=== PATIENT | male | born 1935 | race Caucasian/White ===

== ENCOUNTER 2021-11-27 16:48 | Emergency (ER) | payer OTHER, SELFPAY ==
--- NOTE | ~2021-11-27 | CT_ITS ---
EXAMINATION: CT ABDOMEN AND PELVIS WITHOUT CONTRAST CLINICAL INFORMATION: Abdominal pain COMPARISON: CT abdomen and pelvis 02/25/2008 TECHNIQUE: Multidetector volumetric imaging was performed from the superior aspect of the liver through the pubic symphysis. Sagittal and coronal reformatted images were obtained on the technologist's workstation. This CT examination was performed using dose optimization techniques as appropriate, variously including the following: *Automated exposure control *Adjustment of mA and/or kV according to patient size (this includes techniques or standardized protocols for targeted exams where dose is matched to indication/reason for exam; i.e. extremities or head) *Use of iterative reconstruction technique DLP: 450 mGy-cm FINDINGS: Exam quality degraded by patient motion artifact. LUNG BASES: Trace left basilar pleural effusion. Lung bases otherwise clear. Small hiatal hernia. LIVER, GALLBLADDER, AND BILIARY TREE: Multiple low-density hepatic lesions compatible with cysts measuring up to 3.4 cm in size in the left liver lobe. No suspicious appearing liver lesions. Normal hepatic attenuation. Gallbladder is not the identified. No biliary ductal dilation. PANCREAS: Unremarkable. SPLEEN: Normal size. No splenic lesion. Small splenule. ADRENAL GLANDS: Unremarkable. KIDNEYS AND URETERS: 1.8 cm low-density exophytic right midpole renal cyst. Small low-density right lower pole renal lesion also likely a small cyst. No other gross renal lesion allowing for motion artifact. No radiodense urinary tract calculi or hydronephrosis. Mild symmetric perirenal fascial stranding bilaterally. BLADDER: Slightly thick-walled appearance favored due to incomplete distention. GASTROINTESTINAL TRACT: Sigmoid diverticulosis. No evidence of acute diverticulitis. No dilated bowel loops or appreciable bowel wall thickening. Appendix is not discretely visualized. No inflammatory change in the right lower quadrant. No ascites or free air. ABDOMINAL WALL: Small fat-containing left inguinal hernia. LYMPH NODES: No lymphadenopathy identified. VASCULAR: Tortuous abdominal aorta with extensive vascular calcifications. No abdominal aortic aneurysm. PELVIC VISCERA: Unremarkable. OSSEOUS STRUCTURES: No acute fracture or suspicious osseous lesion. Multilevel degenerative disc disease most advanced at L5-S1. Lower lumbar facet arthrosis. CT/CT abdomen pelvis wo IV con IMPRESSION: 1. No acute intra-abdominal process identified. 2. Sigmoid diverticulosis. No evidence of acute diverticulitis. 3. Hepatic cysts and small right renal cysts. 4. Additional ancillary findings, as described.
[2021-11-27 17:22] VITALS: BP 148/82; PULSE 66; RESP 18; TEMP 36.8; O2SAT 98; BMI 22.1
[2021-11-27 17:39] LABS: MANUAL DIFF FLAG NO
[2021-11-27 17:42] LABS: Hemoglobin 13.3 g/dl (14.0-18.0); Lymphocytes Percent Auto 24.3 % (20-40); NRBC Pct Auto 0.5 /100WBC (0.0-0.2); PLT CLUMP 1; SCAN SMEAR FLAG 1
[2021-11-27 17:44] LABS: Basophils Absolute Auto 0.1 X10*3/uL (0.0-0.2); Basophils Percent Auto 0.9 % (0-2); Eosinophils Absolute Auto 0.2 X10*3/uL (0.0-0.4); Eosinophils Percent Auto 2.5 % (0-4); Hematocrit 40.3 % (42.0-52.0); Imm Gran Abs Auto 0.02 X10*3/uL (0.00-0.03); Imm Gran Pct Auto 0.3 % (0.0-0.4); Lymphocytes Absolute Auto 1.6 X10*3/uL (1.2-4.9); Mean Corpuscular Volume 93.9 fL (80.0-98.0); Mean Platelet Volume 11.7 fL (9.4-12.4); Monocytes Absolute Auto 0.5 X10*3/uL (0.1-1.2); Neutrophils Absolute Auto 4.1 x10*3/uL (2.0-8.3); Red Blood Count 4.29 X10*6/uL (4.60-5.80); Red Cell Distribution Width 13.6 % (11.0-16.0)
[2021-11-27 18:00] LABS: Alanine Aminotransferase 17 U/L (0-40); Alkaline Phosphatase 59 U/L (39-117); Anion Gap 14 (12-20); Aspartate Amino Transferase 24 U/L (5-37); Bilirubin Total 0.4 mg/dL (0.0-1.0); Blood Urea Nitrogen 19 mg/dL (9-16); Calcium 8.5 mg/dL (8.4-10.2); Carbon Dioxide 20 mmol/L (22-29); Chloride 107 mmol/L (96-108); Creatinine Clr Calc Pharmacy 46.8; Estimated Glomerular Filt Rate > 60; Glucose Random 119 mg/dL (60-115); Lipase 28 U/L (8-78); Potassium 4.6 mmol/L (3.3-5.1); Sodium 136 mmol/L (135-145); Total Protein 6.7 g/dL (6.5-8.0)
[2021-11-27 18:01] LABS: Platelet Count 67 X10*3/uL (160-400); White Blood Count 6.5 X10*3/uL (4.8-10.8)
[2021-11-27 19:46] LABS: Appearance Urine CLEAR; Color Urine YELLOW; Glucose Urine UA NEG (NEG); Leukocyte Esterase Urine NEG (NEG); Nitrite Urine NEG (NEG); Specific Gravity - Urine 1.025 (1.005-1.025); Urine Blood NEG (NEG); Urine Ketones NEG (NEG); Urine Protein NEG (NEG-TRACE)
--- NOTE | 2021-11-27 22:03 | ED_ITS ---
HPI - Abdominal Pain General Chief Complaint: Abdominal Pain Stated Complaint: severe abd pain Time Seen by Provider: 11/27/21 22:03 Source: patient and family Mode of arrival: ambulatory Limitations: no limitations History of Present Illness HPI narrative: Patient with History of bipolar disorder, BPH, CVA, hypertension, hyperlipidemia , arthralgia, anxiety goes to [facility] came from GI office today who ordered CT scan for abnormal CT scan finding for mild thickening of small portion of distal ascending colon on the CT scan done on 11/12. Patient feel very anxious and depressed unable to sleep for last few days feels abdominal bloated and constipated no nausea no vomiting no diarrhea no fever no chills Related Data Home Medications Medication Instructions Recorded Confirmed atorvastatin 80 mg tablet 80 mg PO DAILY 11/27/21 11/27/21 docusate sodium 100 mg capsule 100 mg PO BID 11/27/21 11/27/21 furosemide 20 mg tablet 20 mg PO DAILY 11/27/21 11/27/21 hydrochlorothiazide 12.5 mg capsule 12.5 mg PO DAILY 11/27/21 11/27/21 lamotrigine 200 mg tablet 200 mg PO DAILY 11/27/21 11/27/21 multivitamin 1 tab PO DAILY 11/27/21 11/27/21 olanzapine 5 mg tablet 5 mg PO BEDTIME 11/27/21 11/27/21 omeprazole 20 mg capsule,delayed 20 mg PO DAILY 11/27/21 11/27/21 release ondansetron HCl 4 mg tablet 4 mg PO BID 11/27/21 11/27/21 selegiline 9 mg/24 hr transdermal 9 mg transdermal DAILY 11/27/21 11/27/21 24 hour patch sennosides 8.6 mg tablet 17.2 mg PO BID 11/27/21 11/27/21 terazosin 5 mg capsule 5 mg PO BEDTIME 11/27/21 11/27/21 Previous Rx's Medication Instructions Recorded bisacodyl 5 mg tablet 10 mg PO BEDTIME #180 tabs 11/27/21 dicyclomine 10 mg capsule 10 mg PO TID PRN abdominal 11/27/21 discomfort #30 caps lorazepam 0.5 mg tablet (Ativan) 0.5 mg PO BEDTIME PRN sleep #30 11/27/21 tabs magnesium citrate 150 ml PO DAILY PRN constipation 11/27/21 #296 mL polyethylene glycol 3350 17 17 g PO DAILY #510 grams 11/27/21 gram/dose oral powder (Miralax) Allergies Allergy/AdvReac Type Severity Reaction Status Date / Time pencillin Allergy Severe Unknown Uncoded 11/20/21 16:26 Review of Systems Review of Systems Yes all other systems are reviewed and are negative [facility] Social History Social History Household Members: Family Alcohol intake: never Patient Tobacco Use Status: Never used Tobacco Advance Directives: No Physical Exam ED Vital Signs: Vital Signs - 24 hr 11/27/21 17:22 Temperature 98.2 F Pulse Rate 66 Respiratory Rate 18 Blood Pressure 148/82 H Pulse Oximetry 98 Oxygen Delivery Method Room Air BMI result Body Mass Index 22.1 Appearance: Alert. Oriented X3. No acute distress. Patient feels anxious Eyes: No pallor or icterus ENT: Pharynx normal. Oral Mucosa moist Neck: Normal inspection. Neck supple. CVS: Normal heart rate and rhythm. Pulses normal. Respiratory: No respiratory distress. Equal air entry bilateral, no wheezing/rales/rhonchi Abdomen: Soft and nontender. Bowel sounds are present, no mass palpable, no CVA tenderness Skin: Skin warm and dry. Normal skin color. Normal skin turgor. Extremities: No lower extremity edema. No calf tenderness Neuro: Oriented X 3. No motor deficit. No sensory deficit.No cerebellar signs , cranial nerves II-XII intact MDM - Abdominal Pain MDM Narrative Medical decision making narrative: Patient with anxiety bipolar disorder clinically seems like IBS patient's labs are stable and CT scan negative for any acute findings will discharge patient home Medical Records Attestation: I reviewed the patient's medical records. Lab Data Attestation: I reviewed the patient's lab results. Result diagrams: 11/27/21 17:31 11/27/21 17:31 Labs: Lab Results 11/27/21 11/27/21 11/27/21 Range/Units 17:31 17:31 19:32 WBC 6.5 (4.8-10.8) X10*3/uL RBC 4.29 L (4.60-5.80) X10*6/uL Hgb 13.3 L (14.0-18.0) g/dl Hct 40.3 L (42.0-52.0) % MCV 93.9 (80.0-98.0) fL MCH 31.0 (27.0-33.0) pg MCHC 33.0 (31.0-36.0) g/dl RDW 13.6 (11.0-16.0) % Plt Count 67 L (160-400) X10*3/uL MPV 11.7 (9.4-12.4) fL Immature Gran % (Auto) 0.3 (0.0-0.4) % Neut % (Auto) 64.0 (45-73) % Lymph % (Auto) 24.3 (20-40) % [place] % (Auto) 8.0 (2-11) % Eos % (Auto) 2.5 (0-4) % Baso % (Auto) 0.9 (0-2) % Lymph # (Auto) 1.6 (1.2-4.9) X10*3/uL [place] # (Auto) 0.5 (0.1-1.2) X10*3/uL Eos # (Auto) 0.2 (0.0-0.4) X10*3/uL Baso # (Auto) 0.1 (0.0-0.2) X10*3/uL Abs Immat Gran (auto) 0.02 (0.00-0.03) X10*3/uL Absolute Neuts (auto) 4.1 (2.0-8.3) x10*3/uL Absolute Nucleated RBC 0.030 H (0.0-0.012) X10*3/uL Nucleated RBC % (auto) 0.5 H (0.0-0.2) /100WBC Sodium 136 (135-145) mmol/L Potassium 4.6 (3.3-5.1) mmol/L Chloride 107 (96-108) mmol/L Carbon Dioxide 20 L (22-29) mmol/L Anion Gap 14 (12-20) BUN 19 H (9-16) mg/dL Creatinine 1.09 (0.5-1.4) mg/dL Estim Creat Clear Calc 46.8 Estimated GFR > 60 Random Glucose 119 H (60-115) mg/dL Calcium 8.5 (8.4-10.2) mg/dL Total Bilirubin 0.4 (0.0-1.0) mg/dL AST 24 (5-37) U/L ALT 17 (0-40) U/L Alkaline Phosphatase 59 (39-117) U/L Total Protein 6.7 (6.5-8.0) g/dL Albumin 4.0 (3.5-5.0) g/dL Lipase 28 (8-78) U/L Urine Color YELLOW Urine Appearance CLEAR Urine pH 6.0 (5.0-8.0) Ur Specific [place] 1.025 (1.005-1.025) Urine Protein NEG (NEG-TRACE) MG/DL Urine Glucose (UA) NEG (NEG) MG/DL Urine Ketones NEG (NEG) MG/DL Urine Blood NEG (NEG) Urine Nitrite NEG (NEG) Ur Leukocyte Esterase NEG (NEG) Discharge Plan Discharge Clinical Impression: Irritable bowel syndrome, Anxiety Patient Disposition: Home, Self-Care Instructions: Irritable Bowel Syndrome (ED), Anxiety (ED) Additional Instructions: Rest at home Continue medications as prescribed by your PCP Ativan for anxiety and poor sleep Prescriptions: New lorazepam [Ativan] 0.5 mg tablet 0.5 mg PO BEDTIME PRN (Reason: sleep) Qty: 30 0RF dicyclomine 10 mg capsule 10 mg PO TID PRN (Reason: abdominal discomfort) Qty: 30 0RF No Action atorvastatin 80 mg tablet 80 mg PO DAILY docusate sodium 100 mg capsule 100 mg PO BID furosemide 20 mg tablet 20 mg PO DAILY magnesium citrate Solution 150 ml PO DAILY PRN (Reason: constipation) Qty: 296 2RF hydrochlorothiazide 12.5 mg capsule 12.5 mg PO DAILY lamotrigine 200 mg tablet 200 mg PO DAILY multivitamin Tablet 1 tab PO DAILY olanzapine 5 mg tablet 5 mg PO BEDTIME omeprazole 20 mg capsule,delayed release(DR/EC) 20 mg PO DAILY selegiline 9 mg/24 hr patch 24 hour 9 mg transdermal DAILY polyethylene glycol 3350 [Miralax] 17 gram/dose powder 17 g PO DAILY Qty: 510 2RF sennosides 8.6 mg tablet 17.2 mg PO BID bisacodyl 5 mg tablet 10 mg PO BEDTIME Qty: 180 1RF terazosin 5 mg capsule 5 mg PO BEDTIME ondansetron HCl 4 mg tablet 4 mg PO BID
[2021-11-27] MEDS: LORazepam 0.5 MG TABLET PO (22:27)
== END 2021-11-27 22:31 | disposition home or self-care (01) ==
LOC: HO.ED 22:25
PROVIDERS: Emergency Provider Internal Medicine
DX: K58.9 Irritable bowel syndrome, unspecified (principal); F41.9 Anxiety disorder, unspecified; F32.A Depression, unspecified; I10 Essential (primary) hypertension; E78.5 Hyperlipidemia, unspecified; Z86.73 Personal history of transient ischemic attack (TIA), and cerebral infarction without residual deficits; Z79.02 Long term (current) use of antithrombotics/antiplatelets; Z79.899 Other long term (current) drug therapy
CPT/HCPCS: 36415; 74176; 80053; 81003; 83690; 85025; 99202; 99282; 99284

== ENCOUNTER 2022-03-16 15:35 | Emergency (ER) | payer OTHER, SELFPAY ==
--- NOTE | ~2022-03-16 | CT_ITS ---
EXAMINATION: CT HEAD WITHOUT CONTRAST CLINICAL INFORMATION: Weakness. Emergency evaluation. COMPARISON: None TECHNIQUE: Contiguous axial imaging was performed from the skull base to vertex without intravenous administration of contrast. This CT examination was performed using dose optimization techniques as appropriate, variously including the following: *Automated exposure control *Adjustment of mA and/or kV according to patient size (this includes techniques or standardized protocols for targeted exams where dose is matched to indication/reason for exam; i.e. extremities or head) *Use of iterative reconstruction technique DLP: 769 mGy-cm FINDINGS: There is prominence to the sulci and ventricles with moderate deep white matter gliosis but no hemorrhage, mass, mass effect or intracranial extra-axial fluid collection or hemorrhage. Calvarium intact. CT/CT head/brain wo IV con IMPRESSION: No acute intracranial pathology.
--- NOTE | ~2022-03-16 | XR_ITS ---
EXAMINATION: XR CHEST CLINICAL INFORMATION: Shortness of breath COMPARISON: Chest x-ray 09/04/2019 TECHNIQUE: 2 views of the chest were obtained. FINDINGS: Lung volume is low. Lungs are clear. No pulmonary vascular congestion. There is no pleural effusion. The heart size is normal. The cardiac and mediastinal contours are normal. There are multilevel degenerative changes of dorsal spine. XR/XR chest 2V IMPRESSION: Unremarkable examination.
[2022-03-16 15:47] VITALS: BP 134/88; BP 174/89; PULSE 67; PULSE 87; RESP 14; TEMP 36.9; O2SAT 97; O2SAT 98; BMI 22.1
--- NOTE | 2022-03-16 15:58 | ECG_ITS ---
Test Reason : DIZZINESS Blood Pressure : / mmHG Vent. Rate : 074 BPM Atrial Rate : 074 BPM P-R Int : 142 ms QRS Dur : 088 ms QT Int : 396 ms P-R-T Axes : 073 -36 027 degrees QTc Int : 439 ms Poor data quality Sinus rhythm with occasional Premature ventricular complexes Sinus Arrhythmia Left anterior fascicular block Abnormal ECG When compared with ECG of 17-AUG-2019 11:25, Premature ventricular complexes are now Present QRS axis Shifted left Referred By: Teodora David Electronically Signed By:PARAM BROWNING MD
--- NOTE | 2022-03-16 15:59 | ED_ITS ---
HPI - Psych General Chief Complaint: Psychiatric Symptoms Stated Complaint: SI Time Seen by Provider: 03/16/22 15:53 Source: patient Mode of arrival: EMS Limitations: no limitations History of Present Illness HPI Narrative: Patient is an 86-year-old male who presents to the emergency department with suicidal ideations. He states he always feels this way, when asked he states he has been taking his medications recently. Denies any precipitating event that may have increased his suicidal ideations. He reports that today he was searching around in his bed/room for cords that he could hang himself by the feet with, but was unable to find anything Does not provide any history of suicide attempts. Upon questioning he does endorse shortness of breath, which he states is typical for him, it is difficult to discern whether this is worse than normal. He also reports feeling generally weak. Denies any recent falls. Denies fevers, chills, chest pain, cough, nausea, vomiting, abdominal pain, numbness or tingling of the extremities. Related Data Home Medications Medication Instructions Recorded Confirmed atorvastatin 80 mg tablet 80 mg PO DAILY 11/27/21 11/27/21 docusate sodium 100 mg capsule 100 mg PO BID 11/27/21 11/27/21 furosemide 20 mg tablet 20 mg PO DAILY 11/27/21 11/27/21 hydrochlorothiazide 12.5 mg capsule 12.5 mg PO DAILY 11/27/21 11/27/21 lamotrigine 200 mg tablet 200 mg PO DAILY 11/27/21 11/27/21 multivitamin 1 tab PO DAILY 11/27/21 11/27/21 olanzapine 5 mg tablet 5 mg PO BEDTIME 11/27/21 11/27/21 omeprazole 20 mg capsule,delayed 20 mg PO DAILY 11/27/21 11/27/21 release ondansetron HCl 4 mg tablet 4 mg PO BID 11/27/21 11/27/21 selegiline 9 mg/24 hr transdermal 9 mg transdermal DAILY 11/27/21 11/27/21 24 hour patch sennosides 8.6 mg tablet 17.2 mg PO BID 11/27/21 11/27/21 terazosin 5 mg capsule 5 mg PO BEDTIME 11/27/21 11/27/21 Previous Rx's Medication Instructions Recorded bisacodyl 5 mg tablet 10 mg PO BEDTIME #180 tabs 11/27/21 dicyclomine 10 mg capsule 10 mg PO TID PRN abdominal 11/27/21 discomfort #30 caps lorazepam 0.5 mg tablet (Ativan) 0.5 mg PO BEDTIME PRN sleep #30 11/27/21 tabs magnesium citrate 150 ml PO DAILY PRN constipation 11/27/21 #296 mL polyethylene glycol 3350 17 17 g PO DAILY #510 grams 11/27/21 gram/dose oral powder (Miralax) Allergies Allergy/AdvReac Type Severity Reaction Status Date / Time pencillin Allergy Severe Unknown Uncoded 11/20/21 16:26 Review of Systems Review of Systems: Constitutional : No Fever, No Chills, positive weakness ENT/Mouth : No Ear Pain, No Nasal Congestion, No sore throat Eyes: No Eye Pain, No Swelling, No Redness Cardiovascular : No Chest Pain, positive SOB Respiratory : No Cough, No Sputum, Gastrointestinal : No Nausea, No Vomiting, No Diarrhea, No Hematochezia, No Melena Genitourinary : No Dysuria, No Urinary Frequency, No Hematuria Musculoskeletal : No Myalgias Skin : No Skin Lesions, No rash Neuro : No Weakness, No Numbness, No Paresthesias, No Dizziness, No Headache Psych : positive Anxiety, positive Depression, positive SI/HI Heme/Lymph: No Lymphadenopathy Endocrine : No Polyuria, No Polydipsia Yes all other systems are reviewed and are negative [facility] Past Medical History Attestation statement: The following information was validated with the patient. Source: old records reviewed Social History Social History Household Members: Family Alcohol intake: never Patient Tobacco Use Status: Never used Tobacco Advance Directives: Yes Advance Directives Information Provided: No Advance Directives on File: No Physical Exam Vital Signs: Vital Signs: Last Vital Signs Temp 98.5 F 03/16/22 15:47 Pulse 67 03/16/22 15:47 Resp 14 03/16/22 15:47 BP 174/89 H 03/16/22 15:47 Pulse Ox 97 03/16/22 15:47 O2 Del Method 03/16/22 15:47 BMI result Body Mass Index 22.1 Appearance: Alert.?Oriented to person, place and time. No acute distress.?Normal affect. Eyes: Pupils equal, round and reactive to light.? ENT: Pharynx normal.?? Neck: Normal inspection.? Neck supple.?? CVS: Heart sounds normal. Normal heart rate and rhythm.? Pulses normal.?? Respiratory: Tachypnea? Lung sounds clear to auscultation bilaterally?? Abdomen: Soft and non-tender. Normoactive bowel sounds. ? Skin: Skin warm and dry.? Normal skin color.? Extremities: No lower extremity edema.? Neuro: Moves all extremities spontaneously. Sensation intact bilaterally. CT II- X!! intact. No focal neuro deficits. Course Course Course Narrative: Patient is an 86-year-old male with past medical history of anxiety, depression, bipolar disorder, BPH, CVA, hypertension, hyperlipidemia presenting to emergency department reports of suicidal ideations and shortness of breath. He reports that he always feels short of breath, unable to provide much more significant history. Physical exam is overall unremarkable, notably tachypneic but he is also very anxious, he is afebrile, no tachycardia, or hypoxia. Will obtain CBC to evaluate for leukocytosis/ anemia, CMP to evaluate for abnormal electrolytes /abnormal renal function/ abnormal hepatic function, EKG and troponin to evaluate for ischemia/ACS. Chest x-ray to evaluate for consolidation/ infiltrate/ mass/ pulmonary congestion and Urinalysis. I spoke with patient's son Ellis with patient's permission, he can be reached at [phone]. Ellis reports that patient has a history of anxiety, depression, bipolar disorder for which he is supposed to be taking medications for. He is not certain whether his father is actually taking his medications. Patient lives alone, his son lives downstairs in an in-law apartment. Reports that patient has had longstanding history with suicidal ideations, denies his father ever endorsing any specific plan, no denies any known history of suicide attempts in the past. Reevaluation(s) Reevaluation #1: Chest x-ray is unremarkable for any acute cardiopulmonary process. CBC reveals a normocytic anemia and mild thrombocytopenia which appears consistent with baseline otherwise unremarkable. CMP is overall unremarkable. Troponin detectable at 18.9, EKG Reveals sinus rhythm with PVCs, no acute ischemic findings, no active chest pain. D-dimer 273, age adjusted is normal, low likelihood for pulmonary embolism. COVID-19 and influenza testing are negative. Patient continues to report feeling generally weak, discussed this case with ED attending, will obtain CT of the head to exclude intracranial pathology. Given acute anziety, inability to sit still, patient to receive Zyprexa IM. If normal, he will require physician observation as he will require additional time to be evaluated by N to determine whether inpatient psychiatric services are required given suicidal ideations thoughts of wanting to hang himself. Patient signed out to Mckayla Calderon NP pending CT head and BHN evaluation Time: 18:01 [facility] - Psych Medical Records Attestation: I reviewed the patient's medical records. Lab Data Attestation: I reviewed the patient's lab results. Result diagrams: 03/16/22 16:50 03/16/22 16:50 Labs: Lab Results 03/16/22 03/16/22 03/16/22 Range/Units 16:50 16:50 16:50 WBC 7.4 (4.8-10.8) X10*3/uL RBC 4.23 L (4.60-5.80) X10*6/uL Hgb 13.2 L (14.0-18.0) g/dl Hct 37.9 L (42.0-52.0) % MCV 89.6 (80.0-98.0) fL MCH 31.2 (27.0-33.0) pg MCHC 34.8 (31.0-36.0) g/dl RDW 12.8 (11.0-16.0) % Plt Count 154 L D (160-400) X10*3/uL MPV 11.2 (9.4-12.4) fL Immature Gran % (Auto) 0.3 (0.0-0.4) % Neut % (Auto) 69.6 (45-73) % Lymph % (Auto) 22.0 (20-40) % [place] % (Auto) 5.9 (2-11) % Eos % (Auto) 1.8 (0-4) % Baso % (Auto) 0.4 (0-2) % Lymph # (Auto) 1.6 (1.2-4.9) X10*3/uL [place] # (Auto) 0.4 (0.1-1.2) X10*3/uL Eos # (Auto) 0.1 (0.0-0.4) X10*3/uL Baso # (Auto) 0.0 (0.0-0.2) X10*3/uL Abs Immat Gran (auto) 0.02 (0.00-0.03) X10*3/uL Absolute Neuts (auto) 5.2 (2.0-8.3) x10*3/uL Absolute Nucleated RBC 0.000 (0.0-0.012) X10*3/uL Nucleated RBC % (auto) 0.0 (0.0-0.2) /100WBC D-Dimer High Sensitivty NG/ML Sodium 135 (135-145) mmol/L Potassium 3.7 (3.3-5.1) mmol/L Chloride 99 (96-108) mmol/L Carbon Dioxide 22 (22-29) mmol/L Anion Gap 18 (12-20) BUN 17 H (9-16) mg/dL Creatinine 0.92 (0.5-1.4) mg/dL Estim Creat Clear Calc 54.4 Estimated GFR > 60 Random Glucose 103 (60-115) mg/dL Calcium 9.2 D (8.4-10.2) mg/dL Magnesium 1.8 (1.6-2.6) mg/dL Total Bilirubin 0.6 (0.0-1.0) mg/dL AST 28 (5-37) U/L ALT 18 (0-40) U/L Alkaline Phosphatase 57 (39-117) U/L Troponin I High Sens 18.9 (<3.5-35.0) ng/L Total Protein 6.7 (6.5-8.0) g/dL Albumin 4.0 (3.5-5.0) g/dL Urine Color Urine Appearance Urine pH (5.0-9.0) Ur Specific Ke[place] (1.005-1.025) Urine Protein (Neg-Trace) mg/dL Urine Glucose (UA) (Negative) mg/dL Urine Ketones (Negative) mg/dL Urine Blood (Negative) Urine Nitrite (Negative) Ur Leukocyte Esterase (Negative) Salicylates < 5.0 L (15-30) mg/dL Urine Opiates Screen (Not Detect) Urine Fentanyl Screen (Not Detect) Acetaminophen < 1 (<30) mcg/mL Ur Barbiturates Screen (Not Detect) Ur Phencyclidine Scrn (Not Detect) Ur Amphetamines Screen (Not Detect) U Benzodiazepines Scrn (Not Detect) Urine Cocaine Screen (Not Detect) U Marijuana (THC) Screen (Not Detect) Ethyl Alcohol mg/dL COVID-19 (ROSLYN) (Negative) COVID-19 Clin Com Influenza Type A (JACQUE) (Negative) Influenza Type B (JACQUE) (Negative) Influenza A & B Note 03/16/22 03/16/22 03/16/22 Range/Units 16:50 16:50 16:50 WBC (4.8-10.8) X10*3/uL RBC (4.60-5.80) X10*6/uL Hgb (14.0-18.0) g/dl Hct (42.0-52.0) % MCV (80.0-98.0) fL MCH (27.0-33.0) pg MCHC (31.0-36.0) g/dl RDW (11.0-16.0) % Plt Count (160-400) X10*3/uL MPV (9.4-12.4) fL Immature Gran % (Auto) (0.0-0.4) % Neut % (Auto) (45-73) % Lymph % (Auto) (20-40) % [place] % (Auto) (2-11) % Eos % (Auto) (0-4) % Baso % (Auto) (0-2) % Lymph # (Auto) (1.2-4.9) X10*3/uL [place] # (Auto) (0.1-1.2) X10*3/uL Eos # (Auto) (0.0-0.4) X10*3/uL Baso # (Auto) (0.0-0.2) X10*3/uL Abs Immat Gran (auto) (0.00-0.03) X10*3/uL Absolute Neuts (auto) (2.0-8.3) x10*3/uL Absolute Nucleated RBC (0.0-0.012) X10*3/uL Nucleated RBC % (auto) (0.0-0.2) /100WBC D-Dimer High Sensitivty NG/ML Sodium (135-145) mmol/L Potassium (3.3-5.1) mmol/L Chloride (96-108) mmol/L Carbon Dioxide (22-29) mmol/L Anion Gap (12-20) BUN (9-16) mg/dL Creatinine (0.5-1.4) mg/dL Estim Creat Clear Calc Estimated GFR Random Glucose (60-115) mg/dL Calcium (8.4-10.2) mg/dL Magnesium (1.6-2.6) mg/dL Total Bilirubin (0.0-1.0) mg/dL AST (5-37) U/L ALT (0-40) U/L Alkaline Phosphatase (39-117) U/L Troponin I High Sens (<3.5-35.0) ng/L Total Protein (6.5-8.0) g/dL Albumin (3.5-5.0) g/dL Urine Color Urine Appearance Urine pH (5.0-9.0) Ur Specific Ke[place] (1.005-1.025) Urine Protein (Neg-Trace) mg/dL Urine Glucose (UA) (Negative) mg/dL Urine Ketones (Negative) mg/dL Urine Blood (Negative) Urine Nitrite (Negative) Ur Leukocyte Esterase (Negative) Salicylates (15-30) mg/dL Urine Opiates Screen (Not Detect) Urine Fentanyl Screen (Not Detect) Acetaminophen (<30) mcg/mL Ur Barbiturates Screen (Not Detect) Ur Phencyclidine Scrn (Not Detect) Ur Amphetamines Screen (Not Detect) U Benzodiazepines Scrn (Not Detect) Urine Cocaine Screen (Not Detect) U Marijuana (THC) Screen (Not Detect) Ethyl Alcohol < 10 mg/dL COVID-19 (ROSLYN) Negative (Negative) COVID-19 Clin Com See Note Influenza Type A (JACQUE) Negative (Negative) Influenza Type B (JACQUE) Negative (Negative) Influenza A & B Note See Note 03/16/22 03/16/22 03/16/22 Range/Units 16:50 16:52 16:52 WBC (4.8-10.8) X10*3/uL RBC (4.60-5.80) X10*6/uL Hgb (14.0-18.0) g/dl Hct (42.0-52.0) % MCV (80.0-98.0) fL MCH (27.0-33.0) pg MCHC (31.0-36.0) g/dl RDW (11.0-16.0) % Plt Count (160-400) X10*3/uL MPV (9.4-12.4) fL Immature Gran % (Auto) (0.0-0.4) % Neut % (Auto) (45-73) % Lymph % (Auto) (20-40) % [place] % (Auto) (2-11) % Eos % (Auto) (0-4) % Baso % (Auto) (0-2) % Lymph # (Auto) (1.2-4.9) X10*3/uL [place] # (Auto) (0.1-1.2) X10*3/uL Eos # (Auto) (0.0-0.4) X10*3/uL Baso # (Auto) (0.0-0.2) X10*3/uL Abs Immat Gran (auto) (0.00-0.03) X10*3/uL Absolute Neuts (auto) (2.0-8.3) x10*3/uL Absolute Nucleated RBC (0.0-0.012) X10*3/uL Nucleated RBC % (auto) (0.0-0.2) /100WBC D-Dimer High Sensitivty 273 NG/ML Sodium (135-145) mmol/L Potassium (3.3-5.1) mmol/L Chloride (96-108) mmol/L Carbon Dioxide (22-29) mmol/L Anion Gap (12-20) BUN (9-16) mg/dL Creatinine (0.5-1.4) mg/dL Estim Creat Clear Calc Estimated GFR Random Glucose (60-115) mg/dL Calcium (8.4-10.2) mg/dL Magnesium (1.6-2.6) mg/dL Total Bilirubin (0.0-1.0) mg/dL AST (5-37) U/L ALT (0-40) U/L Alkaline Phosphatase (39-117) U/L Troponin I High Sens (<3.5-35.0) ng/L Total Protein (6.5-8.0) g/dL Albumin (3.5-5.0) g/dL Urine Color Yellow Urine Appearance Clear Urine pH 6.5 (5.0-9.0) Ur Specific [place] 1.010 (1.005-1.025) Urine Protein Negative (Neg-Trace) mg/dL Urine Glucose (UA) Negative (Negative) mg/dL Urine Ketones Trace (Negative) mg/dL Urine Blood Negative (Negative) Urine Nitrite Negative (Negative) Ur Leukocyte Esterase Negative (Negative) Salicylates (15-30) mg/dL Urine Opiates Screen Not Detected (Not Detect) Urine Fentanyl Screen Not Detected (Not Detect) Acetaminophen (<30) mcg/mL Ur Barbiturates Screen Not Detected (Not Detect) Ur Phencyclidine Scrn Not Detected (Not Detect) Ur Amphetamines Screen Not Detected (Not Detect) U Benzodiazepines Scrn Not Detected (Not Detect) Urine Cocaine Screen Not Detected (Not Detect) U Marijuana (THC) Screen POSITIVE H (Not Detect) Ethyl Alcohol mg/dL COVID-19 (ROSLYN) (Negative) COVID-19 Clin Com Influenza Type A (JACQUE) (Negative) Influenza Type B (JACQUE) (Negative) Influenza A & B Note Imaging Data Chest x-ray: Radiologist's impression: XR/XR chest 2V IMPRESSION: Unremarkable examination. ECG Data Attestation: I personally reviewed and interpreted this ECG as follows: ECG interpretation date: 03/16/22 Prior ECG tracings: not available for review Interpretation: Rate:73 Rhythm:? Sinus rhythm with PVCs Normal P waves.? Normal KATHE.?? Normal QRS complex.?? ST T wave :??No ST elevation, no ST depression qTC: 439 prior studies: None available for review? The study has been interpreted contemporaneously by me. Discharge Plan Discharge Clinical Impression: Suicidal ideation, Acute anxiety Patient Disposition: Still a Patient Prescriptions: No Action lorazepam [Ativan] 0.5 mg tablet 0.5 mg PO BEDTIME PRN (Reason: sleep) Qty: 30 0RF dicyclomine 10 mg capsule 10 mg PO TID PRN (Reason: abdominal discomfort) Qty: 30 0RF atorvastatin 80 mg tablet 80 mg PO DAILY docusate sodium 100 mg capsule 100 mg PO BID furosemide 20 mg tablet 20 mg PO DAILY magnesium citrate Solution 150 ml PO DAILY PRN (Reason: constipation) Qty: 296 2RF hydrochlorothiazide 12.5 mg capsule 12.5 mg PO DAILY lamotrigine 200 mg tablet 200 mg PO DAILY multivitamin Tablet 1 tab PO DAILY olanzapine 5 mg tablet 5 mg PO BEDTIME omeprazole 20 mg capsule,delayed release(DR/EC) 20 mg PO DAILY selegiline 9 mg/24 hr patch 24 hour 9 mg transdermal DAILY polyethylene glycol 3350 [Miralax] 17 gram/dose powder 17 g PO DAILY Qty: 510 2RF sennosides 8.6 mg tablet 17.2 mg PO BID bisacodyl 5 mg tablet 10 mg PO BEDTIME Qty: 180 1RF terazosin 5 mg capsule 5 mg PO BEDTIME ondansetron HCl 4 mg tablet 4 mg PO BID
--- NOTE | 2022-03-16 16:32 | PC.NURSE ---
Pt aox2. No apparent distress noted. HR and respirations within normal limits. Pt continues to repeat I am sick and I want to put an end to this. I want to . Smart sheet completed. Provider aware.
[2022-03-16 16:58] LABS: MANUAL DIFF FLAG NO
[2022-03-16 17:01] LABS: Basophils Percent Auto 0.4 % (0-2); Eosinophils Absolute Auto 0.1 X10*3/uL (0.0-0.4); Eosinophils Percent Auto 1.8 % (0-4); Hematocrit 37.9 % (42.0-52.0); Hemoglobin 13.2 g/dl (14.0-18.0); Imm Gran Abs Auto 0.02 X10*3/uL (0.00-0.03); Imm Gran Pct Auto 0.3 % (0.0-0.4); Lymphocytes Absolute Auto 1.6 X10*3/uL (1.2-4.9); Mean Corpuscular HGB Conc 34.8 g/dl (31.0-36.0); Mean Corpuscular Hemoglobin 31.2 pg (27.0-33.0); Mean Corpuscular Volume 89.6 fL (80.0-98.0); Mean Platelet Volume 11.2 fL (9.4-12.4); Monocytes Absolute Auto 0.4 X10*3/uL (0.1-1.2); Monocytes Percent Auto 5.9 % (2-11); Neutrophils Absolute Auto 5.2 x10*3/uL (2.0-8.3); Neutrophils Percent Auto 69.6 % (45-73); Platelet Count 154 X10*3/uL (160-400); Red Blood Count 4.23 X10*6/uL (4.60-5.80); Red Cell Distribution Width 12.8 % (11.0-16.0); White Blood Count 7.4 X10*3/uL (4.8-10.8)
[2022-03-16 17:02] LABS: Appearance Urine Clear; Color Urine Yellow; Glucose Urine UA Negative (Negative); Leukocyte Esterase Urine Negative (Negative); Nitrite Urine Negative (Negative); PH 6.5 (5.0-9.0); Urine Blood Negative (Negative); Urine Ketones Trace mg/dL (Negative); Urine Protein Negative (Neg-Trace)
[2022-03-16 17:10] LABS: D Dimer High Sensitivity 273 NG/ML
[2022-03-16 17:11] LABS: Ethanol < 10 mg/dL
[2022-03-16 17:15] LABS: Acetaminophen LAB < 1 mcg/mL (<30); Alanine Aminotransferase 18 U/L (0-40); Alkaline Phosphatase 57 U/L (39-117); Anion Gap 18 (12-20); Aspartate Amino Transferase 28 U/L (5-37); Bilirubin Total 0.6 mg/dL (0.0-1.0); Blood Urea Nitrogen 17 mg/dL (9-16); Calcium 9.2 mg/dL (8.4-10.2); Carbon Dioxide 22 mmol/L (22-29); Chloride 99 mmol/L (96-108); Creatinine Clr Calc Pharmacy 54.4; Estimated Glomerular Filt Rate > 60; Glucose Random 103 mg/dL (60-115); Magnesium 1.8 mg/dL (1.6-2.6); Potassium 3.7 mmol/L (3.3-5.1); Salicylate < 5.0 mg/dL (15-30); Sodium 135 mmol/L (135-145); Total Protein 6.7 g/dL (6.5-8.0)
[2022-03-16 17:16] LABS: Amphetamine Screen Urine Not Detected (Not Detect); Barbiturates, Urine Not Detected (Not Detect); Benzodiazepines Screen Urine Not Detected (Not Detect); Cannabinoid Screen Urine POSITIVE (Not Detect); Cocaine Screen Urine Not Detected (Not Detect); Fentanyl, urine Not Detected (Not Detect); Opiate Screen Urine Not Detected (Not Detect); Phencyclidine Screen Urine Not Detected (Not Detect)
[2022-03-16 17:16] LABS: COVID-19 Test Negative (Negative); IDNOW Serial# 16C4AD1C; Influenza A Negative (Negative); Influenza B2 Negative (Negative)
[2022-03-16 17:22] LABS: Troponin-I High Sensitivity 18.9 ng/L (<3.5-35.0)
--- NOTE | 2022-03-16 17:30 | PC.NURSE ---
Pt agitated, unable to obtain EKG, will try again.
[2022-03-16] MEDS: OLANZapine 10 MG VIAL 5 MG IM (18:25)
[2022-03-16 18:34] VITALS: BP 182/75; PULSE 71; RESP 14; TEMP 37.2; O2SAT 97
[2022-03-16 18:38] VITALS: BP 160/86
[2022-03-16 20:09] VITALS: BP 175/102; PULSE 59; RESP 18; TEMP 36.8; O2SAT 97
--- NOTE | 2022-03-16 22:25 | PC.NURSE ---
Pt eating at the bedside. Declines vital signs. Reports pain all over 01/25. Provider aware.
[2022-03-16 23:31] VITALS: BP 138/63; PULSE 69; RESP 18; TEMP 36.4; O2SAT 96
[2022-03-17] MEDS: diphenhydrAMINE HCL 25 MG CAPSULE 50 MG PO (02:21)
[2022-03-17 02:36] VITALS: BP 101/68; PULSE 59; RESP 16; TEMP 36.1; O2SAT 96
[2022-03-17 04:30] VITALS: BP 100/68; PULSE 63; RESP 17; TEMP 36.4; O2SAT 96
[2022-03-17 07:19] VITALS: BP 132/67; PULSE 66; RESP 18; TEMP 36.6; O2SAT 99
[2022-03-17 08:00] VITALS: O2SAT 96
--- NOTE | 2022-03-17 09:04 | PHA.MEDREC ---
Pharmacy Consult ? Medication Reconciliation Pharmacy has completed the medication reconciliation. Received list from [place]. Attempted to confirm with patient. Patient stated he gets med from [place] and he can take of him. Utilized list sent from [place]. Some medication are outdate and have not been filled since july for 90 day supplies. Kimberly Em, PharmD
[2022-03-17 12:57] VITALS: BP 108/61; PULSE 62; RESP 18; TEMP 37.2; O2SAT 94
[2022-03-17] MEDS: Sennosides 8.6 MG TABLET 17.2 MG PO (21:05)
[2022-03-17] MEDS: Docusate Sodium 100 MG CAPSULE PO (21:05)
[2022-03-17] MEDS: OLANZapine 5 MG TABLET PO (21:05)
[2022-03-17] MEDS: Doxazosin Mesylate 2 MG TABLET 4 MG PO (21:05)
[2022-03-17] MEDS: lamoTRIgine 100 MG TABLET 200 MG PO (21:05)
[2022-03-18 05:41] VITALS: BP 94/70; PULSE 70; RESP 16; TEMP 36.4; O2SAT 96
[2022-03-18] MEDS: Omeprazole 20 MG CAPSULE.DR PO (06:46)
[2022-03-18 08:15] VITALS: BP 128/67; PULSE 66; RESP 18; O2SAT 97
[2022-03-18] MEDS: Docusate Sodium 100 MG CAPSULE PO ×2 (08:17→20:50)
[2022-03-18] MEDS: Multivitamin TABLET 1 TAB PO (08:17)
[2022-03-18] MEDS: Furosemide 20 MG TABLET PO (08:17)
[2022-03-18] MEDS: Sennosides 8.6 MG TABLET 17.2 MG PO ×2 (08:18→20:49)
[2022-03-18] MEDS: hydroCHLOROthiazide 12.5 MG TABLET PO (08:18)
[2022-03-18] MEDS: Atorvastatin Calcium 80 MG TABLET PO (08:18)
--- NOTE | 2022-03-18 08:35 | PC.NURSE ---
pt resting. a&o x4. VS wnl. denies pain. gave him morning meds, fixed up his bed and gave him warm blankets.
--- NOTE | 2022-03-18 13:26 | PC.NURSE ---
pt's son at the bedside. He brought a patch the pt uses at home. contacted and brought to pharmacy to verify. pt a&o however very depressed, says nothing matters. He wants to go home. walked him on the hallway and put recliner in his room to make him more comfortable. still waiting on inpatient placement
--- NOTE | 2022-03-18 13:29 | PC.NURSE ---
son's contact number [phone]
[2022-03-18 15:11] VITALS: BP 103/52; PULSE 70; RESP 18; TEMP 36.6; O2SAT 95
--- NOTE | 2022-03-18 15:18 | PC.NURSE ---
Upon approach pt presents with slight agitation (gruff/surly), however is agreeable to brief conversation with this BEVERLY/L. Pt is highly perseverative with regard to [facility] home . Notable apparent agitated confused state. Pt is receptive to a drink of water as noted by notable dry lips/mouth. Consult with nursing staff prior to request to clarify if pt is NPO or has a modified diet restriction. Per nursing pt is on a regular diet with this liquids.
--- NOTE | 2022-03-18 15:37 | PC.NURSE ---
Selegiline Patch 9mg transdermal patches received from son, verified by pharmacy and placed in pt specific bin in [employer]. (4 patches). Pharmacy to adjust MAR
--- NOTE | 2022-03-18 16:44 | PC.NURSE ---
pt resting comfortably. patch applied on his back. he is asking to call his son so he can come get him out of here. non combative,
[2022-03-18] MEDS: OLANZapine 5 MG TABLET PO (20:49)
[2022-03-18] MEDS: Doxazosin Mesylate 2 MG TABLET 4 MG PO (20:49)
[2022-03-18] MEDS: lamoTRIgine 100 MG TABLET 200 MG PO (20:49)
--- NOTE | 2022-03-18 20:54 | PC.NURSE ---
Assumed care of pt. at 1900. Pt. resting quietly in bed at this time. Pt. breathing even and unlabored. No SOB noted. Pt. took his night time medications without issues. Pt. just states he is sick . Pt. was able to get up and ambulate to commode. Repositioned pt. in bed and gave call spangler for any needs.
[2022-03-18 23:32] VITALS: BP 123/62; PULSE 64; RESP 17; TEMP 36.7; O2SAT 94
[2022-03-19] MEDS: LORazepam 0.5 MG TABLET PO (00:25)
--- NOTE | 2022-03-19 02:11 | PC.NURSE ---
pt refuse to have care done to him
[2022-03-19 05:19] VITALS: BP 133/74; PULSE 77; RESP 16; TEMP 36.4; O2SAT 94
[2022-03-19] MEDS: Furosemide 20 MG TABLET PO (10:36)
[2022-03-19] MEDS: Docusate Sodium 100 MG CAPSULE PO ×2 (10:36→21:20)
[2022-03-19] MEDS: Sennosides 8.6 MG TABLET 17.2 MG PO ×2 (10:36→21:20)
[2022-03-19] MEDS: hydroCHLOROthiazide 12.5 MG TABLET PO (10:36)
[2022-03-19] MEDS: Atorvastatin Calcium 80 MG TABLET PO (10:36)
[2022-03-19] MEDS: Multivitamin TABLET 1 TAB PO (10:36)
--- NOTE | 2022-03-19 10:52 | PC.NURSE ---
Pt alert and oriented, respirations even and unlabored. Pt changed and repositioned, pt stated I'm suicidal while changing pt. Sitter at bedside.
[2022-03-19 10:53] VITALS: BP 119/100; PULSE 77; O2SAT 95
--- NOTE | 2022-03-19 15:16 | PC.NURSE ---
Labs ordered for pt for placement. Pt declining labs at this time. Provider aware
[2022-03-19 15:34] VITALS: PULSE 65; RESP 19; TEMP 36.9; O2SAT 96
--- NOTE | 2022-03-19 20:05 | PC.NURSE ---
this RN spoke with [facility] who states that the pt needs labs and an EKG done in order to be placed. This RN let [facility] know that the pt was declining labs but we will attempt again.
--- NOTE | 2022-03-19 21:04 | PC.NURSE ---
Sandeep PCT successfully ginette pts blood and obtained and EKG. Provider aware
[2022-03-19 21:05] LABS: Hematocrit 41.3 % (42.0-52.0); Hemoglobin 13.9 g/dl (14.0-18.0); Mean Corpuscular HGB Conc 33.7 g/dl (31.0-36.0); Mean Corpuscular Hemoglobin 30.7 pg (27.0-33.0); Mean Corpuscular Volume 91.2 fL (80.0-98.0); Mean Platelet Volume 11.1 fL (9.4-12.4); Platelet Count 165 X10*3/uL (160-400); Red Blood Count 4.53 X10*6/uL (4.60-5.80); Red Cell Distribution Width 13.1 % (11.0-16.0); White Blood Count 7.8 X10*3/uL (4.8-10.8)
[2022-03-19 21:11] LABS: Prothrombin Time 11.7 SEC (10.0-13.1)
[2022-03-19 21:13] LABS: Partial Thromboplastin Time 29.8 SEC (26.0-36.4)
[2022-03-19] MEDS: OLANZapine 5 MG TABLET PO (21:20)
[2022-03-19] MEDS: Doxazosin Mesylate 2 MG TABLET 4 MG PO (21:20)
[2022-03-19] MEDS: lamoTRIgine 100 MG TABLET 200 MG PO (21:20)
[2022-03-19 21:23] LABS: Alanine Aminotransferase 15 U/L (0-40); Albumin Level 3.8 g/dL (3.5-5.0); Alkaline Phosphatase 61 U/L (39-117); Anion Gap 12 (12-20); Aspartate Amino Transferase 18 U/L (5-37); Bilirubin Total 0.3 mg/dL (0.0-1.0); Blood Urea Nitrogen 23 mg/dL (9-16); Calcium 9.3 mg/dL (8.4-10.2); Carbon Dioxide 31 mmol/L (22-29); Chloride 101 mmol/L (96-108); Creatinine Clr Calc Pharmacy 40.3; Estimated Glomerular Filt Rate 55; Glucose Random 101 mg/dL (60-115); Potassium 4.3 mmol/L (3.3-5.1); Sodium 140 mmol/L (135-145); Total Protein 6.5 g/dL (6.5-8.0)
[2022-03-19 21:46] LABS: Influenza A PCR NEGATIVE (Negative); Influenza B PCR NEGATIVE (Negative); Resp Syncy Virus RNA Qual PCR NEGATIVE (Negative); SARS COV2 PCR INHOUSE NEGATIVE (Negative)
[2022-03-19 22:07] VITALS: BP 129/68; PULSE 59; RESP 18; TEMP 36.2; O2SAT 96
--- NOTE | 2022-03-20 02:35 | PC.NURSE ---
Pt sleeping on bed. Respirations are even and unlabored
--- NOTE | 2022-03-20 03:50 | PC.NURSE ---
pt sleeping. chest rise and fall equal and unlabored. call spangler within reach.
[2022-03-20 05:11] VITALS: BP 103/63; PULSE 59; RESP 16; TEMP 36.4; O2SAT 100
[2022-03-20 06:33] VITALS: BP 111/71; PULSE 73; RESP 17; O2SAT 95
--- NOTE | 2022-03-20 07:27 | PC.NURSE ---
pt asleep at this time, resp even and unlabored. no distress noted.
[2022-03-20 08:29] VITALS: BP 107/62; PULSE 62; RESP 20; O2SAT 94
[2022-03-20] MEDS: Docusate Sodium 100 MG CAPSULE PO (08:33)
[2022-03-20] MEDS: Sennosides 8.6 MG TABLET 17.2 MG PO (08:33)
[2022-03-20] MEDS: hydroCHLOROthiazide 12.5 MG TABLET PO (08:33)
[2022-03-20] MEDS: Multivitamin TABLET 1 TAB PO (08:33)
[2022-03-20] MEDS: Atorvastatin Calcium 80 MG TABLET PO (08:33)
[2022-03-20] MEDS: Furosemide 20 MG TABLET PO (08:34)
[2022-03-20 12:36] VITALS: BP 132/82; PULSE 79; RESP 16; O2SAT 97
--- NOTE | 2022-03-20 13:26 | PC.NURSE ---
plan for s1 today
[2022-03-20 14:47] LABS: Alanine Aminotransferase 14 U/L (0-40); Alkaline Phosphatase 64 U/L (39-117); Anion Gap 17 (12-20); Aspartate Amino Transferase 17 U/L (5-37); Bilirubin Total 0.7 mg/dL (0.0-1.0); Blood Urea Nitrogen 23 mg/dL (9-16); Calcium 9.1 mg/dL (8.4-10.2); Carbon Dioxide 29 mmol/L (22-29); Chloride 99 mmol/L (96-108); Creatinine Clr Calc Pharmacy 40.3; Estimated Glomerular Filt Rate 55; Glucose Random 138 mg/dL (60-115); Potassium 3.5 mmol/L (3.3-5.1); Sodium 141 mmol/L (135-145); Total Protein 6.7 g/dL (6.5-8.0)
--- NOTE | 2022-03-20 15:49 | PC.NURSE ---
Pt going home with family.
--- NOTE | 2022-03-20 16:04 | MHC.CARE ---
Pt family is requesting Pt to be discharge. Pt was initially assessed by Denis Stuart on 03/16 and was not subsequently no re-assessed. Pt was seen by Bailey Knight NP stating Pt may benefit from a admission though does not require and involuntary IPLOC admission at this time. CARE Team spoke with Pts son who is his HCP, who stated he has no acute safety concerns regarding discharge and would like him to return home. [facility] CARE Team reviewed case with NADIA Coker and ENMA Casillas
--- NOTE | 2022-03-20 17:08 | PC.NURSE ---
Pt discharged to go home with son, Marcelo. Discharge instructions reviewed with pt and pts son. Pt and Marcelo verbalize understanding.
== END 2022-03-20 17:10 | disposition home or self-care (01) ==
PROVIDERS: Emergency Medicine; Nurse Practitioner Family; Social Worker; Emergency Provider Emergency Medicine; PCP Obstetrics & Gynecology
DX: R45.851 Suicidal ideations (principal); F41.9 Anxiety disorder, unspecified; R53.1 Weakness; R06.02 Shortness of breath; Z20.822 Contact with and (suspected) exposure to COVID-19; Z79.02 Long term (current) use of antithrombotics/antiplatelets; Z79.899 Other long term (current) drug therapy
CPT/HCPCS: 0241U; 36415; 70450; 71046; 80053; 80143; 80179; 80307; 81003; 82077; 83735; 84484; 85025; 85027; 85379; 85610; 85730; 87502; 87635; 93005; 96372; 99285

== ENCOUNTER 2022-06-25 09:07 | Inpatient (IN) | payer MEDICARE, OTHER, SELFPAY ==
[2022-06-25] VITALS (8 sets, daily range): BP systolic 146–158; BP diastolic 76–92; PULSE 68–86; RESP 16–22; TEMP 36.3–36.7; O2SAT 95–98; BMI 24.3
--- NOTE | ~2022-06-25 | XR_ITS ---
EXAMINATION: XR CHEST CLINICAL INFORMATION: Shortness of breath. COMPARISON: 03/16/2022 chest radiographs. TECHNIQUE: Frontal view of the chest was obtained. FINDINGS: No significant abnormality is noted involving the heart, lungs, mediastinum, bony thorax or soft tissues. XR/XR chest 1V IMPRESSION: No acute cardiopulmonary process.
--- NOTE | 2022-06-25 09:23 | ECG_ITS ---
Test Reason : Abd Pain Blood Pressure : / mmHG Vent. Rate : 069 BPM Atrial Rate : 069 BPM P-R Int : 158 ms QRS Dur : 074 ms QT Int : 410 ms P-R-T Axes : 033 -33 044 degrees QTc Int : 439 ms Poor data quality, interpretation may be adversely affected Sinus rhythm with Premature ventricular complexes Left axis deviation Low voltage QRS Inferior infarct (cited on or before 25-JUN-2022) Abnormal ECG When compared with ECG of 16-MAR-2022 17:52, Poor data quality in current ECG precludes serial comparison Referred By: Karina Campos Electronically Signed By:STEPHANIE LAUREN MD
--- NOTE | 2022-06-25 09:36 | ED.GENADULT ---
HPI - General Adult General Chief complaint: General Medical Stated complaint: abd pain, diff urinating, crisis Time Seen by Provider: 06/25/22 09:11 Source: patient Mode of arrival: ambulatory History of Present Illness HPI narrative: 86-year-old male with a past medical history of BPH, bipolar, CVA, chronic rhinitis, constipation, HTN, anxiety, HLD, presenting to the ED via EMS complaining of generalized fatigue/weakness x1 week with associated lower abdominal discomfort, SOB, and suicidal ideations. Last urinated 1 hour [employer]. Denies fever, chills, cough, chest pain, nausea, vomiting, diarrhea, dysuria. Reports SI without plan, denies HI Onset (ago): week(s) Related Data Home Medications Medication Instructions Recorded Confirmed atorvastatin 80 mg tablet 80 mg PO DAILY 11/27/21 03/17/22 docusate sodium 100 mg capsule 100 mg PO BID 11/27/21 03/17/22 furosemide 20 mg tablet 20 mg PO DAILY 11/27/21 03/17/22 hydrochlorothiazide 12.5 mg capsule 12.5 mg PO DAILY 11/27/21 03/17/22 lamotrigine 200 mg tablet 200 mg PO BEDTIME 11/27/21 03/17/22 multivitamin 1 tab PO DAILY 11/27/21 03/17/22 olanzapine 5 mg tablet 5 mg PO BEDTIME 11/27/21 03/17/22 omeprazole 20 mg capsule,delayed 20 mg PO DAILY 11/27/21 03/17/22 release selegiline 9 mg/24 hr transdermal 9 mg transdermal DAILY 11/27/21 03/17/22 24 hour patch sennosides 8.6 mg tablet 17.2 mg PO BID 11/27/21 03/17/22 terazosin 5 mg capsule 5 mg PO BEDTIME 11/27/21 03/17/22 Previous Rx's Medication Instructions Recorded lorazepam 0.5 mg tablet (Ativan) 0.5 mg PO BEDTIME PRN sleep #30 11/27/21 tabs Allergies Allergy/AdvReac Type Severity Reaction Status Date / Time pencillin Allergy Severe Unknown Uncoded 11/20/21 16:26 Review of Systems Review of Systems: Constitutional: No Fever, No Chills, +Fatigue, No Malaise ENT/Mouth: No Ear Pain, No Nasal Congestion, No sore throat, No Rhinorrhea, No Swallowing Difficulty Eyes: No Eye Pain, No Swelling, No Redness, No Foreign Body, No Discharge, No Vision Changes Cardiovascular: No Chest Pain, + SOB, No Orthopnea, No Edema, No Palpitations Respiratory: No Cough, No Sputum, No Dyspnea Gastrointestinal: No Nausea, No Vomiting, No Diarrhea, No Constipation, + Abdominal pain Genitourinary: No Dysuria, No Urinary Frequency, No Hematuria, No Flank Pain, No Urinary Flow Changes Musculoskeletal: No joint pain, No Myalgias, No Joint Swelling Skin: No Skin Lesions, No rash Neuro: + Weakness, No Numbness, No Paresthesias, No Loss of Consciousness, No Dizziness, No Headache Yes all other systems are reviewed and are negative Constitutional: Constitutional: Reports as per HPI Neurologic: Denies Abnormal speech present [facility] Past Medical History Attestation statement: The following information was validated with the patient. Social History Social History Household Members: Family Alcohol intake: unknown Patient Tobacco Use Status: Never used Tobacco Smoked in Last 30 Days: No Use of substances other than those prescribed or required for medical reasons: Unknown Advance Directives: No Healthcare Proxy: Yes Guardian: No Physical Exam ED Vital Signs: Vital Signs - 24 hr 06/25/22 09:18 06/25/22 09:26 06/25/22 10:01 Temperature 97.8 F 97.8 F Pulse Rate 75 75 68 Respiratory Rate 18 18 22 H Blood Pressure 155/76 H 155/76 H Pulse Oximetry 97 97 Oxygen Delivery Method Room Air Room Air 06/25/22 10:00 06/25/22 11:56 06/25/22 12:00 Temperature 97.4 F Pulse Rate 86 Respiratory Rate 18 20 18 Blood Pressure 146/80 H Pulse Oximetry 97 Oxygen Delivery Method Room Air 06/25/22 14:31 Temperature 97.9 F Pulse Rate 81 Respiratory Rate 18 Blood Pressure 158/92 H Pulse Oximetry 97 Oxygen Delivery Method Room Air BMI result Body Mass Index 24.3 Const General: cooperative, healthy appearing and no acute distress Orientation/consciousness: patient oriented x3 Limitations: no limitations HENMT Head: Yes normal to inspection and Yes atraumatic Ears: hearing grossly normal bilaterally General nose exam: Normal external nose present Face and sinus: Yes normal facial exam Eyes General: appearance normal, both eyes and all related structures EOM: EOMs intact bilaterally Neck Neck: Yes normal visual inspection and Yes no meningeal signs Resp Effort & Inspection: normal respiratory effort and no respiratory distress Auscultation: clear to auscultation bilaterally, no rales, no rhonchi, wheezes expiratory wheezes and right lower and diminished lung sounds diffuse Cardio Rate: regular rate Heart sounds: S1 normal heart sound present and S2 normal heart sound present GI Inspection: Yes normal to inspection Palpation (GI): Soft to palpation, nontender, no guarding and not rigid General: Yes no CVA tenderness Back/Spine/Pelvis Back: no CVA tenderness Skin Rashes: no rashes Wounds: no wounds Neuro General: patient oriented x3, gait normal, tone normal, moves all extremities, no meningeal signs, no focal motor deficits and CN's II-XI intact bilaterally Cranial nerves: Yes CN's II-XII intact bilaterally Cognition (Neuro): normal cognition Speech: No Abnormal speech present Motor exam (neuro): 5/5 motor strength present throughout and Pronator motor function not present Extrem General: Yes normal to inspection and Yes no pedal edema Course Course Course Narrative: -1128--labs reassuring. Initial troponin 8.8 will obtain 3 hour repeat -CXR unremarkable -1349--repeat troponin equivocal, DC unlikely. Patient is medically cleared for CARE team evaluation -patient was evaluated by CARE team and disposition for inpatient psych hospitalization, will re-evaluate in the morning -1800--ED care transferred to [facility] pending CARE team disposition. Physician observation initiated Medications Administered Discontinued Medications Generic Name Dose Route Start Last Admin Trade Name Freq PRN Reason Stop Dose Admin Albuterol/Ipratropium 3 ml 06/25/22 09:47 06/25/22 10:00 Albuterol/Iprat 2.5/0.5mg 3 Ml Ampul.Neb INHALE 06/25/22 09:48 3 ml ONCE ONE Administration Medical Decision Making Medical Decision Making [facility] Narrative: 86-year-old male with a past medical history of BPH, bipolar, CVA, chronic rhinitis, constipation, HTN, anxiety, HLD, presenting to the ED via EMS complaining of generalized fatigue/weakness x1 week with associated lower abdominal discomfort, SOB, and suicidal ideations. On exam vital signs stable, NAD, nontoxic appearing, depressed/suicidal, lungs with diminished lung sounds throughout and right basilar exp wheeze, no pedal edema. Abdomen soft and nontender. Concern for CHF vs pneumonia vs viral syndrome vs ? UTI. R/o ACS. Lower suspicion for urinary retention at this time. Low concern for appendicitis/diverticulitis/pancreatitis or cholecystitis lithiasis without tenderness on exam. Plan: EKG, labs, UA, CXR, DuoNeb, care team consult Please refer to course for remaining clinical decision making, interpretation of labs/imaging results, and discussions with consultants and/or family members. Differential Diagnosis Differential Diagnoses: The differential diagnosis associated with the presentation includes as above Admission/Observation Consideration of admission/observation: Escalation of care including admission/observation considered Consult Healthcare Provider Management of the patient was discussed with: [facility] Provider Lab Data MDM Lab Attestation statement: I reviewed the patient's lab results. 06/25/22 10:07 06/25/22 10:07 Labs: Lab Results 06/25/22 06/25/22 06/25/22 Range/Units 09:57 10:07 10:07 WBC 6.7 (4.8-10.8) X10*3/uL RBC 3.94 L (4.60-5.80) X10*6/uL Hgb 12.2 L (14.0-18.0) g/dl Hct 36.5 L (42.0-52.0) % MCV 92.6 (80.0-98.0) fL MCH 31.0 (27.0-33.0) pg MCHC 33.4 (31.0-36.0) g/dl RDW 13.7 (11.0-16.0) % Plt Count 177 (160-400) X10*3/uL MPV 10.9 (9.4-12.4) fL Immature Gran % (Auto) 0.3 (0.0-0.4) % Neut % (Auto) 59.0 (45-73) % Lymph % (Auto) 29.4 (20-40) % Mason % (Auto) 6.1 (2-11) % Eos % (Auto) 4.6 H (0-4) % Baso % (Auto) 0.6 (0-2) % Lymph # (Auto) 2.0 (1.2-4.9) X10*3/uL Mason # (Auto) 0.4 (0.1-1.2) X10*3/uL Eos # (Auto) 0.3 (0.0-0.4) X10*3/uL Baso # (Auto) 0.0 (0.0-0.2) X10*3/uL Abs Immat Gran (auto) 0.02 (0.00-0.03) X10*3/uL Absolute Neuts (auto) 4.0 (2.0-8.3) x10*3/uL Absolute Nucleated RBC 0.000 (0.0-0.012) X10*3/uL Nucleated RBC % (auto) 0.0 (0.0-0.2) /100WBC PT (10.0-13.1) SEC INR (0.9-1.1) Sodium 139 (135-145) mmol/L Potassium 4.3 D (3.3-5.1) mmol/L Chloride 109 H (96-108) mmol/L Carbon Dioxide 17 L (22-29) mmol/L Anion Gap 17 (12-20) BUN 19 H (9-16) mg/dL Creatinine 0.86 (0.5-1.4) mg/dL Estim Creat Clear Calc 60.5 Estimated GFR > 60 Random Glucose 107 (60-115) mg/dL Calcium 9.0 (8.4-10.2) mg/dL Magnesium 1.9 (1.6-2.6) mg/dL Total Bilirubin 0.4 (0.0-1.0) mg/dL Direct Bilirubin < 0.2 (0.0-0.5) mg/dL AST 22 (5-37) U/L ALT 16 (0-40) U/L Alkaline Phosphatase 58 (39-117) U/L Troponin I High Sens (<3.5-35.0) ng/L B-Natriuretic Peptide (<100) pg/mL Total Protein 6.3 L (6.5-8.0) g/dL Albumin 3.7 (3.5-5.0) g/dL Lipase 31 (8-78) U/L Urine Color Urine Appearance Urine pH (5.0-9.0) Ur Specific [place] (1.005-1.025) Urine Protein (Neg-Trace) mg/dL Urine Glucose (UA) (Negative) mg/dL Urine Ketones (Negative) mg/dL Urine Blood (Negative) Urine Nitrite (Negative) Ur Leukocyte Esterase (Negative) Urine Opiates Screen (Not Detect) Urine Fentanyl Screen (Not Detect) Ur Barbiturates Screen (Not Detect) Ur Phencyclidine Scrn (Not Detect) Ur Amphetamines Screen (Not Detect) U Benzodiazepines Scrn (Not Detect) Urine Cocaine Screen (Not Detect) U Marijuana (THC) Screen (Not Detect) Ethyl Alcohol < 10 mg/dL Influenza Type A (PCR) NEGATIVE (Negative) Influenza Type B (PCR) NEGATIVE (Negative) RSV RNA Qual (PCR) NEGATIVE (Negative) SARS-CoV-2 RNA (RT-PCR) NEGATIVE (Negative) 06/25/22 06/25/22 06/25/22 Range/Units 10:07 10:07 10:07 WBC (4.8-10.8) X10*3/uL RBC (4.60-5.80) X10*6/uL Hgb (14.0-18.0) g/dl Hct (42.0-52.0) % MCV (80.0-98.0) fL MCH (27.0-33.0) pg MCHC (31.0-36.0) g/dl RDW (11.0-16.0) % Plt Count (160-400) X10*3/uL MPV (9.4-12.4) fL Immature Gran % (Auto) (0.0-0.4) % Neut % (Auto) (45-73) % Lymph % (Auto) (20-40) % Mason % (Auto) (2-11) % Eos % (Auto) (0-4) % Baso % (Auto) (0-2) % Lymph # (Auto) (1.2-4.9) X10*3/uL Mason # (Auto) (0.1-1.2) X10*3/uL Eos # (Auto) (0.0-0.4) X10*3/uL Baso # (Auto) (0.0-0.2) X10*3/uL Abs Immat Gran (auto) (0.00-0.03) X10*3/uL Absolute Neuts (auto) (2.0-8.3) x10*3/uL Absolute Nucleated RBC (0.0-0.012) X10*3/uL Nucleated RBC % (auto) (0.0-0.2) /100WBC PT 10.9 (10.0-13.1) SEC INR 1.0 (0.9-1.1) Sodium (135-145) mmol/L Potassium (3.3-5.1) mmol/L Chloride (96-108) mmol/L Carbon Dioxide (22-29) mmol/L Anion Gap (12-20) BUN (9-16) mg/dL Creatinine (0.5-1.4) mg/dL Estim Creat Clear Calc Estimated GFR Random Glucose (60-115) mg/dL Calcium (8.4-10.2) mg/dL Magnesium (1.6-2.6) mg/dL Total Bilirubin (0.0-1.0) mg/dL Direct Bilirubin (0.0-0.5) mg/dL AST (5-37) U/L ALT (0-40) U/L Alkaline Phosphatase (39-117) U/L Troponin I High Sens 8.8 (<3.5-35.0) ng/L B-Natriuretic Peptide 64 (<100) pg/mL Total Protein (6.5-8.0) g/dL Albumin (3.5-5.0) g/dL Lipase (8-78) U/L Urine Color Urine Appearance Urine pH (5.0-9.0) Ur Specific [place] (1.005-1.025) Urine Protein (Neg-Trace) mg/dL Urine Glucose (UA) (Negative) mg/dL Urine Ketones (Negative) mg/dL Urine Blood (Negative) Urine Nitrite (Negative) Ur Leukocyte Esterase (Negative) Urine Opiates Screen (Not Detect) Urine Fentanyl Screen (Not Detect) Ur Barbiturates Screen (Not Detect) Ur Phencyclidine Scrn (Not Detect) Ur Amphetamines Screen (Not Detect) U Benzodiazepines Scrn (Not Detect) Urine Cocaine Screen (Not Detect) U Marijuana (THC) Screen (Not Detect) Ethyl Alcohol mg/dL Influenza Type A (PCR) (Negative) Influenza Type B (PCR) (Negative) RSV RNA Qual (PCR) (Negative) SARS-CoV-2 RNA (RT-PCR) (Negative) 06/25/22 06/25/2206/25/23 Range/Units 10:56 10:56 13:00 WBC (4.8-10.8) X10*3/uL RBC (4.60-5.80) X10*6/uL Hgb (14.0-18.0) g/dl Hct (42.0-52.0) % MCV (80.0-98.0) fL MCH (27.0-33.0) pg MCHC (31.0-36.0) g/dl RDW (11.0-16.0) % Plt Count (160-400) X10*3/uL MPV (9.4-12.4) fL Immature Gran % (Auto) (0.0-0.4) % Neut % (Auto) (45-73) % Lymph % (Auto) (20-40) % Mason % (Auto) (2-11) % Eos % (Auto) (0-4) % Baso % (Auto) (0-2) % Lymph # (Auto) (1.2-4.9) X10*3/uL Mason # (Auto) (0.1-1.2) X10*3/uL Eos # (Auto) (0.0-0.4) X10*3/uL Baso # (Auto) (0.0-0.2) X10*3/uL Abs Immat Gran (auto) (0.00-0.03) X10*3/uL Absolute Neuts (auto) (2.0-8.3) x10*3/uL Absolute Nucleated RBC (0.0-0.012) X10*3/uL Nucleated RBC % (auto) (0.0-0.2) /100WBC PT (10.0-13.1) SEC INR (0.9-1.1) Sodium (135-145) mmol/L Potassium (3.3-5.1) mmol/L Chloride (96-108) mmol/L Carbon Dioxide (22-29) mmol/L Anion Gap (12-20) BUN (9-16) mg/dL Creatinine (0.5-1.4) mg/dL Estim Creat Clear Calc Estimated GFR Random Glucose (60-115) mg/dL Calcium (8.4-10.2) mg/dL Magnesium (1.6-2.6) mg/dL Total Bilirubin (0.0-1.0) mg/dL Direct Bilirubin (0.0-0.5) mg/dL AST (5-37) U/L ALT (0-40) U/L Alkaline Phosphatase (39-117) U/L Troponin I High Sens 9.0 (<3.5-35.0) ng/L B-Natriuretic Peptide (<100) pg/mL Total Protein (6.5-8.0) g/dL Albumin (3.5-5.0) g/dL Lipase (8-78) U/L Urine Color Yellow Urine Appearance Clear Urine pH 6.5 (5.0-9.0) Ur Specific [place] <= 1.005 (1.005-1.025) Urine Protein Negative (Neg-Trace) mg/dL Urine Glucose (UA) Negative (Negative) mg/dL Urine Ketones Negative (Negative) mg/dL Urine Blood Negative (Negative) Urine Nitrite Negative (Negative) Ur Leukocyte Esterase Negative (Negative) Urine Opiates Screen Not Detected (Not Detect) Urine Fentanyl Screen Not Detected (Not Detect) Ur Barbiturates Screen Not Detected (Not Detect) Ur Phencyclidine Scrn Not Detected (Not Detect) Ur Amphetamines Screen Not Detected (Not Detect) U Benzodiazepines Scrn Not Detected (Not Detect) Urine Cocaine Screen Not Detected (Not Detect) U Marijuana (THC) Screen Not Detected (Not Detect) Ethyl Alcohol mg/dL Influenza Type A (PCR) (Negative) Influenza Type B (PCR) (Negative) RSV RNA Qual (PCR) (Negative) SARS-CoV-2 RNA (RT-PCR) (Negative) Independent Interpretation I performed an independent interpretation of an: EKG Interpretation: My interpretation EKG is normal sinus rhythm with PVC's. Low-voltage QRS. Rate is 76. QTC 445. Artifact present, no STEMI Radiology Impression Discussion of test interpretation with radiology: I have reviewed the radiologist's reading. External Record Review External record reviewed: Outpatient record and Prior outpatient labs Prior ED record Chronic Conditions Patient?s care impacted by: Hypertension Discharge Plan Discharge Clinical Impression: Suicidal ideations, Generalized weakness Patient Disposition: Still a Patient Prescriptions: No Action lorazepam [Ativan] 0.5 mg tablet 0.5 mg PO BEDTIME PRN (Reason: sleep) Qty: 30 0RF atorvastatin 80 mg tablet 80 mg PO DAILY docusate sodium 100 mg capsule 100 mg PO BID furosemide 20 mg tablet 20 mg PO DAILY hydrochlorothiazide 12.5 mg capsule 12.5 mg PO DAILY lamotrigine 200 mg tablet 200 mg PO BEDTIME multivitamin Tablet 1 tab PO DAILY olanzapine 5 mg tablet 5 mg PO BEDTIME omeprazole 20 mg capsule,delayed release(DR/EC) 20 mg PO DAILY selegiline 9 mg/24 hr patch 24 hour 9 mg transdermal DAILY sennosides 8.6 mg tablet 17.2 mg PO BID terazosin 5 mg capsule 5 mg PO BEDTIME
--- NOTE | 2022-06-25 09:47 | ECG_ITS ---
Test Reason : Abd Pain Blood Pressure : / mmHG Vent. Rate : 076 BPM Atrial Rate : 076 BPM P-R Int : 144 ms QRS Dur : 070 ms QT Int : 396 ms P-R-T Axes : 005 -33 033 degrees QTc Int : 445 ms Poor data quality Sinus rhythm with Premature ventricular complexes or Fusion complexes Left axis deviation Low voltage QRS Inferior infarct (cited on or before 25-JUN-2022) Abnormal ECG When compared with ECG of 25-JUN-2022 09:29, Poor data quality in current ECG precludes serial comparison Referred By: Karina Campos Electronically Signed By:STEPHANIE LAUREN MD
[2022-06-25] MEDS: Albuterol/Iprat 2.5/0.5MG 3 ML AMPUL.NEB INHALE (10:00)
[2022-06-25 10:11] LABS: MANUAL DIFF FLAG NO
[2022-06-25 10:15] LABS: Basophils Percent Auto 0.6 % (0-2); Eosinophils Absolute Auto 0.3 X10*3/uL (0.0-0.4); Eosinophils Percent Auto 4.6 % (0-4); Hematocrit 36.5 % (42.0-52.0); Hemoglobin 12.2 g/dl (14.0-18.0); Imm Gran Abs Auto 0.02 X10*3/uL (0.00-0.03); Imm Gran Pct Auto 0.3 % (0.0-0.4); Lymphocytes Percent Auto 29.4 % (20-40); Mean Corpuscular HGB Conc 33.4 g/dl (31.0-36.0); Mean Corpuscular Volume 92.6 fL (80.0-98.0); Mean Platelet Volume 10.9 fL (9.4-12.4); Monocytes Absolute Auto 0.4 X10*3/uL (0.1-1.2); Monocytes Percent Auto 6.1 % (2-11); Platelet Count 177 X10*3/uL (160-400); Red Blood Count 3.94 X10*6/uL (4.60-5.80); Red Cell Distribution Width 13.7 % (11.0-16.0); White Blood Count 6.7 X10*3/uL (4.8-10.8)
[2022-06-25 10:19] LABS: Prothrombin Time 10.9 SEC (10.0-13.1)
[2022-06-25 10:43] LABS: B Type Natriuretic Peptide 64 pg/mL (<100)
[2022-06-25 10:45] LABS: Troponin-I High Sensitivity 8.8 ng/L (<3.5-35.0)
[2022-06-25 10:47] LABS: Alanine Aminotransferase 16 U/L (0-40); Albumin Level 3.7 g/dL (3.5-5.0); Alkaline Phosphatase 58 U/L (39-117); Anion Gap 17 (12-20); Aspartate Amino Transferase 22 U/L (5-37); Bilirubin Direct < 0.2 mg/dL (0.0-0.5); Bilirubin Total 0.4 mg/dL (0.0-1.0); Blood Urea Nitrogen 19 mg/dL (9-16); Carbon Dioxide 17 mmol/L (22-29); Chloride 109 mmol/L (96-108); Creatinine Clr Calc Pharmacy 60.5; Estimated Glomerular Filt Rate > 60; Glucose Random 107 mg/dL (60-115); Lipase 31 U/L (8-78); Magnesium 1.9 mg/dL (1.6-2.6); Potassium 4.3 mmol/L (3.3-5.1); Sodium 139 mmol/L (135-145); Total Protein 6.3 g/dL (6.5-8.0)
[2022-06-25 11:00] LABS: Influenza A PCR NEGATIVE (Negative); Influenza B PCR NEGATIVE (Negative); Resp Syncy Virus RNA Qual PCR NEGATIVE (Negative); SARS COV2 PCR INHOUSE NEGATIVE (Negative)
[2022-06-25 11:08] LABS: Appearance Urine Clear; Color Urine Yellow; Glucose Urine UA Negative (Negative); Leukocyte Esterase Urine Negative (Negative); Nitrite Urine Negative (Negative); PH 6.5 (5.0-9.0); Specific Gravity - Urine <= 1.005 (1.005-1.025); Urine Blood Negative (Negative); Urine Ketones Negative (Negative); Urine Protein Negative (Neg-Trace)
[2022-06-25 11:17] LABS: Amphetamine Screen Urine Not Detected (Not Detect); Barbiturates, Urine Not Detected (Not Detect); Benzodiazepines Screen Urine Not Detected (Not Detect); Cannabinoid Screen Urine Not Detected (Not Detect); Cocaine Screen Urine Not Detected (Not Detect); Fentanyl, urine Not Detected (Not Detect); Opiate Screen Urine Not Detected (Not Detect); Phencyclidine Screen Urine Not Detected (Not Detect)
[2022-06-25 12:20] LABS: Ethanol < 10 mg/dL
--- NOTE | 2022-06-25 16:11 | MHC.CARE ---
Patient evaluated by the CARE Team, disposition for inpatient psychiatric hospitalization. [facility] unable to accommodate him today but possibly tomorrow.
--- NOTE | 2022-06-25 16:35 | PC.NURSE ---
Report given to VENKAT in pod.
--- NOTE | 2022-06-25 17:39 | MHC.CARE ---
Patient preaccepted for admission to for 06/26/22
--- NOTE | 2022-06-25 18:15 | PHA.MEDREC ---
Pharmacy Consult ? Medication Reconciliation Pharmacy has completed the medication reconciliation. [facility]
--- NOTE | 2022-06-25 23:21 | MHC.EDTECH ---
pt said he didnt feel good vitals were taken
--- NOTE | 2022-06-25 23:22 | MHC.EDTECH ---
pt is resting quietly vitals were taken
[2022-06-26] MEDS: OLANZapine 5 MG TABLET PO ×3 (00:12→20:17)
[2022-06-26 01:56] VITALS: BP 133/79; PULSE 76; RESP 17; TEMP 36.4; O2SAT 95
--- NOTE | 2022-06-26 05:56 | PC.NURSE ---
Patient slept tough the night, no distress observed/reported, medication compliant, behavior non concerning, gait steady with walker, disposition is section 12 inpatient bed search, pre-accepted to [facility], [facility], will continue to monitor.
[2022-06-26] MEDS: Omeprazole 20 MG CAPSULE.DR PO (06:19)
[2022-06-26] MEDS: Aspirin Enteric Coated 81 MG TABLET.DR PO (08:19)
[2022-06-26] MEDS: Furosemide 20 MG TABLET PO (08:19)
[2022-06-26] MEDS: Atorvastatin Calcium 80 MG TABLET PO (08:19)
[2022-06-26 08:30] VITALS: BP 126/54; PULSE 66; RESP 16; TEMP 36.9; O2SAT 96
--- NOTE | 2022-06-26 11:28 | MHC.CARE ---
Patient's son's girlfriend offered her number if unable to reach son Marcelo who has issues getting messages on his phone. Nithya: [phone]
--- NOTE | 2022-06-26 11:56 | PC.NURSE ---
c/o burning acid reflux type pain. Bailey LUJAN aware. Verbal order for pepcid obtained.
[2022-06-26] MEDS: Famotidine 20 MG TABLET PO (12:03)
[2022-06-26 12:19] VITALS: PULSE 75; RESP 20; O2SAT 95
[2022-06-26 13:00] VITALS: RESP 18
--- NOTE | 2022-06-26 13:31 | PC.NURSE ---
Reporting increasing anxiety. ED attending notified. VS obtained.
[2022-06-26 13:32] VITALS: BP 148/92; PULSE 78; RESP 18; TEMP 36.4; O2SAT 96
--- NOTE | 2022-06-26 17:26 | PC.NURSE ---
Report given to the floor.
[2022-06-26 19:30] VITALS: BP 131/74; PULSE 73; RESP 16; TEMP 36.6; O2SAT 97
[2022-06-26] MEDS: Doxazosin Mesylate 2 MG TABLET 4 MG PO (20:17)
[2022-06-26] MEDS: lamoTRIgine 100 MG TABLET 200 MG PO (20:17)
[2022-06-27] MEDS: Omeprazole 20 MG CAPSULE.DR PO (06:02)
[2022-06-27 07:55] VITALS: BP 112/66; PULSE 67; RESP 16; TEMP 36.3; O2SAT 95
[2022-06-27 08:01] LABS: Estimated Average Glucose 103 mg/dL; Hemoglobin A1c % 5.2 %
[2022-06-27 08:14] LABS: Cholesterol 163 mg/dL; HDL Cholesterol 51 mg/dL; LDL Cholesterol Calculated 89 mg/dl; Magnesium 1.9 mg/dL (1.6-2.6); Triglycerides 118 mg/dL
[2022-06-27] MEDS: hydroCHLOROthiazide 12.5 MG TABLET PO (08:28)
[2022-06-27] MEDS: Furosemide 20 MG TABLET PO (08:28)
[2022-06-27] MEDS: Atorvastatin Calcium 80 MG TABLET PO (08:28)
[2022-06-27] MEDS: Aspirin Enteric Coated 81 MG TABLET.DR PO (08:28)
[2022-06-27] MEDS: Multivitamin TABLET 1 TAB PO (08:28)
[2022-06-27 08:42] LABS: Free T4 (Free Thyroxine) 0.93 ng/dL (0.71-1.85); Thyroid Stimulating Hormone 2.28 uIU/mL (0.32-4.0); Vitamin B12 373 pg/mL (200-900)
--- NOTE | 2022-06-27 12:32 | HO.PSYADMNOT ---
HPI Date of Service: 06/27/22 Chief Complaint: Depression, Suicidal ideation Sources of Information: patient interviewed, chart reviewed and crisis/core team assessment reviewed HPI Subjective Notes: [place] Warning and Conditional Voluntary Healthcare Proxy: Yes Narrative: The patient is an 86-year-old male, for the last 6 year, father of adult children, retired worker of [employer], of the [employer] who receives all his services at the [facility], referred from crisis for exacerbation of depression. The patient lives by himself at his home and of 1 of his sons lives in apartment next to him, he has good social support provided by his family. According to the crisis assessment, the patient carries a diagnosis of bipolar disorder and he was seen February last year for similar presentation but discharged to his home. On admission, the patient complained of exacerbation of depression with depressed mood, anhedonia, lack of energy, feelings of hopelessness and passive suicidal thoughts, he wants to the eye but he does not have a plan or intent. On the intake interview, the patient reported that he has been depressed for several months, his psychiatrist at the [facility] have increased his Prozac up to 40 mg but he denies improvement of his mood. He is able to contract for safety in the facility. He denies psychotic symptoms or current little. Past Psychiatric History: No prior psychiatric admissions as per crisis report, he follows treatment at the [facility]. He carries diagnosis of bipolar disorder Medical Evaluation Reviewed: Yes PMFSH Family History: According to the crisis assessment the patient has 2 children with schizophrenia Social History: The patient was born and raised as a child in [place], he and his family immigrated to the [place] since his father was an officer in the [employer] and the Nazis since wanted to kill him. As a child, he witnesses executions in WWII. He attended regular school, he was raised by his parents and he had a good childhood here in the [place]. He attended regular school, graduated and, he enlisted in the [employer] and served in 1954 for several years. He was in [place] and later on, he got and worked on [employer] for several years. He has good social support, his 6 years ago of cancer Substance History: Denies Trauma History: Witnessed violence in [place] in [place] Diagnostics Vital Signs (24Hr): Vital Signs - 24 hr 06/26/22 13:00 06/26/22 13:32 06/26/22 19:30 Temperature 97.6 F 97.9 F Pulse Rate 78 73 Respiratory Rate 18 18 16 Blood Pressure 148/92 H 131/74 Pulse Oximetry 96 97 Oxygen Delivery Method Room Air Room Air 06/27/22 07:55 Temperature 97.4 F Pulse Rate 67 Respiratory Rate 16 Blood Pressure 112/66 Pulse Oximetry 95 Oxygen Delivery Method Room Air BMI result Body Mass Index 24.3 Labs 06/25/22 10:07 06/25/22 10:07 Labs: Laboratory Results - last 48 hr 06/25/22 06/27/22 06/27/22 13:00 07:33 07:33 Estimat Average Glucose 103 Hemoglobin A1c % 5.2 Magnesium 1.9 Troponin I High Sens 9.0 Triglycerides 118 Cholesterol 163 LDL Cholesterol, Calc 89 HDL Cholesterol 51 Vitamin B12 373 Folate 13.0 TSH 2.28 Free T4 0.93 Imaging Radiology Impressions: ITS Impressions Chest X-Ray 06/25/22 09:58 IMPRESSION: No acute cardiopulmonary process. Meds/Allergies Meds Home Medications Medication Instructions Recorded Confirmed Type atorvastatin 80 mg tablet 80 mg PO DAILY 11/27/21 06/25/22 History furosemide 20 mg tablet 20 mg PO DAILY 11/27/21 06/25/22 History olanzapine 5 mg tablet 5 mg PO BEDTIME 11/27/21 06/25/22 History omeprazole 20 mg capsule,delayed 20 mg PO DAILY@0630 11/27/21 06/25/22 History release selegiline 9 mg/24 hr transdermal 9 mg transdermal DAILY 11/27/21 06/25/22 History 24 hour patch terazosin 5 mg capsule 5 mg PO BEDTIME 11/27/21 03/17/22 History acetaminophen 325 mg tablet 650 mg PO TID PRN Pain 06/25/22 06/25/22 History aspirin 81 mg tablet,delayed 81 mg PO DAILY 06/25/22 06/25/22 History release bisacodyl 10 mg rectal suppository 10 mg KS BEDTIME PRN Constipation 06/25/22 06/25/22 History melatonin 3 mg tablet 3 mg PO BEDTIME PRN Sleep 06/25/22 06/25/22 History polyethylene glycol 3350 17 gram 17 g PO DAILY PRN Constipation 06/25/22 06/25/22 History oral powder packet Allergies Allergies Allergy/AdvReac Type Severity Reaction Status Date / Time pencillin Allergy Severe Unknown Uncoded 11/20/21 16:26 Mental Status Exam Mental Status Exam Patient Appearance: Well Grooomed and Appropriate Patient Orientation: Person and Situation Level of Consciousness: Awake and Appropriate Patient Behavior: Cooperative Mood Description: Withdrawn Affect Description: Constricted Patient Cognition Impaired: Yes Ability to Follow Directions: Good Speech Pattern: Clear Hallucinations: None Delusions: Not Present Thought Process: Distracted and Slowed Thinking Thought Content: positive for Weed and positive for Circumstantial Judgement: Fair Assessment & Plan Assessment & Plan (1) Bipolar disorder with severe depression: Status: Acute Code(s): F31.4 - Bipolar disorder, current episode depressed, severe, without psychotic features Plan The patient is an elderly male, with a were with a long history of bipolar disorder who was admitted into the facility for exacerbation of depressive symptoms that has not responded with a recent change of medications. Plan 1. Gather collateral information. 2. Continue Prozac 40 mg p.o. daily. 3. Reassess the use of mood stabilizers to improve antidepressants. 4. Continue medical workout. Patient educated on: diagnosis, medication risk/benefits, therapeutic strategies and medical condition Reason for continued inpatient stay Substantial Risk for: inability to function, rapid decompensation and med/psych decompensation Statement Statement: I have reviewed the history and physical and performed a pertinent examination on my patient. No changes have occurred unless specified. If the History and Physical was not performed prior to admission, the Hospitalist's service will be consulted for completing the admission physical. Time Spent With Patient Time: Total time managing care of this patient today __45__ minutes.
[2022-06-27 18:00] VITALS: BP 118/72; PULSE 72; RESP 18; TEMP 36.1; O2SAT 98
[2022-06-27] MEDS: lamoTRIgine 100 MG TABLET 200 MG PO (20:24)
[2022-06-27] MEDS: OLANZapine 5 MG TABLET PO (20:24)
[2022-06-27] MEDS: Doxazosin Mesylate 2 MG TABLET 4 MG PO (20:24)
[2022-06-28 06:00] VITALS: BP 104/71; PULSE 88; RESP 22; TEMP 36.6; O2SAT 99
[2022-06-28] MEDS: Omeprazole 20 MG CAPSULE.DR PO (06:10)
[2022-06-28] MEDS: Atorvastatin Calcium 80 MG TABLET PO (09:27)
[2022-06-28] MEDS: hydroCHLOROthiazide 12.5 MG TABLET PO (09:27)
[2022-06-28] MEDS: Aspirin Enteric Coated 81 MG TABLET.DR PO (09:27)
[2022-06-28] MEDS: Furosemide 20 MG TABLET PO (09:28)
[2022-06-28] MEDS: Multivitamin TABLET 1 TAB PO (09:28)
--- NOTE | 2022-06-28 12:47 | P.PNPSI_ITS ---
Subjective Subjective Date of Service: 06/28/22 Reason For Visit: Depression, Suicidal ideation Subjective Notes: [place] Warning and Conditional Voluntary Healthcare Proxy: Yes Interim History: 86-year-old male, for the last 6 year, father of adult children, retired worker of [employer]. He is a of the [employer] who receives all his services at the [place], referred from crisis for exacerbation of depression.? The patient lives by himself at his home and of 1 of his sons lives in apartment next to him, he has good social support provided by his family.? According to the crisis assessment, the patient carries a diagnosis of bipolar disorder and he was seen February last year for similar presentation but discharged to his home.?the patient reports worsening depression with depressed mood, anhedonia, lack of energy, feelings of hopelessness and passive suicidal thoughts, he reports he wants to but he does not have a plan or intent.?He feels safe on unit. Staff report patient fell on floor while in bathroom last night so placed on bed alarm. He denies psychotic symptoms or current little. Review of Systems Review of Systems: reports dizziness weakness. fell in bathroom overnight 06/27. placed on bed alarm at night; depressed; continues to have SI but no plan and no intent; feels safe on unit. Review of Systems Review of Systems Constitutional: No Fever, No Chills, +Fatigue, No Malaise ENT/Mouth: No Ear Pain, No Nasal Congestion, No sore throat, No Rhinorrhea, No Swallowing Difficulty Eyes: No Eye Pain, No Swelling, No Redness, No Foreign Body, No Discharge, No Vision Changes Cardiovascular: No Chest Pain, + SOB, No Orthopnea, No Edema, No Palpitations Respiratory: No Cough, No Sputum, No Dyspnea Gastrointestinal: No Nausea, No Vomiting, No Diarrhea, No Constipation, + Abdominal pain Genitourinary: No Dysuria, No Urinary Frequency, No Hematuria, No Flank Pain, No Urinary Flow Changes Musculoskeletal: No joint pain, No Myalgias, No Joint Swelling Skin: No Skin Lesions, No rash Neuro: + Weakness, No Numbness, No Paresthesias, No Loss of Consciousness, No Dizziness, No Headache Yes all other systems are reviewed and are negative Constitutional: Reports as per HPI Denies Abnormal speech present Mental Status Exam Mental Status Exam Patient Appearance: Well Grooomed and Appropriate Patient Orientation: Person and Situation Level of Consciousness: Awake and Appropriate Patient Behavior: Cooperative Mood Description: Withdrawn and Sad Affect Description: Constricted Patient Cognition Impaired: Yes Ability to Follow Directions: Good Speech Pattern: Clear Thought Process: Intact Thought Content: positive for Slowed Thinking and positive for Suicidal Ideation Judgement: Fair Diagnostics Vital Signs (24Hr): Vital Signs - 24 hr 06/27/22 18:00 06/28/22 06:00 Temperature 97 F 97.8 F Pulse Rate 72 88 Respiratory Rate 18 22 H Blood Pressure 118/72 104/71 Pulse Oximetry 98 99 Oxygen Delivery Method Room Air Room Air BMI result Body Mass Index 24.3 Labs 06/25/22 10:07 06/25/22 10:07 Labs: Laboratory Results - last 48 hr 06/27/22 06/27/22 07:33 07:33 Estimat Average Glucose 103 Hemoglobin A1c % 5.2 Magnesium 1.9 Triglycerides 118 Cholesterol 163 LDL Cholesterol, Calc 89 HDL Cholesterol 51 Vitamin B12 373 Folate 13.0 TSH 2.28 Free T4 0.93 Imaging Radiology Impressions: ITS Impressions Chest X-Ray 06/25/22 09:58 IMPRESSION: No acute cardiopulmonary process. Medications Medications Current Medications Acetaminophen (Acetaminophen 325 Mg Tablet) 650 mg PO Q6H PRN PRN Reason: Headache/Pain Mild Scale (1-3) Al Hydroxide/Mg Hydroxide (Magnesium Hydrox/Alum Hydrox 30 Ml Oral.Susp) 30 ml PO Q6H PRN PRN Reason: Heartburn/Nausea Aspirin (Aspirin Enteric Coated 81 Mg Tablet.Dr) 81 mg PO DAILY [facility] Last Admin: 06/28/22 09:27 Dose: 81 mg Atorvastatin Calcium (Atorvastatin Calcium 80 Mg Tablet) 80 mg PO DAILY [facility] Last Admin: 06/28/22 09:27 Dose: 80 mg Bisacodyl (Bisacodyl 10 Mg Supp.Rect) 10 mg [place] BEDTIME PRN PRN Reason: Constipation Docusate Sodium (Docusate Sodium 100 Mg Capsule) 100 mg PO BID PRN PRN Reason: Constipation Doxazosin Mesylate (Doxazosin Mesylate 2 Mg Tablet) 4 mg PO BEDTIME [facility] Last Admin: 06/27/22 20:24 Dose: 4 mg Furosemide (Furosemide 20 Mg Tablet) 20 mg PO DAILY [facility]; Protocol Last Admin: 06/28/22 09:28 Dose: 20 mg Hydrochlorothiazide (Hydrochlorothiazide 12.5 Mg Tablet) 12.5 mg PO DAILY [facility]; Protocol Last Admin: 06/28/22 09:27 Dose: 12.5 mg Hydroxyzine HCl (Hydroxyzine Hcl 25 Mg Tablet) 25 mg PO Q6H PRN PRN Reason: Anxiety Lamotrigine (Lamotrigine 100 Mg Tablet) 200 mg PO BEDTIME [facility] Last Admin: 06/27/22 20:24 Dose: 200 mg Lorazepam (Lorazepam 0.5 Mg Tablet) 0.5 mg PO BEDTIME PRN PRN Reason: sleep, anxiety Magnesium Hydroxide (Milk Of Magnesia 30 Ml Oral.Susp) 30 ml PO DAILY PRN PRN Reason: Constipation Melatonin (Melatonin 3 Mg Tablet) 3 mg PO BEDTIME PRN PRN Reason: Sleep Multivitamins/Vitamin C (Multivitamin Tablet) 1 tab PO DAILY [facility] Last Admin: 06/28/22 09:28 Dose: 1 tab Non-Formulary Medication (Selegiline) 9 mg TRANSDERMA DAILY [facility] Olanzapine (Olanzapine 5 Mg Tablet) 5 mg PO BEDTIME [facility] Last Admin: 06/27/22 20:24 Dose: 5 mg Omeprazole (Omeprazole 20 Mg Capsule.Dr) 20 mg PO DAILY@0630 [facility] Last Admin: 06/28/22 06:10 Dose: 20 mg Pharmacy Consult (Consult Rx Perform Med Rec) 1 each MISCELLANE ONCE PRN PRN Reason: Consult order Polyethylene Glycol (Polyethylene Glycol 3350 17 Gm Powd.Pack) 17 gm PO DAILY PRN PRN Reason: Constipation Trazodone HCl (Trazodone Hcl 50 Mg Tablet) 50 mg PO BEDTIME MRX1 PRN PRN Reason: Insomnia Allergies Allergies Allergy/AdvReac Type Severity Reaction Status Date / Time pencillin Allergy Severe Unknown Uncoded 11/20/21 16:26 Assessment & Plan Assessment & Plan (1) Bipolar disorder with severe depression: Status: Acute Code(s): F31.4 - Bipolar disorder, current episode depressed, severe, without psychotic features Plan The patient is an elderly male, with a were with a long history of bipolar disorder who was admitted into the facility for exacerbation of depressive symptoms that has not responded with a recent change of medications. Plan 1. Gather collateral information. 2. Continue Prozac 40 mg p.o. daily. 3. Reassess the use of mood stabilizers to improve antidepressants. 4. comprehensive metabolic panel due to dizziness and weakness - check electrolyte- on lasix and hydrochlorothiazide Patient educated on: diagnosis, medication risk/benefits and therapeutic strategies Informed Consent: further education needed Reason for contiued inpatient stay Substantial Risk for: harm to self, inability to function and rapid decompensation Time Spent With Patient Time: Total time managing care of this patient today ____ minutes.
[2022-06-28 18:00] VITALS: BP 125/82; PULSE 79; RESP 18; TEMP 35.9; O2SAT 98
[2022-06-28] MEDS: lamoTRIgine 100 MG TABLET 200 MG PO (19:41)
[2022-06-28] MEDS: Doxazosin Mesylate 2 MG TABLET 4 MG PO (19:42)
[2022-06-28] MEDS: OLANZapine 5 MG TABLET PO (19:43)
[2022-06-28 19:59] LABS: Alanine Aminotransferase 17 U/L (0-40); Albumin Level 4.3 g/dL (3.5-5.0); Alkaline Phosphatase 70 U/L (39-117); Anion Gap 14 (12-20); Aspartate Amino Transferase 22 U/L (5-37); Bilirubin Total 0.3 mg/dL (0.0-1.0); Blood Urea Nitrogen 33 mg/dL (9-16); Calcium 9.6 mg/dL (8.4-10.2); Carbon Dioxide 28 mmol/L (22-29); Chloride 103 mmol/L (96-108); Creatinine Clr Calc Pharmacy 31.7; Estimated Glomerular Filt Rate 40; Glucose Random 114 mg/dL (60-115); Potassium 4.1 mmol/L (3.3-5.1); Sodium 141 mmol/L (135-145); Total Protein 7.2 g/dL (6.5-8.0)
[2022-06-29] MEDS: Omeprazole 20 MG CAPSULE.DR PO (06:44)
[2022-06-29 07:30] VITALS: BP 109/75; PULSE 75; RESP 16; TEMP 36.2; O2SAT 94
[2022-06-29] MEDS: Multivitamin TABLET 1 TAB PO (08:09)
[2022-06-29] MEDS: Furosemide 20 MG TABLET PO (08:09)
[2022-06-29] MEDS: hydroCHLOROthiazide 12.5 MG TABLET PO (08:09)
[2022-06-29] MEDS: Atorvastatin Calcium 80 MG TABLET PO (08:09)
[2022-06-29] MEDS: Aspirin Enteric Coated 81 MG TABLET.DR PO (08:09)
--- NOTE | 2022-06-29 12:26 | HO.PSYCHPN ---
Subjective Subjective Date of Service: 06/29/22 Reason For Visit: Depression, Suicidal ideation Interim History: Pt pleasantly confused today. ?He feels safe on unit. Staff report no falls; walking in hallway with better balance; He denies psychotic symptoms or current little. Medication Compliance: Yes Side effects from medications: No Review of Systems Acute medical concerns: No Medical Review of Systems: unchanged Review of Systems Review of Systems Constitutional: No Fever, No Chills, +Fatigue, No Malaise ENT/Mouth: No Ear Pain, No Nasal Congestion, No sore throat, No Rhinorrhea, No Swallowing Difficulty Eyes: No Eye Pain, No Swelling, No Redness, No Foreign Body, No Discharge, No Vision Changes Cardiovascular: No Chest Pain, + SOB, No Orthopnea, No Edema, No Palpitations Respiratory: No Cough, No Sputum, No Dyspnea Gastrointestinal: No Nausea, No Vomiting, No Diarrhea, No Constipation, + Abdominal pain Genitourinary: No Dysuria, No Urinary Frequency, No Hematuria, No Flank Pain, No Urinary Flow Changes Musculoskeletal: No joint pain, No Myalgias, No Joint Swelling Skin: No Skin Lesions, No rash Neuro: + Weakness, No Numbness, No Paresthesias, No Loss of Consciousness, No Dizziness, No Headache Yes all other systems are reviewed and are negative Constitutional: Reports as per HPI Denies Abnormal speech present Mental Status Exam Mental Status Exam Patient Appearance: Well Grooomed and Appropriate Patient Orientation: Person and Situation Level of Consciousness: Awake and Appropriate Patient Behavior: Cooperative Mood Description: Withdrawn and Sad Affect Description: Constricted Patient Cognition Impaired: Yes Ability to Follow Directions: Good Speech Pattern: Clear Judgement: Fair Diagnostics Vital Signs (24Hr): Vital Signs - 24 hr 06/28/22 18:00 06/29/22 07:30 Temperature 96.6 F L 97.1 F Pulse Rate 79 75 Respiratory Rate 18 16 Blood Pressure 125/82 109/75 Pulse Oximetry 98 94 Oxygen Delivery Method Room Air Room Air BMI result Body Mass Index 24.3 Labs 06/25/22 10:07 06/28/22 19:27 Labs: Laboratory Results - last 48 hr 06/28/22 19:27 Sodium 141 Potassium 4.1 Chloride 103 Carbon Dioxide 28 Anion Gap 14 BUN 33 H Creatinine 1.64 H Estim Creat Clear Calc 31.7 Estimated GFR 40 Random Glucose 114 Calcium 9.6 D Total Bilirubin 0.3 AST 22 ALT 17 Alkaline Phosphatase 70 Total Protein 7.2 Albumin 4.3 Imaging Radiology Impressions: ITS Impressions Chest X-Ray 06/25/22 09:58 IMPRESSION: No acute cardiopulmonary process. Medications Medications Current Medications Acetaminophen (Acetaminophen 325 Mg Tablet) 650 mg PO Q6H PRN PRN Reason: Headache/Pain Mild Scale (1-3) Al Hydroxide/Mg Hydroxide (Magnesium Hydrox/Alum Hydrox 30 Ml Oral.Susp) 30 ml PO Q6H PRN PRN Reason: Heartburn/Nausea Aspirin (Aspirin Enteric Coated 81 Mg Tablet.Dr) 81 mg PO DAILY [facility] Last Admin: 06/29/22 08:09 Dose: 81 mg Atorvastatin Calcium (Atorvastatin Calcium 80 Mg Tablet) 80 mg PO DAILY [facility] Last Admin: 06/29/22 08:09 Dose: 80 mg Bisacodyl (Bisacodyl 10 Mg Supp.Rect) 10 mg [place] BEDTIME PRN PRN Reason: Constipation Docusate Sodium (Docusate Sodium 100 Mg Capsule) 100 mg PO BID PRN PRN Reason: Constipation Doxazosin Mesylate (Doxazosin Mesylate 2 Mg Tablet) 4 mg PO BEDTIME [facility] Last Admin: 06/28/22 19:42 Dose: 4 mg Furosemide (Furosemide 20 Mg Tablet) 20 mg PO DAILY [facility]; Protocol Last Admin: 06/29/22 08:09 Dose: 20 mg Hydrochlorothiazide (Hydrochlorothiazide 12.5 Mg Tablet) 12.5 mg PO DAILY [facility]; Protocol Last Admin: 06/29/22 08:09 Dose: 12.5 mg Hydroxyzine HCl (Hydroxyzine Hcl 25 Mg Tablet) 25 mg PO Q6H PRN PRN Reason: Anxiety Lamotrigine (Lamotrigine 100 Mg Tablet) 200 mg PO BEDTIME [facility] Last Admin: 06/28/22 19:41 Dose: 200 mg Lorazepam (Lorazepam 0.5 Mg Tablet) 0.5 mg PO BEDTIME PRN PRN Reason: sleep, anxiety Magnesium Hydroxide (Milk Of Magnesia 30 Ml Oral.Susp) 30 ml PO DAILY PRN PRN Reason: Constipation Melatonin (Melatonin 3 Mg Tablet) 3 mg PO BEDTIME PRN PRN Reason: Sleep Multivitamins/Vitamin C (Multivitamin Tablet) 1 tab PO DAILY [facility] Last Admin: 06/29/22 08:09 Dose: 1 tab Non-Formulary Medication (Selegiline) 9 mg TRANSDERMA DAILY [facility] Olanzapine (Olanzapine 5 Mg Tablet) 5 mg PO BEDTIME [facility] Last Admin: 06/28/22 19:43 Dose: 5 mg Omeprazole (Omeprazole 20 Mg Capsule.Dr) 20 mg PO DAILY@0630 [facility] Last Admin: 06/29/22 06:44 Dose: 20 mg Pharmacy Consult (Consult Rx Perform Med Rec) 1 each MISCELLANE ONCE PRN PRN Reason: Consult order Polyethylene Glycol (Polyethylene Glycol 3350 17 Gm Powd.Pack) 17 gm PO DAILY PRN PRN Reason: Constipation Trazodone HCl (Trazodone Hcl 50 Mg Tablet) 50 mg PO BEDTIME MRX1 PRN PRN Reason: Insomnia Allergies Allergies Allergy/AdvReac Type Severity Reaction Status Date / Time pencillin Allergy Severe Unknown Uncoded 11/20/21 16:26 Assessment & Plan Assessment & Plan (1) Bipolar disorder with severe depression: Status: Acute Code(s): F31.4 - Bipolar disorder, current episode depressed, severe, without psychotic features Plan The patient is an elderly male, with a were with a long history of bipolar disorder who was admitted into the facility for exacerbation of depressive symptoms that has not responded with a recent change of medications. Plan Continue treatment plan Reason for contiued inpatient stay Substantial Risk for: harm to self, inability to function and rapid decompensation Time Spent With Patient Time: Total time managing care of this patient today ____ minutes.
[2022-06-29 18:00] VITALS: BP 145/77; PULSE 75; RESP 17; TEMP 36.1; O2SAT 98
[2022-06-29] MEDS: lamoTRIgine 100 MG TABLET 200 MG PO (20:32)
[2022-06-29] MEDS: Doxazosin Mesylate 2 MG TABLET 4 MG PO (20:32)
[2022-06-29] MEDS: hydrOXYzine HCL 25 MG TABLET PO (20:33)
[2022-06-29] MEDS: Melatonin 3 MG TABLET PO (20:33)
[2022-06-29] MEDS: OLANZapine 5 MG TABLET PO (20:33)
[2022-06-29] MEDS: Docusate Sodium 100 MG CAPSULE PO (20:33)
[2022-06-30 06:00] VITALS: BP 122/61; PULSE 60; RESP 18; TEMP 36.1; O2SAT 97
[2022-06-30] MEDS: Omeprazole 20 MG CAPSULE.DR PO (06:17)
[2022-06-30] MEDS: Multivitamin TABLET 1 TAB PO (08:56)
[2022-06-30] MEDS: Aspirin Enteric Coated 81 MG TABLET.DR PO (08:56)
[2022-06-30] MEDS: hydroCHLOROthiazide 12.5 MG TABLET PO (08:56)
[2022-06-30] MEDS: Furosemide 20 MG TABLET PO (08:56)
[2022-06-30] MEDS: Atorvastatin Calcium 80 MG TABLET PO (08:56)
--- NOTE | 2022-06-30 14:00 | P.PNPSI_ITS ---
Subjective Subjective Date of Service: 06/30/22 Reason For Visit: Depression, Suicidal ideation Subjective Notes: Conditional Voluntary and 3 Day Interim History: The nursing staff reported the patient had been more dysphoric than usual. Today in the morning, he was uncooperative with the occupational therapy staff is stating that it was not their business to know how he was feeling. On interview, the patient reported that he was feeling fine, I discussed jesse atment options and he agreed to increase Lamictal up to 50 mg p.o. q.a.m.. He signed 3 day notice Mental Status Exam Mental Status Exam Patient Appearance: Appropriate Patient Orientation: Person and Situation Level of Consciousness: Awake and Appropriate Patient Behavior: Guarded and Passive Mood Description: Withdrawn Affect Description: Constricted Patient Cognition Impaired: Yes Ability to Follow Directions: Good Speech Pattern: Clear Hallucinations: None Delusions: Not Present Thought Process: Distracted and Slowed Thinking Thought Content: positive for [place] Judgement: Fair Diagnostics Vital Signs (24Hr): Vital Signs - 24 hr 06/29/22 18:00 06/30/22 06:00 Temperature 96.9 F 97.0 F Pulse Rate 75 60 Respiratory Rate 17 18 Blood Pressure 145/77 H 122/61 Pulse Oximetry 98 97 Oxygen Delivery Method Room Air Room Air BMI result Body Mass Index 24.3 Labs 06/25/22 10:07 06/28/22 19:27 Labs: Laboratory Results - last 48 hr 06/28/22 19:27 Sodium 141 Potassium 4.1 Chloride 103 Carbon Dioxide 28 Anion Gap 14 BUN 33 H Creatinine 1.64 H Estim Creat Clear Calc 31.7 Estimated GFR 40 Random Glucose 114 Calcium 9.6 D Total Bilirubin 0.3 AST 22 ALT 17 Alkaline Phosphatase 70 Total Protein 7.2 Albumin 4.3 Imaging Radiology Impressions: ITS Impressions Chest X-Ray 06/25/22 09:58 IMPRESSION: No acute cardiopulmonary process. Medications Medications Current Medications Acetaminophen (Acetaminophen 325 Mg Tablet) 650 mg PO Q6H PRN PRN Reason: Headache/Pain Mild Scale (1-3) Al Hydroxide/Mg Hydroxide (Magnesium Hydrox/Alum Hydrox 30 Ml Oral.Susp) 30 ml PO Q6H PRN PRN Reason: Heartburn/Nausea Aspirin (Aspirin Enteric Coated 81 Mg Tablet.) 81 mg PO DAILY [facility] Last Admin: 06/30/22 08:56 Dose: 81 mg Atorvastatin Calcium (Atorvastatin Calcium 80 Mg Tablet) 80 mg PO DAILY [facility] Last Admin: 06/30/22 08:56 Dose: 80 mg Bisacodyl (Bisacodyl 10 Mg Supp.Rect) 10 mg [place] BEDTIME PRN PRN Reason: Constipation Docusate Sodium (Docusate Sodium 100 Mg Capsule) 100 mg PO BID PRN PRN Reason: Constipation Last Admin: 06/29/22 20:33 Dose: 100 mg Doxazosin Mesylate (Doxazosin Mesylate 2 Mg Tablet) 4 mg PO BEDTIME [facility] Last Admin: 06/29/22 20:32 Dose: 4 mg Furosemide (Furosemide 20 Mg Tablet) 20 mg PO DAILY [facility]; Protocol Last Admin: 06/30/22 08:56 Dose: 20 mg Hydrochlorothiazide (Hydrochlorothiazide 12.5 Mg Tablet) 12.5 mg PO DAILY [facility]; Protocol Last Admin: 06/30/22 08:56 Dose: 12.5 mg Hydroxyzine HCl (Hydroxyzine Hcl 25 Mg Tablet) 25 mg PO Q6H PRN PRN Reason: Anxiety Last Admin: 06/29/22 20:33 Dose: 25 mg Lamotrigine (Lamotrigine 100 Mg Tablet) 200 mg PO BEDTIME [facility] Last Admin: 06/29/22 20:32 Dose: 200 mg Lamotrigine (Lamotrigine 25 Mg Tablet) 50 mg PO DAILY [facility] Lorazepam (Lorazepam 0.5 Mg Tablet) 0.5 mg PO BEDTIME PRN PRN Reason: sleep, anxiety Magnesium Hydroxide (Milk Of Magnesia 30 Ml Oral.Susp) 30 ml PO DAILY PRN PRN Reason: Constipation Melatonin (Melatonin 3 Mg Tablet) 3 mg PO BEDTIME PRN PRN Reason: Sleep Last Admin: 06/29/22 20:33 Dose: 3 mg Multivitamins/Vitamin C (Multivitamin Tablet) 1 tab PO DAILY [facility] Last Admin: 06/30/22 08:56 Dose: 1 tab Non-Formulary Medication (Selegiline) 9 mg TRANSDERMA DAILY [facility] Olanzapine (Olanzapine 5 Mg Tablet) 5 mg PO BEDTIME [facility] Last Admin: 06/29/22 20:33 Dose: 5 mg Omeprazole (Omeprazole 20 Mg Capsule.Dr) 20 mg PO DAILY@0630 [facility] Last Admin: 06/30/22 06:17 Dose: 20 mg Pharmacy Consult (Consult Rx Perform Med Rec) 1 each MISCELLANE ONCE PRN PRN Reason: Consult order Polyethylene Glycol (Polyethylene Glycol 3350 17 Gm Powd.Pack) 17 gm PO DAILY PRN PRN Reason: Constipation Trazodone HCl (Trazodone Hcl 50 Mg Tablet) 50 mg PO BEDTIME MRX1 PRN PRN Reason: Insomnia Allergies Allergies Allergy/AdvReac Type Severity Reaction Status Date / Time pencillin Allergy Severe Unknown Uncoded 11/20/21 16:26 Assessment & Plan Assessment & Plan (1) Bipolar disorder with severe depression: Status: Acute Code(s): F31.4 - Bipolar disorder, current episode depressed, severe, without psychotic features Plan The patient is an elderly male, with a were with a long history of bipolar disorder who was admitted into the facility for exacerbation of depressive symptoms that has not responded with a recent change of medications. Plan Continue treatment plan Increase Lamictal up to 50 mg p.o. q.a.m. Reason for contiued inpatient stay Substantial Risk for: inability to function, rapid decompensation and med/psych decompensation Time Spent With Patient Time: Total time managing care of this patient today __20__ minutes.
[2022-06-30 18:00] VITALS: BP 134/70; PULSE 69; RESP 18; TEMP 36.4; O2SAT 97
[2022-06-30] MEDS: Doxazosin Mesylate 2 MG TABLET 4 MG PO (20:40)
[2022-06-30] MEDS: lamoTRIgine 100 MG TABLET 200 MG PO (20:40)
[2022-06-30] MEDS: OLANZapine 5 MG TABLET PO (20:40)
[2022-07-01 06:00] VITALS: BP 138/74; PULSE 71; RESP 18; TEMP 36.1; O2SAT 96
[2022-07-01] MEDS: Omeprazole 20 MG CAPSULE.DR PO (06:08)
[2022-07-01] MEDS: Multivitamin TABLET 1 TAB PO (08:30)
[2022-07-01] MEDS: hydroCHLOROthiazide 12.5 MG TABLET PO (08:30)
[2022-07-01] MEDS: lamoTRIgine 25 MG TABLET 50 MG PO (08:30)
[2022-07-01] MEDS: Aspirin Enteric Coated 81 MG TABLET.DR PO (08:30)
[2022-07-01] MEDS: Atorvastatin Calcium 80 MG TABLET PO (08:30)
[2022-07-01] MEDS: Furosemide 20 MG TABLET PO (08:30)
--- NOTE | 2022-07-01 12:08 | HO.PSYCHPN ---
Subjective Subjective Date of Service: 07/01/22 Reason For Visit: Depression, Suicidal ideation Subjective Notes: Conditional Voluntary and 3 Day Interim History: The nursing staff reported that yesterday his and a 3 day notice, he reported that his mood has improved he feels much better. The patient therapist reported that he scored 8/30 on the [place] test and 4.2 at the [place] test. Also we noticed that he had been driving and it seems that it could be an safe for him to drive. On interview the patient denies new symptoms he is aware that we are working on discharge planning right now. Today we had a family meeting with her son and relative to work out proper discharge. Mental Status Exam Mental Status Exam Patient Appearance: Appropriate Patient Orientation: Person and Situation Level of Consciousness: Awake and Appropriate Patient Behavior: Guarded and Passive Mood Description: Withdrawn Affect Description: Constricted Patient Cognition Impaired: Yes Ability to Follow Directions: Good Speech Pattern: Clear Hallucinations: None Delusions: Not Present Thought Process: Distracted Thought Content: positive for [place] and positive for Circumstantial Judgement: Fair Diagnostics Vital Signs (24Hr): Vital Signs - 24 hr 06/30/22 18:00 07/01/22 06:00 Temperature 97.5 F 96.9 F Pulse Rate 69 71 Respiratory Rate 18 18 Blood Pressure 134/70 138/74 Pulse Oximetry 97 96 Oxygen Delivery Method Room Air Room Air BMI result Body Mass Index 24.3 Labs 06/25/22 10:07 06/28/22 19:27 Imaging Radiology Impressions: ITS Impressions Chest X-Ray 06/25/22 09:58 IMPRESSION: No acute cardiopulmonary process. Medications Medications Current Medications Acetaminophen (Acetaminophen 325 Mg Tablet) 650 mg PO Q6H PRN PRN Reason: Headache/Pain Mild Scale (1-3) Al Hydroxide/Mg Hydroxide (Magnesium Hydrox/Alum Hydrox 30 Ml Oral.Susp) 30 ml PO Q6H PRN PRN Reason: Heartburn/Nausea Aspirin (Aspirin Enteric Coated 81 Mg Tablet.) 81 mg PO DAILY [facility] Last Admin: 07/01/22 08:30 Dose: 81 mg Atorvastatin Calcium (Atorvastatin Calcium 80 Mg Tablet) 80 mg PO DAILY [facility] Last Admin: 07/01/22 08:30 Dose: 80 mg Bisacodyl (Bisacodyl 10 Mg Supp.Rect) 10 mg [place] BEDTIME PRN PRN Reason: Constipation Docusate Sodium (Docusate Sodium 100 Mg Capsule) 100 mg PO BID PRN PRN Reason: Constipation Last Admin: 06/29/22 20:33 Dose: 100 mg Doxazosin Mesylate (Doxazosin Mesylate 2 Mg Tablet) 4 mg PO BEDTIME [facility] Last Admin: 06/30/22 20:40 Dose: 4 mg Furosemide (Furosemide 20 Mg Tablet) 20 mg PO DAILY [facility]; Protocol Last Admin: 07/01/22 08:30 Dose: 20 mg Hydrochlorothiazide (Hydrochlorothiazide 12.5 Mg Tablet) 12.5 mg PO DAILY [facility]; Protocol Last Admin: 07/01/22 08:30 Dose: 12.5 mg Hydroxyzine HCl (Hydroxyzine Hcl 25 Mg Tablet) 25 mg PO Q6H PRN PRN Reason: Anxiety Last Admin: 06/29/22 20:33 Dose: 25 mg Lamotrigine (Lamotrigine 100 Mg Tablet) 200 mg PO BEDTIME [facility] Last Admin: 06/30/22 20:40 Dose: 200 mg Lamotrigine (Lamotrigine 25 Mg Tablet) 50 mg PO DAILY [facility] Last Admin: 07/01/22 08:30 Dose: 50 mg Lorazepam (Lorazepam 0.5 Mg Tablet) 0.5 mg PO BEDTIME PRN PRN Reason: sleep, anxiety Magnesium Hydroxide (Milk Of Magnesia 30 Ml Oral.Susp) 30 ml PO DAILY PRN PRN Reason: Constipation Melatonin (Melatonin 3 Mg Tablet) 3 mg PO BEDTIME PRN PRN Reason: Sleep Last Admin: 06/29/22 20:33 Dose: 3 mg Multivitamins/Vitamin C (Multivitamin Tablet) 1 tab PO DAILY [facility] Last Admin: 07/01/22 08:30 Dose: 1 tab Non-Formulary Medication (Selegiline) 9 mg TRANSDERMA DAILY [facility] Olanzapine (Olanzapine 5 Mg Tablet) 5 mg PO BEDTIME [facility] Last Admin: 06/30/22 20:40 Dose: 5 mg Omeprazole (Omeprazole 20 Mg Capsule.Dr) 20 mg PO DAILY@0630 [facility] Last Admin: 07/01/22 06:08 Dose: 20 mg Pharmacy Consult (Consult Rx Perform Med Rec) 1 each MISCELLANE ONCE PRN PRN Reason: Consult order Polyethylene Glycol (Polyethylene Glycol 3350 17 Gm Powd.Pack) 17 gm PO DAILY PRN PRN Reason: Constipation Trazodone HCl (Trazodone Hcl 50 Mg Tablet) 50 mg PO BEDTIME MRX1 PRN PRN Reason: Insomnia Allergies Allergies Allergy/AdvReac Type Severity Reaction Status Date / Time pencillin Allergy Severe Unknown Uncoded 11/20/21 16:26 Assessment & Plan Assessment & Plan (1) Bipolar disorder with severe depression: Status: Acute Code(s): F31.4 - Bipolar disorder, current episode depressed, severe, without psychotic features Plan The patient is an elderly male, with a were with a long history of bipolar disorder who was admitted into the facility for exacerbation of depressive symptoms that has not responded with a recent change of medications. Plan Continue treatment plan Start working on discharge planning Increase Lamictal up to 50 mg p.o. q.a.m. Reason for contiued inpatient stay Substantial Risk for: inability to function, rapid decompensation and med/psych decompensation Time Spent With Patient Time: Total time managing care of this patient today __20__ minutes.
[2022-07-01 21:10] VITALS: BP 146/76; PULSE 66; RESP 16; TEMP 36.6; O2SAT 96
[2022-07-01] MEDS: Doxazosin Mesylate 2 MG TABLET 4 MG PO (21:11)
[2022-07-01] MEDS: lamoTRIgine 100 MG TABLET 200 MG PO (21:11)
[2022-07-01] MEDS: OLANZapine 5 MG TABLET PO (21:11)
[2022-07-02 07:30] VITALS: BP 129/83; PULSE 70; RESP 18; TEMP 36.2; O2SAT 92
[2022-07-02] MEDS: Multivitamin TABLET 1 TAB PO (08:09)
[2022-07-02] MEDS: Aspirin Enteric Coated 81 MG TABLET.DR PO (08:09)
[2022-07-02] MEDS: hydroCHLOROthiazide 12.5 MG TABLET PO (08:09)
[2022-07-02] MEDS: Omeprazole 20 MG CAPSULE.DR PO (08:09)
[2022-07-02] MEDS: Furosemide 20 MG TABLET PO (08:10)
[2022-07-02] MEDS: lamoTRIgine 25 MG TABLET 50 MG PO (08:10)
[2022-07-02] MEDS: Atorvastatin Calcium 80 MG TABLET PO (11:54)
--- NOTE | 2022-07-02 14:01 | P.PNPSI_ITS ---
Subjective Subjective Date of Service: 07/02/22 Reason For Visit: Depression, Suicidal ideation Subjective Notes: Conditional Voluntary Interim History: The nursing staff reported the patient slept all night last night, he has pleasant and cooperative fully compliant with treatment. Yesterday we had a family meeting with the social group worker apparently we will need [facility], we will try to advocate for more hours and probably VNA. He retracted his 3 day notice letter. On interview the patient denies new symptoms he is pleasant but confused. Mental Status Exam Mental Status Exam Patient Appearance: Well Grooomed and Appropriate Patient Orientation: Person and Situation Level of Consciousness: Awake and Appropriate Patient Behavior: Appropriate Mood Description: Withdrawn Affect Description: Constricted Patient Cognition Impaired: Yes Ability to Follow Directions: Good Speech Pattern: Clear Hallucinations: None Delusions: Not Present Thought Process: Distracted and Slowed Thinking Thought Content: positive for [place] and positive for Poverty of Content Judgement: Poor Diagnostics Vital Signs (24Hr): Vital Signs - 24 hr 07/01/22 21:10 07/02/22 07:30 Temperature 97.8 F 97.2 F Pulse Rate 66 70 Respiratory Rate 16 18 Blood Pressure 146/76 H 129/83 Pulse Oximetry 96 92 Oxygen Delivery Method Room Air Room Air BMI result Body Mass Index 24.3 Labs 06/25/22 10:07 06/28/22 19:27 Imaging Radiology Impressions: ITS Impressions Chest X-Ray 06/25/22 09:58 IMPRESSION: No acute cardiopulmonary process. Medications Medications Current Medications Acetaminophen (Acetaminophen 325 Mg Tablet) 650 mg PO Q6H PRN PRN Reason: Headache/Pain Mild Scale (1-3) Al Hydroxide/Mg Hydroxide (Magnesium Hydrox/Alum Hydrox 30 Ml Oral.Susp) 30 ml PO Q6H PRN PRN Reason: Heartburn/Nausea Aspirin (Aspirin Enteric Coated 81 Mg Tablet.Dr) 81 mg PO DAILY [facility] Last Admin: 07/02/22 08:09 Dose: 81 mg Atorvastatin Calcium (Atorvastatin Calcium 80 Mg Tablet) 80 mg PO DAILY [facility] Last Admin: 07/02/22 11:54 Dose: 80 mg Bisacodyl (Bisacodyl 10 Mg Supp.Rect) 10 mg [place] BEDTIME PRN PRN Reason: Constipation Docusate Sodium (Docusate Sodium 100 Mg Capsule) 100 mg PO BID PRN PRN Reason: Constipation Last Admin: 06/29/22 20:33 Dose: 100 mg Doxazosin Mesylate (Doxazosin Mesylate 2 Mg Tablet) 4 mg PO BEDTIME [facility] Last Admin: 07/01/22 21:11 Dose: 4 mg Furosemide (Furosemide 20 Mg Tablet) 20 mg PO DAILY [facility]; Protocol Last Admin: 07/02/22 08:10 Dose: 20 mg Hydrochlorothiazide (Hydrochlorothiazide 12.5 Mg Tablet) 12.5 mg PO DAILY [facility]; Protocol Last Admin: 07/02/22 08:09 Dose: 12.5 mg Hydroxyzine HCl (Hydroxyzine Hcl 25 Mg Tablet) 25 mg PO Q6H PRN PRN Reason: Anxiety Last Admin: 06/29/22 20:33 Dose: 25 mg Lamotrigine (Lamotrigine 100 Mg Tablet) 200 mg PO BEDTIME [facility] Last Admin: 07/01/22 21:11 Dose: 200 mg Lamotrigine (Lamotrigine 25 Mg Tablet) 50 mg PO DAILY [facility] Last Admin: 07/02/22 08:10 Dose: 50 mg Magnesium Hydroxide (Milk Of Magnesia 30 Ml Oral.Susp) 30 ml PO DAILY PRN PRN Reason: Constipation Melatonin (Melatonin 3 Mg Tablet) 3 mg PO BEDTIME PRN PRN Reason: Sleep Last Admin: 06/29/22 20:33 Dose: 3 mg Memantine (Memantine Hcl 5 Mg Tablet) 5 mg PO BID [facility] Multivitamins/Vitamin C (Multivitamin Tablet) 1 tab PO DAILY [facility] Last Admin: 07/02/22 08:09 Dose: 1 tab Non-Formulary Medication (Selegiline) 9 mg TRANSDERMA DAILY [facility] Olanzapine (Olanzapine 5 Mg Tablet) 5 mg PO BEDTIME [facility] Last Admin: 07/01/22 21:11 Dose: 5 mg Omeprazole (Omeprazole 20 Mg Capsule.Dr) 20 mg PO DAILY@0630 [facility] Last Admin: 07/02/22 08:09 Dose: 20 mg Pharmacy Consult (Consult Rx Perform Med Rec) 1 each MISCELLANE ONCE PRN PRN Reason: Consult order Polyethylene Glycol (Polyethylene Glycol 3350 17 Gm Powd.Pack) 17 gm PO DAILY PRN PRN Reason: Constipation Trazodone HCl (Trazodone Hcl 50 Mg Tablet) 50 mg PO BEDTIME MRX1 PRN PRN Reason: Insomnia Allergies Allergies Allergy/AdvReac Type Severity Reaction Status Date / Time pencillin Allergy Severe Unknown Uncoded 11/20/21 16:26 Assessment & Plan Assessment & Plan (1) Bipolar disorder with severe depression: Status: Acute Code(s): F31.4 - Bipolar disorder, current episode depressed, severe, without psychotic features Plan The patient is an elderly male, with a were with a long history of bipolar disorder who was admitted into the facility for exacerbation of depressive symptoms that has not responded with a recent change of medications. Plan Continue treatment plan Start working on discharge planning Increase Lamictal up to 50 mg p.o. q.a.m. Reason for contiued inpatient stay Substantial Risk for: inability to function, rapid decompensation and med/psych decompensation Time Spent With Patient Time: Total time managing care of this patient today __20__ minutes.
[2022-07-02 18:00] VITALS: BP 137/76; PULSE 71; RESP 18; TEMP 36.3; O2SAT 97
[2022-07-02] MEDS: Memantine HCl 5 MG TABLET PO (20:35)
[2022-07-02] MEDS: OLANZapine 5 MG TABLET PO (20:35)
[2022-07-02] MEDS: lamoTRIgine 100 MG TABLET 200 MG PO (20:35)
[2022-07-02] MEDS: Doxazosin Mesylate 2 MG TABLET 4 MG PO (20:35)
[2022-07-03] MEDS: hydrOXYzine HCL 25 MG TABLET PO (03:32)
[2022-07-03 06:00] VITALS: BP 114/59; PULSE 57; RESP 17; TEMP 36.7; O2SAT 95
[2022-07-03] MEDS: Omeprazole 20 MG CAPSULE.DR PO (06:26)
[2022-07-03 08:39] LABS: COVID-19 Test Negative (Negative); IDNOW Serial# 9DB6401D
[2022-07-03] MEDS: Aspirin Enteric Coated 81 MG TABLET.DR PO (10:15)
[2022-07-03] MEDS: lamoTRIgine 25 MG TABLET 50 MG PO (10:16)
[2022-07-03] MEDS: Atorvastatin Calcium 80 MG TABLET PO (10:16)
[2022-07-03] MEDS: hydroCHLOROthiazide 12.5 MG TABLET PO (10:16)
[2022-07-03] MEDS: Multivitamin TABLET 1 TAB PO (10:16)
[2022-07-03] MEDS: Furosemide 20 MG TABLET PO (10:17)
[2022-07-03] MEDS: Memantine HCl 5 MG TABLET PO ×2 (10:17→20:35)
--- NOTE | 2022-07-03 13:16 | P.PNPSI_ITS ---
Subjective Subjective Date of Service: 07/03/22 Reason For Visit: Depression, Suicidal ideation Subjective Notes: Conditional Voluntary Interim History: The nursing staff reported the patient woke up at 03:30 in the morning and he went back to bed. COVID testing today came back negative, he complained of feeling anxious. We will monitor ordered for further symptoms. On interview the patient remains confused but able to be redirectable. Mental Status Exam Mental Status Exam Patient Appearance: Well Grooomed and Appropriate Patient Orientation: Person and Situation Level of Consciousness: Awake Patient Behavior: Guarded and Passive Mood Description: Withdrawn Affect Description: Constricted Patient Cognition Impaired: Yes Ability to Follow Directions: Good Speech Pattern: Clear Hallucinations: None Delusions: Not Present Thought Process: Distracted and Slowed Thinking Thought Content: positive for [place] and positive for Circumstantial Judgement: Fair Diagnostics Vital Signs (24Hr): Vital Signs - 24 hr 07/02/22 18:00 07/03/22 06:00 Temperature 97.4 F 98.1 F Pulse Rate 71 57 Respiratory Rate 18 17 Blood Pressure 137/76 114/59 L Pulse Oximetry 97 95 Oxygen Delivery Method Room Air Room Air BMI result Body Mass Index 24.3 Labs 06/25/22 10:07 06/28/22 19:27 Labs: Laboratory Results - last 48 hr 07/03/22 08:00 COVID-19 ([facility]) Negative COVID-19 Clin Com See Note Imaging Radiology Impressions: ITS Impressions Chest X-Ray 06/25/22 09:58 IMPRESSION: No acute cardiopulmonary process. Medications Medications Current Medications Acetaminophen (Acetaminophen 325 Mg Tablet) 650 mg PO Q6H PRN PRN Reason: Headache/Pain Mild Scale (1-3) Al Hydroxide/Mg Hydroxide (Magnesium Hydrox/Alum Hydrox 30 Ml Oral.Susp) 30 ml PO Q6H PRN PRN Reason: Heartburn/Nausea Aspirin (Aspirin Enteric Coated 81 Mg Tablet.) 81 mg PO DAILY [facility] Last Admin: 07/03/22 10:15 Dose: 81 mg Atorvastatin Calcium (Atorvastatin Calcium 80 Mg Tablet) 80 mg PO DAILY [facility] Last Admin: 07/03/22 10:16 Dose: 80 mg Bisacodyl (Bisacodyl 10 Mg Supp.Rect) 10 mg [place] BEDTIME PRN PRN Reason: Constipation Docusate Sodium (Docusate Sodium 100 Mg Capsule) 100 mg PO BID PRN PRN Reason: Constipation Last Admin: 06/29/22 20:33 Dose: 100 mg Doxazosin Mesylate (Doxazosin Mesylate 2 Mg Tablet) 4 mg PO BEDTIME [facility] Last Admin: 07/02/22 20:35 Dose: 4 mg Furosemide (Furosemide 20 Mg Tablet) 20 mg PO DAILY [facility]; Protocol Last Admin: 07/03/22 10:17 Dose: 20 mg Hydrochlorothiazide (Hydrochlorothiazide 12.5 Mg Tablet) 12.5 mg PO DAILY [facility]; Protocol Last Admin: 07/03/22 10:16 Dose: 12.5 mg Hydroxyzine HCl (Hydroxyzine Hcl 25 Mg Tablet) 25 mg PO Q6H PRN PRN Reason: Anxiety Last Admin: 07/03/22 03:32 Dose: 25 mg Lamotrigine (Lamotrigine 100 Mg Tablet) 200 mg PO BEDTIME [facility] Last Admin: 07/02/22 20:35 Dose: 200 mg Lamotrigine (Lamotrigine 25 Mg Tablet) 50 mg PO DAILY [facility] Last Admin: 07/03/22 10:16 Dose: 50 mg Magnesium Hydroxide (Milk Of Magnesia 30 Ml Oral.Susp) 30 ml PO DAILY PRN PRN Reason: Constipation Melatonin (Melatonin 3 Mg Tablet) 3 mg PO BEDTIME PRN PRN Reason: Sleep Last Admin: 06/29/22 20:33 Dose: 3 mg Memantine (Memantine Hcl 5 Mg Tablet) 5 mg PO BID [facility] Last Admin: 07/03/22 10:17 Dose: 5 mg Multivitamins/Vitamin C (Multivitamin Tablet) 1 tab PO DAILY [facility] Last Admin: 07/03/22 10:16 Dose: 1 tab Non-Formulary Medication (Selegiline) 9 mg TRANSDERMA DAILY [facility] Olanzapine (Olanzapine 5 Mg Tablet) 5 mg PO BEDTIME [facility] Last Admin: 07/02/22 20:35 Dose: 5 mg Omeprazole (Omeprazole 20 Mg Capsule.Dr) 20 mg PO DAILY@0630 [facility] Last Admin: 07/03/22 06:26 Dose: 20 mg Pharmacy Consult (Consult Rx Perform Med Rec) 1 each MISCELLANE ONCE PRN PRN Reason: Consult order Polyethylene Glycol (Polyethylene Glycol 3350 17 Gm Powd.Pack) 17 gm PO DAILY PRN PRN Reason: Constipation Trazodone HCl (Trazodone Hcl 50 Mg Tablet) 50 mg PO BEDTIME MRX1 PRN PRN Reason: Insomnia Allergies Allergies Allergy/AdvReac Type Severity Reaction Status Date / Time pencillin Allergy Severe Unknown Uncoded 11/20/21 16:26 Assessment & Plan Assessment & Plan (1) Bipolar disorder with severe depression: Status: Acute Code(s): F31.4 - Bipolar disorder, current episode depressed, severe, without psychotic features Plan The patient is an elderly male, with a were with a long history of bipolar disorder who was admitted into the facility for exacerbation of depressive symptoms that has not responded with a recent change of medications. Plan Continue treatment plan Start working on discharge planning Increase Lamictal up to 50 mg p.o. q.a.m. Reason for contiued inpatient stay Substantial Risk for: inability to function, rapid decompensation and med/psych decompensation Time Spent With Patient Time: Total time managing care of this patient today __20__ minutes.
[2022-07-03 18:00] VITALS: BP 134/69; TEMP 36.3; O2SAT 96
[2022-07-03] MEDS: lamoTRIgine 100 MG TABLET 200 MG PO (20:35)
[2022-07-03] MEDS: Doxazosin Mesylate 2 MG TABLET 4 MG PO (20:35)
[2022-07-03] MEDS: OLANZapine 5 MG TABLET PO (20:35)
[2022-07-04] MEDS: hydrOXYzine HCL 25 MG TABLET PO (03:21)
[2022-07-04 06:00] VITALS: BP 118/62; PULSE 74; RESP 18; TEMP 36.7; O2SAT 94
[2022-07-04] MEDS: Omeprazole 20 MG CAPSULE.DR PO (06:24)
[2022-07-04] MEDS: Furosemide 20 MG TABLET PO (08:33)
[2022-07-04] MEDS: Atorvastatin Calcium 80 MG TABLET PO (08:33)
[2022-07-04] MEDS: Aspirin Enteric Coated 81 MG TABLET.DR PO (08:33)
[2022-07-04] MEDS: Memantine HCl 5 MG TABLET PO ×2 (08:33→19:48)
[2022-07-04] MEDS: Multivitamin TABLET 1 TAB PO (08:34)
[2022-07-04] MEDS: hydroCHLOROthiazide 12.5 MG TABLET PO (08:34)
[2022-07-04] MEDS: lamoTRIgine 25 MG TABLET 50 MG PO (08:34)
--- NOTE | 2022-07-04 09:25 | HO.PSYCHPN ---
Subjective Subjective Date of Service: 07/04/22 Reason For Visit: Depression, Suicidal ideation Subjective Notes: Conditional Voluntary Interim History: The nursing staff reported the patient has been on a steady and we did a COVID test yesterday due to that any came back negative. He had been fully med compliant On interview the patient denies new symptoms, we will discharge him early next Thursday. Paper scripts given. Mental Status Exam Mental Status Exam Patient Appearance: Well Grooomed and Appropriate Patient Orientation: Person and Situation Level of Consciousness: Awake and Appropriate Patient Behavior: Appropriate Mood Description: Calm Affect Description: Constricted Patient Cognition Impaired: Yes Ability to Follow Directions: Good Speech Pattern: Clear Hallucinations: None Delusions: Not Present Thought Process: Distracted Thought Content: positive for [place] Judgement: Fair Diagnostics Vital Signs (24Hr): Vital Signs - 24 hr 07/03/22 18:00 Temperature 97.3 F Blood Pressure 134/69 Pulse Oximetry 96 Oxygen Delivery Method Room Air BMI result Body Mass Index 24.3 Labs 06/25/22 10:07 06/28/22 19:27 Labs: Laboratory Results - last 48 hr 07/03/22 08:00 COVID-19 ([facility]) Negative COVID-19 Clin Com See Note Imaging Radiology Impressions: ITS Impressions Chest X-Ray 06/25/22 09:58 IMPRESSION: No acute cardiopulmonary process. Medications Medications Current Medications Acetaminophen (Acetaminophen 325 Mg Tablet) 650 mg PO Q6H PRN PRN Reason: Headache/Pain Mild Scale (1-3) Al Hydroxide/Mg Hydroxide (Magnesium Hydrox/Alum Hydrox 30 Ml Oral.Susp) 30 ml PO Q6H PRN PRN Reason: Heartburn/Nausea Aspirin (Aspirin Enteric Coated 81 Mg Tablet.) 81 mg PO [facility]ILY [facility] Last Admin: 07/04/22 08:33 Dose: 81 mg Atorvastatin Calcium (Atorvastatin Calcium 80 Mg Tablet) 80 mg PO DAILY [facility] Last Admin: 07/04/22 08:33 Dose: 80 mg Bisacodyl (Bisacodyl 10 Mg Supp.Rect) 10 mg [place] BEDTIME PRN PRN Reason: Constipation Docusate Sodium (Docusate Sodium 100 Mg Capsule) 100 mg PO BID PRN PRN Reason: Constipation Last Admin: 06/29/22 20:33 Dose: 100 mg Doxazosin Mesylate (Doxazosin Mesylate 2 Mg Tablet) 4 mg PO BEDTIME [facility] Last Admin: 07/03/22 20:35 Dose: 4 mg Furosemide (Furosemide 20 Mg Tablet) 20 mg PO DAILY [facility]; Protocol Last Admin: 07/04/22 08:33 Dose: 20 mg Hydrochlorothiazide (Hydrochlorothiazide 12.5 Mg Tablet) 12.5 mg PO DAILY [facility]; Protocol Last Admin: 07/04/22 08:34 Dose: 12.5 mg Hydroxyzine HCl (Hydroxyzine Hcl 25 Mg Tablet) 25 mg PO Q6H PRN PRN Reason: Anxiety Last Admin: 07/04/22 03:21 Dose: 25 mg Lamotrigine (Lamotrigine 100 Mg Tablet) 200 mg PO BEDTIME [facility] Last Admin: 07/03/22 20:35 Dose: 200 mg Lamotrigine (Lamotrigine 25 Mg Tablet) 50 mg PO DAILY [facility] Last Admin: 07/04/22 08:34 Dose: 50 mg Magnesium Hydroxide (Milk Of Magnesia 30 Ml Oral.Susp) 30 ml PO DAILY PRN PRN Reason: Constipation Melatonin (Melatonin 3 Mg Tablet) 3 mg PO BEDTIME PRN PRN Reason: Sleep Last Admin: 06/29/22 20:33 Dose: 3 mg Memantine (Memantine Hcl 5 Mg Tablet) 5 mg PO BID [facility] Last Admin: 07/04/22 08:33 Dose: 5 mg Multivitamins/Vitamin C (Multivitamin Tablet) 1 tab PO DAILY [facility] Last Admin: 07/04/22 08:34 Dose: 1 tab Non-Formulary Medication (Selegiline) 9 mg TRANSDERMA DAILY [facility] Olanzapine (Olanzapine 5 Mg Tablet) 5 mg PO BEDTIME [facility] Last Admin: 07/03/22 20:35 Dose: 5 mg Omeprazole (Omeprazole 20 Mg Capsule.Dr) 20 mg PO DAILY@0630 [facility] Last Admin: 07/04/22 06:24 Dose: 20 mg Pharmacy Consult (Consult Rx Perform Med Rec) 1 each MISCELLANE ONCE PRN PRN Reason: Consult order Polyethylene Glycol (Polyethylene Glycol 3350 17 Gm Powd.Pack) 17 gm PO DAILY PRN PRN Reason: Constipation Trazodone HCl (Trazodone Hcl 50 Mg Tablet) 50 mg PO BEDTIME MRX1 PRN PRN Reason: Insomnia Allergies Allergies Allergy/AdvReac Type Severity Reaction Status Date / Time pencillin Allergy Severe Unknown Uncoded 11/20/21 16:26 Assessment & Plan Assessment & Plan (1) Bipolar disorder with severe depression: Status: Acute Code(s): F31.4 - Bipolar disorder, current episode depressed, severe, without psychotic features (2) Dementia: Status: Acute Code(s): F03.90 - Unspecified dementia, unspecified severity, without behavioral disturbance, psychotic disturbance, mood disturbance, and anxiety Plan The patient is an elderly male, with a were with a long history of bipolar disorder who was admitted into the facility for exacerbation of depressive symptoms that has not responded with a recent change of medications. Plan Continue treatment plan Start working on discharge planning Increase Lamictal up to 50 mg p.o. q.a.m. Discharge next Thursday Reason for contiued inpatient stay Substantial Risk for: inability to function, rapid decompensation and med/psych decompensation Time Spent With Patient Time: Total time managing care of this patient today __20__ minutes.
[2022-07-04 18:00] VITALS: BP 135/73; PULSE 70; RESP 18; TEMP 36.6; O2SAT 98
[2022-07-04] MEDS: Melatonin 3 MG TABLET PO (19:48)
[2022-07-04] MEDS: Doxazosin Mesylate 2 MG TABLET 4 MG PO (19:48)
[2022-07-04] MEDS: OLANZapine 5 MG TABLET PO (19:49)
[2022-07-04] MEDS: lamoTRIgine 100 MG TABLET 200 MG PO (19:49)
[2022-07-05 06:00] VITALS: BP 135/65; PULSE 71; RESP 16; TEMP 36.7; O2SAT 94
[2022-07-05] MEDS: Omeprazole 20 MG CAPSULE.DR PO (06:21)
[2022-07-05] MEDS: hydroCHLOROthiazide 12.5 MG TABLET PO (09:05)
[2022-07-05] MEDS: lamoTRIgine 25 MG TABLET 50 MG PO (09:05)
[2022-07-05] MEDS: Aspirin Enteric Coated 81 MG TABLET.DR PO (09:05)
[2022-07-05] MEDS: Furosemide 20 MG TABLET PO (09:05)
[2022-07-05] MEDS: Memantine HCl 5 MG TABLET PO ×2 (09:05→20:19)
[2022-07-05] MEDS: Multivitamin TABLET 1 TAB PO (09:06)
[2022-07-05] MEDS: Atorvastatin Calcium 80 MG TABLET PO (09:06)
--- NOTE | 2022-07-05 15:27 | P.PNPSI_ITS ---
Subjective Subjective Date of Service: 07/06/22 Reason For Visit: Depression, Suicidal ideation Subjective Notes: Conditional Voluntary Interim History: Pt reports he is feeling better than when he first came in. He denies SI/HI. He reports sleeping well. He expresses gratitude for tx here. No SI/HI. No signs of VH/AH. Medication Compliance: Yes Review of Systems Review of Systems Constitutional: No Fever, No Chills, +Fatigue, No Malaise ENT/Mouth: No Ear Pain, No Nasal Congestion, No sore throat, No Rhinorrhea, No Swallowing Difficulty Eyes: No Eye Pain, No Swelling, No Redness, No Foreign Body, No Discharge, No Vision Changes Cardiovascular: No Chest Pain, + SOB, No Orthopnea, No Edema, No Palpitations Respiratory: No Cough, No Sputum, No Dyspnea Gastrointestinal: No Nausea, No Vomiting, No Diarrhea, No Constipation, + Abdominal pain Genitourinary: No Dysuria, No Urinary Frequency, No Hematuria, No Flank Pain, No Urinary Flow Changes Musculoskeletal: No joint pain, No Myalgias, No Joint Swelling Skin: No Skin Lesions, No rash Neuro: + Weakness, No Numbness, No Paresthesias, No Loss of Consciousness, No Dizziness, No Headache Yes all other systems are reviewed and are negative Constitutional: Reports as per HPI Denies Abnormal speech present Mental Status Exam Mental Status Exam Patient Appearance: Well Grooomed and Appropriate Patient Orientation: Person and Situation Level of Consciousness: Awake and Appropriate Patient Behavior: Appropriate Mood Description: Calm Affect Description: Constricted Patient Cognition Impaired: Yes Ability to Follow Directions: Good Speech Pattern: Clear Diagnostics Vital Signs (24Hr): Vital Signs - 24 hr 07/05/22 19:55 07/06/22 07:30 Temperature 97 F 97.2 F Pulse Rate 55 68 Respiratory Rate 18 Blood Pressure 171/87 H 105/57 L Pulse Oximetry 98 94 Oxygen Delivery Method Room Air Room Air BMI result Body Mass Index 24.3 Labs 06/25/22 10:07 06/28/22 19:27 Imaging Radiology Impressions: ITS Impressions Chest X-Ray 06/25/22 09:58 IMPRESSION: No acute cardiopulmonary process. Medications Medications Current Medications Acetaminophen (Acetaminophen 325 Mg Tablet) 650 mg PO Q6H PRN PRN Reason: Headache/Pain Mild Scale (1-3) Last Admin: 07/06/22 05:15 Dose: 650 mg Al Hydroxide/Mg Hydroxide (Magnesium Hydrox/Alum Hydrox 30 Ml Oral.Susp) 30 ml PO Q6H PRN PRN Reason: Heartburn/Nausea Aspirin (Aspirin Enteric Coated 81 Mg Tablet.Dr) 81 mg PO DAILY [facility] Last Admin: 07/06/22 08:18 Dose: 81 mg Atorvastatin Calcium (Atorvastatin Calcium 80 Mg Tablet) 80 mg PO DAILY [facility] Last Admin: 07/06/22 08:18 Dose: 80 mg Bisacodyl (Bisacodyl 10 Mg Supp.Rect) 10 mg [place] BEDTIME PRN PRN Reason: Constipation Docusate Sodium (Docusate Sodium 100 Mg Capsule) 100 mg PO BID PRN PRN Reason: Constipation Last Admin: 06/29/22 20:33 Dose: 100 mg Doxazosin Mesylate (Doxazosin Mesylate 2 Mg Tablet) 4 mg PO BEDTIME [facility] Last Admin: 07/05/22 20:19 Dose: 4 mg Furosemide (Furosemide 20 Mg Tablet) 20 mg PO DAILY [facility]; Protocol Last Admin: 07/06/22 08:18 Dose: 20 mg Hydrochlorothiazide (Hydrochlorothiazide 12.5 Mg Tablet) 12.5 mg PO DAILY [facility]; Protocol Last Admin: 07/06/22 08:18 Dose: 12.5 mg Hydroxyzine HCl (Hydroxyzine Hcl 25 Mg Tablet) 25 mg PO Q6H PRN PRN Reason: Anxiety Last Admin: 07/04/22 03:21 Dose: 25 mg Lamotrigine (Lamotrigine 100 Mg Tablet) 200 mg PO BEDTIME [facility] Last Admin: 07/05/22 20:20 Dose: 200 mg Lamotrigine (Lamotrigine 25 Mg Tablet) 50 mg PO DAILY [facility] Last Admin: 07/06/22 08:18 Dose: 50 mg Magnesium Hydroxide (Milk Of Magnesia 30 Ml Oral.Susp) 30 ml PO DAILY PRN PRN Reason: Constipation Melatonin (Melatonin 3 Mg Tablet) 3 mg PO BEDTIME PRN PRN Reason: Sleep Last Admin: 07/04/22 19:48 Dose: 3 mg Memantine (Memantine Hcl 5 Mg Tablet) 5 mg PO BID [facility] Last Admin: 07/06/22 08:18 Dose: 5 mg Multivitamins/Vitamin C (Multivitamin Tablet) 1 tab PO DAILY [facility] Last Admin: 07/06/22 08:18 Dose: 1 tab Non-Formulary Medication (Selegiline) 9 mg TRANSDERMA DAILY [facility] Olanzapine (Olanzapine 5 Mg Tablet) 5 mg PO BEDTIME [facility] Last Admin: 07/05/22 20:19 Dose: 5 mg Omeprazole (Omeprazole 20 Mg Capsule.Dr) 20 mg PO DAILY@0630 [facility] Last Admin: 07/06/22 05:14 Dose: 20 mg Pharmacy Consult (Consult Rx Perform Med Rec) 1 each MISCELLANE ONCE PRN PRN Reason: Consult order Polyethylene Glycol (Polyethylene Glycol 3350 17 Gm Powd.Pack) 17 gm PO DAILY PRN PRN Reason: Constipation Trazodone HCl (Trazodone Hcl 50 Mg Tablet) 50 mg PO BEDTIME MRX1 PRN PRN Reason: Insomnia Allergies Allergies Allergy/AdvReac Type Severity Reaction Status Date / Time pencillin Allergy Severe Unknown Uncoded 11/20/21 16:26 Assessment & Plan Assessment & Plan (1) Bipolar disorder with severe depression: Status: Acute Code(s): F31.4 - Bipolar disorder, current episode depressed, severe, without psychotic features (2) Dementia: Status: Acute Code(s): F03.90 - Unspecified dementia, unspecified severity, without behavioral disturbance, psychotic disturbance, mood disturbance, and anxiety Plan The patient is an elderly male, with a were with a long history of bipolar disorder who was admitted into the facility for exacerbation of depressive symptoms that has not responded with a recent change of medications. Plan Continue treatment plan Start working on discharge planning Increase Lamictal up to 50 mg p.o. q.a.m. Discharge next Wednesday 07/05 continue tx. Reason for contiued inpatient stay Substantial Risk for: stable for discharge Time Spent With Patient Time: Total time managing care of this patient today ____ minutes.
[2022-07-05 19:55] VITALS: BP 171/87; PULSE 55; TEMP 36.1; O2SAT 98
[2022-07-05] MEDS: Doxazosin Mesylate 2 MG TABLET 4 MG PO (20:19)
[2022-07-05] MEDS: OLANZapine 5 MG TABLET PO (20:19)
[2022-07-05] MEDS: lamoTRIgine 100 MG TABLET 200 MG PO (20:20)
[2022-07-06] MEDS: Omeprazole 20 MG CAPSULE.DR PO (05:14)
[2022-07-06] MEDS: Acetaminophen 325 MG TABLET 650 MG PO (05:15)
[2022-07-06 07:30] VITALS: BP 105/57; PULSE 68; RESP 18; TEMP 36.2; O2SAT 94
[2022-07-06] MEDS: lamoTRIgine 25 MG TABLET 50 MG PO (08:18)
[2022-07-06] MEDS: Atorvastatin Calcium 80 MG TABLET PO (08:18)
[2022-07-06] MEDS: hydroCHLOROthiazide 12.5 MG TABLET PO (08:18)
[2022-07-06] MEDS: Multivitamin TABLET 1 TAB PO (08:18)
[2022-07-06] MEDS: Aspirin Enteric Coated 81 MG TABLET.DR PO (08:18)
[2022-07-06] MEDS: Memantine HCl 5 MG TABLET PO ×2 (08:18→19:52)
[2022-07-06] MEDS: Furosemide 20 MG TABLET PO (08:18)
--- NOTE | 2022-07-06 15:29 | HO.PSYCHPN ---
Subjective Subjective Date of Service: 07/06/22 Reason For Visit: Depression, Suicidal ideation Subjective Notes: Conditional Voluntary Interim History: Pt visible on the unit, social with select peers. No behavioral concerns. He reports feeling less depressed and less anxious. He denies SI/HI. He reports sleeping well. He expresses gratitude for tx here. No SI/HI. No signs of VH/AH. Review of Systems Review of Systems Constitutional: No Fever, No Chills, +Fatigue, No Malaise ENT/Mouth: No Ear Pain, No Nasal Congestion, No sore throat, No Rhinorrhea, No Swallowing Difficulty Eyes: No Eye Pain, No Swelling, No Redness, No Foreign Body, No Discharge, No Vision Changes Cardiovascular: No Chest Pain, + SOB, No Orthopnea, No Edema, No Palpitations Respiratory: No Cough, No Sputum, No Dyspnea Gastrointestinal: No Nausea, No Vomiting, No Diarrhea, No Constipation, + Abdominal pain Genitourinary: No Dysuria, No Urinary Frequency, No Hematuria, No Flank Pain, No Urinary Flow Changes Musculoskeletal: No joint pain, No Myalgias, No Joint Swelling Skin: No Skin Lesions, No rash Neuro: + Weakness, No Numbness, No Paresthesias, No Loss of Consciousness, No Dizziness, No Headache Yes all other systems are reviewed and are negative Constitutional: Reports as per HPI Denies Abnormal speech present Mental Status Exam Mental Status Exam Patient Appearance: Well Grooomed and Appropriate Patient Orientation: Person and Situation Level of Consciousness: Awake and Appropriate Patient Behavior: Appropriate Mood Description: Calm Affect Description: Constricted Patient Cognition Impaired: Yes Ability to Follow Directions: Good Speech Pattern: Clear Diagnostics Vital Signs (24Hr): Vital Signs - 24 hr 07/05/22 19:55 07/06/22 07:30 Temperature 97 F 97.2 F Pulse Rate 55 68 Respiratory Rate 18 Blood Pressure 171/87 H 105/57 L Pulse Oximetry 98 94 Oxygen Delivery Method Room Air Room Air BMI result Body Mass Index 24.3 Labs 06/25/22 10:07 06/28/22 19:27 Imaging Radiology Impressions: ITS Impressions Chest X-Ray 06/25/22 09:58 IMPRESSION: No acute cardiopulmonary process. Medications Medications Current Medications Acetaminophen (Acetaminophen 325 Mg Tablet) 650 mg PO Q6H PRN PRN Reason: Headache/Pain Mild Scale (1-3) Last Admin: 07/06/22 05:15 Dose: 650 mg Al Hydroxide/Mg Hydroxide (Magnesium Hydrox/Alum Hydrox 30 Ml Oral.Susp) 30 ml PO Q6H PRN PRN Reason: Heartburn/Nausea Aspirin (Aspirin Enteric Coated 81 Mg Tablet.Dr) 81 mg PO DAILY [facility] Last Admin: 07/06/22 08:18 Dose: 81 mg Atorvastatin Calcium (Atorvastatin Calcium 80 Mg Tablet) 80 mg PO DAILY [facility] Last Admin: 07/06/22 08:18 Dose: 80 mg Bisacodyl (Bisacodyl 10 Mg Supp.Rect) 10 mg OK BEDTIME PRN PRN Reason: Constipation Docusate Sodium (Docusate Sodium 100 Mg Capsule) 100 mg PO BID PRN PRN Reason: Constipation Last Admin: 06/29/22 20:33 Dose: 100 mg Doxazosin Mesylate (Doxazosin Mesylate 2 Mg Tablet) 4 mg PO BEDTIME [facility] Last Admin: 07/05/22 20:19 Dose: 4 mg Furosemide (Furosemide 20 Mg Tablet) 20 mg PO DAILY [facility]; Protocol Last Admin: 07/06/22 08:18 Dose: 20 mg Hydrochlorothiazide (Hydrochlorothiazide 12.5 Mg Tablet) 12.5 mg PO DAILY [facility]; Protocol Last Admin: 07/06/22 08:18 Dose: 12.5 mg Hydroxyzine HCl (Hydroxyzine Hcl 25 Mg Tablet) 25 mg PO Q6H PRN PRN Reason: Anxiety Last Admin: 07/04/22 03:21 Dose: 25 mg Lamotrigine (Lamotrigine 100 Mg Tablet) 200 mg PO BEDTIME [facility] Last Admin: 07/05/22 20:20 Dose: 200 mg Lamotrigine (Lamotrigine 25 Mg Tablet) 50 mg PO DAILY [facility] Last Admin: 07/06/22 08:18 Dose: 50 mg Magnesium Hydroxide (Milk Of Magnesia 30 Ml Oral.Susp) 30 ml PO DAILY PRN PRN Reason: Constipation Melatonin (Melatonin 3 Mg Tablet) 3 mg PO BEDTIME PRN PRN Reason: Sleep Last Admin: 07/04/22 19:48 Dose: 3 mg Memantine (Memantine Hcl 5 Mg Tablet) 5 mg PO BID [facility] Last Admin: 07/06/22 08:18 Dose: 5 mg Multivitamins/Vitamin C (Multivitamin Tablet) 1 tab PO DAILY [facility] Last Admin: 07/06/22 08:18 Dose: 1 tab Non-Formulary Medication (Selegiline) 9 mg TRANSDERMA DAILY [facility] Olanzapine (Olanzapine 5 Mg Tablet) 5 mg PO BEDTIME [facility] Last Admin: 07/05/22 20:19 Dose: 5 mg Omeprazole (Omeprazole 20 Mg Capsule.Dr) 20 mg PO DAILY@0630 [facility] Last Admin: 07/06/22 05:14 Dose: 20 mg Pharmacy Consult (Consult Rx Perform Med Rec) 1 each MISCELLANE ONCE PRN PRN Reason: Consult order Polyethylene Glycol (Polyethylene Glycol 3350 17 Gm Powd.Pack) 17 gm PO DAILY PRN PRN Reason: Constipation Trazodone HCl (Trazodone Hcl 50 Mg Tablet) 50 mg PO BEDTIME MRX1 PRN PRN Reason: Insomnia Allergies Allergies Allergy/AdvReac Type Severity Reaction Status Date / Time pencillin Allergy Severe Unknown Uncoded 11/20/21 16:26 Assessment & Plan Assessment & Plan (1) Bipolar disorder with severe depression: Status: Acute Code(s): F31.4 - Bipolar disorder, current episode depressed, severe, without psychotic features (2) Dementia: Status: Acute Code(s): F03.90 - Unspecified dementia, unspecified severity, without behavioral disturbance, psychotic disturbance, mood disturbance, and anxiety Plan The patient is an elderly male, with a were with a long history of bipolar disorder who was admitted into the facility for exacerbation of depressive symptoms that has not responded with a recent change of medications. Plan Continue treatment plan Start working on discharge planning Increase Lamictal up to 50 mg p.o. q.a.m. Discharge next Wednesday 07/05 continue tx. 07/06 continue tx. dc tomorrow. Reason for contiued inpatient stay Substantial Risk for: inability to function and stable for discharge Time Spent With Patient Time: Total time managing care of this patient today ____ minutes.
[2022-07-06] MEDS: lamoTRIgine 100 MG TABLET 200 MG PO (19:52)
[2022-07-06] MEDS: OLANZapine 5 MG TABLET PO (19:52)
[2022-07-06] MEDS: Doxazosin Mesylate 2 MG TABLET 4 MG PO (19:52)
[2022-07-06 20:31] VITALS: BP 170/80; PULSE 85
[2022-07-07 06:00] VITALS: BP 139/83; PULSE 74; RESP 18; TEMP 36.1; O2SAT 95
[2022-07-07] MEDS: Omeprazole 20 MG CAPSULE.DR PO (06:19)
[2022-07-07] MEDS: hydroCHLOROthiazide 12.5 MG TABLET PO (08:30)
[2022-07-07] MEDS: lamoTRIgine 25 MG TABLET 50 MG PO (08:30)
[2022-07-07] MEDS: Memantine HCl 5 MG TABLET PO (08:30)
[2022-07-07] MEDS: Aspirin Enteric Coated 81 MG TABLET.DR PO (08:30)
[2022-07-07] MEDS: Multivitamin TABLET 1 TAB PO (08:30)
[2022-07-07] MEDS: Furosemide 20 MG TABLET PO (08:31)
[2022-07-07] MEDS: Atorvastatin Calcium 80 MG TABLET PO (08:31)
--- NOTE | 2022-07-07 09:37 | P.DS_ITS ---
DS: Providers Provider Date of Service: 07/04/22 Date of admission: 06/26/22 17:47 Date of discharge: 07/07/22 Primary care physician: Unknown Physician DS: Diagnosis Discharge Diagnosis (1) Bipolar disorder with severe depression: Status: Acute (2) Dementia: Status: Acute DS: Medications Discharge Medications Home Medications: Home Medications Medication Instructions Recorded Confirmed atorvastatin 80 mg tablet 80 mg PO DAILY 11/27/21 06/25/22 furosemide 20 mg tablet 20 mg PO DAILY 11/27/21 06/25/22 olanzapine 5 mg tablet 5 mg PO BEDTIME 11/27/21 06/25/22 omeprazole 20 mg capsule,delayed 20 mg PO DAILY@0630 11/27/21 06/25/22 release selegiline 9 mg/24 hr transdermal 9 mg transdermal DAILY 11/27/21 06/25/22 24 hour patch terazosin 5 mg capsule 5 mg PO BEDTIME 11/27/21 03/17/22 acetaminophen 325 mg tablet 650 mg PO TID PRN Pain 06/25/22 06/25/22 aspirin 81 mg tablet,delayed 81 mg PO DAILY 06/25/22 06/25/22 release bisacodyl 10 mg rectal suppository 10 mg RI BEDTIME PRN Constipation 06/25/22 06/25/22 melatonin 3 mg tablet 3 mg PO BEDTIME PRN Sleep 06/25/22 06/25/22 polyethylene glycol 3350 17 gram 17 g PO DAILY PRN Constipation 06/25/22 06/25/22 oral powder packet Mental Status Exam Mental Status Exam Patient Appearance: Well Grooomed and Appropriate Patient Orientation: Person, Place and Situation Level of Consciousness: Awake and Appropriate Patient Behavior: Appropriate Mood Description: Calm Affect Description: Constricted Patient Cognition Impaired: Yes Ability to Follow Directions: Good Speech Pattern: Clear Hallucinations: None Delusions: Not Present Thought Process: Distracted and Linear Thought Content: positive for [place] and positive for Circumstantial Judgement: Fair Judgement and Insight: Insight limited Data Data Completed and Pending Completed studies during hospitalization [Text1]: 06/28/22 07/03/22 19:27 08:00 Sodium 141 Potassium 4.1 Chloride 103 Carbon Dioxide 28 Anion Gap 14 BUN 33 H Creatinine 1.64 H Estim Creat Clear Calc 31.7 Estimated GFR 40 Random Glucose 114 Calcium 9.6 D Total Bilirubin 0.3 AST 22 ALT 17 Alkaline Phosphatase 70 Total Protein 7.2 Albumin 4.3 COVID-19 ([facility]) Negative COVID-19 Clin Com See Note Imaging Diagnostic Imaging Impressions Chest X-Ray 06/25/22 09:58 IMPRESSION: No acute cardiopulmonary process. 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 Please see the HPI note for further details. On admission, the patient was cognitively impaired, at baseline he carries a diagnosis of dementia and he was on Selegine patches at the [facility]. on assessment, the patient complained of exacerbation of depression for the last month with neurovegetative symptoms and passive suicidal ideation. He was able to contract for safety in the facility he agreed to medication changes. We review his list of medications and we discussed risks, benefits, side-effects and alternatives and he agreed increase Lamictal up to 50 mg in the morning and keep a higher dose at night. Later on, the patient signed a 3 day notice and later he retracted on a family meeting. We had several family meetings and we discussed his diagnosis and the the family was aware of that prognosis. Apparently selegiline has not working for him, we stopped it here and started on Namenda titrated up to 5 mg p.o. b.i.d.. The patient's mood improved, he was able to participate in groups and other therapeutic activities in the unit. Since there were no safety concerns discharge planning was discussed. The social media community manager arrange all the follow-up appointments at the [facility]. Time spent discussing smoking cessation with patient: 3 to 10 minutes Status at Discharge Cognitive/behavioral status at discharge: Impaired at baseline Functional status at discharge: independent ambulation Overall status at discharge: patient is back to baseline Time Spent with Patient Time attestation: Total time managing care of this patient today __30__ minutes. Time spent: Less than 30 minutes Discharge Plan Discharge Anticipated Discharge Date/Time: 07/07/22 11:00 Patient Disposition: Home Health Service Discharge Diagnosis: Bipolar disorder most recent episode depressed. Dementia Referrals: Dr Guerrero [facility] PCP [Other] - 07/22/22 3:30 pm (Your next appointment with with Dr Guerrero at the [facility] in [place] is for 07/22/22 at 3:30pm. The office will notify you if the appointment can be sooner. ) [facility] [Other] - 1 Week ([facility] services to resume and request has been made by [facility] to increase home care and resume detention visits. ) [facility] [Other] - 07/21/22 9:30 am (Your next appointment with Mary [facility] is scheduled for 07/21/22 at 9:30am ) Sabina Kowalski, PhD [Other] - 07/09/22 10:30 am (You have follow up psychotherapy with Sabina Kowalski, PhD at the [facility] in [place] on 07/09/22 at 10:30 and another appointment on 07/16/22 at 10:30. Please go to [facility] mental health office for both appointments. ) Discharge Medications: New hydroxyzine HCl 25 mg Tablet 25 mg PO Q6H PRN (Reason: Anxiety) 7 Days Qty: 21 0RF trazodone 50 mg Tablet 50 mg PO BEDTIME MRX1 PRN (Reason: Insomnia) 7 Days Qty: 7 0RF lamotrigine 25 mg Tablet 50 mg PO DAILY 7 Days Qty: 14 0RF lamotrigine 100 mg Tablet 200 mg PO BEDTIME 7 Days Qty: 14 0RF memantine 5 mg Tablet 5 mg PO BID 7 Days Qty: 14 0RF hydrochlorothiazide 12.5 mg Tablet 12.5 mg PO DAILY 7 Days Qty: 7 0RF Protocol: Hold for SBP< HOLD for SBP < : 90 multivitamin [Daily-Meron] Tablet 1 tab PO DAILY 7 Days Qty: 7 0RF Continued terazosin 5 mg capsule 5 mg PO BEDTIME 7 Days Qty: 7 0RF atorvastatin 80 mg tablet 80 mg PO DAILY 7 Days Qty: 7 0RF acetaminophen 325 mg Tablet 650 mg PO TID PRN (Reason: Pain) 7 Days Qty: 28 0RF polyethylene glycol 3350 17 gram Powder In Packet 17 g PO DAILY PRN (Reason: Constipation) 7 Days Qty: 7 0RF olanzapine 5 mg tablet 5 mg PO BEDTIME 7 Days Qty: 7 0RF melatonin 3 mg Tablet 3 mg PO BEDTIME PRN (Reason: Sleep) 7 Days Qty: 7 0RF aspirin 81 mg Tablet,Delayed Release (Dr/Ec) 81 mg PO DAILY 7 Days Qty: 7 0RF bisacodyl 10 mg Suppository 10 mg RI BEDTIME PRN (Reason: Constipation) 7 Days Qty: 7 0RF omeprazole 20 mg capsule,delayed release(DR/EC) 20 mg PO DAILY@0630 7 Days Qty: 7 0RF furosemide 20 mg tablet 20 mg PO DAILY 7 Days Qty: 7 0RF Discontinued selegiline 9 mg/24 hr patch 24 hour 9 mg transdermal DAILY Discharge Orders: Discharge Order (Routine); Ordered 07/07/22 Ordered By: Bin Peters Diet: Advance to usual diet Activity on Discharge: As tolerated Stand Alone Forms: Patient Portal Discharge page Care Plan Goals: Care plan goals achieved in this admission Health Concerns: Continue with psychiatric and medical providers at the [facility] Plan of Treatment: Continue treatment as an outpatient with medication management and other ancillary services by the [facility] Assessment: Elderly male with a long history of bipolar disorder who was admitted for exacerbation of depression with suicidal ideation. We change his medications and increase Lamictal slightly, replace LA gene patch to Namenda with for improvement of his symptoms. At this moment safe to be in the community. Discharge Date/Time: 07/07/22 11:27
--- NOTE | 2022-07-07 12:41 | PC.NURSE ---
Addendum entered by Jyoti Groves RN 07/07/22 12:42: pts belingings accounted for and given to pt ambulated with walker to car s diff Original Note: pt awake alert x 3 states ready to go home ambulating steady gait VSS med compliant eating well. dc instructions given to pt, pt's son and daughter in law c verbal understanding
== END 2022-07-07 11:27 | disposition home health service (06) | DRG 885 ==
LOC: HO.ED 06-26 07:31 → HO.PGERI 06-26 17:49
PROVIDERS: Clinical Nurse Specialist Psychiatric/Mental Health; Clinical Nurse Specialist Psychiatric/Mental Health, Adult; Physician Assistant; Admitting Provider Psychiatry & Neurology Psychiatry; Emergency Provider Emergency Medicine; Visit Provider Psychiatry & Neurology Psychiatry
DX: F31.4 Bipolar disorder, current episode depressed, severe, without psychotic features (principal); R45.851 Suicidal ideations; F03.90 Unspecified dementia, unspecified severity, without behavioral disturbance, psychotic disturbance, mood disturbance, and anxiety; N40.0 Benign prostatic hyperplasia without lower urinary tract symptoms; Z20.822 Contact with and (suspected) exposure to COVID-19; Z88.0 Allergy status to penicillin; Z86.73 Personal history of transient ischemic attack (TIA), and cerebral infarction without residual deficits; Z79.82 Long term (current) use of aspirin; Z79.899 Other long term (current) drug therapy
CPT/HCPCS: 0241U; 36415; 51798; 71045; 80048; 80053; 80061; 80076; 80307; 81003; 82077; 82607; 82746; 83036; 83690; 83735; 83880; 84439; 84443; 84484; 85025; 85610; 87635; 93005; 94640; 99285

== ENCOUNTER 2022-07-16 19:46 | Inpatient (IN) | payer OTHER, MEDICARE, SELFPAY ==
--- NOTE | ~2022-07-16 | XR_ITS ---
EXAMINATION: XR CHEST CLINICAL INFORMATION: SOB. COMPARISON: Chest 03/06/2022 TECHNIQUE: Frontal view of the chest was obtained. FINDINGS: The lungs are well-expanded and clear of acute process. The heart size and pulmonary vascularity is normal. No gross bony abnormality seen. XR/XR chest 1V IMPRESSION: Unremarkable chest exam.
[2022-07-16 19:53] VITALS: BP 152/96; BP 174/94; PULSE 70; PULSE 71; RESP 24; TEMP 36.9; O2SAT 96; BMI 54.4
--- NOTE | 2022-07-16 20:07 | ECG_ITS ---
Test Reason : SOB Blood Pressure : / mmHG Vent. 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
[2022-07-16] MEDS: cefTRIAXone sodium 1 GM in 0.9 % Sodium Chloride 50 ML IV (20:25)
[2022-07-16] MEDS: methylPREDNISolone Sod Succ 125 MG/2 ML VIAL IVPUSH (20:28)
[2022-07-16 20:32] VITALS: PULSE 76; RESP 22; O2SAT 97
[2022-07-16] MEDS: Albuterol Sulfate (0.083%) 2.5 MG/3 ML VIAL.NEB 5 MG INHALE (20:32)
--- NOTE | 2022-07-16 20:41 | ED_ITS ---
HPI - SOB/Dyspnea General Chief Complaint: Dyspnea Stated Complaint: sob Time Seen by Provider: 07/16/22 19:54 History of Present Illness HPI Narrative: Patient is an 86-year-old male presented today with having increasing shortness of breath. History of anxiety depression. Was admitted for depression in the past. Denies any history of congestive heart failure. Any history of COPD. Notice increasing shortness of breath over last few days. No new leg swelling. No chest pain. Positive coughing congestion upper respiratory symptoms. Positive generalized malaise. Patient went to Urgent Care was noted to be extremely short of breath was sent to the emergency department for further evaluation. Related Data Previous Rx's Medication Instructions Recorded acetaminophen 325 mg tablet 650 mg PO TID PRN Pain 7 days #28 07/04/22 tabs aspirin 81 mg tablet,delayed 81 mg PO DAILY 7 days #7 tabs 07/04/22 release atorvastatin 80 mg tablet 80 mg PO DAILY 7 days #7 tabs 07/04/22 bisacodyl 10 mg rectal suppository 10 mg OR BEDTIME PRN Constipation 07/04/22 7 days #7 ea furosemide 20 mg tablet 20 mg PO DAILY 7 days #7 tabs 07/04/22 hydrochlorothiazide 12.5 mg tablet 12.5 mg PO DAILY 7 days #7 tabs 07/04/22 hydroxyzine HCl 25 mg tablet 25 mg PO Q6H PRN Anxiety 7 days 07/04/22 #21 tabs lamotrigine 100 mg tablet 200 mg PO BEDTIME 7 days #14 tabs 07/04/22 lamotrigine 25 mg tablet 50 mg PO DAILY 7 days #14 tabs 07/04/22 melatonin 3 mg tablet 3 mg PO BEDTIME PRN Sleep 7 days 07/04/22 #7 tabs memantine 5 mg tablet 5 mg PO BID 7 days #14 tabs 07/04/22 multivitamin (Daily-Meron tablet) 1 tab PO DAILY 7 days #7 tabs 07/04/22 olanzapine 5 mg tablet 5 mg PO BEDTIME 7 days #7 tabs 07/04/22 omeprazole 20 mg capsule,delayed 20 mg PO DAILY@0630 7 days #7 caps 07/04/22 release polyethylene glycol 3350 17 gram 17 g PO DAILY PRN Constipation 7 07/04/22 oral powder packet days #7 ea terazosin 5 mg capsule 5 mg PO BEDTIME 7 days #7 caps 07/04/22 trazodone 50 mg tablet 50 mg PO BEDTIME MRX1 PRN Insomnia 07/04/22 7 days #7 tabs Allergies Allergy/AdvReac Type Severity Reaction Status Date / Time pencillin Allergy Severe Unknown Uncoded 11/20/21 16:26 Review of Systems Review of Systems: Positive shortness of breath Positive coughing congestion upper respiratory symptoms Positive generalized malaise [facility] Past Medical History Attestation statement: The following information was validated with the patient. Social History Social History Household Members: None Housing: House Do you presently have visiting nurse or other home services: No Unable to assess alcohol history related to: Refusing to respond Alcohol intake: unknown Patient Tobacco Use Status: Never used Tobacco Advance Directives: No Advance Directives Information Provided: Yes service: Yes Sexual orientation: Straight/Heterosexual Physical Exam Vital Signs: Vital Signs: Last Vital Signs Temp 97.9 F 07/16/22 21:50 Pulse 82 07/16/22 21:50 Resp 16 07/16/22 21:50 BP 158/70 H 07/16/22 21:50 Pulse Ox 97 07/16/22 21:50 O2 Del Method 07/16/22 21:50 O2 Flow Rate 2 07/16/22 21:50 BMI result Body Mass Index 54.4 Appearance: Alert. Oriented X3. Positive increased work of breathing Eyes: Pupils equal, round and reactive to light. ENT: Pharynx normal. Neck: Normal inspection. Neck supple. No lymph nodes noted. No crepitus CVS: Normal heart rate and rhythm. Pulses normal. Normal S1 and S2 Respiratory: Positive wheezing, positive shortness of breath Abdomen: Soft and nontender. No rigidity. No distention. good BS x4 Skin: Skin warm and dry. Normal skin color. Normal skin turgor. Extremities: No lower extremity edema. Neurovascular intact to all extremities. No Lacerations. No Rash Neuro: Oriented X 3. No motor deficit. No sensory deficit. Moving all extermit ies. No slurred speech Medications Administered Discontinued Medications Generic Name Dose Route Start Last Admin Trade Name Freq PRN Reason Stop Dose Admin Albuterol Sulfate 5 mg 07/16/22 20:08 07/16/22 20:32 Albuterol Sulfate (0.083%) 2.5 Mg/3 Ml Vial.Neb INHALE 07/16/22 20:09 5 mg ONCE ONE Administration Albuterol Sulfate 2.5 mg/ 0 mg 07/16/22 20:08 07/16/22 20:32 Ipratropium [place] 0.5 mg INHALE 07/16/22 20:09 1 each ONCE ONE Administration Ceftriaxone Sodium 1 gm/ 50 mls @ 100 mls/hr 07/16/22 20:11 07/16/22 20:25 Sodium Chloride IV 07/16/22 20:40 100 mls/hr ONCE ONE Administration Azithromycin 500 mg/ Sodium 250 mls @ 125 mls/hr 07/16/22 20:11 07/16/22 21:52 Chloride IV 07/16/22 22:10 125 mls/hr ONCE ONE Administration Methylprednisolone Sodium Succinate 125 mg 07/16/22 20:08 07/16/22 20:28 Methylprednisolone Sod Succ 125 Mg/2 Ml Vial IVPUSH 07/16/22 20:09 125 mg ONCE ONE Administration Medical Decision Making Medical Decision Making [facility] Narrative: Patient had increasing shortness of breath with expiratory wheezes noted. Chest x-ray showed no acute evidence of congestive heart failure. No pneumonia no pneumothorax. My interpretation of Patient's EKG showed a sinus pattern heart rate is 80 there is PVCs noted OR normal QRS is normal QTC is normal. No acute is ST segment. Patient's BMP was normal. There is no evidence for congestive heart failure. Symptoms more consistent with COPD. Patient was wheezing. History and exam not consistent with having pulmonary emboli. Case discussed with hospitalist team. Given a full 3 nebulized treatments. Steroid monitor in the emergency department. Will admit for further evaluation. Consult Healthcare Provider Management of the patient was discussed with: Hospitalist Lab Data [facility] Lab Attestation statement: I reviewed the patient's lab results. 07/16/22 20:46 07/16/22 20:46 Labs: Lab Results 07/16/22 07/16/22 07/16/22 Range/Units 20:46 20:46 20:46 WBC 5.6 (4.8-10.8) X10*3/uL RBC 3.59 L (4.60-5.80) X10*6/uL Hgb 11.1 L (14.0-18.0) g/dl Hct 34.4 L (42.0-52.0) % MCV 95.8 (80.0-98.0) fL MCH 30.9 (27.0-33.0) pg MCHC 32.3 (31.0-36.0) g/dl RDW 13.8 (11.0-16.0) % Plt Count 151 L (160-400) X10*3/uL MPV 11.8 (9.4-12.4) fL Immature Gran % (Auto) 0.4 (0.0-0.4) % Neut % (Auto) 59.6 (45-73) % Lymph % (Auto) 23.8 (20-40) % [place] % (Auto) 8.6 (2-11) % Eos % (Auto) 7.2 H (0-4) % Baso % (Auto) 0.4 (0-2) % Lymph # (Auto) 1.3 (1.2-4.9) X10*3/uL [place] # (Auto) 0.5 (0.1-1.2) X10*3/uL Eos # (Auto) 0.4 (0.0-0.4) X10*3/uL Baso # (Auto) 0.0 (0.0-0.2) X10*3/uL Abs Immat Gran (auto) 0.02 (0.00-0.03) X10*3/uL Absolute Neuts (auto) 3.3 (2.0-8.3) x10*3/uL Absolute Nucleated RBC 0.000 (0.0-0.012) X10*3/uL Nucleated RBC % (auto) 0.0 (0.0-0.2) /100WBC Sodium 143 (135-145) mmol/L Potassium 4.9 (3.3-5.1) mmol/L Chloride 111 H (96-108) mmol/L Carbon Dioxide 24 (22-29) mmol/L Anion Gap 13 (12-20) BUN 19 H (9-16) mg/dL Creatinine 0.97 (0.5-1.4) mg/dL Estim Creat Clear Calc 90.6 Estimated GFR > 60 Random Glucose 88 (60-115) mg/dL Lactic Acid (0.5-2.0) mmol/L Calcium 8.5 D (8.4-10.2) mg/dL Troponin I High Sens 13.4 (<3.5-35.0) ng/L B-Natriuretic Peptide (<100) pg/mL 07/16/22 07/16/22 Range/Units 20:46 20:46 WBC (4.8-10.8) X10*3/uL RBC (4.60-5.80) X10*6/uL Hgb (14.0-18.0) g/dl Hct (42.0-52.0) % MCV (80.0-98.0) fL MCH (27.0-33.0) pg MCHC (31.0-36.0) g/dl RDW (11.0-16.0) % Plt Count (160-400) X10*3/uL MPV (9.4-12.4) fL Immature Gran % (Auto) (0.0-0.4) % Neut % (Auto) (45-73) % Lymph % (Auto) (20-40) % [place] % (Auto) (2-11) % Eos % (Auto) (0-4) % Baso % (Auto) (0-2) % Lymph # (Auto) (1.2-4.9) X10*3/uL [place] # (Auto) (0.1-1.2) X10*3/uL Eos # (Auto) (0.0-0.4) X10*3/uL Baso # (Auto) (0.0-0.2) X10*3/uL Abs Immat Gran (auto) (0.00-0.03) X10*3/uL Absolute Neuts (auto) (2.0-8.3) x10*3/uL Absolute Nucleated RBC (0.0-0.012) X10*3/uL Nucleated RBC % (auto) (0.0-0.2) /100WBC Sodium (135-145) mmol/L Potassium (3.3-5.1) mmol/L Chloride (96-108) mmol/L Carbon Dioxide (22-29) mmol/L Anion Gap (12-20) BUN (9-16) mg/dL Creatinine (0.5-1.4) mg/dL Estim Creat Clear Calc Estimated GFR Random Glucose (60-115) mg/dL Lactic Acid 0.7 (0.5-2.0) mmol/L Calcium (8.4-10.2) mg/dL Troponin I High Sens (<3.5-35.0) ng/L B-Natriuretic Peptide 168 H (<100) pg/mL Independent Interpretation I performed an independent interpretation of an: EKG Interpretation: Sinus heart rate is 80 there is PVCs noted OR QRS QT within normal limits Radiology Impression Discussion of test interpretation with radiology: I have reviewed the radiologist's reading. Independent Historian Clinical information obtained from an independent historian. History obtained from or confirmed by: EMS External Record Review External record reviewed: Outpatient record Chronic Conditions Patient?s care impacted by: Hypertension Critical Care Time Critical Care Time Critical Care Time: Yes Total Critical Care Time: 40 Attestation: I have personally provided 40 minutes of critical care time exclusive of time spent on separately billable procedures. Time includes review of lab data, radiology results, discussion with consultants, and monitoring for potential decompensation. Interventions were performed as documented above Discharge Plan Discharge Clinical Impression: Asthma with exacerbation Patient Disposition: Admitted As Inpatient Prescriptions: No Action hydroxyzine HCl 25 mg Tablet 25 mg PO Q6H PRN (Reason: Anxiety) 7 Days Qty: 21 0RF trazodone 50 mg Tablet 50 mg PO BEDTIME MRX1 PRN (Reason: Insomnia) 7 Days Qty: 7 0RF lamotrigine 25 mg Tablet 50 mg PO DAILY 7 Days Qty: 14 0RF lamotrigine 100 mg Tablet 200 mg PO BEDTIME 7 Days Qty: 14 0RF memantine 5 mg Tablet 5 mg PO BID 7 Days Qty: 14 0RF hydrochlorothiazide 12.5 mg Tablet 12.5 mg PO DAILY 7 Days Qty: 7 0RF Protocol: Hold for SBP< HOLD for SBP < : 90 multivitamin [Daily-Meron] Tablet 1 tab PO DAILY 7 Days Qty: 7 0RF terazosin 5 mg capsule 5 mg PO BEDTIME 7 Days Qty: 7 0RF atorvastatin 80 mg tablet 80 mg PO DAILY 7 Days Qty: 7 0RF acetaminophen 325 mg Tablet 650 mg PO TID PRN (Reason: Pain) 7 Days Qty: 28 0RF polyethylene glycol 3350 17 gram Powder In Packet 17 g PO DAILY PRN (Reason: Constipation) 7 Days Qty: 7 0RF olanzapine 5 mg tablet 5 mg PO BEDTIME 7 Days Qty: 7 0RF melatonin 3 mg Tablet 3 mg PO BEDTIME PRN (Reason: Sleep) 7 Days Qty: 7 0RF aspirin 81 mg Tablet,Delayed Release (Dr/Ec) 81 mg PO DAILY 7 Days Qty: 7 0RF bisacodyl 10 mg Suppository 10 mg OR BEDTIME PRN (Reason: Constipation) 7 Days Qty: 7 0RF omeprazole 20 mg capsule,delayed release(DR/EC) 20 mg PO DAILY@0630 7 Days Qty: 7 0RF furosemide 20 mg tablet 20 mg PO DAILY 7 Days Qty: 7 0RF
[2022-07-16 20:56] LABS: MANUAL DIFF FLAG NO
[2022-07-16 21:04] LABS: Basophils Percent Auto 0.4 % (0-2); Eosinophils Absolute Auto 0.4 X10*3/uL (0.0-0.4); Eosinophils Percent Auto 7.2 % (0-4); Hematocrit 34.4 % (42.0-52.0); Hemoglobin 11.1 g/dl (14.0-18.0); Imm Gran Abs Auto 0.02 X10*3/uL (0.00-0.03); Imm Gran Pct Auto 0.4 % (0.0-0.4); Lymphocytes Absolute Auto 1.3 X10*3/uL (1.2-4.9); Lymphocytes Percent Auto 23.8 % (20-40); Mean Corpuscular HGB Conc 32.3 g/dl (31.0-36.0); Mean Corpuscular Hemoglobin 30.9 pg (27.0-33.0); Mean Corpuscular Volume 95.8 fL (80.0-98.0); Mean Platelet Volume 11.8 fL (9.4-12.4); Monocytes Absolute Auto 0.5 X10*3/uL (0.1-1.2); Monocytes Percent Auto 8.6 % (2-11); Neutrophils Absolute Auto 3.3 x10*3/uL (2.0-8.3); Neutrophils Percent Auto 59.6 % (45-73); Platelet Count 151 X10*3/uL (160-400); Red Blood Count 3.59 X10*6/uL (4.60-5.80); Red Cell Distribution Width 13.8 % (11.0-16.0); White Blood Count 5.6 X10*3/uL (4.8-10.8)
[2022-07-16 21:08] LABS: Lactic Acid 0.7 mmol/L (0.5-2.0)
[2022-07-16 21:11] LABS: Anion Gap 13 (12-20); Blood Urea Nitrogen 19 mg/dL (9-16); Calcium 8.5 mg/dL (8.4-10.2); Carbon Dioxide 24 mmol/L (22-29); Chloride 111 mmol/L (96-108); Creatinine Clr Calc Pharmacy 90.6; Estimated Glomerular Filt Rate > 60; Glucose Random 88 mg/dL (60-115); Potassium 4.9 mmol/L (3.3-5.1); Sodium 143 mmol/L (135-145)
[2022-07-16 21:20] LABS: B Type Natriuretic Peptide 168 pg/mL (<100); Troponin-I High Sensitivity 13.4 ng/L (<3.5-35.0)
[2022-07-16 21:35] LABS: Influenza A PCR NEGATIVE (Negative); Influenza B PCR NEGATIVE (Negative); Resp Syncy Virus RNA Qual PCR NEGATIVE (Negative); SARS COV2 PCR INHOUSE NEGATIVE (Negative)
[2022-07-16 21:50] VITALS: BP 158/70; PULSE 82; RESP 16; TEMP 36.6; O2SAT 97
[2022-07-16] MEDS: Azithromycin 500 MG in 0.9 % Sodium Chloride 250 ML 125 MG IV (21:52)
--- NOTE | 2022-07-16 22:43 | P.HPHOSP_ITS ---
History of Present Illness Date of Service: 07/16/22 Chief Complaint: Dyspnea This is a 86-year-old male with pertinent history of mood disorder, dementia, essential hypertension, COPD not on home oxygen who presents to the emergency department for evaluation of dyspnea. Patient states over the last 4-5 days he has been having dyspnea, worse with exertion. Also has had associated wheezing and nonproductive cough. No history of CHF. No leg swelling, orthopnea or PND. Patient went to urgent care and was referred as he was found to be hypoxemic. He denies fever, chills, chest pain, palpitations, abdominal pain, changes in urinary or bowel habits In the emergency department, patient with wheezing and was requiring 2 L supplemental oxygen. Review of Systems Constitutional: Constitutional: Reports no additional constitutional complaints Cardiovascular: Cardiovascular: Reports dyspnea on exertion Respiratory: Respiratory: Reports cough, Reports dyspnea on exertion and Reports wheezing Gastrointestinal: Gastrointestinal: Reports no additional gastrointestinal complaints Genitourinary: Genitourinary: Reports no additional male genitourinary complaints Allergic/Immunologic: Allergic/Immunologic: Reports wheezing [facility] Medical History Bipolar disorder COPD (chronic obstructive pulmonary disease) Dementia Essential hypertension Pertinent family history: Not significant due to age Social History Household Members: None Housing: House Do you presently have visiting nurse or other home services: No Unable to assess alcohol history related to: Refusing to respond Alcohol intake: unknown Patient Tobacco Use Status: Never used Tobacco Advance Directives: No Advance Directives Information Provided: Yes service: Yes Sexual orientation: Straight/Heterosexual Meds Allergies Allergy/AdvReac Type Severity Reaction Status Date / Time pencillin Allergy Severe Unknown Uncoded 11/20/21 16:26 Active Medications: Current Medications Pharmacy Consult (Consult Rx Perform Med Rec) 1 each MISCELLANE ONCE PRN PRN Reason: Consult order Physical Exam Vital Signs and Narrative: Vital Signs: Last Vital Signs Temp 97.9 F 07/16/22 21:50 Pulse 82 07/16/22 21:50 Resp 16 07/16/22 21:50 BP 158/70 H 07/16/22 21:50 Pulse Ox 97 07/16/22 21:50 O2 Del Method 07/16/22 21:50 O2 Flow Rate 2 07/16/22 21:50 BMI result Body Mass Index 54.4 Elderly male lying in bed in mild distress on supplemental oxygen Neck supple, no JVD Regular rate and rhythm, S1-S2 heard Bilateral expiratory wheezing without crackles Abdomen soft nontender, no guarding, no rigidity Patient is awake, alert and oriented to self, place, time and person ; no focal motor deficit Psych: Normal mood No pedal edema Results Labs 07/16/22 20:46 07/16/22 20:46 Labs: Laboratory Results - last 24 hr 07/16/22 07/16/22 07/16/22 20:46 20:46 20:46 MCV 95.8 MCH 30.9 MCHC 32.3 RDW 13.8 Plt Count 151 L MPV 11.8 Immature Gran % (Auto) 0.4 Neut % (Auto) 59.6 Lymph % (Auto) 23.8 [place] % (Auto) 8.6 Eos % (Auto) 7.2 H Baso % (Auto) 0.4 Lymph # (Auto) 1.3 [place] # (Auto) 0.5 Eos # (Auto) 0.4 Baso # (Auto) 0.0 Abs Immat Gran (auto) 0.02 Absolute Neuts (auto) 3.3 Absolute Nucleated RBC 0.000 Nucleated RBC % (auto) 0.0 Anion Gap 13 Estim Creat Clear Calc 90.6 Estimated GFR > 60 Random Glucose 88 Lactic Acid Calcium 8.5 D Troponin I High Sens 13.4 B-Natriuretic Peptide 07/16/22 07/16/22 20:46 20:46 MCV MCH MCHC RDW Plt Count MPV Immature Gran % (Auto) Neut % (Auto) Lymph % (Auto) [place] % (Auto) Eos % (Auto) Baso % (Auto) Lymph # (Auto) [place] # (Auto) Eos # (Auto) Baso # (Auto) Abs Immat Gran (auto) Absolute Neuts (auto) Absolute Nucleated RBC Nucleated RBC % (auto) Anion Gap Estim Creat Clear Calc Estimated GFR Random Glucose Lactic Acid 0.7 Calcium Troponin I High Sens B-Natriuretic Peptide 168 H Imaging Radiologist's Impressions: Impressions Chest X-Ray 07/16/22 20:22 IMPRESSION: Unremarkable chest exam. Assessment and Plan (1) Hypoxia: Status: Acute (2) COPD (chronic obstructive pulmonary disease): Status: Acute Plan This is a 86-year-old male with pertinent history of mood disorder, dementia, essential hypertension, COPD not on home oxygen who presents to the emergency department for evaluation of dyspnea. #. Acute hypoxemic respiratory failure in the setting of COPD exacerbation: Initiating systemic steroids, scheduled and p.r.n. DuoNebs. Patient not on home inhaler. Initiating azithromycin for pleiotropic effect #. Mood disorder: Continue home mood stabilizers #. Essential hypertension: Continue home antihypertensives #. Mixed hyperlipidemia: On statin #. Dementia: On memantine. Maintain sleep-wake cycle Med rec pending DVT prophylaxis: Lovenox 40 mg daily Full code Cardiac diet Admit as inpatient and will require two night minimum hospital stay for supplemental oxygen Time Spent With Patient Time: Total time managing care of this patient today ____ minutes. Quality Stroke Does the patient have a stroke diagnosis?: No VTE Prior VTE?: No VTE Risk Level:: Medical - moderate - high VTE Device Contraindication: Treatment Not Indicated VTE Drug Contraindication: N/A - Med Ordered
--- NOTE | 2022-07-16 23:47 | PC.NURSE ---
Assumed care of pt. at 2300. Pt. resting in bed at this time. Pt reporting some SOB and audible wheezing can be heard. Respiratory called and will come down to do a PRN breathing treatment per JUL. Pt. has azithromycin running. IV has been positional. Pt. reminded to keep arm straight for fluids to run as they should.
[2022-07-16 23:54] VITALS: PULSE 73; RESP 18; O2SAT 97
[2022-07-17] VITALS (9 sets, daily range): BP systolic 129–143; BP diastolic 57–69; PULSE 40–81; RESP 16–22; TEMP 36.7–37.4; O2SAT 96–98; BMI 25.4
[2022-07-17] MEDS: Enoxaparin Sodium 40 MG/0.4 ML SYRINGE SUBCUT (00:10)
[2022-07-17] MEDS: Acetaminophen 325 MG TABLET 650 MG PO (01:33)
[2022-07-17] MEDS: Melatonin 3 MG TABLET 6 MG PO (01:33)
[2022-07-17] MEDS: traZODone HCL 50 MG TABLET PO ×2 (01:49→21:13)
[2022-07-17] MEDS: OLANZapine 5 MG TABLET PO (01:49)
[2022-07-17] MEDS: Benzonatate 100 MG CAPSULE 200 MG PO ×2 (03:28→19:45)
[2022-07-17 06:59] LABS: Hematocrit 30.3 % (42.0-52.0); Hemoglobin 9.9 g/dl (14.0-18.0); Imm Gran Abs Auto 0.01 X10*3/uL (0.00-0.03); Imm Gran Pct Auto 0.3 % (0.0-0.4); Lymphocytes Absolute Auto 0.2 X10*3/uL (1.2-4.9); Lymphocytes Percent Auto 7.3 % (20-40); MANUAL DIFF FLAG SCAN; Mean Corpuscular HGB Conc 32.7 g/dl (31.0-36.0); Mean Corpuscular Hemoglobin 31.5 pg (27.0-33.0); Mean Corpuscular Volume 96.5 fL (80.0-98.0); Mean Platelet Volume 11.9 fL (9.4-12.4); Monocytes Absolute Auto 0.1 X10*3/uL (0.1-1.2); Monocytes Percent Auto 1.9 % (2-11); Neutrophils Absolute Auto 2.9 x10*3/uL (2.0-8.3); Neutrophils Percent Auto 90.5 % (45-73); Platelet Count 141 X10*3/uL (160-400); Red Blood Count 3.14 X10*6/uL (4.60-5.80); Red Cell Distribution Width 13.9 % (11.0-16.0); SCAN SMEAR FLAG 1; White Blood Count 3.2 X10*3/uL (4.8-10.8)
[2022-07-17 07:11] LABS: Anion Gap 15 (12-20); Blood Urea Nitrogen 21 mg/dL (9-16); Calcium 8.3 mg/dL (8.4-10.2); Carbon Dioxide 20 mmol/L (22-29); Chloride 111 mmol/L (96-108); Creatinine Clr Calc Pharmacy 75.7; Estimated Glomerular Filt Rate 60; Glucose Random 161 mg/dL (60-115); Sodium 142 mmol/L (135-145)
--- NOTE | 2022-07-17 07:30 | PC.NURSE ---
pt alert but slightly confused at times-hx of dementia, pt was eating breakfast and started to cough. respirations increased and audibly wheezing, pt repositioned and breakfast bhavna taken away, sating well at 96%, respiratory called
[2022-07-17 07:36] LABS: SLIDE REVIEW VERIFIED
[2022-07-17] MEDS: methylPREDNISolone Sod Succ 40 MG/ML VIAL IVPUSH ×2 (08:05→19:45)
[2022-07-17] MEDS: 0.9 % Sodium Chloride Flush 3 ML SYRINGE IVFLUSH ×3 (08:05→23:07)
--- NOTE | 2022-07-17 08:46 | MHC.CM.PN ---
Patient has a diagnosis of Dementia; CM spoke with Patient's Son/Ellis at [phone] and addressed IMM with Ellis (original to be mailed certified mail to Ellis and a copy to be placed on the chart). Patient lives in a house with Ellis and he uses a walker to assist with mobility. Home/self care is the goal and CM has initiated and will follow for dc planning. Patient is Анна chaney and his PCP is Dr. Guerrero.
--- NOTE | 2022-07-17 09:57 | PHA.MEDREC ---
Pharmacy Consult ? Medication Reconciliation Pharmacy has completed the medication reconciliation. Pharmacy completed med rec using list provided by patient.
[2022-07-17] MEDS: Omeprazole 20 MG CAPSULE.DR PO (11:16)
[2022-07-17] MEDS: lamoTRIgine 25 MG TABLET 50 MG PO (11:16)
[2022-07-17] MEDS: Furosemide 20 MG TABLET PO (11:16)
--- NOTE | 2022-07-17 12:28 | HO.PM.IMPN ---
Subjective Subjective Date of Service: 07/17/22 Interval History: seen and examined this morning follow up for copd exacerbation awake, alert and able to answer questions but unable to provide any medical history denies active smoking Review of Systems Review of Systems: Yes all other systems are reviewed and are negative Constitutional Constitutional: Denies chills and Denies fever(s) Cardiovascular Cardiovascular: Denies chest pain, Denies palpitations and Reports dyspnea Respiratory Respiratory: Reports cough and Reports dyspnea Gastrointestinal Gastrointestinal: Denies abdominal pain Endocrine Endocrine: Denies palpitations Physical Exam Vital Signs: Vital Signs: Last Vital Signs Temp 97.9 F 07/16/22 21:50 Pulse 69 07/17/22 11:42 Resp 18 07/17/22 11:24 BP 129/57 L 07/17/22 07:18 Pulse Ox 97 07/17/22 07:18 O2 Del Method Nasal Cannula 07/17/22 07:18 O2 Flow Rate 2 07/17/22 07:18 BMI result Body Mass Index 54.4 Const: General: cooperative, comfortable, no acute distress, alert and awake Nutritional Appearance: average body habitus Orientation/consciousness: oriented to person and oriented to place Resp: Other: expiratory wheezing mild tachypnea Effort & Inspection: able to speak in complete sentences Cardio: Rate: regular rate Heart sounds: S1 normal heart sound present and S2 normal heart sound present GI: Inspection: No distended Palpation (GI): Soft to palpation Neuro: General: oriented to person, oriented to place and CN's II-XI intact bilaterally Extrem: General: Yes no pedal edema Objective Data Active Medications Acetaminophen (Acetaminophen 325 Mg Tablet) 650 mg PO Q6H PRN PRN Reason: Pain, Mild (Pain Scale 1-3) Last Admin: 07/17/22 01:33 Dose: 650 mg Documented By: RENO Aspirin (Aspirin Enteric Coated 81 Mg Tablet.) 81 mg PO DAILY [facility] Atorvastatin Calcium (Atorvastatin Calcium 80 Mg Tablet) 80 mg PO DAILY [facility] Benzonatate (Benzonatate 100 Mg Capsule) 200 mg PO TID PRN PRN Reason: Cough Last Admin: 07/17/22 03:28 Dose: 200 mg Documented By: RENO Bisacodyl (Bisacodyl 10 Mg Supp.Rect) 10 mg [place] BEDTIME PRN PRN Reason: Constipation Albuterol Sulfate 2.5 mg/ (Ipratropium [place] 0.5 mg) 0 mg INHALE RQ4H WHILE AWAKE [facility] Last Admin: 07/17/22 11:24 Dose: 2.5 each Documented By: ASHKAN Albuterol Sulfate 2.5 mg/ (Ipratropium [place] 0.5 mg) 0 mg INHALE Q4H PRN PRN Reason: Wheezing Last Admin: 07/16/22 23:53 Dose: 1 each Documented By: BELL Doxazosin Mesylate (Doxazosin Mesylate 2 Mg Tablet) 4 mg PO BEDTIME [facility] Enoxaparin Sodium (Enoxaparin Sodium 40 Mg/0.4 Ml Syringe) 40 mg SUBCUT Q24H [facility] Last Admin: 07/17/22 00:10 Dose: 40 mg Documented By: RENO Furosemide (Furosemide 20 Mg Tablet) 20 mg PO DAILY [facility]; Protocol Last Admin: 07/17/22 11:16 Dose: 20 mg Documented By: EDMUND Hydrochlorothiazide (Hydrochlorothiazide 12.5 Mg Tablet) 12.5 mg PO DAILY [facility]; Protocol Hydroxyzine HCl (Hydroxyzine Hcl 25 Mg Tablet) 25 mg PO Q6H PRN PRN Reason: Anxiety Azithromycin 500 mg/ Sodium (Chloride) 250 mls @ 125 mls/hr IV Q24H [facility] Lamotrigine (Lamotrigine 25 Mg Tablet) 50 mg PO DAILY [facility] [place] Last Admin: 07/17/22 11:16 Dose: 50 mg Documented By: EDMUND Lamotrigine (Lamotrigine 100 Mg Tablet) 200 mg PO BEDTIME [facility] Melatonin (Melatonin 3 Mg Tablet) 6 mg PO BEDTIME PRN PRN Reason: Insomnia Last Admin: 07/17/22 01:33 Dose: 6 mg Documented By: RENO Melatonin (Melatonin 3 Mg Tablet) 3 mg PO BEDTIME PRN PRN Reason: Sleep Memantine (Memantine Hcl 5 Mg Tablet) 5 mg PO BID [facility] [place] Methylprednisolone Sodium Succinate (Methylprednisolone Sod Succ 40 Mg/Ml Vial) 40 mg IVPUSH Q12H [facility] [place] Last Admin: 07/17/22 08:05 Dose: 40 mg Documented By: EDMUND Multivitamins/Vitamin C (Multivitamin Tablet) 1 tab PO DAILY [facility] Olanzapine (Olanzapine 5 Mg Tablet) 5 mg PO BEDTIME [facility] Omeprazole (Omeprazole 20 Mg Capsule.Dr) 20 mg PO DAILY@0630 [facility] [place] Last Admin: 07/17/22 11:16 Dose: 20 mg Documented By: EDMUND Ondansetron HCl (Ondansetron Hcl 4 Mg/2 Ml Vial) 4 mg IVPUSH Q8H PRN PRN Reason: Nausea and Vomiting Pharmacy Consult (Consult Rx Perform Med Rec) 1 each MISCELLANE ONCE PRN PRN Reason: Consult order Sodium Chloride (0.9 % Sodium Chloride Flush 3 Ml Syringe) 3 ml IVFLUSH QSHIFT [facility] [place] Last Admin: 07/17/22 08:05 Dose: 3 ml Documented By: EDMUND Trazodone HCl (Trazodone Hcl 50 Mg Tablet) 50 mg PO BEDTIME MRX1 PRN PRN Reason: Insomnia Labs 07/17/22 06:23 07/17/22 06:23 Labs: Laboratory Results - last 24 hr 07/16/22 07/16/22 07/16/22 20:46 20:46 20:46 MCV 95.8 MCH 30.9 MCHC 32.3 RDW 13.8 Plt Count 151 L MPV 11.8 Immature Gran % (Auto) 0.4 Neut % (Auto) 59.6 Lymph % (Auto) 23.8 [place] % (Auto) 8.6 Eos % (Auto) 7.2 H Baso % (Auto) 0.4 Lymph # (Auto) 1.3 [place] # (Auto) 0.5 Eos # (Auto) 0.4 Baso # (Auto) 0.0 Abs Immat Gran (auto) 0.02 Absolute Neuts (auto) 3.3 Absolute Nucleated RBC 0.000 Nucleated RBC % (auto) 0.0 Smear Tech's Comments Anion Gap 13 Estim Creat Clear Calc 90.6 Estimated GFR > 60 Random Glucose 88 Lactic Acid Calcium 8.5 D Troponin I High Sens 13.4 B-Natriuretic Peptide Influenza Type A (PCR) Influenza Type B (PCR) RSV RNA Qual (PCR) SARS-CoV-2 RNA (RT-PCR) 07/16/22 07/16/22 07/16/22 20:46 20:46 20:46 MCV MCH MCHC RDW Plt Count MPV Immature Gran % (Auto) Neut % (Auto) Lymph % (Auto) [place] % (Auto) Eos % (Auto) Baso % (Auto) Lymph # (Auto) [place] # (Auto) Eos # (Auto) Baso # (Auto) Abs Immat Gran (auto) Absolute Neuts (auto) Absolute Nucleated RBC Nucleated RBC % (auto) Smear Tech's Comments Anion Gap Estim Creat Clear Calc Estimated GFR Random Glucose Lactic Acid 0.7 Calcium Troponin I High Sens B-Natriuretic Peptide 168 H Influenza Type A (PCR) NEGATIVE Influenza Type B (PCR) NEGATIVE RSV RNA Qual (PCR) NEGATIVE SARS-CoV-2 RNA (RT-PCR) NEGATIVE 07/17/22 07/17/22 06:23 06:23 MCV 96.5 MCH 31.5 MCHC 32.7 RDW 13.9 Plt Count 141 L MPV 11.9 Immature Gran % (Auto) 0.3 Neut % (Auto) 90.5 H Lymph % (Auto) 7.3 L [place] % (Auto) 1.9 L Eos % (Auto) 0.0 Baso % (Auto) 0.0 Lymph # (Auto) 0.2 L [place] # (Auto) 0.1 Eos # (Auto) 0.0 Baso # (Auto) 0.0 Abs Immat Gran (auto) 0.01 Absolute Neuts (auto) 2.9 Absolute Nucleated RBC 0.000 Nucleated RBC % (auto) 0.0 Smear Tech's Comments VERIFIED Anion Gap 15 Estim Creat Clear Calc 75.7 Estimated GFR 60 Random Glucose 161 H Lactic Acid Calcium 8.3 L Troponin I High Sens B-Natriuretic Peptide Influenza Type A (PCR) Influenza Type B (PCR) RSV RNA Qual (PCR) SARS-CoV-2 RNA (RT-PCR) Assessment and Plan (1) COPD (chronic obstructive pulmonary disease): Status: Acute Plan This is a 86-year-old male with pertinent history of mood disorder, dementia, essential hypertension, COPD not on home oxygen who presents to the emergency department for evaluation of dyspnea. Acute hypoxemic respiratory failure related to acute COPD exacerbation: Initiating systemic steroids, scheduled and p.r.n. DuoNebs. Patient not on home inhaler. continue azithromycin cxr negative blood cultures pending wean supplemental oxygen as needed Essential hypertension: Continue HCTZ, lasix Mixed hyperlipidemia: continue statin Dementia: continue memantine. Maintain sleep-wake cycle bipolar disorder continue home meds pancytopenia anemia, tcp appear chronic leukopenia may be r/t acute infection follow CBC DVT prophylaxis: Lovenox 40 mg daily Full code attending - dr. stark Ongoing hospital stay for supplemental oxygen/copd exacerbation Time Spent With Patient Time: Total time managing care of this patient today ____ minutes. Quality Stroke Does the patient have a stroke diagnosis?: No VTE Prior VTE?: No VTE Risk Level:: Medical - moderate - high VTE Device Contraindication: Treatment Not Indicated VTE Drug Contraindication: N/A - Med Ordered
--- NOTE | 2022-07-17 14:28 | MHC.SPEECHCO ---
LIQUOR GALLERY OPERATOR screened Pt with water protocol resulting in prolonged coughing and shortness of breath. LIQUOR GALLERY OPERATOR unable to complete full evaluation at this time. Will see today, as schedule allows, or early tomorrow AM. Recommending NPO until evaluation can be complete. MD notified.
--- NOTE | 2022-07-17 15:32 | PC.NURSE ---
report given to medical social worker
--- NOTE | 2022-07-17 17:18 | ECG_ITS ---
Test Reason : chest pain Blood Pressure : / mmHG Vent. 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
[2022-07-17] MEDS: Dextrose 5 % and 0.9 % NaCl 1,000 ML 80 ML IVCONT (17:35)
[2022-07-17] MEDS: hydrOXYzine HCL 25 MG TABLET PO (17:35)
[2022-07-17 19:10] LABS: Troponin-I High Sensitivity 29.5 ng/L (<3.5-35.0)
[2022-07-17] MEDS: Azithromycin 500 MG in 0.9 % Sodium Chloride 250 ML 125 MG IV (23:06)
--- NOTE | 2022-07-17 23:15 | PC.NURSE ---
patient with wet cough and some increased SOB after pills with water. Patient thinks anxiety is contributing.
[2022-07-18] VITALS (8 sets, daily range): BP systolic 126–156; BP diastolic 67–72; PULSE 56–78; RESP 17–22; TEMP 36.1–36.6; O2SAT 95–97; BMI 25.4
[2022-07-18] MEDS: Enoxaparin Sodium 40 MG/0.4 ML SYRINGE SUBCUT ×2 (00:41→21:19)
[2022-07-18] MEDS: OLANZapine 10 MG VIAL IM (00:57)
[2022-07-18 07:10] LABS: Hematocrit 31.6 % (42.0-52.0); Hemoglobin 10.2 g/dl (14.0-18.0); Mean Corpuscular HGB Conc 32.3 g/dl (31.0-36.0); Mean Platelet Volume 12.4 fL (9.4-12.4); Platelet Count 158 X10*3/uL (160-400); Red Blood Count 3.29 X10*6/uL (4.60-5.80); White Blood Count 8.1 X10*3/uL (4.8-10.8)
[2022-07-18 08:05] LABS: Anion Gap 13 (12-20); Blood Urea Nitrogen 28 mg/dL (9-16); Calcium 8.6 mg/dL (8.4-10.2); Carbon Dioxide 22 mmol/L (22-29); Chloride 110 mmol/L (96-108); Creatinine Clr Calc Pharmacy 58.2; Estimated Glomerular Filt Rate > 60; Glucose Random 118 mg/dL (60-115); Potassium 4.3 mmol/L (3.3-5.1); Sodium 141 mmol/L (135-145)
[2022-07-18] MEDS: methylPREDNISolone Sod Succ 40 MG/ML VIAL IVPUSH ×2 (08:58→19:40)
[2022-07-18] MEDS: 0.9 % Sodium Chloride Flush 3 ML SYRINGE IVFLUSH ×3 (08:58→23:31)
--- NOTE | 2022-07-18 09:44 | MHC.CLN ---
Addendum entered by Claudia Rodriguez RD 07/18/22 13:13: DIET ADVANCED TO 2 GRAM SODIUM, PUREE, WITH HONEY THICK LIQUIDS. Original Note: NUTRITION CONSULT DUE TO NPO STATUS. PATIENT SEEN BY EXECUTIVE CHAIRMAN OF THE BO[employer] [facility] RECOMMENDATION FOR NPO. FOLLOW FOR DIET ADVANCEMENT. MAY NEED ALTERNATE NUTRITION IF UNABLE TO ADVANCE DIET.
--- NOTE | 2022-07-18 11:04 | CA_ITS ---
Transthoracic Echocardiogram Patient (Last, First, Middle): Wero Soto, Gender: Male Date of : 1935 Age: 86 Procedure Date: 07/18/2022 Procedure Type: Transthoracic Echocardiogram Location: S3E Height: 177.8 cm Weight: 84.82 kg BSA: 2.03 m2 Heart Rate: bpm BP: 129 / 71 mmHg Ribbon Hand: Referring MD: Yahaira NORWOOD Telegraph Repeater Technician: Sal Cao MD Symptoms: PVCs,SOB?CHF Study Quality: Fair/Contrast ECG Rhythm: Sinus with extra beats Conclusions: - 1. Normal LV systolic function with impaired relaxation filling pattern and elevated filling pressures 2. Mildly dilated left atrium 3. Mild aortic stenosis 4. Normal RV systolic pressure with elevated right atrial pressures 5. No gross pericardial effusion Findings Procedure Information Contrast agent, definity, is being given per protocol without apparent complications. Left Ventricle Normal left ventricular size, thickness, and systolic function. The visually estimated ejection fraction is between 65-70%. Spectral Doppler is indicative of an impaired relaxation filling pattern. Elevated filling pressures. E/E prime ratio is >15, consistent with elevated filling pressures. Right Ventricle Normal right ventricular cavity size and systolic function. Atria The left atrium is mildly dilated. There is lipomatous hypertrophy of the interatrial septum. There is no evidence of interatrial shunt. The right atrium is likely dilated. Aortic Valve There is mild calcification of the aortic valve. There is mild aortic valve stenosis. The mean gradient is 10 mmHg. The aortic valve area is 1.78 cm2. There is no aortic valve regurgitation. Mitral Valve There is mild anterior and posterior mitral leaflet thickening. There is mild mitral annular calcification. There is mild mitral valve regurgitation. There is no mitral valve stenosis. Pulmonic Valve The pulmonic valve was not well visualized. Tricuspid Valve There is mild tricuspid valve regurgitation. Mildly elevated right atrial pressure. There is no evidence of pulmonary hypertension. Great Vessels All visible segments of the aorta are normal in size. The pulmonary artery was not well visualized. Venous The inferior vena cava is moderately dilated and collapses less than 50% with inspiration. Pericardium/Pleural There is no evidence of pericardial effusion. Prior Study Comparison No prior study available for comparison. Measurements 2D Linear Measurements RVIDd: 2.41 RVIDd Index: 1.19 IVSd: 1.03 0.6-0.9/0.6-1.0 cm LVIDd: 4.53 3.9-5.3/4.2-5.9 cm LVIDd Index: 2.23 2.4-3.2/2.2-3.1 cm/m2 LVIDs: 2.70 2.0-3.6 cm LVPWd: 1.12 0.7-1.1 cm Ao Root: 3.40 2.1-3.5 cm LA Diam: 4.20 2.7-3.8/3.0-4.0 cm LAIDs Index: 2.07 1.5-2.3 cm/m2 LV Mass: 289.88 67-162/88-224 g LV Mass Index: 142.80 43-95/49-115 g/m2 LVOT Diam: 2.00 3.0+(-)1.3 cm Mitral Valve MV Pk E: 1.08 MV PK A: 1.43 MV Decel Time: 245.00 E/A: 0.80 E'Lateral: 6.42 E'Medial: 7.62 E/E' Med: 14.20 E/E' Lat: 16.80 PHT: 72.00 MVA PHT: 3.06 Decel [place]: 4.39 Aortic Valve AoV Pk Azam: 2.24 AoV Mn Azam: 1.41 AoV VTI: 0.47 AoV Pk Grad: 20.00 Aov Mn Grad: 10.00 CONI Cont.VTI: 1.78 LVOT LVOT Pk Azam: 1.40 LVOT Mn Azam: 0.92 LVOT VTI: 0.26 LVOT Pk Grad: 8.00 LVOT Mn Grad: 4.00 LVOT Diam: 2.00 LVOT Area: 3.14 Diastolic Function MV Pk E: 1.08 MV Pk A: 1.43 E/A: 0.80 E'Medial: 7.62 E/E' Med: 14.20 E' Laterial: 6.42 E/E' Lat: 16.80 Right Ventricle TAPSE (mm): 23.80 Tricuspid Valve TR Pk Azam: 2.60 TR Pk Grad: 27.00 RA Press: 8.00 RVSP: 35.00 Great Vessels Aorta Ao Root-2D: 3.40 2.0-3.7 cm Ao Asc: 3.60 2.1-3.4 cm Pulmonary Valve PV Pk Azam: 1.34 Peak PV Grad: 7.00 Updated in Other Vendor System with Status of Final Sal Cao MD electronically signed on 07/19/2022 12:55:07 PM with status of Final
--- NOTE | 2022-07-18 11:48 | MHC.SL.SWA ---
Speech Pathologist Impression: Oropharyngeal dysphagia, risk of aspiration Risk of Aspiration Due to: Neurological Condition Reduced Cognition Dysphasia Diet Status: Upgrade Liquid Consistency and Strategies for Safe Swallow: Liquid Intake Recommendation: Honey Thick Liquid Intake Strategies: Small Sips No Straws Liquids by Teaspoon Only Solid Food Consistency: Dietary Recommendations: Pureed (NDD1) Additional Modifications to Solid Foods: Recommend UPGRADE from NPO, start on PUREED (NDD1) diet and HONEY THICK liquids by TEASPOON ONLY, pills CRUSHED in PUREE. Encourage independence feeding, provide 1:1 supervision during meals to assist with tray set up as needed, provide reminders for strict aspiration precautions, and closely monitor pt's tolerance. Hold tray if pt is lethargic, not attending to meal, or shows any s/s of aspiration. Recommendations were discussed with pt and written on whiteboard in pt's room. Notified hospitalist, RN, RD of recommendations. CENTRAL COMMUNICATIONS SPECIALIST will continue to follow. Oral Medication Intake: Crushed with Puree Please contact the pharmacy regarding appropriate crushable or liquid drug formulations that are available whenever modified delivery is recommended. Compensatory Strategies and Precautions to be Taken for Safe Swallow: Sitting Upright (90 deg) No Straw Liquids from Spoon Small Bites and Sips Rate of Ingestion Change Avoid Specific Foods Supervision While Eating and Drinking for Safe Swallow: Total Supervision (1:1) Foods to Avoid: Mixed consistencies Swallowing Recommended Treatments: Compens. Strategy Educat. Recommendation for Speech: Inpatient Speech Therapy Health And Fitness Instructor Clinican/Clinical Fellow: No Supervisory Statement: I have reviewed and agree with the student/clinical fellow's documentation: N/A Speech Language Pathologist: Thea Mast M.A., [facility]-CENTRAL COMMUNICATIONS SPECIALIST
[2022-07-18 11:50] LABS: Magnesium 2.3 mg/dL (1.6-2.6)
--- NOTE | 2022-07-18 12:07 | P.PNIM_ITS ---
Subjective Subjective Date of Service: 07/18/22 Interval History: seen and examined this morning follow up for COPD exacerbation feeling sick which is described as coughing difficult to obtain history denies chest pain or sob at this time Review of Systems Review of Systems: Yes all other systems are reviewed and are negative Constitutional Constitutional: Denies chills and Denies fever(s) Cardiovascular Cardiovascular: Denies chest pain, Denies palpitations and Denies dyspnea Respiratory Respiratory: Reports cough and Denies dyspnea Gastrointestinal Gastrointestinal: Denies abdominal pain Endocrine Endocrine: Denies palpitations Physical Exam Vital Signs: Vital Signs: Last Vital Signs Temp 97.7 F 07/18/22 07:54 Pulse 62 07/18/22 07:59 Resp 18 07/18/22 07:59 BP 129/71 07/18/22 07:54 Pulse Ox 97 07/18/22 07:54 O2 Del Method 07/18/22 07:54 O2 Flow Rate 2 07/18/22 07:54 BMI result Body Mass Index 25.4 Const: General: cooperative, no acute distress, alert and awake Nutritional Appearance: average body habitus Orientation/consciousness: oriented to person and oriented to place Resp: Other: expiratory wheezing Effort & Inspection: able to speak in complete sentences, no respiratory distress and no use of accessory muscles Cardio: Rate: regular rate Heart sounds: S1 normal heart sound present and S2 normal heart sound present GI: Inspection: No distended Palpation (GI): Soft to palpation Neuro: General: oriented to person, oriented to place and CN's II-XI intact bilaterally Extrem: General: Yes no pedal edema Objective Data Active Medications Acetaminophen (Acetaminophen 325 Mg Tablet) 650 mg PO Q6H PRN PRN Reason: Pain, Mild (Pain Scale 1-3) Last Admin: 07/17/22 01:33 Dose: 650 mg Documented By: RENO Aspirin (Aspirin Enteric Coated 81 Mg Tablet.Dr) 81 mg PO DAILY [facility] Atorvastatin Calcium (Atorvastatin Calcium 80 Mg Tablet) 80 mg PO DAILY [facility] Benzonatate (Benzonatate 100 Mg Capsule) 200 mg PO TID PRN PRN Reason: Cough Last Admin: 07/17/22 19:45 Dose: 200 mg Documented By: MJ Bisacodyl (Bisacodyl 10 Mg Supp.Rect) 10 mg [place] BEDTIME PRN PRN Reason: Constipation Albuterol Sulfate 2.5 mg/ (Ipratropium [place] 0.5 mg) 0 mg INHALE RQ4H WHILE AWAKE [facility] Last Admin: 07/18/22 11:03 Dose: Not Given Documented By: ONEYDA Non-Admin Reason: Patient Refused Albuterol Sulfate 2.5 mg/ (Ipratropium [place] 0.5 mg) 0 mg INHALE Q4H PRN PRN Reason: Wheezing Last Admin: 07/18/22 05:27 Dose: 2.5 each Documented By: SERGEY Docusate Sodium (Docusate Sodium 100 Mg Capsule) 100 mg PO BEDTIME ELAINE Last Admin: 07/17/22 23:13 Dose: Not Given Documented By: MJ Non-Admin Reason: held for swallow eval Doxazosin Mesylate (Doxazosin Mesylate 2 Mg Tablet) 4 mg PO BEDTIME ELAINE Last Admin: 07/17/22 23:13 Dose: Not Given Documented By: MJ Non-Admin Reason: held for swallow eval Enoxaparin Sodium (Enoxaparin Sodium 40 Mg/0.4 Ml Syringe) 40 mg SUBCUT Q24H [facility] Last Admin: 07/18/22 00:41 Dose: 40 mg Documented By: LEXY Furosemide (Furosemide 20 Mg Tablet) 20 mg PO DAILY [facility]; Protocol Last Admin: 07/17/22 11:16 Dose: 20 mg Documented By: EDMUND Hydrochlorothiazide (Hydrochlorothiazide 12.5 Mg Tablet) 12.5 mg PO DAILY [facility]; Protocol Hydroxyzine HCl (Hydroxyzine Hcl 25 Mg Tablet) 25 mg PO Q6H PRN PRN Reason: Anxiety Last Admin: 07/17/22 17:35 Dose: 25 mg Documented By: ASMARA Azithromycin 500 mg/ Sodium (Chloride) 250 mls @ 125 mls/hr IV Q24H ELAINE Last Infusion: 07/18/22 01:35 Dose: 0 mls/hr Documented By: LEXY Lamotrigine (Lamotrigine 25 Mg Tablet) 50 mg PO DAILY [facility] Last Admin: 07/17/22 11:16 Dose: 50 mg Documented By: EDMUND Lamotrigine (Lamotrigine 100 Mg Tablet) 200 mg PO BEDTIME ELAINE Last Admin: 07/17/22 23:13 Dose: Not Given Documented By: MJ Non-Admin Reason: held for swallow eval Melatonin (Melatonin 3 Mg Tablet) 6 mg PO BEDTIME PRN PRN Reason: Insomnia Last Admin: 07/17/22 01:33 Dose: 6 mg Documented By: RENO Melatonin (Melatonin 3 Mg Tablet) 3 mg PO BEDTIME PRN PRN Reason: Sleep Memantine (Memantine Hcl 5 Mg Tablet) 5 mg PO BID [facility] Last Admin: 07/17/22 23:14 Dose: Not Given Documented By: MJ Non-Admin Reason: held for swallow eval Methylprednisolone Sodium Succinate (Methylprednisolone Sod Succ 40 Mg/Ml Vial) 40 mg IVPUSH Q12H [facility] Last Admin: 07/18/22 08:58 Dose: 40 mg Documented By: SAMARA Multivitamins/Vitamin C (Multivitamin Tablet) 1 tab PO DAILY [facility] Olanzapine (Olanzapine 5 Mg Tablet) 5 mg PO BEDTIME [facility] Last Admin: 07/17/22 23:14 Dose: Not Given Documented By: MJ Non-Admin Reason: held for swallow eval Omeprazole (Omeprazole 20 Mg Capsule.Dr) 20 mg PO DAILY@0630 [facility] Last Admin: 07/18/22 05:55 Dose: Not Given Documented By: LEXY Non-Admin Reason: NPO Ondansetron HCl (Ondansetron Hcl 4 Mg/2 Ml Vial) 4 mg IVPUSH Q8H PRN PRN Reason: Nausea and Vomiting Pharmacy Consult (Consult Rx Perform Med Rec) 1 each MISCELLANE ONCE PRN PRN Reason: Consult order Polyethylene Glycol (Polyethylene Glycol 3350 17 Gm Powd.Pack) 17 gm PO DAILY PRN PRN Reason: constipation Sodium Chloride (0.9 % Sodium Chloride Flush 3 Ml Syringe) 3 ml IVFLUSH QSHIFT [facility] Last Admin: 07/18/22 08:58 Dose: 3 ml Documented By: SAMARA Trazodone HCl (Trazodone Hcl 50 Mg Tablet) 50 mg PO BEDTIME MRX1 PRN PRN Reason: Insomnia Last Admin: 07/17/22 21:13 Dose: 50 mg Documented By: MJ Labs 07/18/22 05:24 07/18/22 05:24 Labs: Laboratory Results - last 24 hr 07/17/22 07/18/22 07/18/22 18:43 05:24 05:24 MCV 96.0 MCH 31.0 MCHC 32.3 RDW 14.0 Plt Count 158 L MPV 12.4 Absolute Nucleated RBC 0.000 Nucleated RBC % (auto) 0.0 Anion Gap 13 Estim Creat Clear Calc 58.2 Estimated GFR > 60 Random Glucose 118 H Calcium 8.6 Magnesium 2.3 Troponin I High Sens 29.5 D Microbiology Microbiology Results: Microbiology 07/16/22 20:46 Blood Culture - Preliminary Blood - Venous No growth after 24 hours. 07/16/22 20:46 Blood Culture - Preliminary Blood - Venous No growth after 24 hours. Assessment and Plan (1) COPD (chronic obstructive pulmonary disease): Status: Acute (2) Hypoxia: Status: Acute Plan This is a 86-year-old male with pertinent history of mood disorder, dementia, essential hypertension, COPD not on home oxygen who presents to the emergency department for evaluation of dyspnea. Acute hypoxemic respiratory failure related to acute COPD exacerbation: Continue systemic steroids, scheduled and p.r.n. DuoNebs. continue azithromycin cxr negative blood cultures negative x 24 hrs wean supplemental oxygen as needed BNP on lower side, on lasix at home but no echo in system - will obtain ECHO Essential hypertension: Continue HCTZ, lasix Mixed hyperlipidemia: continue statin Dementia: continue memantine. Maintain sleep-wake cycle seen by speech - rec purred diet with honey thick liqs and aspiration precautions bipolar disorder continue home meds pancytopenia anemia, tcp appear chronic leukopenia resolved follow CBC DVT prophylaxis: Lovenox 40 mg daily Full code attending - dr. stark attempted to call son to obtain more info about medical history. left a message Ongoing hospital stay for supplemental oxygen/copd exacerbation Time Spent With Patient Time: Total time managing care of this patient today ____ minutes. Quality Stroke Does the patient have a stroke diagnosis?: No VTE Prior VTE?: No VTE Risk Level:: Medical - moderate - high VTE Device Contraindication: Treatment Not Indicated VTE Drug Contraindication: N/A - Med Ordered
[2022-07-18] MEDS: Atorvastatin Calcium 80 MG TABLET PO (12:17)
[2022-07-18] MEDS: hydroCHLOROthiazide 12.5 MG TABLET PO (12:17)
[2022-07-18] MEDS: Multivitamin TABLET 1 TAB PO (12:18)
[2022-07-18] MEDS: Aspirin Enteric Coated 81 MG TABLET.DR PO (12:18)
[2022-07-18] MEDS: Furosemide 20 MG TABLET PO (12:18)
[2022-07-18] MEDS: Memantine HCl 5 MG TABLET PO ×2 (12:18→19:41)
[2022-07-18] MEDS: lamoTRIgine 25 MG TABLET 50 MG PO (12:18)
--- NOTE | 2022-07-18 12:41 | MHC.SLORD ---
Speech Language Pathology Order Status: Pt observed by another CYLINDER CHECKER to be alone eating from lunch tray. Pt was seen by CYLINDER CHECKER earlier this morning, recommended to start on NDD1/HT by teaspoon only, with strict precautions and close supervision d/t risk of aspiration. CYLINDER CHECKER sent [place] Message to RN and hospitalist to notify pt needing 1:1 supervision during PO intake. CYLINDER CHECKER will continue to follow.
--- NOTE | 2022-07-18 15:43 | MHC.CM.PN ---
CURRENTLY NEEDS 1:1 FEED. NO PLAN FOR DC TODAY
--- NOTE | 2022-07-18 17:00 | PM.EVENT ---
Event Note Date of Service: 07/18/22 Event Note: Patient and son Marcelo (pt HCP) both agree to change code status to DNR/DNI from full code, code status updated in computer Time Spent With Patient Time: Total time managing care of this patient today ____ minutes.
[2022-07-18] MEDS: Acetaminophen 325 MG TABLET 650 MG PO (17:49)
[2022-07-18] MEDS: Docusate Sodium 100 MG CAPSULE PO (19:41)
[2022-07-18] MEDS: lamoTRIgine 100 MG TABLET 200 MG PO (19:41)
[2022-07-18] MEDS: Doxazosin Mesylate 2 MG TABLET 4 MG PO (19:41)
[2022-07-18] MEDS: OLANZapine 5 MG TABLET PO (19:42)
[2022-07-18] MEDS: hydrOXYzine HCL 25 MG TABLET PO (19:42)
[2022-07-18] MEDS: Azithromycin 500 MG in 0.9 % Sodium Chloride 250 ML 125 MG IV (21:18)
[2022-07-19] VITALS (9 sets, daily range): BP systolic 144–166; BP diastolic 66–77; PULSE 60–78; RESP 15–20; TEMP 36.3–36.8; O2SAT 93–99
[2022-07-19] MEDS: Omeprazole 20 MG CAPSULE.DR PO (04:47)
[2022-07-19] MEDS: Memantine HCl 5 MG TABLET PO ×2 (08:38→20:19)
[2022-07-19] MEDS: Benzonatate 100 MG CAPSULE 200 MG PO (08:38)
[2022-07-19] MEDS: Acetaminophen 325 MG TABLET 650 MG PO (08:38)
[2022-07-19] MEDS: hydroCHLOROthiazide 12.5 MG TABLET PO (08:38)
[2022-07-19] MEDS: lamoTRIgine 25 MG TABLET 50 MG PO (08:38)
[2022-07-19] MEDS: 0.9 % Sodium Chloride Flush 3 ML SYRINGE IVFLUSH ×2 (08:39→17:27)
[2022-07-19] MEDS: Multivitamin TABLET 1 TAB PO (08:39)
[2022-07-19] MEDS: Aspirin Enteric Coated 81 MG TABLET.DR PO (08:39)
[2022-07-19] MEDS: Furosemide 20 MG TABLET PO (08:39)
[2022-07-19] MEDS: Atorvastatin Calcium 80 MG TABLET PO (08:39)
[2022-07-19] MEDS: methylPREDNISolone Sod Succ 40 MG/ML VIAL IVPUSH ×2 (08:39→20:15)
--- NOTE | 2022-07-19 10:55 | P.PNIM_ITS ---
Subjective Subjective Date of Service: 07/19/22 Interval History: seen and examined this morning follow up for COPD exacerbation Review of Systems Review of Systems: Yes all other systems are reviewed and are negative Constitutional Constitutional: Denies chills and Denies fever(s) Cardiovascular Cardiovascular: Denies chest pain, Denies palpitations and Denies dyspnea Respiratory Respiratory: Reports cough and Denies dyspnea Gastrointestinal Gastrointestinal: Denies abdominal pain Endocrine Endocrine: Denies palpitations Physical Exam Vital Signs: Vital Signs: Last Vital Signs Temp 97.6 F 07/19/22 08:00 Pulse 64 07/19/22 08:10 Resp 15 07/19/22 08:10 BP 145/77 H 07/19/22 08:00 Pulse Ox 94 07/19/22 08:00 O2 Del Method 07/19/22 08:00 O2 Flow Rate 2.0 07/19/22 08:00 BMI result Body Mass Index 25.4 Appearing in no acute distress lung sounds are clear to auscultation heart regular rate rhythm, clear S1, S2 positive bowel sounds, abdomen is soft, nontender neuro patient is alert x3, no focal deficits Objective Data Active Medications Acetaminophen (Acetaminophen 325 Mg Tablet) 650 mg PO Q6H PRN PRN Reason: Pain, Mild (Pain Scale 1-3) Last Admin: 07/19/22 08:38 Dose: 650 mg Documented By: SAMARA Aspirin (Aspirin Enteric Coated 81 Mg Tablet.Dr) 81 mg PO DAILY [facility] Last Admin: 07/19/22 08:39 Dose: 81 mg Documented By: SAMARA Atorvastatin Calcium (Atorvastatin Calcium 80 Mg Tablet) 80 mg PO DAILY [facility] Last Admin: 07/19/22 08:39 Dose: 80 mg Documented By: SAMARA Benzonatate (Benzonatate 100 Mg Capsule) 200 mg PO TID PRN PRN Reason: Cough Last Admin: 07/19/22 08:38 Dose: 200 mg Documented By: SAMARA Bisacodyl (Bisacodyl 10 Mg Supp.Rect) 10 mg [place] BEDTIME PRN PRN Reason: Constipation Albuterol Sulfate 2.5 mg/ (Ipratropium [place] 0.5 mg) 0 mg INHALE RQ4H WHILE AWAKE [facility] Last Admin: 07/19/22 08:08 Dose: 1 each Documented By: HARSHA Albuterol Sulfate 2.5 mg/ (Ipratropium [place] 0.5 mg) 0 mg INHALE Q4H PRN PRN Reason: Wheezing Last Admin: 07/18/22 05:27 Dose: 2.5 each Documented By: SERGEY Docusate Sodium (Docusate Sodium 100 Mg Capsule) 100 mg PO BEDTIME ELAINE Last Admin: 07/18/22 19:41 Dose: 100 mg Documented By: KALYN Doxazosin Mesylate (Doxazosin Mesylate 2 Mg Tablet) 4 mg PO BEDTIME ELAINE Last Admin: 07/18/22 19:41 Dose: 4 mg Documented By: KALYN Enoxaparin Sodium (Enoxaparin Sodium 40 Mg/0.4 Ml Syringe) 40 mg SUBCUT Q24H ELAINE Last Admin: 07/18/22 21:19 Dose: 40 mg Documented By: KALYN Furosemide (Furosemide 20 Mg Tablet) 20 mg PO DAILY ELAINE; Protocol Last Admin: 07/19/22 08:39 Dose: 20 mg Documented By: SAMARA Hydrochlorothiazide (Hydrochlorothiazide 12.5 Mg Tablet) 12.5 mg PO DAILY ELAINE; Protocol Last Admin: 07/19/22 08:38 Dose: 12.5 mg Documented By: SAMARA Hydroxyzine HCl (Hydroxyzine Hcl 25 Mg Tablet) 25 mg PO Q6H PRN PRN Reason: Anxiety Last Admin: 07/18/22 19:42 Dose: 25 mg Documented By: KALYN Azithromycin 500 mg/ Sodium (Chloride) 250 mls @ 125 mls/hr IV Q24H ELAINE Last Infusion: 07/18/22 23:31 Dose: 0 mls/hr Documented By: DIANA Lamotrigine (Lamotrigine 25 Mg Tablet) 50 mg PO DAILY ELAINE Last Admin: 07/19/22 08:38 Dose: 50 mg Documented By: SAMARA Lamotrigine (Lamotrigine 100 Mg Tablet) 200 mg PO BEDTIME ELAINE Last Admin: 07/18/22 19:41 Dose: 200 mg Documented By: KALYN Melatonin (Melatonin 3 Mg Tablet) 6 mg PO BEDTIME PRN PRN Reason: Insomnia Last Admin: 07/17/22 01:33 Dose: 6 mg Documented By: RENO Melatonin (Melatonin 3 Mg Tablet) 3 mg PO BEDTIME PRN PRN Reason: Sleep Memantine (Memantine Hcl 5 Mg Tablet) 5 mg PO BID [facility] Last Admin: 07/19/22 08:38 Dose: 5 mg Documented By: SAMARA Methylprednisolone Sodium Succinate (Methylprednisolone Sod Succ 40 Mg/Ml Vial) 40 mg IVPUSH Q12H [facility] Last Admin: 07/19/22 08:39 Dose: 40 mg Documented By: SAMARA Multivitamins/Vitamin C (Multivitamin Tablet) 1 tab PO DAILY [facility] Last Admin: 07/19/22 08:39 Dose: 1 tab Documented By: SAMARA Olanzapine (Olanzapine 5 Mg Tablet) 5 mg PO BEDTIME [facility] Last Admin: 07/18/22 19:42 Dose: 5 mg Documented By: KALYN Omeprazole (Omeprazole 20 Mg Capsule.) 20 mg PO DAILY@0630 [facility] Last Admin: 07/19/22 04:47 Dose: 20 mg Documented By: DIANA Ondansetron HCl (Ondansetron Hcl 4 Mg/2 Ml Vial) 4 mg IVPUSH Q8H PRN PRN Reason: Nausea and Vomiting Pharmacy Consult (Consult Rx Perform Med Rec) 1 each MISCELLANE ONCE PRN PRN Reason: Consult order Polyethylene Glycol (Polyethylene Glycol 3350 17 Gm Powd.Pack) 17 gm PO DAILY PRN PRN Reason: constipation Sodium Chloride (0.9 % Sodium Chloride Flush 3 Ml Syringe) 3 ml IVFLUSH QSHIFT [facility] Last Admin: 07/19/22 08:39 Dose: 3 ml Documented By: SAMARA Trazodone HCl (Trazodone Hcl 50 Mg Tablet) 50 mg PO BEDTIME MRX1 PRN PRN Reason: Insomnia Last Admin: 07/17/22 21:13 Dose: 50 mg Documented By: MJ Labs 07/18/22 05:24 07/18/22 05:24 Labs: Laboratory Results - last 24 hr 07/18/22 05:24 Magnesium 2.3 Microbiology Microbiology Results: Microbiology 07/16/22 20:46 Blood Culture - Preliminary Blood - Venous No growth after 48 hours. 07/16/22 20:46 Blood Culture - Preliminary Blood - Venous No growth after 48 hours. Assessment and Plan (1) COPD (chronic obstructive pulmonary disease): Status: Acute (2) Hypoxia: Status: Acute Plan This is a 86-year-old male with pertinent history of mood disorder, dementia, essential hypertension, COPD not on home oxygen who presents to the emergency department for evaluation of dyspnea. Acute hypoxemic respiratory failure related to acute COPD exacerbation: Continue systemic steroids, scheduled and p.r.n. DuoNebs. continue azithromycin cxr negative blood cultures negative wean supplemental oxygen as needed echo pending check ambulating o2 sat goes into 80's with ambulation home o2 evaluation Essential hypertension: Continue HCTZ, lasix Mixed hyperlipidemia: continue statin Dementia: continue memantine. Maintain sleep-wake cycle seen by speech - rec purred diet with honey thick liqs and aspiration precautions bipolar disorder continue home meds pancytopenia anemia, tcp appear chronic leukopenia resolved follow CBC DVT prophylaxis: Lovenox 40 mg daily Full code attending - dr. Monk Ongoing hospital stay for supplemental oxygen/copd exacerbation Time Spent With Patient Time: Total time managing care of this patient today ____ minutes. Quality Stroke Does the patient have a stroke diagnosis?: No VTE Prior VTE?: No VTE Risk Level:: Medical - moderate - high VTE Device Contraindication: Treatment Not Indicated VTE Drug Contraindication: N/A - Med Ordered
--- NOTE | 2022-07-19 12:13 | PC.NURSE ---
pt desat into the high 89 with ambulation but back up to 93 within a few second back up to 95
--- NOTE | 2022-07-19 14:46 | MHC.CM.PN ---
Addendum entered by Corrina Ortiz 07/20/22 12:30: PT WILL DC HOME TODAY WITH NEW HOME OXYGEN PTS SON WAS NOTIFIED OF DC VIA NURSE AND PLANS TO PICK PT UP AROUND DINNER TIME Original Note: CM CALLED PTS SON, CHRIS [phone] AND INFORMED HIM THE PT MAY DC TOMORROW FOLLOWING A HOME O2 EVAL HE REPORTS HE HOPES THE PT COMES HOME SOON HE IS WELL ENOUGH HE ALSO REQUESTED A CALL FROM PTS PROVIDER TO DISCUSS TEST RESULTS PROVIDER INFORMED
[2022-07-19] MEDS: Doxazosin Mesylate 2 MG TABLET 4 MG PO (20:16)
[2022-07-19] MEDS: lamoTRIgine 100 MG TABLET 200 MG PO (20:17)
[2022-07-19] MEDS: guaiFENesin LA 600 MG TAB.ER.12H PO (20:18)
[2022-07-19] MEDS: Docusate Sodium 100 MG CAPSULE PO (20:18)
[2022-07-19] MEDS: OLANZapine 5 MG TABLET PO (20:18)
[2022-07-19] MEDS: Azithromycin 500 MG in 0.9 % Sodium Chloride 250 ML 125 MG IV (20:20)
[2022-07-19] MEDS: Enoxaparin Sodium 40 MG/0.4 ML SYRINGE SUBCUT (23:17)
[2022-07-20] MEDS: 0.9 % Sodium Chloride Flush 3 ML SYRINGE IVFLUSH ×2 (00:18→09:42)
[2022-07-20 03:14] VITALS: BP 139/76; PULSE 82; RESP 17; TEMP 36.4; O2SAT 94
[2022-07-20] MEDS: Omeprazole 20 MG CAPSULE.DR PO (04:18)
[2022-07-20 08:00] VITALS: BP 134/82; PULSE 77; RESP 17; TEMP 36.6; O2SAT 92
[2022-07-20 08:09] VITALS: PULSE 87; RESP 20; O2SAT 92
[2022-07-20] MEDS: Atorvastatin Calcium 80 MG TABLET PO (09:42)
[2022-07-20] MEDS: guaiFENesin LA 600 MG TAB.ER.12H PO (09:42)
[2022-07-20] MEDS: Aspirin Enteric Coated 81 MG TABLET.DR PO (09:43)
[2022-07-20] MEDS: hydroCHLOROthiazide 12.5 MG TABLET PO (09:43)
[2022-07-20] MEDS: Furosemide 20 MG TABLET PO (09:43)
[2022-07-20] MEDS: Multivitamin TABLET 1 TAB PO (09:43)
[2022-07-20] MEDS: lamoTRIgine 25 MG TABLET 50 MG PO (09:43)
[2022-07-20] MEDS: Memantine HCl 5 MG TABLET PO (09:43)
--- NOTE | 2022-07-20 10:42 | PM.DS ---
DS: Providers Provider Date of Service: 07/20/22 Date of admission: 07/16/22 22:41 Primary care physician: Chase Guerrero MD Attending physician on discharge: Kristian Monk Discharging clinician: Caryl Marie DS: Diagnosis Discharge Diagnosis (1) COPD (chronic obstructive pulmonary disease): Status: Acute (2) Hypoxia: Status: Acute DS: Summary Hospital Course Hospital Course: HP as per admitting provider This is a 86-year-old male with pertinent history of mood disorder, dementia, essential hypertension, COPD not on home oxygen who presents to the emergency department for evaluation of dyspnea.? Patient states over the last 4-5 days he has been having dyspnea, worse with exertion.? Also has had associated wheezing and nonproductive cough.? No history of CHF.? No leg swelling, orthopnea or PND.? Patient went to urgent care and was referred as he was found to be hypoxemic.? He denies fever, chills, chest pain, palpitations, abdominal pain, changes in urinary or bowel habits. In the emergency department, patient with wheezing and was requiring 2 L supplemental oxygen . Acute hypoxemic respiratory failure related to acute COPD exacerbation Treated with systemic steroids, scheduled and p.r.n. DuoNebs.?Home with as needed albuterol inhalor Treated with azithromycin, home with 2 more days cxr negative blood cultures negative wean supplemental oxygen as needed echo normal EF Essential hypertension Continue HCTZ, lasix Mixed hyperlipidemia? continue statin Dementia continue memantine.? Maintain sleep-wake cycle bipolar disorder continue home meds pancytopenia anemia, tcp appear chronic leukopenia resolved Time Spent with Patient Time attestation: Total time managing care of this patient today ____ minutes. Discharge coordination time: Greater than 30 minutes Quality: Safe Use of Opioids Does Pt have an Active Cancer Diagnosis on the Problem List?: No Quality: Stroke Does the patient have a stroke diagnosis?: No Physical Exam Vital Signs: Vital Signs: Last Vital Signs Temp 97.9 F 07/20/22 08:00 Pulse 87 07/20/22 08:09 Resp 20 07/20/22 08:09 BP 134/82 07/20/22 08:00 Pulse Ox 92 07/20/22 08:00 O2 Del Method 07/20/22 08:00 O2 Flow Rate 2.0 07/19/22 08:00 BMI result Body Mass Index 25.4 Appearing in no acute distress head is normocephalic atraumatic eyes pupils are PERRLA sclera is anicteric mouth throat mucous membranes are intact and moist neck is supple no lymphadenopathy, no JVD noted lung sounds mild rhonchi heart regular rate rhythm, clear S1, S2 positive bowel sounds, abdomen is soft, nontender neuro patient is alert x3, no focal deficits DS: Data Data Completed and Pending Labs on day of discharge: Preliminary micro results at discharge 07/16/22 20:46 Blood Culture - Preliminary Blood - Venous No growth after 48 hours. 07/16/22 20:46 Blood Culture - Preliminary Blood - Venous No growth after 48 hours. Discharge Plan Discharge Anticipated Discharge Date/Time: 07/20/22 10:13 Patient Disposition: Home, Self-Care Discharge Diagnosis: COPD exacerbation Referrals: Chase Guerrero MD [Primary Care Provider] - 1 Week Discharge Medications: New benzonatate 100 mg Capsule 200 mg PO TID PRN (Reason: Cough) Qty: 18 0RF guaifenesin [Mucinex] 600 mg Tablet Extended Release 12hr 600 mg PO BID Qty: 6 0RF azithromycin 500 mg tablet 500 mg PO DAILY 2 Days Qty: 2 0RF prednisone 10 mg tablet 40 mg PO DIRECTED Qty: 16 0RF Rx Instructions: see taper instructions albuterol sulfate 90 mcg/actuation aerosol powdr breath activated 2 inh inhalation Q4-6H PRN (Reason: shortness of breath or wheezing) Qty: 1 0RF Continued hydroxyzine HCl 25 mg Tablet 25 mg PO Q6H PRN (Reason: Anxiety) 7 Days Qty: 21 0RF trazodone 50 mg Tablet 50 mg PO BEDTIME MRX1 PRN (Reason: Insomnia) 7 Days Qty: 7 0RF lamotrigine 25 mg Tablet 50 mg PO DAILY 7 Days Qty: 14 0RF lamotrigine 100 mg Tablet 200 mg PO BEDTIME 7 Days Qty: 14 0RF memantine 5 mg Tablet 5 mg PO BID 7 Days Qty: 14 0RF hydrochlorothiazide 12.5 mg Tablet 12.5 mg PO DAILY 7 Days Qty: 7 0RF Protocol: Hold for SBP< HOLD for SBP < : 90 multivitamin [Daily-Meron] Tablet 1 tab PO DAILY 7 Days Qty: 7 0RF terazosin 5 mg capsule 5 mg PO BEDTIME 7 Days Qty: 7 0RF atorvastatin 80 mg tablet 80 mg PO DAILY 7 Days Qty: 7 0RF acetaminophen 325 mg Tablet 650 mg PO TID PRN (Reason: Pain) 7 Days Qty: 28 0RF polyethylene glycol 3350 17 gram Powder In Packet 17 g PO DAILY PRN (Reason: Constipation) 7 Days Qty: 7 0RF olanzapine 5 mg tablet 5 mg PO BEDTIME 7 Days Qty: 7 0RF melatonin 3 mg Tablet 3 mg PO BEDTIME PRN (Reason: Sleep) 7 Days Qty: 7 0RF aspirin 81 mg Tablet,Delayed Release (Dr/Ec) 81 mg PO DAILY 7 Days Qty: 7 0RF bisacodyl 10 mg Suppository 10 mg IN BEDTIME PRN (Reason: Constipation) 7 Days Qty: 7 0RF omeprazole 20 mg capsule,delayed release(DR/EC) 20 mg PO DAILY@0630 7 Days Qty: 7 0RF furosemide 20 mg tablet 20 mg PO DAILY 7 Days Qty: 7 0RF Discharge Orders: Discharge Order (Routine); Ordered 07/20/22 Ordered By: Caryl Marie Diet: Advance to usual diet Activity on Discharge: As tolerated Stand Alone Forms: Patient Portal Discharge page Care Plan Goals: Complete resolution of symptoms Health Concerns: COPD exacerbation Plan of Treatment: Follow-up with primary care provider as needed for further workup of COPD Take all medications as prescribed Assessment: See discharge summary
[2022-07-20 12:00] VITALS: PULSE 87; PULSE 88; PULSE 92; RESP 18; O2SAT 86; O2SAT 90; O2SAT 92
[2022-07-20 15:38] VITALS: BP 126/71; PULSE 78; RESP 17; TEMP 36.2; O2SAT 95
[2022-07-20 15:42] VITALS: PULSE 78; RESP 20; O2SAT 95
== END 2022-07-20 18:01 | disposition home or self-care (01) | DRG 190 ==
LOC: HO.ED 22:45 → HO.EDOVER 23:00 → HO.S3 07-17 15:25
PROVIDERS: Physician Assistant Medical; Admitting Provider Student in an Organized Health Care Education/Training Program; Emergency Provider Emergency Medicine Emergency Medical Services; PCP Internal Medicine; Visit Provider Nurse Practitioner Acute Care
DX: J44.1 Chronic obstructive pulmonary disease with (acute) exacerbation (principal); J96.01 Acute respiratory failure with hypoxia; D61.818 Other pancytopenia; Z66 Do not resuscitate; E78.2 Mixed hyperlipidemia; I10 Essential (primary) hypertension; F31.9 Bipolar disorder, unspecified; F03.90 Unspecified dementia, unspecified severity, without behavioral disturbance, psychotic disturbance, mood disturbance, and anxiety; Z88.0 Allergy status to penicillin; Z79.82 Long term (current) use of aspirin; Z79.899 Other long term (current) drug therapy
CPT/HCPCS: 0241U; 36415; 71045; 80048; 83605; 83735; 83880; 84484; 85025; 85027; 87040; 92610; 93005; 93306; 96365; 96366; 96375; 99285; J0456; J0696; J1650; J2920; J2930; Q9957

== ENCOUNTER 2023-02-06 13:31 | Emergency (ER) | payer MEDICARE, SELFPAY ==
--- NOTE | ~2023-02-06 | XR_ITS ---
X-RAY CHEST X-RAY ABDOMEN CLINICAL HISTORY: Chest pain, constipation. COMPARISON: Chest radiograph 07/16/2022. CT abdomen/pelvis 11/27/2021. TECHNIQUE: PA view of the chest. AP supine views of the abdomen. FINDINGS: Chest: Normal heart size. Stable mild interstitial prominence in the lower lungs. No focal consolidation, pleural effusion or pneumothorax. No acute osseous findings. Abdomen: Nonobstructive bowel gas pattern. Mild to moderate degree of stool content in the cecum. There is a 0.2 cm calcification projecting adjacent to the right L3 transverse process, unsure if this could represent a renal versus proximal ureteral calculus. Multiple pelvic phleboliths are seen. No acute osseous findings. XR/XR chest 1V IMPRESSION: CHEST: No acute cardiopulmonary findings. ABDOMEN: 1. Nonobstructive bowel gas pattern. Mild to moderate stool content in the cecum. 2. A 0.2 cm calcification projecting adjacent to the right L3 transverse process is nonspecific but could represent a renal/proximal ureteral calculus. Further evaluation with an ultrasound or CT could be obtained if clinically deemed appropriate.
--- NOTE | ~2023-02-06 | XR_ITS ---
X-RAY CHEST X-RAY ABDOMEN CLINICAL HISTORY: Chest pain, constipation. COMPARISON: Chest radiograph 07/16/2022. CT abdomen/pelvis 11/27/2021. TECHNIQUE: PA view of the chest. AP supine views of the abdomen. FINDINGS: Chest: Normal heart size. Stable mild interstitial prominence in the lower lungs. No focal consolidation, pleural effusion or pneumothorax. No acute osseous findings. Abdomen: Nonobstructive bowel gas pattern. Mild to moderate degree of stool content in the cecum. There is a 0.2 cm calcification projecting adjacent to the right L3 transverse process, unsure if this could represent a renal versus proximal ureteral calculus. Multiple pelvic phleboliths are seen. No acute osseous findings. XR/XR KUB IMPRESSION: CHEST: No acute cardiopulmonary findings. ABDOMEN: 1. Nonobstructive bowel gas pattern. Mild to moderate stool content in the cecum. 2. A 0.2 cm calcification projecting adjacent to the right L3 transverse process is nonspecific but could represent a renal/proximal ureteral calculus. Further evaluation with an ultrasound or CT could be obtained if clinically deemed appropriate.
--- NOTE | 2023-02-06 13:34 | ECG_ITS ---
Test Reason : cp Blood Pressure : / mmHG Vent. 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
--- NOTE | 2023-02-06 13:43 | ED_ITS ---
HPI - General Adult General Chief complaint: General Medical Stated complaint: Chest Pain Dizzy Disoriented Related Data Previous Rx's Medication Instructions Recorded acetaminophen 325 mg tablet 650 mg (2 x 325 mg) PO TID PRN 02/25/23 Pain 30 days #60 tabs aluminum-magnesium hydroxide 200 30 ml PO Q6H PRN Heartburn/Nausea 02/25/23 mg-200 mg/5 mL oral suspension 30 days #240 mL (MAG-AL) aspirin 81 mg tablet,delayed 81 mg PO DAILY 30 days #30 tabs 02/25/23 release clonazepam 0.125 mg disintegrating 0.25 mg (2 x 0.125 mg) PO TID PRN 02/25/23 tablet Anxiety 30 days #60 tabs docusate sodium 100 mg capsule 100 mg PO BID PRN Constipation 30 02/25/23 days #60 caps guaifenesin 600 mg tablet, 600 mg PO BID 30 days #60 tabs 02/25/23 extended release 12 hr (Mucinex) hydrochlorothiazide 12.5 mg tablet 12.5 mg PO DAILY 30 days #30 tabs 02/25/23 lamotrigine 100 mg tablet 100 mg PO BID 30 days #60 tabs 02/25/23 mirtazapine 15 mg tablet 15 mg PO BEDTIME 30 days #30 tabs 02/25/23 multivitamin (Daily-Meron tablet) 1 tab PO DAILY 30 days #30 tabs 02/25/23 omeprazole 20 mg capsule,delayed 20 mg PO DAILY@0630 30 days #30 02/25/23 release caps polyethylene glycol 3350 17 gram 17 g PO DAILY PRN Constipation 30 02/25/23 oral powder packet days #30 ea simethicone 80 mg chewable tablet 80 mg PO QIDWMHS PRN Gas 30 days 02/25/23 (Gas Relief (simethicone)) #90 tabs terazosin 5 mg capsule 5 mg PO BEDTIME 30 days #30 caps 02/25/23 trazodone 50 mg tablet 50 mg PO BEDTIME MRX1 PRN Insomnia 02/25/23 30 days #60 tabs Allergies Allergy/AdvReac Type Severity Reaction Status Date / Time pencillin Allergy Severe Unknown Uncoded 02/11/23 16:58 [facility] Past Medical History Medical History (Updated 03/09/23 @ 00:01 by Mahad Jurado) Dementia Essential hypertension Bipolar disorder COPD (chronic obstructive pulmonary disease) Social History Social History (System 02/11/23 @ 16:58 by Mary Goldstein) Household Members: Family Housing: Apartment Do you presently have visiting nurse or other home services: Yes ([facility] services) Unable to assess alcohol history related to: Unable to respond Alcohol intake: former Patient Tobacco Use Status: Never used Tobacco service: Yes Current occupational status: retired Sexual orientation: Straight/Heterosexual Physical Exam ED Vital Signs: BMI result Body Mass Index 22.1 Course Course Course Narrative: This is an RME: Additional HPI, ROS, PE not included below will be deferred to primary provider. 87 yo m hx of dementia, htn, bipolar do presenting w/ l sided cp X 3 days. Reports constipation ( no bm in a week) and a/c nausea. Plan- labs, KUB, urine Medical Decision Making Lab Data 02/06/23 13:45 02/06/23 13:45 Labs: Lab Results 02/06/23 Range/Units 13:45 WBC 8.0 (4.8-10.8) X10*3/uL RBC 4.33 L D (4.60-5.80) X10*6/uL Hgb 13.5 L D (14.0-18.0) g/dl Hct 40.0 L D (42.0-52.0) % MCV 92.4 (80.0-98.0) fL MCH 31.2 (27.0-33.0) pg MCHC 33.8 (31.0-36.0) g/dl RDW 13.8 (11.0-16.0) % Plt Count 147 L (160-400) X10*3/uL MPV 11.1 (9.4-12.4) fL Immature Gran % (Auto) 0.3 (0.0-0.4) % Neut % (Auto) 59.1 (45-73) % Lymph % (Auto) 30.9 (20-40) % Reynolds % (Auto) 7.2 (2-11) % Eos % (Auto) 2.1 (0-4) % Baso % (Auto) 0.4 (0-2) % Lymph # (Auto) 2.5 (1.2-4.9) X10*3/uL Reynolds # (Auto) 0.6 (0.1-1.2) X10*3/uL Eos # (Auto) 0.2 (0.0-0.4) X10*3/uL Baso # (Auto) 0.0 (0.0-0.2) X10*3/uL Abs Immat Gran (auto) 0.02 (0.00-0.03) X10*3/uL Absolute Neuts (auto) 4.7 (2.0-8.3) x10*3/uL Absolute Nucleated RBC 0.000 (0.0-0.012) X10*3/uL Nucleated RBC % (auto) 0.0 (0.0-0.2) /100WBC Sodium 139 (135-145) mmol/L Potassium 4.3 (3.3-5.1) mmol/L Chloride 104 (96-108) mmol/L Carbon Dioxide 24 (22-29) mmol/L Anion Gap 15 (12-20) BUN 19 H (9-16) mg/dL Creatinine 1.06 (0.5-1.4) mg/dL Estim Creat Clear Calc 46.3 Estimated GFR > 60 Random Glucose 105 (60-115) mg/dL Calcium 9.8 D (8.4-10.2) mg/dL Magnesium 2.1 (1.6-2.6) mg/dL Total Bilirubin 0.5 (0.0-1.0) mg/dL AST 29 (5-37) U/L ALT 21 (0-40) U/L Alkaline Phosphatase 69 (39-117) U/L Troponin I High Sens 11.2 D (<3.5-35.0) ng/L B-Natriuretic Peptide 27 (<100) pg/mL Total Protein 7.6 (6.5-8.0) g/dL Albumin 4.5 (3.5-5.0) g/dL Discharge Plan Discharge Clinical Impression: Constipation, Chest pain Patient Disposition: Elopement Prescriptions: No Action trazodone 50 mg Tablet 50 mg PO BEDTIME MRX1 PRN (Reason: Insomnia) 30 Days Qty: 60 0RF docusate sodium 100 mg Capsule 100 mg PO BID PRN (Reason: Constipation) 30 Days Qty: 60 0RF mirtazapine 15 mg Tablet 15 mg PO BEDTIME 30 Days Qty: 30 0RF lamotrigine 100 mg Tablet 100 mg PO BID 30 Days Qty: 60 0RF simethicone [Gas Relief (simethicone)] 80 mg Tablet,Chewable 80 mg PO QIDWMHS PRN (Reason: Gas) 30 Days Qty: 90 0RF clonazepam 0.125 mg Tablet,Disintegrating 0.25 mg PO TID PRN (Reason: Anxiety) 30 Days Qty: 60 0RF MAG-AL 200-200 mg/5 mL Suspension 30 ml PO Q6H PRN (Reason: Heartburn/Nausea) 30 Days Qty: 240 0RF hydrochlorothiazide 12.5 mg Tablet 12.5 mg PO DAILY 30 Days Qty: 30 0RF Protocol: Hold for SBP< HOLD for SBP < : 90 multivitamin [Daily-Meron] Tablet 1 tab PO DAILY 30 Days Qty: 30 0RF terazosin 5 mg capsule 5 mg PO BEDTIME 30 Days Qty: 30 0RF acetaminophen 325 mg Tablet 650 mg PO TID PRN (Reason: Pain) 30 Days Qty: 60 0RF polyethylene glycol 3350 17 gram Powder In Packet 17 g PO DAILY PRN (Reason: Constipation) 30 Days Qty: 30 0RF aspirin 81 mg Tablet,Delayed Release (Dr/Ec) 81 mg PO DAILY 30 Days Qty: 30 0RF omeprazole 20 mg capsule,delayed release(DR/EC) 20 mg PO DAILY@0630 30 Days Qty: 30 0RF guaifenesin [Mucinex] 600 mg Tablet Extended Release 12hr 600 mg PO BID 30 Days Qty: 60 0RF Discharge Date/Time: 02/06/23 15:18
[2023-02-06 13:46] VITALS: BP 138/84; PULSE 66; RESP 18; TEMP 36.8; O2SAT 99; BMI 22.1
[2023-02-06 13:53] LABS: MANUAL DIFF FLAG NO
[2023-02-06 13:55] LABS: Basophils Percent Auto 0.4 % (0-2); Eosinophils Absolute Auto 0.2 X10*3/uL (0.0-0.4); Eosinophils Percent Auto 2.1 % (0-4); Hemoglobin 13.5 g/dl (14.0-18.0); Imm Gran Abs Auto 0.02 X10*3/uL (0.00-0.03); Imm Gran Pct Auto 0.3 % (0.0-0.4); Lymphocytes Absolute Auto 2.5 X10*3/uL (1.2-4.9); Lymphocytes Percent Auto 30.9 % (20-40); Mean Corpuscular HGB Conc 33.8 g/dl (31.0-36.0); Mean Corpuscular Hemoglobin 31.2 pg (27.0-33.0); Mean Corpuscular Volume 92.4 fL (80.0-98.0); Mean Platelet Volume 11.1 fL (9.4-12.4); Monocytes Absolute Auto 0.6 X10*3/uL (0.1-1.2); Monocytes Percent Auto 7.2 % (2-11); Neutrophils Absolute Auto 4.7 x10*3/uL (2.0-8.3); Neutrophils Percent Auto 59.1 % (45-73); Platelet Count 147 X10*3/uL (160-400); Red Blood Count 4.33 X10*6/uL (4.60-5.80); Red Cell Distribution Width 13.8 % (11.0-16.0)
[2023-02-06 14:10] LABS: Alanine Aminotransferase 21 U/L (0-40); Albumin Level 4.5 g/dL (3.5-5.0); Alkaline Phosphatase 69 U/L (39-117); Anion Gap 15 (12-20); Aspartate Amino Transferase 29 U/L (5-37); Bilirubin Total 0.5 mg/dL (0.0-1.0); Blood Urea Nitrogen 19 mg/dL (9-16); Calcium 9.8 mg/dL (8.4-10.2); Carbon Dioxide 24 mmol/L (22-29); Chloride 104 mmol/L (96-108); Creatinine Clr Calc Pharmacy 46.3; Estimated Glomerular Filt Rate > 60; Glucose Random 105 mg/dL (60-115); Magnesium 2.1 mg/dL (1.6-2.6); Potassium 4.3 mmol/L (3.3-5.1); Sodium 139 mmol/L (135-145); Total Protein 7.6 g/dL (6.5-8.0)
[2023-02-06 14:14] LABS: B Type Natriuretic Peptide 27 pg/mL (<100); Troponin-I High Sensitivity 11.2 ng/L (<3.5-35.0)
== END 2023-02-06 15:18 | disposition left against medical advice (07) ==
PROVIDERS: Physician Assistant; Emergency Provider Emergency Medicine
DX: R07.89 Other chest pain (principal); R06.02 Shortness of breath; R42 Dizziness and giddiness; R10.13 Epigastric pain; K59.00 Constipation, unspecified; Z79.899 Other long term (current) drug therapy
CPT/HCPCS: 36415; 71045; 74018; 80053; 83735; 83880; 84484; 85025; 93005; 99283

== ENCOUNTER 2023-02-11 11:32 | Inpatient (IN) | payer OTHER, MEDICARE, SELFPAY ==
[2023-02-11] VITALS (7 sets, daily range): BP systolic 132–148; BP diastolic 75–93; PULSE 55–88; RESP 12–22; TEMP 36.4–36.8; O2SAT 95–99; BMI 23.1
--- NOTE | 2023-02-11 | ECG_ITS ---
Test Reason : chest pain Blood Pressure : / mmHG Vent. 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
--- NOTE | ~2023-02-11 | XR_ITS ---
EXAMINATION: XR CHEST CLINICAL INFORMATION: Shortness of breath. COMPARISON: 02/06/2023 TECHNIQUE: Frontal view of the chest was obtained. FINDINGS: The lungs are moderately expanded. No confluent opacity to suggest developing pneumonia. No pleural effusion. Cardiac silhouette is unchanged. XR/XR chest 1V IMPRESSION: No acute abnormality.
--- NOTE | 2023-02-11 11:59 | PC.NURSE ---
pt brought in by ambulance. pt a&ox3. respirations even but labored between 22-25 breather per minute. pt lung sounds clear bilaterally sating between 97-98 on room air. pt reporting not feeling well for a while reports chest pain, weakness, abdominal pain and difficulty breathing. pt abdomen soft non tender with active bowel sounds in all 4 quadrants. pt reports difficulty urinating, denies blood in urine. pt normal sinus on tele between 78-80. provider at bedside discussing pt care. pt reports SI ideation, denies HI. reports being very depressed and states i am sick of myself pt reports he does not have a plan but reports being el uncomfortable and unable to do anything. pt son and girlfriend live with the pt at his house. pt changed over. belongings secured in POD. 1:[address].
--- NOTE | 2023-02-11 12:07 | ED.CHESTPAIN ---
HPI - Chest Pain General Chief Complaint: Chest Pain Stated Complaint: CP,SOB PER EMS Time Seen by Provider: 02/11/23 12:00 Source: patient and EMS Mode of arrival: EMS Limitations: no limitations History of Present Illness HPI narrative: 87-year-old male brought in by EMS from home with multiple complaints. patient is a limited historian. Patient lives home with his son patient stated that normally he is active and independent until lately when he feels very sick, patient is complaining of chest pain, generalized weakness with difficulty breathing, patient also complained of gas and abdominal pain, no nausea, no vomiting, no diarrhea. Patient is complaining of feeling depressed and feels suicidal patient has no specific plan to hurt himself or others. Related Data Previous Rx's Medication Instructions Recorded acetaminophen 325 mg tablet 650 mg (2 x 325 mg) PO TID PRN 07/04/22 Pain 7 days #28 tabs aspirin 81 mg tablet,delayed 81 mg PO DAILY 7 days #7 tabs 07/04/22 release atorvastatin 80 mg tablet 80 mg PO DAILY 7 days #7 tabs 07/04/22 bisacodyl 10 mg rectal suppository 10 mg MS BEDTIME PRN Constipation 07/04/22 7 days #7 ea furosemide 20 mg tablet 20 mg PO DAILY 7 days #7 tabs 07/04/22 hydrochlorothiazide 12.5 mg tablet 12.5 mg PO DAILY 7 days #7 tabs 07/04/22 hydroxyzine HCl 25 mg tablet 25 mg PO Q6H PRN Anxiety 7 days 07/04/22 #21 tabs lamotrigine 100 mg tablet 200 mg (2 x 100 mg) PO BEDTIME 7 07/04/22 days #14 tabs lamotrigine 25 mg tablet 50 mg (2 x 25 mg) PO DAILY 7 days 07/04/22 #14 tabs melatonin 3 mg tablet 3 mg PO BEDTIME PRN Sleep 7 days 07/04/22 #7 tabs memantine 5 mg tablet 5 mg PO BID 7 days #14 tabs 07/04/22 multivitamin (Daily-Meron tablet) 1 tab PO DAILY 7 days #7 tabs 07/04/22 olanzapine 5 mg tablet 5 mg PO BEDTIME 7 days #7 tabs 07/04/22 omeprazole 20 mg capsule,delayed 20 mg PO DAILY@0630 7 days #7 caps 07/04/22 release polyethylene glycol 3350 17 gram 17 g PO DAILY PRN Constipation 7 07/04/22 oral powder packet days #7 ea terazosin 5 mg capsule 5 mg PO BEDTIME 7 days #7 caps 07/04/22 trazodone 50 mg tablet 50 mg PO BEDTIME MRX1 PRN Insomnia 07/04/22 7 days #7 tabs albuterol sulfate 90 mcg/actuation 2 inh inhalation Q4-6H PRN 07/20/22 breath activated powder inhaler shortness of breath or wheezing #1 ea azithromycin 500 mg tablet 500 mg PO DAILY 2 days #2 tabs 07/20/22 benzonatate 100 mg capsule 200 mg (2 x 100 mg) PO TID PRN 07/20/22 Cough #18 caps guaifenesin 600 mg tablet, 600 mg PO BID #6 tabs 07/20/22 extended release 12 hr (Mucinex) prednisone 10 mg tablet 40 mg (4 x 10 mg) PO DIRECTED 07/20/22 #16 tabs Allergies Allergy/AdvReac Type Severity Reaction Status Date / Time pencillin Allergy Severe Unknown Uncoded 02/11/23 16:58 Review of Systems Review of Systems: All other systems are reviewed and are negative Constitutional: Reports as per HPI and Reports no additional constitutional complaints Eyes: Reports as per HPI and Reports no additional eye complaints Reports system reviewed and no additional complaints, except as documented Cardiovascular: Reports as per HPI and Reports no additional cardiovascular complaints Respiratory: Reports as per HPI and Reports no additional respiratory complaints Gastrointestinal: Reports as per HPI and Reports no additional gastrointestinal complaints Genitourinary: Reports no additional female genitourinary complaints Musculoskeletal: Reports no additional musculoskeletal complaints Skin/Breast: Reports system reviewed and no additional complaints, except as docu Psychiatric: Reports no additional psychiatric complaints Endocrine: Reports no additional endocrine complaints Hematologic/Lymphatic: Reports no additional hematologic/lymphatic complaints Allergic/Immunologic: Reports no additional allergic/immunologic complaints Reports system reviewed and no additional complaints, except as documented and Reports Abnormal speech present [facility] Past Medical History Medical History (Updated 02/11/23 @ 16:58 by Mary Goldstein) Dementia Essential hypertension Bipolar disorder COPD (chronic obstructive pulmonary disease) Social History Social History (System 02/11/23 @ 16:58 by Mary Goldstein) Smoked in Last 30 Days: No Use of substances other than those prescribed or required for medical reasons: No Advance Directives: No Advance Directives Information Provided: Yes Physical Exam Vital Signs: Vital Signs: Last Vital Signs Temp 97.5 F 02/11/23 11:39 Pulse 79 02/11/23 16:16 Resp 18 02/11/23 16:16 BP 144/93 H 02/11/23 16:16 Pulse Ox 99 02/11/23 16:16 O2 Del Method Room Air 02/11/23 16:16 BMI result Body Mass Index 23.1 Vital signs have been reviewed and appear to be correct. Blood pressure elevated. Heart rate normal. Respiratory rate normal. Temperature normal. Oxygen saturation normal. Appearance: Alert. Oriented X3. No acute distress. Head: Normal external exam. Normocephalic. Atraumatic. No Ward signs noted. No raccoon eyes noted Eyes: PERRLA. EOMI. Conjunctiva and sclera normal. Eyelids normal. ENT: TM's Normal. Pharynx normal. Uvula midline. Moist mucous membranes. No trismus noted. No drooling noted. No muffled voice noted. Neck: Normal inspection. Neck supple. FROM. No adenopathy. Thyroid Normal. No meningeal signs. No neck mass noted. CVS: Normal heart rate and rhythm. Heart sound normal. No murmurs noted. Pulses normal throughout. Respiratory: No respiratory distress. Painless inspiration. Breath sounds normal. No wheezes/rales/rhonchi noted. Chest nontender. No accessory muscle usage noted or decreased air movement noted. Abdomen: Soft and nontender. Bowel sounds normal in all 4 quadrants. No distention noted. No organomegaly noted. No visible injury noted. Back: No CVA tenderness. Full range of motion noted. Skin: Skin warm and dry. Normal skin color. Normal skin turgor. No rashes/lesions/lacerations noted. Extremities: No lower extremity edema. Extremities exhibit normal range of motion. Extremities nontender. Neuro: Oriented X 3. Cranial nerve exam: II-XII are grossly intact No motor deficit. No sensory deficit. Reflexes normal. Course Course Course Narrative: 87-year-old male who lives with his son mostly independently until patient started to have generalized weakness with chest pain and shortness of breath, patient also is complaining of feeling depressed with SI with no specific plan. medical clearance and psych evaluation is pending a second troponin to be checked at 14:30 and a UA , case discussed and signed out to Dr. Dixon. Medical Decision Making Medical Decision Making [facility] Narrative: 1800 Patient with depression and SI atypical chest pain without any ischemic changes 2 sets of troponin negative delta change patient medically cleared for care team evaluation Differential Diagnosis Differential Diagnoses: The differential diagnosis associated with the presentation includes ( ACS, CHF, pneumonia, pneumothorax, UTI, electrolyte abnormality, severe anemia, viral infection.) Admission/Observation Consideration of admission/observation: Escalation of care including admission/observation considered Lab Data [facility] Lab Attestation statement: I reviewed the patient's lab results. 02/11/23 13:26 02/11/23 13:29 Labs: Lab Results 02/11/23 02/11/23 02/11/23 Range/Units 12:43 13:26 13:29 WBC 6.7 (4.8-10.8) X10*3/uL RBC 4.28 L (4.60-5.80) X10*6/uL Hgb 13.5 L (14.0-18.0) g/dl Hct 38.9 L (42.0-52.0) % MCV 90.9 (80.0-98.0) fL MCH 31.5 (27.0-33.0) pg MCHC 34.7 (31.0-36.0) g/dl RDW 13.8 (11.0-16.0) % Plt Count 167 (160-400) X10*3/uL MPV 11.5 (9.4-12.4) fL Immature Gran % (Auto) 0.1 (0.0-0.4) % Neut % (Auto) 79.8 H (45-73) % Lymph % (Auto) 12.9 L (20-40) % Ritchie % (Auto) 6.4 (2-11) % Eos % (Auto) 0.4 (0-4) % Baso % (Auto) 0.4 (0-2) % Lymph # (Auto) 0.9 L (1.2-4.9) X10*3/uL Ritchie # (Auto) 0.4 (0.1-1.2) X10*3/uL Eos # (Auto) 0.0 (0.0-0.4) X10*3/uL Baso # (Auto) 0.0 (0.0-0.2) X10*3/uL Abs Immat Gran (auto) 0.01 (0.00-0.03) X10*3/uL Absolute Neuts (auto) 5.3 (2.0-8.3) x10*3/uL Absolute Nucleated RBC 0.000 (0.0-0.012) X10*3/uL Nucleated RBC % (auto) 0.0 (0.0-0.2) /100WBC Sodium 138 (135-145) mmol/L Potassium 3.5 (3.3-5.1) mmol/L Chloride 104 (96-108) mmol/L Carbon Dioxide 23 (22-29) mmol/L Anion Gap 15 (12-20) BUN 16 (9-16) mg/dL Creatinine 1.24 (0.5-1.4) mg/dL Estim Creat Clear Calc 41.1 Estimated GFR 55 Random Glucose 149 H (60-115) mg/dL Lactic Acid 1.9 (0.5-2.0) mmol/L Calcium 9.9 (8.4-10.2) mg/dL Total Bilirubin 0.6 (0.0-1.0) mg/dL Direct Bilirubin 0.2 (0.0-0.5) mg/dL AST 24 (5-37) U/L ALT 18 (0-40) U/L Alkaline Phosphatase 65 (39-117) U/L Troponin I High Sens 15.4 (<3.5-35.0) ng/L B-Natriuretic Peptide 23 (<100) pg/mL Total Protein 7.6 (6.5-8.0) g/dL Albumin 4.4 (3.5-5.0) g/dL Lipase 27 (8-78) U/L Urine Color Urine Appearance Urine pH (5.0-9.0) Ur Specific [place] (1.005-1.025) Urine Protein (Neg-Trace) mg/dL Urine Glucose (UA) (Negative) mg/dL Urine Ketones (Negative) mg/dL Urine Blood (Negative) Urine Nitrite (Negative) Ur Leukocyte Esterase (Negative) Urine Opiates Screen (Not Detect) Urine Fentanyl Screen (Not Detect) Ur Barbiturates Screen (Not Detect) Ur Phencyclidine Scrn (Not Detect) Ur Amphetamines Screen (Not Detect) U Benzodiazepines Scrn (Not Detect) Urine Cocaine Screen (Not Detect) U Marijuana (THC) Screen (Not Detect) Influenza Type A (PCR) NEGATIVE (Negative) Influenza Type B (PCR) NEGATIVE (Negative) RSV RNA Qual (PCR) NEGATIVE (Negative) SARS-CoV-2 RNA (RT-PCR) NEGATIVE (Negative) 02/11/23 Range/Units 16:27 WBC (4.8-10.8) X10*3/uL RBC (4.60-5.80) X10*6/uL Hgb (14.0-18.0) g/dl Hct (42.0-52.0) % MCV (80.0-98.0) fL MCH (27.0-33.0) pg MCHC (31.0-36.0) g/dl RDW (11.0-16.0) % Plt Count (160-400) X10*3/uL MPV (9.4-12.4) fL Immature Gran % (Auto) (0.0-0.4) % Neut % (Auto) (45-73) % Lymph % (Auto) (20-40) % Ritchie % (Auto) (2-11) % Eos % (Auto) (0-4) % Baso % (Auto) (0-2) % Lymph # (Auto) (1.2-4.9) X10*3/uL Ritchie # (Auto) (0.1-1.2) X10*3/uL Eos # (Auto) (0.0-0.4) X10*3/uL Baso # (Auto) (0.0-0.2) X10*3/uL Abs Immat Gran (auto) (0.00-0.03) X10*3/uL Absolute Neuts (auto) (2.0-8.3) x10*3/uL Absolute Nucleated RBC (0.0-0.012) X10*3/uL Nucleated RBC % (auto) (0.0-0.2) /100WBC Sodium (135-145) mmol/L Potassium (3.3-5.1) mmol/L Chloride (96-108) mmol/L Carbon Dioxide (22-29) mmol/L Anion Gap (12-20) BUN (9-16) mg/dL Creatinine (0.5-1.4) mg/dL Estim Creat Clear Calc Estimated GFR Random Glucose (60-115) mg/dL Lactic Acid (0.5-2.0) mmol/L Calcium (8.4-10.2) mg/dL Total Bilirubin (0.0-1.0) mg/dL Direct Bilirubin (0.0-0.5) mg/dL AST (5-37) U/L ALT (0-40) U/L Alkaline Phosphatase (39-117) U/L Troponin I High Sens 13.8 (<3.5-35.0) ng/L B-Natriuretic Peptide (<100) pg/mL Total Protein (6.5-8.0) g/dL Albumin (3.5-5.0) g/dL Lipase (8-78) U/L Urine Color Yellow Urine Appearance Clear Urine pH 5.5 (5.0-9.0) Ur Specific [place] 1.015 (1.005-1.025) Urine Protein Negative (Neg-Trace) mg/dL Urine Glucose (UA) Negative (Negative) mg/dL Urine Ketones Negative (Negative) mg/dL Urine Blood Negative (Negative) Urine Nitrite Negative (Negative) Ur Leukocyte Esterase Negative (Negative) Urine Opiates Screen Not Detected (Not Detect) Urine Fentanyl Screen Not Detected (Not Detect) Ur Barbiturates Screen Not Detected (Not Detect) Ur Phencyclidine Scrn Not Detected (Not Detect) Ur Amphetamines Screen Not Detected (Not Detect) U Benzodiazepines Scrn Not Detected (Not Detect) Urine Cocaine Screen Not Detected (Not Detect) U Marijuana (THC) Screen Not Detected (Not Detect) Influenza Type A (PCR) (Negative) Influenza Type B (PCR) (Negative) RSV RNA Qual (PCR) (Negative) SARS-CoV-2 RNA (RT-PCR) (Negative) Independent Interpretation I performed an independent interpretation of an: Plain X-Ray ( Chest: No acute intrathoracic pathology.) Radiology Impression Discussion of test interpretation with radiology: I have reviewed the radiologist's reading. Discharge Plan Discharge Clinical Impression: Chest pain, Depression with suicidal ideation Patient Disposition: Still a Patient Prescriptions: No Action hydroxyzine HCl 25 mg Tablet 25 mg PO Q6H PRN (Reason: Anxiety) 7 Days Qty: 21 0RF trazodone 50 mg Tablet 50 mg PO BEDTIME MRX1 PRN (Reason: Insomnia) 7 Days Qty: 7 0RF lamotrigine 25 mg Tablet 50 mg PO DAILY 7 Days Qty: 14 0RF lamotrigine 100 mg Tablet 200 mg PO BEDTIME 7 Days Qty: 14 0RF memantine 5 mg Tablet 5 mg PO BID 7 Days Qty: 14 0RF hydrochlorothiazide 12.5 mg Tablet 12.5 mg PO DAILY 7 Days Qty: 7 0RF Protocol: Hold for SBP< HOLD for SBP < : 90 multivitamin [Daily-Meron] Tablet 1 tab PO DAILY 7 Days Qty: 7 0RF terazosin 5 mg capsule 5 mg PO BEDTIME 7 Days Qty: 7 0RF atorvastatin 80 mg tablet 80 mg PO DAILY 7 Days Qty: 7 0RF acetaminophen 325 mg Tablet 650 mg PO TID PRN (Reason: Pain) 7 Days Qty: 28 0RF polyethylene glycol 3350 17 gram Powder In Packet 17 g PO DAILY PRN (Reason: Constipation) 7 Days Qty: 7 0RF olanzapine 5 mg tablet 5 mg PO BEDTIME 7 Days Qty: 7 0RF melatonin 3 mg Tablet 3 mg PO BEDTIME PRN (Reason: Sleep) 7 Days Qty: 7 0RF aspirin 81 mg Tablet,Delayed Release (Dr/Ec) 81 mg PO DAILY 7 Days Qty: 7 0RF bisacodyl 10 mg Suppository 10 mg MS BEDTIME PRN (Reason: Constipation) 7 Days Qty: 7 0RF omeprazole 20 mg capsule,delayed release(DR/EC) 20 mg PO DAILY@0630 7 Days Qty: 7 0RF furosemide 20 mg tablet 20 mg PO DAILY 7 Days Qty: 7 0RF benzonatate 100 mg Capsule 200 mg PO TID PRN (Reason: Cough) Qty: 18 0RF guaifenesin [Mucinex] 600 mg Tablet Extended Release 12hr 600 mg PO BID Qty: 6 0RF azithromycin 500 mg tablet 500 mg PO DAILY 2 Days Qty: 2 0RF prednisone 10 mg tablet 40 mg PO DIRECTED Qty: 16 0RF Rx Instructions: see taper instructions albuterol sulfate 90 mcg/actuation aerosol powdr breath activated 2 inh inhalation Q4-6H PRN (Reason: shortness of breath or wheezing) Qty: 1 0RF
--- NOTE | 2023-02-11 12:29 | PC.NURSE ---
pt refused straight cath to obtain urine sample. Dr. Calixto knox.
--- NOTE | 2023-02-11 12:30 | PC.NURSE ---
pt belongings secured in POD laundry closet.
--- NOTE | 2023-02-11 12:46 | MHC.EDTECH ---
This PCT attempted to draw patient's labs. Unsuccessful x2, patient was difficult draw. PT then refused to continue, and did not want us to draw his labs. RN notified.
[2023-02-11 13:27] LABS: Influenza A PCR NEGATIVE (Negative); Influenza B PCR NEGATIVE (Negative); Resp Syncy Virus RNA Qual PCR NEGATIVE (Negative); SARS COV2 PCR INHOUSE NEGATIVE (Negative)
[2023-02-11 13:33] LABS: MANUAL DIFF FLAG NO
[2023-02-11 13:36] LABS: Basophils Percent Auto 0.4 % (0-2); Eosinophils Percent Auto 0.4 % (0-4); Hematocrit 38.9 % (42.0-52.0); Hemoglobin 13.5 g/dl (14.0-18.0); Imm Gran Abs Auto 0.01 X10*3/uL (0.00-0.03); Imm Gran Pct Auto 0.1 % (0.0-0.4); Lymphocytes Absolute Auto 0.9 X10*3/uL (1.2-4.9); Lymphocytes Percent Auto 12.9 % (20-40); Mean Corpuscular HGB Conc 34.7 g/dl (31.0-36.0); Mean Corpuscular Hemoglobin 31.5 pg (27.0-33.0); Mean Corpuscular Volume 90.9 fL (80.0-98.0); Mean Platelet Volume 11.5 fL (9.4-12.4); Monocytes Absolute Auto 0.4 X10*3/uL (0.1-1.2); Monocytes Percent Auto 6.4 % (2-11); Neutrophils Absolute Auto 5.3 x10*3/uL (2.0-8.3); Neutrophils Percent Auto 79.8 % (45-73); Platelet Count 167 X10*3/uL (160-400); Red Blood Count 4.28 X10*6/uL (4.60-5.80); Red Cell Distribution Width 13.8 % (11.0-16.0); White Blood Count 6.7 X10*3/uL (4.8-10.8)
[2023-02-11 13:56] LABS: Lactic Acid 1.9 mmol/L (0.5-2.0)
[2023-02-11 13:59] LABS: Alanine Aminotransferase 18 U/L (0-40); Albumin Level 4.4 g/dL (3.5-5.0); Alkaline Phosphatase 65 U/L (39-117); Anion Gap 15 (12-20); Aspartate Amino Transferase 24 U/L (5-37); Bilirubin Direct 0.2 mg/dL (0.0-0.5); Bilirubin Total 0.6 mg/dL (0.0-1.0); Blood Urea Nitrogen 16 mg/dL (9-16); Calcium 9.9 mg/dL (8.4-10.2); Carbon Dioxide 23 mmol/L (22-29); Chloride 104 mmol/L (96-108); Creatinine Clr Calc Pharmacy 41.1; Estimated Glomerular Filt Rate 55; Glucose Random 149 mg/dL (60-115); Lipase 27 U/L (8-78); Potassium 3.5 mmol/L (3.3-5.1); Sodium 138 mmol/L (135-145); Total Protein 7.6 g/dL (6.5-8.0)
[2023-02-11 14:08] LABS: Troponin-I High Sensitivity 15.4 ng/L (<3.5-35.0)
[2023-02-11 14:19] LABS: B Type Natriuretic Peptide 23 pg/mL (<100)
[2023-02-11 16:38] LABS: Appearance Urine Clear; Color Urine Yellow; Glucose Urine UA Negative (Negative); Leukocyte Esterase Urine Negative (Negative); Nitrite Urine Negative (Negative); PH 5.5 (5.0-9.0); Specific Gravity - Urine 1.015 (1.005-1.025); Urine Blood Negative (Negative); Urine Ketones Negative (Negative); Urine Protein Negative (Neg-Trace)
[2023-02-11 16:52] LABS: Amphetamine Screen Urine Not Detected (Not Detect); Barbiturates, Urine Not Detected (Not Detect); Benzodiazepines Screen Urine Not Detected (Not Detect); Cannabinoid Screen Urine Not Detected (Not Detect); Cocaine Screen Urine Not Detected (Not Detect); Opiate Screen Urine Not Detected (Not Detect); Phencyclidine Screen Urine Not Detected (Not Detect)
[2023-02-11 16:55] LABS: Troponin-I High Sensitivity 13.8 ng/L (<3.5-35.0)
[2023-02-11 17:12] LABS: Fentanyl, urine Not Detected (Not Detect)
--- NOTE | 2023-02-11 23:45 | PC.NURSE ---
Addendum entered by Komal Weston 02/12/23 00:31: This RN contacting Care Team regarding Ethanol results. Per Saran, going to attempt to evaluate patient tonight if able. Original Note: This RN speaking to Saran from Care Team. Per Saran, unable to complete and assessment on this patient as an ethanol level was not obtained. This RN adding on Ethanol level and awaiting results.
[2023-02-12 00:14] LABS: Ethanol < 10 mg/dL
[2023-02-12 02:12] VITALS: BP 138/70; PULSE 65; RESP 18; TEMP 36.4; O2SAT 96
[2023-02-12] MEDS: Acetaminophen 325 MG TABLET 650 MG PO ×2 (02:18→21:41)
[2023-02-12] MEDS: OLANZapine 5 MG TABLET PO (05:33)
[2023-02-12] MEDS: hydrOXYzine HCL 25 MG TABLET PO ×2 (05:33→21:35)
[2023-02-12 05:34] VITALS: BP 151/87; PULSE 71; RESP 18
--- NOTE | 2023-02-12 05:35 | PC.NURSE ---
pt reports feeling anxious. let provider know and he ordered medication to administer
--- NOTE | 2023-02-12 07:25 | PC.NURSE ---
patient awake/alert, vss, pt has [place] cath in place- pt/draining-dark yellow urine, pt not verbally engaging with this nurse, he was asked about pain which he shook his head yes that he had pain, this nurse asked where his pain was and he wouldnt respond, this nurse asked pt if his pain was in a specific spot he shook his head no, he was asked if it was all over and pt shook his head yes. while speaking with patient he went back to sleep, 1:1 sitter at bedside, call spangler within reach, will continue to monitor.
--- NOTE | 2023-02-12 08:55 | PC.NURSE ---
Assumed care of this patient at 0855. Pt resting in bed quietly at this time. No apparent distress. Sitter at bedside.
--- NOTE | 2023-02-12 11:13 | PC.NURSE ---
Report given to LEAH Thibodeaux on S1
[2023-02-12 13:15] VITALS: BP 127/72; PULSE 74; RESP 16; TEMP 37.5; O2SAT 95
--- NOTE | 2023-02-12 14:57 | P.HPPS_ITS ---
HPI Date of Service: 02/12/23 Chief Complaint: SI Sources of Information: patient interviewed, chart reviewed and crisis/core team assessment reviewed HPI Subjective Notes: [place] Warning and Conditional Voluntary Narrative: The patient is an 87-year-old male, with over, father of 3 adult children, retired machinist general, living with his family with good social support, very well known by this team since he was admitted last June with a prior history of bipolar disorder. The patient was initially admitted to the emergency room for somatic complaints, he was medically clear but later on the patient disclosed exacerbation of depressed mood, anhedonia, lack of energy poor appetite and weight loss with passive suicidal ideation, unable to take care of himself. The crisis team contact his son who reported the patient had been worse and probably he had been on compliant with treatment. After being medically cleared transferring to this facility for psychiatric stabilization. On interview the patient reported that he is feeling very weak that he is worried about his health and currently he fears that his depression has worsen it. He has complain of increased dysphoria in the last weeks with lack of energy and poor appetite he claims that he has lost a lot of weight. He denies suicidal thoughts at this moment but he reported that he has been thinking about that all day long. He was able to contract for safety. He denies psychotic symptoms. The patient was admitted here into this facility before his very well known by this team and will try to gather more collateral information. The patient has agreed to continue treatment. Medical Evaluation Reviewed: Yes [facility] Medical History (Updated 02/11/23 @ 16:58 by Mary Goldstein) Dementia Essential hypertension Bipolar disorder COPD (chronic obstructive pulmonary disease) Family History: The patient has a son with schizophrenia Social History: The patient was born in [place] but his family fluid to the [place] during war. The patient was raised by his family, he served in the [employer] and he had worked in the past as a machine is at [employer]. He has good social support and at this moment [facility] Substance History: Denies Trauma History: Denies Diagnostics Vital Signs (24Hr): Vital Signs - 24 hr 02/11/23 16:16 02/11/23 18:35 02/11/23 20:32 Temperature 98.3 F Pulse Rate 79 78 63 Respiratory Rate 18 18 17 Blood Pressure 144/93 H 137/76 132/78 Pulse Oximetry 99 99 97 Oxygen Delivery Method Room Air Room Air Room Air Oxygen Flow Rate 02/11/23 23:19 02/12/23 02:12 02/12/23 05:34 Temperature 97.9 F 97.6 F Pulse Rate 55 65 71 Respiratory Rate 17 18 18 Blood Pressure 135/80 138/70 151/87 H Pulse Oximetry 96 96 Oxygen Delivery Method Room Air Room Air Room Air Oxygen Flow Rate 97 BMI result Body Mass Index 23.1 Labs 02/11/23 13:26 02/11/23 13:29 Labs: Laboratory Results - last 48 hr 02/11/23 02/11/23 02/11/23 12:43 13:26 13:29 WBC 6.7 RBC 4.28 L Hgb 13.5 L Hct 38.9 L MCV 90.9 MCH 31.5 MCHC 34.7 RDW 13.8 Plt Count 167 MPV 11.5 Immature Gran % (Auto) 0.1 Neut % (Auto) 79.8 H Lymph % (Auto) 12.9 L [place] % (Auto) 6.4 Eos % (Auto) 0.4 Baso % (Auto) 0.4 Lymph # (Auto) 0.9 L [place] # (Auto) 0.4 Eos # (Auto) 0.0 Baso # (Auto) 0.0 Abs Immat Gran (auto) 0.01 Absolute Neuts (auto) 5.3 Absolute Nucleated RBC 0.000 Nucleated RBC % (auto) 0.0 Sodium 138 Potassium 3.5 Chloride 104 Carbon Dioxide 23 Anion Gap 15 BUN 16 Creatinine 1.24 Estim Creat Clear Calc 41.1 Estimated GFR 55 Random Glucose 149 H Lactic Acid 1.9 Calcium 9.9 Total Bilirubin 0.6 Direct Bilirubin 0.2 AST 24 ALT 18 Alkaline Phosphatase 65 Troponin I High Sens 15.4 B-Natriuretic Peptide 23 Total Protein 7.6 Albumin 4.4 Lipase 27 Urine Color Urine Appearance Urine pH Ur Specific [place] Urine Protein Urine Glucose (UA) Urine Ketones Urine Blood Urine Nitrite Ur Leukocyte Esterase Urine Opiates Screen Urine Fentanyl Screen Ur Barbiturates Screen Ur Phencyclidine Scrn Ur Amphetamines Screen U Benzodiazepines Scrn Urine Cocaine Screen U Marijuana (THC) Screen Ethyl Alcohol < 10 Influenza Type A (PCR) NEGATIVE Influenza Type B (PCR) NEGATIVE RSV RNA Qual (PCR) NEGATIVE SARS-CoV-2 RNA (RT-PCR) NEGATIVE 02/11/23 16:27 WBC RBC Hgb Hct MCV MCH MCHC RDW Plt Count MPV Immature Gran % (Auto) Neut % (Auto) Lymph % (Auto) [place] % (Auto) Eos % (Auto) Baso % (Auto) Lymph # (Auto) [place] # (Auto) Eos # (Auto) Baso # (Auto) Abs Immat Gran (auto) Absolute Neuts (auto) Absolute Nucleated RBC Nucleated RBC % (auto) Sodium Potassium Chloride Carbon Dioxide Anion Gap BUN Creatinine Estim Creat Clear Calc Estimated GFR Random Glucose Lactic Acid Calcium Total Bilirubin Direct Bilirubin AST ALT Alkaline Phosphatase Troponin I High Sens 13.8 B-Natriuretic Peptide Total Protein Albumin Lipase Urine Color Yellow Urine Appearance Clear Urine pH 5.5 Ur Specific [place] 1.015 Urine Protein Negative Urine Glucose (UA) Negative Urine Ketones Negative Urine Blood Negative Urine Nitrite Negative Ur Leukocyte Esterase Negative Urine Opiates Screen Not Detected Urine Fentanyl Screen Not Detected Ur Barbiturates Screen Not Detected Ur Phencyclidine Scrn Not Detected Ur Amphetamines Screen Not Detected U Benzodiazepines Scrn Not Detected Urine Cocaine Screen Not Detected U Marijuana (THC) Screen Not Detected Ethyl Alcohol Influenza Type A (PCR) Influenza Type B (PCR) RSV RNA Qual (PCR) SARS-CoV-2 RNA (RT-PCR) Imaging Radiology Impressions: ITS Impressions Chest X-Ray 02/11/23 12:57 IMPRESSION: No acute abnormality. Meds/Allergies Allergies Allergies Allergy/AdvReac Type Severity Reaction Status Date / Time pencillin Allergy Severe Unknown Uncoded 02/11/23 16:58 Mental Status Exam Mental Status Exam Patient Appearance: Appropriate Patient Orientation: Person and Situation Level of Consciousness: Awake and Appropriate Patient Behavior: Guarded and Passive Mood Description: Withdrawn Affect Description: Constricted Patient Cognition Impaired: Yes Ability to Follow Directions: Good Speech Pattern: Clear Hallucinations: None Delusions: Not Present Thought Process: Distracted and Evasive Thought Content: positive for [place] and positive for Poverty of Content Judgement: Poor Assessment & Plan Assessment & Plan (1) Bipolar disorder: Status: Acute Code(s): F31.9 - Bipolar disorder, unspecified (2) Dementia: Status: Acute Code(s): F03.90 - Unspecified dementia, unspecified severity, without behavioral disturbance, psychotic disturbance, mood disturbance, and anxiety (3) Essential hypertension: Status: Acute Code(s): I10 - Essential (primary) hypertension Plan The patient is an elderly male with a past history of bipolar disorder who was admitted to this facility on June this year for a similar presentation with exacerbation of depression and neurovegetative symptoms. Apparently the patient had been on compliant with treatment and he has relapsed on his depressive symptoms with suicidality but he is able to contract for safety. Plan 1. Gather collateral information, we are going to contact he his son who is the healthcare proxy. 2. Continue with regular antidepressants the patient agreed to titrate antidepressants but since there is the suspicion that the patient had been on compliant we will restart and start the titration slowly. 3. Continue with medical workout. 4. Reassessment with results Patient educated on: diagnosis Informed Consent: understands Reason for continued inpatient stay Substantial Risk for: inability to function, rapid decompensation and med/psych decompensation Statement Statement: I have reviewed the history and physical and performed a pertinent examination on my patient. No changes have occurred unless specified. If the History and Physical was not performed prior to admission, the Hospitalist's service will be consulted for completing the admission physical. Time Spent With Patient Time: Total time managing care of this patient today __45__ minutes.
[2023-02-12 18:00] VITALS: BP 143/78; PULSE 65; RESP 18; TEMP 36.8; O2SAT 95
[2023-02-12 18:42] VITALS: BMI 22.6
--- NOTE | 2023-02-12 19:20 | PC.NURSE ---
Patient transferred to the unit from [facility] ED at 1315 via wheelchair. A&O only to self, keeps stating Im sick and states I don't know when asked any other questions. Patient soaked in urine when picked him up from the ED, given a full wash up once he arrived to our unit. Able to ambulate/transfer with two person assist, vitals stable, but temperature was 99.5. Order requested for a respiratory panel, while waiting for results patient has been moved to a private room. Patient has been sleeping since arriving on the unit, admission assessment has not yet been completed.
[2023-02-12] MEDS: lamoTRIgine 25 MG TABLET PO (21:35)
[2023-02-12] MEDS: Mirtazapine 7.5 MG TABLET PO (21:35)
[2023-02-12] MEDS: traZODone HCL 50 MG TABLET PO (23:47)
[2023-02-12 23:49] VITALS: BP 146/94; PULSE 80; RESP 18; TEMP 36.2; O2SAT 97
[2023-02-13 08:00] VITALS: BP 145/67; PULSE 65; RESP 20; TEMP 34.1; O2SAT 95
[2023-02-13 08:22] LABS: Alanine Aminotransferase 13 U/L (0-40); Alkaline Phosphatase 66 U/L (39-117); Anion Gap 16 (12-20); Aspartate Amino Transferase 21 U/L (5-37); Bilirubin Total 0.4 mg/dL (0.0-1.0); Blood Urea Nitrogen 21 mg/dL (9-16); Calcium 9.4 mg/dL (8.4-10.2); Carbon Dioxide 24 mmol/L (22-29); Chloride 104 mmol/L (96-108); Cholesterol 156 mg/dL (<200); Creatinine Clr Calc Pharmacy 47.3; Estimated Glomerular Filt Rate > 60; Glucose Fasting 101 mg/dL (60-99); HDL Cholesterol 61 mg/dL (>40); LDL Cholesterol Calculated 78 mg/dL (<100); Potassium 3.7 mmol/L (3.3-5.1); Sodium 140 mmol/L (135-145); Total Protein 6.9 g/dL (6.5-8.0); Triglycerides 87 mg/dL (<150)
[2023-02-13] MEDS: lamoTRIgine 25 MG TABLET PO ×2 (08:24→21:16)
--- NOTE | 2023-02-13 11:28 | MHC.CLN ---
NUTRITION STAFF REPORTS THAT PATIENT ATE WELL AT BREAKFAST WITH NO NOTED CONCERNS. NO TEETH, NO DENTURES AT TIME OF VISIT. REVIEW OF WEIGHT HX SHOWS SIGNIFICANT WEIGHT LOSS X 6 MONTHS -18.2% AND NON SIGNIFICANT WEIGHT LOSS X 7 MONTHS -7.2%. WEIGHT ONE YEAR AGO APPROX EQUAL TO CURRENT WEIGHT. FOLLOW WEEKLY FOR WEIGHTS, INTAKE, DIET TOLERANCE.
--- NOTE | 2023-02-13 11:43 | HO.PSYCHPN ---
Subjective Subjective Date of Service: 02/13/23 Reason For Visit: SI Subjective Notes: Conditional Voluntary Review of Systems The staff reported the patient has verbalized suicidal ideation. He denies hallucinations and apparently he had a very bad night last night he had been on his bed hypoactive. On interview the patient reports depressed mood, lack of energy and poor sleep. He stated that he is suicidal. He was started yesterday with a low dose of Remeron with no affect. I have increased it and he admitted anxiety, so I am adding a low dose of Klonopin to target anxiety. Mental Status Exam Mental Status Exam Patient Appearance: Appropriate Patient Orientation: Person and Situation Level of Consciousness: Awake and Appropriate Patient Behavior: Guarded and Passive Mood Description: Withdrawn Affect Description: Constricted Patient Cognition Impaired: Yes Ability to Follow Directions: Good Speech Pattern: Clear Hallucinations: None Delusions: Not Present Thought Process: Distracted, Evasive and Slowed Thinking Thought Content: positive for [place] and positive for Poverty of Content Judgement: Fair Diagnostics Vital Signs (24Hr): Vital Signs - 24 hr 02/12/23 13:15 02/12/23 18:00 02/12/23 23:49 Temperature 99.5 F 98.2 F 97.2 F Pulse Rate 74 65 80 Respiratory Rate 16 18 18 Blood Pressure 127/72 143/78 H 146/94 H Pulse Oximetry 95 95 97 Oxygen Delivery Method Room Air Room Air Room Air 02/13/23 08:00 Temperature 93.4 F L Pulse Rate 65 Respiratory Rate 20 Blood Pressure 145/67 H Pulse Oximetry 95 Oxygen Delivery Method Room Air BMI result Body Mass Index 22.6 Labs 02/11/23 13:26 02/13/23 07:55 Labs: Laboratory Results - last 48 hr 02/11/23 02/11/23 02/11/23 12:43 13:26 13:29 WBC 6.7 RBC 4.28 L Hgb 13.5 L Hct 38.9 L MCV 90.9 MCH 31.5 MCHC 34.7 RDW 13.8 Plt Count 167 MPV 11.5 Immature Gran % (Auto) 0.1 Neut % (Auto) 79.8 H Lymph % (Auto) 12.9 L [place] % (Auto) 6.4 Eos % (Auto) 0.4 Baso % (Auto) 0.4 Lymph # (Auto) 0.9 L [place] # (Auto) 0.4 Eos # (Auto) 0.0 Baso # (Auto) 0.0 Abs Immat Gran (auto) 0.01 Absolute Neuts (auto) 5.3 Absolute Nucleated RBC 0.000 Nucleated RBC % (auto) 0.0 Hold Purple Top Sodium 138 Potassium 3.5 Chloride 104 Carbon Dioxide 23 Anion Gap 15 BUN 16 Creatinine 1.24 Estim Creat Clear Calc 41.1 Estimated GFR 55 Random Glucose 149 H Fasting Glucose Lactic Acid 1.9 Calcium 9.9 Total Bilirubin 0.6 Direct Bilirubin 0.2 AST 24 ALT 18 Alkaline Phosphatase 65 Troponin I High Sens 15.4 B-Natriuretic Peptide 23 Total Protein 7.6 Albumin 4.4 Triglycerides Cholesterol LDL Cholesterol, Calc HDL Cholesterol Lipase 27 Urine Color Urine Appearance Urine pH Ur Specific [place] Urine Protein Urine Glucose (UA) Urine Ketones Urine Blood Urine Nitrite Ur Leukocyte Esterase Urine Opiates Screen Urine Fentanyl Screen Ur Barbiturates Screen Ur Phencyclidine Scrn Ur Amphetamines Screen U Benzodiazepines Scrn Urine Cocaine Screen U Marijuana (THC) Screen Ethyl Alcohol < 10 Respiratory Panel [place] Adenovirus (Rapid PCR) B.pert (TEM-PCR) B.parapertussis DNA PCR C. pneumoniae DNA (PCR) Coronavirus OC43 (PCR) Coronavirus HKU1 (PCR) Coronavirus 229E (PCR) Coronavirus NL63 (PCR) Human Metapneumovir PCR Influenza A (RT-PCR) Influenza Type A (PCR) NEGATIVE Influenza B (RT-PCR) Influenza Type B (PCR) NEGATIVE M. pneumoniae (PCR) Parainfluenza 1 (PCR) Parainfluenza 2 (PCR) Parainfluenza 3 (PCR) Parainfluenza 4 (PCR) RSV (PCR) RSV RNA Qual (PCR) NEGATIVE Entero/Rhino (PCR) SARS-CoV-2 RNA (RT-PCR) NEGATIVE 02/11/23 02/12/23 02/13/23 16:27 14:25 07:55 WBC RBC Hgb Hct MCV MCH MCHC RDW Plt Count MPV Immature Gran % (Auto) Neut % (Auto) Lymph % (Auto) [place] % (Auto) Eos % (Auto) Baso % (Auto) Lymph # (Auto) [place] # (Auto) Eos # (Auto) Baso # (Auto) Abs Immat Gran (auto) Absolute Neuts (auto) Absolute Nucleated RBC Nucleated RBC % (auto) Hold Purple Top SEE NOTE Sodium 140 Potassium 3.7 Chloride 104 Carbon Dioxide 24 Anion Gap 16 BUN 21 H Creatinine 1.06 Estim Creat Clear Calc 47.3 Estimated GFR > 60 Random Glucose Fasting Glucose 101 H Lactic Acid Calcium 9.4 Total Bilirubin 0.4 Direct Bilirubin AST 21 ALT 13 Alkaline Phosphatase 66 Troponin I High Sens 13.8 B-Natriuretic Peptide Total Protein 6.9 Albumin 4.0 Triglycerides 87 Cholesterol 156 LDL Cholesterol, Calc 78 HDL Cholesterol 61 Lipase Urine Color Yellow Urine Appearance Clear Urine pH 5.5 Ur Specific [place] 1.015 Urine Protein Negative Urine Glucose (UA) Negative Urine Ketones Negative Urine Blood Negative Urine Nitrite Negative Ur Leukocyte Esterase Negative Urine Opiates Screen Not Detected Urine Fentanyl Screen Not Detected Ur Barbiturates Screen Not Detected Ur Phencyclidine Scrn Not Detected Ur Amphetamines Screen Not Detected U Benzodiazepines Scrn Not Detected Urine Cocaine Screen Not Detected U Marijuana (THC) Screen Not Detected Ethyl Alcohol Respiratory Panel [place] Cancelled Adenovirus (Rapid PCR) Cancelled B.pert (TEM-PCR) Cancelled B.parapertussis DNA PCR Cancelled C. pneumoniae DNA (PCR) Cancelled Coronavirus OC43 (PCR) Cancelled Coronavirus HKU1 (PCR) Cancelled Coronavirus 229E (PCR) Cancelled Coronavirus NL63 (PCR) Cancelled Human Metapneumovir PCR Cancelled Influenza A (RT-PCR) Cancelled Influenza Type A (PCR) Influenza B (RT-PCR) Cancelled Influenza Type B (PCR) M. pneumoniae (PCR) Cancelled Parainfluenza 1 (PCR) Cancelled Parainfluenza 2 (PCR) Cancelled Parainfluenza 3 (PCR) Cancelled Parainfluenza 4 (PCR) Cancelled RSV (PCR) Cancelled RSV RNA Qual (PCR) Entero/Rhino (PCR) Cancelled SARS-CoV-2 RNA (RT-PCR) Cancelled Imaging Radiology Impressions: ITS Impressions Chest X-Ray 02/11/23 12:57 IMPRESSION: No acute abnormality. Medications Medications Current Medications Acetaminophen (Acetaminophen 325 Mg Tablet) 650 mg PO Q6H PRN PRN Reason: Headache/Pain Mild Scale (1-3) Last Admin: 02/12/23 21:41 Dose: 650 mg Al Hydroxide/Mg Hydroxide (Magnesium Hydrox/Alum Hydrox 30 Ml Oral.Susp) 30 ml PO Q6H PRN PRN Reason: Heartburn/Nausea Hydroxyzine HCl (Hydroxyzine Hcl 25 Mg Tablet) 25 mg PO Q6H PRN PRN Reason: Anxiety Last Admin: 02/12/23 21:35 Dose: 25 mg Lamotrigine (Lamotrigine 25 Mg Tablet) 25 mg PO BID ELAINE Last Admin: 02/13/23 08:24 Dose: 25 mg Magnesium Hydroxide (Milk Of Magnesia 30 Ml Oral.Susp) 30 ml PO DAILY PRN PRN Reason: Constipation Mirtazapine (Mirtazapine 7.5 Mg Tablet) 7.5 mg PO BEDTIME ELAINE Last Admin: 02/12/23 21:35 Dose: 7.5 mg Trazodone HCl (Trazodone Hcl 50 Mg Tablet) 50 mg PO BEDTIME MRX1 PRN PRN Reason: Insomnia Last Admin: 02/12/23 23:47 Dose: 50 mg Allergies Allergies Allergy/AdvReac Type Severity Reaction Status Date / Time pencillin Allergy Severe Unknown Uncoded 02/11/23 16:58 Assessment & Plan Assessment & Plan (1) Bipolar disorder: Status: Acute Code(s): F31.9 - Bipolar disorder, unspecified (2) Dementia: Status: Acute Code(s): F03.90 - Unspecified dementia, unspecified severity, without behavioral disturbance, psychotic disturbance, mood disturbance, and anxiety (3) Essential hypertension: Status: Acute Code(s): I10 - Essential (primary) hypertension Plan The patient is an elderly male with a past history of bipolar disorder who was admitted to this facility on June this year for a similar presentation with exacerbation of depression and neurovegetative symptoms. Apparently the patient had been on compliant with treatment and he has relapsed on his depressive symptoms with suicidality but he is able to contract for safety. Plan 1. Gather collateral information, we are going to contact he his son who is the healthcare proxy. 2. Continue with regular antidepressants the patient agreed to titrate antidepressants but since there is the suspicion that the patient had been on compliant we will restart and start the titration slowly. 3. Continue with medical workout. 4. Reassessment with results 5. Increase Remeron up to 15 mg p.o. q.h.s. and increase Lamictal up to 25 p.o. b.i.d. on Feb 13. 6. Adding Klonopin 0.25 mg po tid for anxiety. Reason for continued inpatient stay Substantial Risk for: inability to function, rapid decompensation and med/psych decompensation Time Spent With Patient Time: Total time managing care of this patient today __20__ minutes.
[2023-02-13 12:14] LABS: Adenovirus PCR Not Detected (Not Detect.); Bordetella parapertussis PCR Not Detected (Not Detect.); Bordetella pertussis PCR Not Detected (Not Detect.); Chlamydia pneumoniae PCR Not Detected (Not Detect.); Coronavirus 229E PCR Not Detected (Not Detect.); Coronavirus HKU1 PCR Not Detected (Not Detect.); Coronavirus NL63 PCR Not Detected (Not Detect.); Coronavirus OC43 PCR Not Detected (Not Detect.); Human metapneumovirus PCR Not Detected (Not Detect.); Influenza A PCR Not Detected (Not Detect.); Influenza B PCR Not Detected (Not Detect.); Mycoplasma pneumoniae PCR Not Detected (Not Detect.); Parainfluenza 1 PCR Not Detected (Not Detect.); Parainfluenza 2 PCR Not Detected (Not Detect.); Parainfluenza 3 PCR Not Detected (Not Detect.); Parainfluenza 4 PCR Not Detected (Not Detect.); RSV PCR Not Detected (Not Detect.); Rhino/Enterovirus PCR Not Detected (Not Detect.)
[2023-02-13 12:40] LABS: SARS-CoV-2 PCR Not Detected (Not Detect.)
[2023-02-13] MEDS: Milk of Magnesia 30 ML ORAL.SUSP PO (15:28)
[2023-02-13] MEDS: hydrOXYzine HCL 25 MG TABLET PO (17:44)
[2023-02-13 19:55] VITALS: BP 162/73; PULSE 56; RESP 16; TEMP 36.7; O2SAT 96
[2023-02-13] MEDS: traZODone HCL 50 MG TABLET PO (21:16)
[2023-02-13] MEDS: Acetaminophen 325 MG TABLET 650 MG PO (21:16)
[2023-02-13] MEDS: Mirtazapine 15 MG TABLET PO (21:16)
[2023-02-14 08:10] VITALS: BP 141/67; PULSE 60; RESP 18; TEMP 36.4; O2SAT 95
[2023-02-14] MEDS: lamoTRIgine 25 MG TABLET PO ×2 (09:23→19:54)
--- NOTE | 2023-02-14 11:27 | HO.PSYCHPN ---
Subjective Subjective Date of Service: 02/14/23 Reason For Visit: SI Interim History: in bed, appears tired, able to produce some affect with effort. irritable, depressed. c/o feeling weak and unable to walk adequately. per staff, fall risk. slept well. no behavioral concerns. Mental Status Exam Mental Status Exam Patient Appearance: Appropriate Patient Orientation: Person and Situation Level of Consciousness: Awake and Appropriate Patient Behavior: Guarded and Passive Mood Description: Withdrawn Affect Description: Constricted Patient Cognition Impaired: Yes Ability to Follow Directions: Good Speech Pattern: Clear Hallucinations: None Delusions: Not Present Thought Process: Distracted, Evasive and Slowed Thinking Thought Content: positive for [place] and positive for Poverty of Content Judgement: Fair Diagnostics Vital Signs (24Hr): Vital Signs - 24 hr 02/13/23 19:55 02/14/23 08:10 Temperature 98.1 F 97.5 F Pulse Rate 56 60 Respiratory Rate 16 18 Blood Pressure 162/73 H 141/67 H Pulse Oximetry 96 95 Oxygen Delivery Method Room Air Room Air BMI result Body Mass Index 22.6 Labs 02/11/23 13:26 02/13/23 07:55 Labs: Laboratory Results - last 48 hr 02/12/23 02/13/23 02/13/23 14:25 07:55 Unknown Hold Purple Top SEE NOTE Sodium 140 Potassium 3.7 Chloride 104 Carbon Dioxide 24 Anion Gap 16 BUN 21 H Creatinine 1.06 Estim Creat Clear Calc 47.3 Estimated GFR > 60 Fasting Glucose 101 H Calcium 9.4 Total Bilirubin 0.4 AST 21 ALT 13 Alkaline Phosphatase 66 Total Protein 6.9 Albumin 4.0 Triglycerides 87 Cholesterol 156 LDL Cholesterol, Calc 78 HDL Cholesterol 61 Respiratory Panel [place] Cancelled See Note Adenovirus (Rapid PCR) Cancelled Not Detected B.pert (TEM-PCR) Cancelled Not Detected B.parapertussis DNA PCR Cancelled Not Detected C. pneumoniae DNA (PCR) Cancelled Not Detected Coronavirus OC43 (PCR) Cancelled Not Detected Coronavirus HKU1 (PCR) Cancelled Not Detected Coronavirus 229E (PCR) Cancelled Not Detected Coronavirus NL63 (PCR) Cancelled Not Detected Human Metapneumovir PCR Cancelled Not Detected Influenza A (RT-PCR) Cancelled Not Detected Influenza B (RT-PCR) Cancelled Not Detected M. pneumoniae (PCR) Cancelled Not Detected Parainfluenza 1 (PCR) Cancelled Not Detected Parainfluenza 2 (PCR) Cancelled Not Detected Parainfluenza 3 (PCR) Cancelled Not Detected Parainfluenza 4 (PCR) Cancelled Not Detected RSV (PCR) Cancelled Not Detected Entero/Rhino (PCR) Cancelled Not Detected SARS-CoV-2 RNA (RT-PCR) Cancelled Not Detected Imaging Radiology Impressions: ITS Impressions Chest X-Ray 02/11/23 12:57 IMPRESSION: No acute abnormality. Medications Medications Current Medications Acetaminophen (Acetaminophen 325 Mg Tablet) 650 mg PO Q6H PRN PRN Reason: Headache/Pain Mild Scale (1-3) Last Admin: 02/13/23 21:16 Dose: 650 mg Al Hydroxide/Mg Hydroxide (Magnesium Hydrox/Alum Hydrox 30 Ml Oral.Susp) 30 ml PO Q6H PRN PRN Reason: Heartburn/Nausea Clonazepam (Clonazepam 0.125 Mg Tab.Rapdis) 0.25 mg PO TID ELAINE Last Admin: 02/14/23 09:23 Dose: 0.25 mg Hydroxyzine HCl (Hydroxyzine Hcl 25 Mg Tablet) 25 mg PO Q6H PRN PRN Reason: Anxiety Last Admin: 02/13/23 17:44 Dose: 25 mg Lamotrigine (Lamotrigine 25 Mg Tablet) 25 mg PO BID [facility] Last Admin: 02/14/23 09:23 Dose: 25 mg Magnesium Hydroxide (Milk Of Magnesia 30 Ml Oral.Susp) 30 ml PO DAILY PRN PRN Reason: Constipation Last Admin: 02/13/23 15:28 Dose: 30 ml Mirtazapine (Mirtazapine 15 Mg Tablet) 15 mg PO BEDTIME [facility] Last Admin: 02/13/23 21:16 Dose: 15 mg Trazodone HCl (Trazodone Hcl 50 Mg Tablet) 50 mg PO BEDTIME MRX1 PRN PRN Reason: Insomnia Last Admin: 02/13/23 21:16 Dose: 50 mg Allergies Allergies Allergy/AdvReac Type Severity Reaction Status Date / Time pencillin Allergy Severe Unknown Uncoded 02/11/23 16:58 Assessment & Plan Assessment & Plan (1) Bipolar disorder: Status: Acute Code(s): F31.9 - Bipolar disorder, unspecified (2) Dementia: Status: Acute Code(s): F03.90 - Unspecified dementia, unspecified severity, without behavioral disturbance, psychotic disturbance, mood disturbance, and anxiety (3) Essential hypertension: Status: Acute Code(s): I10 - Essential (primary) hypertension Plan The patient is an elderly male with a past history of bipolar disorder who was admitted to this facility on June this year for a similar presentation with exacerbation of depression and neurovegetative symptoms. Apparently the patient had been on compliant with treatment and he has relapsed on his depressive symptoms with suicidality but he is able to contract for safety. Plan 1. Gather collateral information, we are going to contact he his son who is the healthcare proxy. 2. Continue with regular antidepressants the patient agreed to titrate antidepressants but since there is the suspicion that the patient had been on compliant we will restart and start the titration slowly. 3. Continue with medical workout. 4. Reassessment with results 5. Increase Remeron up to 15 mg p.o. q.h.s. and increase Lamictal up to 25 p.o. b.i.d. on Feb 13. 6. Adding Klonopin 0.25 mg po tid for anxiety. 02/14: depressed, in bed. continue current mgmt. Reason for continued inpatient stay Substantial Risk for: harm to self and inability to function Time Spent With Patient Time: Total time managing care of this patient today ____ minutes.
[2023-02-14 18:00] VITALS: BP 132/69; PULSE 57; RESP 17; TEMP 36.2; O2SAT 96
[2023-02-14] MEDS: Mirtazapine 15 MG TABLET PO (19:54)
[2023-02-15 06:40] VITALS: BP 142/81; PULSE 62; RESP 16; TEMP 36.3; O2SAT 97
[2023-02-15 08:25] LABS: Troponin-I High Sensitivity 6.5 ng/L (<3.5-35.0)
[2023-02-15] MEDS: lamoTRIgine 25 MG TABLET PO ×2 (08:54→20:13)
--- NOTE | 2023-02-15 11:02 | P.PNPSI_ITS ---
Subjective Subjective Date of Service: 02/15/23 Reason For Visit: SI Interim History: in bed, morose. depressed. no requests. per staff, no change in presentation. passive SI. in bed, didn't have breakfast. Mental Status Exam Mental Status Exam Patient Appearance: Appropriate Patient Orientation: Person and Situation Level of Consciousness: Awake and Appropriate Patient Behavior: Guarded and Passive Mood Description: Withdrawn Affect Description: Constricted Patient Cognition Impaired: Yes Ability to Follow Directions: Good Speech Pattern: Clear Hallucinations: None Delusions: Not Present Thought Process: Distracted, Evasive and Slowed Thinking Thought Content: positive for [place] and positive for Poverty of Content Judgement: Fair Diagnostics Vital Signs (24Hr): Vital Signs - 24 hr 02/14/23 18:00 02/15/23 06:40 Temperature 97.1 F 97.4 F Pulse Rate 57 62 Respiratory Rate 17 16 Blood Pressure 132/69 142/81 H Pulse Oximetry 96 97 Oxygen Delivery Method Room Air Room Air BMI result Body Mass Index 22.6 Labs 02/11/23 13:26 02/13/23 07:55 Labs: Laboratory Results - last 48 hr 02/13/23 02/15/23 Unknown 07:58 Troponin I High Sens 6.5 D Respiratory Panel [place] See Note Adenovirus (Rapid PCR) Not Detected B.pert (TEM-PCR) Not Detected B.parapertussis DNA PCR Not Detected C. pneumoniae DNA (PCR) Not Detected Coronavirus OC43 (PCR) Not Detected Coronavirus HKU1 (PCR) Not Detected Coronavirus 229E (PCR) Not Detected Coronavirus NL63 (PCR) Not Detected Human Metapneumovir PCR Not Detected Influenza A (RT-PCR) Not Detected Influenza B (RT-PCR) Not Detected M. pneumoniae (PCR) Not Detected Parainfluenza 1 (PCR) Not Detected Parainfluenza 2 (PCR) Not Detected Parainfluenza 3 (PCR) Not Detected Parainfluenza 4 (PCR) Not Detected RSV (PCR) Not Detected Entero/Rhino (PCR) Not Detected SARS-CoV-2 RNA (RT-PCR) Not Detected Imaging Radiology Impressions: ITS Impressions Chest X-Ray 02/11/23 12:57 IMPRESSION: No acute abnormality. Medications Medications Current Medications Acetaminophen (Acetaminophen 325 Mg Tablet) 650 mg PO Q6H PRN PRN Reason: Headache/Pain Mild Scale (1-3) Last Admin: 02/13/23 21:16 Dose: 650 mg Al Hydroxide/Mg Hydroxide (Magnesium Hydrox/Alum Hydrox 30 Ml Oral.Susp) 30 ml PO Q6H PRN PRN Reason: Heartburn/Nausea Clonazepam (Clonazepam 0.125 Mg Tab.Rapdis) 0.25 mg PO TID REPLACED BY [facility] Last Admin: 02/15/23 08:54 Dose: 0.25 mg Hydroxyzine HCl (Hydroxyzine Hcl 25 Mg Tablet) 25 mg PO Q6H PRN PRN Reason: Anxiety Last Admin: 02/13/23 17:44 Dose: 25 mg Lamotrigine (Lamotrigine 25 Mg Tablet) 25 mg PO BID REPLACED BY [facility] Last Admin: 02/15/23 08:54 Dose: 25 mg Magnesium Hydroxide (Milk Of Magnesia 30 Ml Oral.Susp) 30 ml PO DAILY PRN PRN Reason: Constipation Last Admin: 02/13/23 15:28 Dose: 30 ml Mirtazapine (Mirtazapine 15 Mg Tablet) 15 mg PO BEDTIME REPLACED BY [facility] Last Admin: 02/14/23 19:54 Dose: 15 mg Trazodone HCl (Trazodone Hcl 50 Mg Tablet) 50 mg PO BEDTIME MRX1 PRN PRN Reason: Insomnia Last Admin: 02/13/23 21:16 Dose: 50 mg Allergies Allergies Allergy/AdvReac Type Severity Reaction Status Date / Time pencillin Allergy Severe Unknown Uncoded 02/11/23 16:58 Assessment & Plan Assessment & Plan (1) Bipolar disorder: Status: Acute Code(s): F31.9 - Bipolar disorder, unspecified (2) Dementia: Status: Acute Code(s): F03.90 - Unspecified dementia, unspecified severity, without behavioral disturbance, psychotic disturbance, mood disturbance, and anxiety (3) Essential hypertension: Status: Acute Code(s): I10 - Essential (primary) hypertension Plan The patient is an elderly male with a past history of bipolar disorder who was admitted to this facility on June this year for a similar presentation with exacerbation of depression and neurovegetative symptoms. Apparently the patient had been on compliant with treatment and he has relapsed on his depressive symptoms with suicidality but he is able to contract for safety. Plan 1. Gather collateral information, we are going to contact he his son who is the healthcare proxy. 2. Continue with regular antidepressants the patient agreed to titrate antidepressants but since there is the suspicion that the patient had been on compliant we will restart and start the titration slowly. 3. Continue with medical workout. 4. Reassessment with results 5. Increase Remeron up to 15 mg p.o. q.h.s. and increase Lamictal up to 25 p.o. b.i.d. on Feb 13. 6. Adding Klonopin 0.25 mg po tid for anxiety. 02/14: depressed, in bed. continue current mgmt. 02/15: depressed, in bed. continue current mgmt. Reason for continued inpatient stay Substantial Risk for: harm to self and inability to function Time Spent With Patient Time: Total time managing care of this patient today ____ minutes.
[2023-02-15 19:35] VITALS: BP 168/73; PULSE 66; RESP 18; TEMP 36.9; O2SAT 98
[2023-02-15] MEDS: Mirtazapine 15 MG TABLET PO (20:13)
[2023-02-15] MEDS: Magnesium Hydrox/Alum Hydrox 30 ML ORAL.SUSP PO (21:47)
[2023-02-15] MEDS: traZODone HCL 50 MG TABLET PO (23:40)
[2023-02-15] MEDS: hydrOXYzine HCL 25 MG TABLET PO (23:41)
[2023-02-16 08:00] VITALS: BP 145/79; PULSE 70; RESP 18; TEMP 36.3; O2SAT 95
[2023-02-16] MEDS: lamoTRIgine 25 MG TABLET PO (08:14)
--- NOTE | 2023-02-16 10:50 | HO.PSYCHPN ---
Subjective Subjective Date of Service: 02/16/23 Reason For Visit: SI Subjective Notes: Conditional Voluntary Interim History: Nursing staff reported the patient was in bed all day long and he had his breakfast on his bed. He needed p.r.n. last night and he reported that he just wanted to . The occupational therapist reported that comparing with the last admission he looks more frail. On interview the patient reported that he had been very depressed and he still does not feel any improvement with the change of medications. Lamictal is going to be increased up to 50 mg p.o. b.i.d.. I offered him ECT but he was not interested at this moment. Mental Status Exam Mental Status Exam Patient Appearance: Appropriate Patient Orientation: Person and Situation Level of Consciousness: Awake and Appropriate Patient Behavior: Guarded and Passive Mood Description: Withdrawn Affect Description: Depressed and Blunted Patient Cognition Impaired: Yes Ability to Follow Directions: Good Speech Pattern: Clear Hallucinations: None Delusions: Not Present Thought Process: Distracted and Slowed Thinking Thought Content: positive for [place] and positive for Poverty of Content Judgement: Poor Diagnostics Vital Signs (24Hr): Vital Signs - 24 hr 02/15/23 19:35 02/16/23 08:00 Temperature 98.5 F 97.3 F Pulse Rate 66 70 Respiratory Rate 18 18 Blood Pressure 168/73 H 145/79 H Pulse Oximetry 98 95 Oxygen Delivery Method Room Air Room Air BMI result Body Mass Index 22.6 Labs 02/11/23 13:26 02/13/23 07:55 Labs: Laboratory Results - last 48 hr 02/15/23 07:58 Troponin I High Sens 6.5 D Imaging Radiology Impressions: ITS Impressions Chest X-Ray 02/11/23 12:57 IMPRESSION: No acute abnormality. Medications Medications Current Medications Acetaminophen (Acetaminophen 325 Mg Tablet) 650 mg PO Q6H PRN PRN Reason: Headache/Pain Mild Scale (1-3) Last Admin: 02/13/23 21:16 Dose: 650 mg Al Hydroxide/Mg Hydroxide (Magnesium Hydrox/Alum Hydrox 30 Ml Oral.Susp) 30 ml PO Q6H PRN PRN Reason: Heartburn/Nausea Last Admin: 02/15/23 21:47 Dose: 30 ml Clonazepam (Clonazepam 0.125 Mg Tab.Rapdis) 0.25 mg PO TID [facility] Last Admin: 02/16/23 08:14 Dose: 0.25 mg Hydroxyzine HCl (Hydroxyzine Hcl 25 Mg Tablet) 25 mg PO Q6H PRN PRN Reason: Anxiety Last Admin: 02/15/23 23:41 Dose: 25 mg Lamotrigine (Lamotrigine 25 Mg Tablet) 50 mg PO BID [facility] Magnesium Hydroxide (Milk Of Magnesia 30 Ml Oral.Susp) 30 ml PO DAILY PRN PRN Reason: Constipation Last Admin: 02/13/23 15:28 Dose: 30 ml Mirtazapine (Mirtazapine 15 Mg Tablet) 15 mg PO BEDTIME [facility] Last Admin: 02/15/23 20:13 Dose: 15 mg Trazodone HCl (Trazodone Hcl 50 Mg Tablet) 50 mg PO BEDTIME MRX1 PRN PRN Reason: Insomnia Last Admin: 02/15/23 23:40 Dose: 50 mg Allergies Allergies Allergy/AdvReac Type Severity Reaction Status Date / Time pencillin Allergy Severe Unknown Uncoded 02/11/23 16:58 Assessment & Plan Assessment & Plan (1) Bipolar disorder: Status: Acute Code(s): F31.9 - Bipolar disorder, unspecified (2) Dementia: Status: Acute Code(s): F03.90 - Unspecified dementia, unspecified severity, without behavioral disturbance, psychotic disturbance, mood disturbance, and anxiety (3) Essential hypertension: Status: Acute Code(s): I10 - Essential (primary) hypertension Plan The patient is an elderly male with a past history of bipolar disorder who was admitted to this facility on June this year for a similar presentation with exacerbation of depression and neurovegetative symptoms. Apparently the patient had been on compliant with treatment and he has relapsed on his depressive symptoms with suicidality but he is able to contract for safety. Plan 1. Gather collateral information, we are going to contact he his son who is the healthcare proxy. 2. Continue with regular antidepressants the patient agreed to titrate antidepressants but since there is the suspicion that the patient had been on compliant we will restart and start the titration slowly. 3. Continue with medical workout. 4. Reassessment with results 5. Increase Remeron up to 15 mg p.o. q.h.s. and increase Lamictal up to 25 p.o. b.i.d. on Feb 13. 6. Adding Klonopin 0.25 mg po tid for anxiety. b.i.d. February 16 Reason for continued inpatient stay Substantial Risk for: inability to function, rapid decompensation and med/psych decompensation Time Spent With Patient Time: Total time managing care of this patient today __20__ minutes.
[2023-02-16 18:00] VITALS: BP 143/71; PULSE 76; RESP 16; TEMP 36.6; O2SAT 97
[2023-02-16] MEDS: Mirtazapine 15 MG TABLET PO (20:17)
[2023-02-16] MEDS: lamoTRIgine 25 MG TABLET 50 MG PO (20:17)
[2023-02-16] MEDS: Magnesium Hydrox/Alum Hydrox 30 ML ORAL.SUSP PO (21:56)
[2023-02-16] MEDS: traZODone HCL 50 MG TABLET PO (21:56)
[2023-02-17] MEDS: Acetaminophen 325 MG TABLET 650 MG PO (03:47)
[2023-02-17] MEDS: hydrOXYzine HCL 25 MG TABLET PO (03:48)
[2023-02-17 06:00] VITALS: BP 131/82; PULSE 84; RESP 18; TEMP 36.5; O2SAT 95
[2023-02-17] MEDS: Milk of Magnesia 30 ML ORAL.SUSP PO (08:44)
--- NOTE | 2023-02-17 09:38 | PC.NURSE ---
fLU VACCINE ADMINISTERED.
[2023-02-17] MEDS: lamoTRIgine 25 MG TABLET 50 MG PO ×2 (11:07→20:18)
--- NOTE | 2023-02-17 12:55 | HO.PSYCHPN ---
Subjective Subjective Date of Service: 02/17/23 Reason For Visit: SI Subjective Notes: Conditional Voluntary Interim History: The nursing staff reported the patient had been depressed withdrawn he had been in the common areas but not interacting with anyone. He denies pain but he had admitted that his anxiety is less since Klonopin was started. The psychosocial rehabilitation counselor reported the family will come from for it will take him back over there probably February 25. On interview the patient denies new symptoms he still depressed and reports suicidal thoughts but able to contract for safety here at this moment. Mental Status Exam Mental Status Exam Patient Appearance: Appropriate Patient Orientation: Person and Situation Level of Consciousness: Awake and Appropriate Patient Behavior: Guarded and Passive Mood Description: Withdrawn Affect Description: Constricted Patient Cognition Impaired: Yes Ability to Follow Directions: Good Speech Pattern: Clear Hallucinations: None Delusions: Not Present Thought Process: Distracted and Slowed Thinking Thought Content: positive for [place], positive for [place] and positive for Poverty of Content Judgement: Fair Diagnostics Vital Signs (24Hr): Vital Signs - 24 hr 02/16/23 18:00 02/17/23 06:00 Temperature 97.8 F 97.7 F Pulse Rate 76 84 Respiratory Rate 16 18 Blood Pressure 143/71 H 131/82 Pulse Oximetry 97 95 Oxygen Delivery Method Room Air Room Air BMI result Body Mass Index 22.6 Labs 02/11/23 13:26 02/13/23 07:55 Imaging Radiology Impressions: ITS Impressions Chest X-Ray 02/11/23 12:57 IMPRESSION: No acute abnormality. Medications Medications Current Medications Acetaminophen (Acetaminophen 325 Mg Tablet) 650 mg PO Q6H PRN PRN Reason: Headache/Pain Mild Scale (1-3) Last Admin: 02/17/23 03:47 Dose: 650 mg Al Hydroxide/Mg Hydroxide (Magnesium Hydrox/Alum Hydrox 30 Ml Oral.Susp) 30 ml PO Q6H PRN PRN Reason: Heartburn/Nausea Last Admin: 02/16/23 21:56 Dose: 30 ml Clonazepam (Clonazepam 0.125 Mg Tab.Rapdis) 0.25 mg PO TID [facility] Last Admin: 02/17/23 08:42 Dose: 0.25 mg Hydroxyzine HCl (Hydroxyzine Hcl 25 Mg Tablet) 25 mg PO Q6H PRN PRN Reason: Anxiety Last Admin: 02/17/23 03:48 Dose: 25 mg Lamotrigine (Lamotrigine 25 Mg Tablet) 50 mg PO BID [facility] Last Admin: 02/17/23 11:07 Dose: 50 mg Magnesium Hydroxide (Milk Of Magnesia 30 Ml Oral.Susp) 30 ml PO DAILY PRN PRN Reason: Constipation Last Admin: 02/17/23 08:44 Dose: 30 ml Mirtazapine (Mirtazapine 15 Mg Tablet) 15 mg PO BEDTIME [facility] Last Admin: 02/16/23 20:17 Dose: 15 mg Trazodone HCl (Trazodone Hcl 50 Mg Tablet) 50 mg PO BEDTIME MRX1 PRN PRN Reason: Insomnia Last Admin: 02/16/23 21:56 Dose: 50 mg Allergies Allergies Allergy/AdvReac Type Severity Reaction Status Date / Time pencillin Allergy Severe Unknown Uncoded 02/11/23 16:58 Assessment & Plan Assessment & Plan (1) Bipolar disorder: Status: Acute Code(s): F31.9 - Bipolar disorder, unspecified (2) Dementia: Status: Acute Code(s): F03.90 - Unspecified dementia, unspecified severity, without behavioral disturbance, psychotic disturbance, mood disturbance, and anxiety (3) Essential hypertension: Status: Acute Code(s): I10 - Essential (primary) hypertension Plan The patient is an elderly male with a past history of bipolar disorder who was admitted to this facility on June this year for a similar presentation with exacerbation of depression and neurovegetative symptoms. Apparently the patient had been on compliant with treatment and he has relapsed on his depressive symptoms with suicidality but he is able to contract for safety. Plan 1. Gather collateral information, we are going to contact he his son who is the healthcare proxy. 2. Continue with regular antidepressants the patient agreed to titrate antidepressants but since there is the suspicion that the patient had been on compliant we will restart and start the titration slowly. 3. Continue with medical workout. 4. Reassessment with results 5. Increase Remeron up to 15 mg p.o. q.h.s. and increase Lamictal up to 25 p.o. b.i.d. on Feb 13. 6. Adding Klonopin 0.25 mg po tid for anxiety. b.i.d. February 16 Reason for continued inpatient stay Substantial Risk for: inability to function, rapid decompensation and med/psych decompensation Time Spent With Patient Time: Total time managing care of this patient today __20__ minutes.
[2023-02-17 20:04] VITALS: BP 132/77; PULSE 62; RESP 18; TEMP 36.2; O2SAT 97
[2023-02-17] MEDS: Mirtazapine 15 MG TABLET PO (20:18)
[2023-02-18] MEDS: Acetaminophen 325 MG TABLET 650 MG PO (05:57)
[2023-02-18 07:45] VITALS: BP 146/67; PULSE 63; RESP 18; TEMP 36.5; O2SAT 97
[2023-02-18] MEDS: lamoTRIgine 25 MG TABLET 50 MG PO (08:26)
[2023-02-18] MEDS: Milk of Magnesia 30 ML ORAL.SUSP PO (12:22)
[2023-02-18] MEDS: Magnesium Hydrox/Alum Hydrox 30 ML ORAL.SUSP PO (12:27)
--- NOTE | 2023-02-18 14:40 | MHC.CLN ---
NUTRITION DISCUSSED WITH STAFF THAT PATIENT WITH DECREASED INTAKE AND MAY BENEFIT FROM FORTIFIED ICE CREAM. ADDING FORTIFIED ICE CREAM BID (540 KCALS, 18 G PROTEIN).
--- NOTE | 2023-02-18 14:54 | P.PNPSI_ITS ---
Subjective Subjective Date of Service: 02/18/23 Reason For Visit: SI Subjective Notes: Conditional Voluntary Interim History: The nursing staff reported the patient had been common cooperative, he walks to the common areas but he has isolated. He slept well. Staff reported constipation. The psychosocial rehabilitation counselor reported that his family will come next week since there out for occasion. On interview the patient reports depression, less anxious but still very dysphoric. We will increase Lamictal up to 100 mg p.o. b.i.d. Mental Status Exam Mental Status Exam Patient Appearance: Well Grooomed and Appropriate Patient Orientation: Person and Situation Level of Consciousness: Awake and Appropriate Patient Behavior: Guarded and Passive Mood Description: Withdrawn Affect Description: Constricted Patient Cognition Impaired: Yes Ability to Follow Directions: Good Speech Pattern: Clear Hallucinations: None Delusions: Not Present Thought Process: Illogical, Distracted and Slowed Thinking Thought Content: positive for [place] and positive for Poverty of Content Judgement: Fair Diagnostics Vital Signs (24Hr): Vital Signs - 24 hr 02/17/23 20:04 02/18/23 07:45 Temperature 97.2 F 97.7 F Pulse Rate 62 63 Respiratory Rate 18 18 Blood Pressure 132/77 146/67 H Pulse Oximetry 97 97 Oxygen Delivery Method Room Air Room Air BMI result Body Mass Index 22.6 Labs 02/11/23 13:26 02/13/23 07:55 Imaging Radiology Impressions: ITS Impressions Chest X-Ray 02/11/23 12:57 IMPRESSION: No acute abnormality. Medications Medications Current Medications Acetaminophen (Acetaminophen 325 Mg Tablet) 650 mg PO Q6H PRN PRN Reason: Headache/Pain Mild Scale (1-3) Last Admin: 02/18/23 05:57 Dose: 650 mg Al Hydroxide/Mg Hydroxide (Magnesium Hydrox/Alum Hydrox 30 Ml Oral.Susp) 30 ml PO Q6H PRN PRN Reason: Heartburn/Nausea Last Admin: 02/18/23 12:27 Dose: 30 ml Clonazepam (Clonazepam 0.125 Mg Tab.Rapdis) 0.25 mg PO TID [facility] Last Admin: 02/18/23 08:25 Dose: 0.25 mg Hydroxyzine HCl (Hydroxyzine Hcl 25 Mg Tablet) 25 mg PO Q6H PRN PRN Reason: Anxiety Last Admin: 02/17/23 03:48 Dose: 25 mg Lamotrigine (Lamotrigine 100 Mg Tablet) 100 mg PO BID [facility] Magnesium Hydroxide (Milk Of Magnesia 30 Ml Oral.Susp) 30 ml PO DAILY PRN PRN Reason: Constipation Last Admin: 02/18/23 12:22 Dose: 30 ml Mirtazapine (Mirtazapine 15 Mg Tablet) 15 mg PO BEDTIME [facility] Last Admin: 02/17/23 20:18 Dose: 15 mg Trazodone HCl (Trazodone Hcl 50 Mg Tablet) 50 mg PO BEDTIME MRX1 PRN PRN Reason: Insomnia Last Admin: 02/16/23 21:56 Dose: 50 mg Allergies Allergies Allergy/AdvReac Type Severity Reaction Status Date / Time pencillin Allergy Severe Unknown Uncoded 02/11/23 16:58 Assessment & Plan Assessment & Plan (1) Bipolar disorder: Status: Acute Code(s): F31.9 - Bipolar disorder, unspecified (2) Dementia: Status: Acute Code(s): F03.90 - Unspecified dementia, unspecified severity, without behavioral disturbance, psychotic disturbance, mood disturbance, and anxiety (3) Essential hypertension: Status: Acute Code(s): I10 - Essential (primary) hypertension Plan The patient is an elderly male with a past history of bipolar disorder who was admitted to this facility on June this year for a similar presentation with exacerbation of depression and neurovegetative symptoms. Apparently the patient had been on compliant with treatment and he has relapsed on his depressive symptoms with suicidality but he is able to contract for safety. Plan 1. Gather collateral information, we are going to contact he his son who is the healthcare proxy. 2. Continue with regular antidepressants the patient agreed to titrate antidepressants but since there is the suspicion that the patient had been on compliant we will restart and start the titration slowly. 3. Continue with medical workout. 4. Reassessment with results 5. Increase Remeron up to 15 mg p.o. q.h.s. and increase Lamictal up to 25 p.o. b.i.d. on Feb 13. Lamictal increased up to 50 mg p.o. b.i.d. on February 18 6. Adding Klonopin 0.25 mg po tid for anxiety. b.i.d. February 16 7. Adding Senna and Colace PRN constipation on Feb 18 Reason for continued inpatient stay Substantial Risk for: inability to function, rapid decompensation and med/psych decompensation Time Spent With Patient Time: Total time managing care of this patient today __20__ minutes.
[2023-02-18] MEDS: Docusate Sodium 100 MG CAPSULE PO (17:52)
[2023-02-18 18:00] VITALS: BP 130/68; PULSE 64; RESP 18; TEMP 36.1; O2SAT 98
[2023-02-18] MEDS: lamoTRIgine 100 MG TABLET PO (20:07)
[2023-02-18] MEDS: Sennosides 8.6 MG TABLET 17.2 MG PO (20:07)
[2023-02-18] MEDS: Mirtazapine 15 MG TABLET PO (20:07)
[2023-02-18] MEDS: hydrOXYzine HCL 25 MG TABLET PO (22:35)
[2023-02-18] MEDS: traZODone HCL 50 MG TABLET PO (22:35)
[2023-02-19] MEDS: traZODone HCL 50 MG TABLET PO (01:25)
[2023-02-19] MEDS: Acetaminophen 325 MG TABLET 650 MG PO (01:25)
[2023-02-19] MEDS: hydrOXYzine HCL 25 MG TABLET PO (04:39)
[2023-02-19 07:00] VITALS: BMI 23.2
[2023-02-19] MEDS: Sennosides 8.6 MG TABLET 17.2 MG PO (08:08)
[2023-02-19] MEDS: lamoTRIgine 100 MG TABLET PO (08:08)
[2023-02-19 08:50] VITALS: BP 137/68; PULSE 57; RESP 18; TEMP 36.1; O2SAT 98
--- NOTE | 2023-02-19 14:00 | HO.PSYCHPN ---
Subjective Subjective Date of Service: 02/19/23 Reason For Visit: SI Subjective Notes: Conditional Voluntary Interim History: The nursing staff reported the patient had been most of the time on his room and he walks with assistance to the common areas he can be irritated at times. He has been eating well and he stated that he feels better he wants to go back home. The manager social work contact 1 of his son. [facility] could be arranged. On interview the patient reports that he has gas and he feels uncomfortable so I am ordering submitted continue RN. We decided to increase Lamictal to 100 mg p.o. b.i.d. to target depression and mood lability. Mental Status Exam Mental Status Exam Patient Appearance: Appropriate (On hospital gowns) Patient Orientation: Person and Situation Level of Consciousness: Awake and Appropriate Patient Behavior: Guarded and Passive Mood Description: Withdrawn and Depressed Affect Description: Constricted Patient Cognition Impaired: Yes Ability to Follow Directions: Good Speech Pattern: Clear Hallucinations: None Delusions: Not Present Thought Process: Racing, Distracted and Slowed Thinking Thought Content: positive for [place], positive for [place] and positive for Poverty of Content Judgement: Fair Diagnostics Vital Signs (24Hr): Vital Signs - 24 hr 02/18/23 18:00 02/19/23 08:50 Temperature 96.9 F 97.0 F Pulse Rate 64 57 Respiratory Rate 18 18 Blood Pressure 130/68 137/68 Pulse Oximetry 98 98 Oxygen Delivery Method Room Air Room Air BMI result Body Mass Index 23.2 Labs 02/11/23 13:26 02/13/23 07:55 Imaging Radiology Impressions: ITS Impressions Chest X-Ray 02/11/23 12:57 IMPRESSION: No acute abnormality. Medications Medications Current Medications Acetaminophen (Acetaminophen 325 Mg Tablet) 650 mg PO Q6H PRN PRN Reason: Headache/Pain Mild Scale (1-3) Last Admin: 02/19/23 01:25 Dose: 650 mg Al Hydroxide/Mg Hydroxide (Magnesium Hydrox/Alum Hydrox 30 Ml Oral.Susp) 30 ml PO Q6H PRN PRN Reason: Heartburn/Nausea Last Admin: 02/18/23 12:27 Dose: 30 ml Clonazepam (Clonazepam 0.125 Mg Tab.Rapdis) 0.25 mg PO TID [facility] Last Admin: 02/19/23 08:08 Dose: 0.25 mg Docusate Sodium (Docusate Sodium 100 Mg Capsule) 100 mg PO BID PRN PRN Reason: Constipation Last Admin: 02/18/23 17:52 Dose: 100 mg Hydroxyzine HCl (Hydroxyzine Hcl 25 Mg Tablet) 25 mg PO Q6H PRN PRN Reason: Anxiety Last Admin: 02/19/23 04:39 Dose: 25 mg Lamotrigine (Lamotrigine 100 Mg Tablet) 100 mg PO BID [facility] Last Admin: 02/19/23 08:08 Dose: 100 mg Magnesium Hydroxide (Milk Of Magnesia 30 Ml Oral.Susp) 30 ml PO DAILY PRN PRN Reason: Constipation Last Admin: 02/18/23 12:22 Dose: 30 ml Mirtazapine (Mirtazapine 15 Mg Tablet) 15 mg PO BEDTIME [facility] Last Admin: 02/18/23 20:07 Dose: 15 mg Senna (Sennosides 8.6 Mg Tablet) 17.2 mg PO BID [facility] Last Admin: 02/19/23 08:08 Dose: 17.2 mg Trazodone HCl (Trazodone Hcl 50 Mg Tablet) 50 mg PO BEDTIME MRX1 PRN PRN Reason: Insomnia Last Admin: 02/19/23 01:25 Dose: 50 mg Allergies Allergies Allergy/AdvReac Type Severity Reaction Status Date / Time pencillin Allergy Severe Unknown Uncoded 02/11/23 16:58 Assessment & Plan Assessment & Plan (1) Bipolar disorder: Status: Acute Code(s): F31.9 - Bipolar disorder, unspecified (2) Dementia: Status: Acute Code(s): F03.90 - Unspecified dementia, unspecified severity, without behavioral disturbance, psychotic disturbance, mood disturbance, and anxiety (3) Essential hypertension: Status: Acute Code(s): I10 - Essential (primary) hypertension Plan The patient is an elderly male with a past history of bipolar disorder who was admitted to this facility on June this year for a similar presentation with exacerbation of depression and neurovegetative symptoms. Apparently the patient had been on compliant with treatment and he has relapsed on his depressive symptoms with suicidality but he is able to contract for safety. Plan 1. Gather collateral information, we are going to contact he his son who is the healthcare proxy. 2. Continue with regular antidepressants the patient agreed to titrate antidepressants but since there is the suspicion that the patient had been on compliant we will restart and start the titration slowly. 3. Continue with medical workout. 4. Reassessment with results 5. Increase Remeron up to 15 mg p.o. q.h.s. and increase Lamictal up to 25 p.o. b.i.d. on Feb 13. Lamictal increased up to 50 mg p.o. b.i.d. on February 18 6. Adding Klonopin 0.25 mg po tid for anxiety. b.i.d. February 16 7. Adding Senna and Colace PRN constipation on Feb 18. 8. Adding Gas-X on February 19 Reason for continued inpatient stay Substantial Risk for: inability to function, rapid decompensation and med/psych decompensation Time Spent With Patient Time: Total time managing care of this patient today __20__ minutes.
[2023-02-19 20:15] VITALS: BP 151/70; PULSE 60; RESP 18; TEMP 36.4; O2SAT 97
[2023-02-19] MEDS: Mirtazapine 15 MG TABLET PO (20:57)
[2023-02-19] MEDS: Milk of Magnesia 30 ML ORAL.SUSP PO (20:57)
[2023-02-20 08:16] VITALS: BP 165/74; PULSE 62; RESP 15; TEMP 36.3; O2SAT 96
--- NOTE | 2023-02-20 10:56 | HO.PSYCHPN ---
Subjective Subjective Date of Service: 02/20/23 Reason For Visit: SI Interim History: Team reports pt refused medications this a.m. and has been agitated. He did allow vital signs to be taken. Met with pt who is in his room, in bed, awake, willing to engage. He reports he did refuse medications, as it does not make any difference . States he has pain and cannot stand it . (Tells team this a.m. in pain eval no pain). Affirms SI. Affirms feeling very weak, points to areas 4-5(right lumbar, umbilical,left lumbar). States he does feel constipated, has a decrease in appetite as well. Record reviewed, [employer] with medical complaints of poor appetite, weakness, SI, somatic focus. Mirtzapine, Klonopin added, Lamictal titrated, ECT refused by pt. On 02/18 senna and colace given for constipation, on 02/19 Gas-X added for discomfort. Diagnostics reviewed and appear unremarkable on admit except for 02/06 KUB indicates a 0.2 cm calcification adjacent to RL3 transverse process which is nonspecific but could represent a renal/proximal ureteral calculus (CAT/Ultrasound follow up suggested) Medication Compliance: Intermittent (one refusal this a.m.) Side effects from medications: No (?? constipation) Attending Groups: No Review of Systems ?constipation ?ureteral calculus Medical Review of Systems: unchanged Review of Systems Gastrointestinal: Reports abdominal pain, Reports change in bowel habits, Reports constipation and Reports excessive flatus Mental Status Exam Mental Status Exam Patient Appearance: Appropriate Patient Orientation: Person and Place Level of Consciousness: Alert Patient Behavior: Talkative, Cooperative and Good Eye Contact Mood Description: Depressed Affect Description: Flat Patient Cognition Impaired: Yes Ability to Follow Directions: Fair Speech Pattern: Spontaneous Speech Memory Description: Episodic Impaired Hallucinations: None Delusions: Not Present Thought Process: Distracted and Rumination Thought Content: positive for [place], positive for Circumstantial, positive for Perseveration and positive for Suicidal Ideation Depressive Symptoms: Changes in Appetite, Loss of Int. in Activity, Hopelessness, Unhappiness, Increased Fatigue, Thoughts of /Suicide and Loss of Energy Judgement: Poor Diagnostics Vital Signs (24Hr): Vital Signs - 24 hr 02/19/23 20:15 02/20/23 08:16 Temperature 97.6 F 97.3 F Pulse Rate 60 62 Respiratory Rate 18 15 Blood Pressure 151/70 H 165/74 H Pulse Oximetry 97 96 Oxygen Delivery Method Room Air Room Air BMI result Body Mass Index 23.2 Labs 02/20/23 11:28 02/20/23 11:28 Imaging Radiology Impressions: ITS Impressions Chest X-Ray 02/11/23 12:57 IMPRESSION: No acute abnormality. Medications Medications Current Medications Acetaminophen (Acetaminophen 325 Mg Tablet) 650 mg PO Q6H PRN PRN Reason: Headache/Pain Mild Scale (1-3) Last Admin: 02/19/23 01:25 Dose: 650 mg Al Hydroxide/Mg Hydroxide (Magnesium Hydrox/Alum Hydrox 30 Ml Oral.Susp) 30 ml PO Q6H PRN PRN Reason: Heartburn/Nausea Last Admin: 02/18/23 12:27 Dose: 30 ml Clonazepam (Clonazepam 0.125 Mg Tab.Rapdis) 0.25 mg PO TID [facility] Last Admin: 02/20/23 09:34 Dose: Not Given Docusate Sodium (Docusate Sodium 100 Mg Capsule) 100 mg PO BID PRN PRN Reason: Constipation Last Admin: 02/18/23 17:52 Dose: 100 mg Hydroxyzine HCl (Hydroxyzine Hcl 25 Mg Tablet) 25 mg PO Q6H PRN PRN Reason: Anxiety Last Admin: 02/19/23 04:39 Dose: 25 mg Lamotrigine (Lamotrigine 100 Mg Tablet) 100 mg PO BID [facility] Last Admin: 02/20/23 09:34 Dose: Not Given Magnesium Hydroxide (Milk Of Magnesia 30 Ml Oral.Susp) 30 ml PO DAILY PRN PRN Reason: Constipation Last Admin: 02/19/23 20:57 Dose: 30 ml Mirtazapine (Mirtazapine 15 Mg Tablet) 15 mg PO BEDTIME [facility] Last Admin: 02/19/23 20:57 Dose: 15 mg Senna (Sennosides 8.6 Mg Tablet) 17.2 mg PO BID [facility] Last Admin: 02/20/23 09:34 Dose: Not Given Simethicone (Simethicone 80 Mg Tab.Chew) 80 mg PO QIDWMHS PRN PRN Reason: Gas Last Admin: 02/19/23 20:57 Dose: 80 mg Trazodone HCl (Trazodone Hcl 50 Mg Tablet) 50 mg PO BEDTIME MRX1 PRN PRN Reason: Insomnia Last Admin: 02/19/23 01:25 Dose: 50 mg Allergies Allergies Allergy/AdvReac Type Severity Reaction Status Date / Time pencillin Allergy Severe Unknown Uncoded 02/11/23 16:58 Assessment & Plan Assessment & Plan (1) Bipolar disorder: Status: Acute Code(s): F31.9 - Bipolar disorder, unspecified (2) Dementia: Status: Acute Code(s): F03.90 - Unspecified dementia, unspecified severity, without behavioral disturbance, psychotic disturbance, mood disturbance, and anxiety (3) Essential hypertension: Status: Acute Code(s): I10 - Essential (primary) hypertension Plan The patient is an elderly male with a past history of bipolar disorder who was admitted to this facility on June this year for a similar presentation with exacerbation of depression and neurovegetative symptoms. Apparently the patient had been on compliant with treatment and he has relapsed on his depressive symptoms with suicidality but he is able to contract for safety. Plan 1. Gather collateral information, we are going to contact he his son who is the healthcare proxy. 2. Continue with regular antidepressants the patient agreed to titrate antidepressants but since there is the suspicion that the patient had been on compliant we will restart and start the titration slowly. 3. Continue with medical workout. 4. Reassessment with results 5. Increase Remeron up to 15 mg p.o. q.h.s. and increase Lamictal up to 25 p.o. b.i.d. on Feb 13. Lamictal increased up to 50 mg p.o. b.i.d. on February 18 6. Adding Klonopin 0.25 mg po tid for anxiety. b.i.d. February 16 7. Adding Senna and Colace PRN constipation on Feb 18. 8. Adding Gas-X on February 19 02/20/23 Reporting abdominal pain and SI today. Team reports medicine refusal this a.m. and pt reports poor appetite. 02/06 KUB indicates possible ureteral calculus (0.2 cm calcification) adjacent to RL3 transverse process. Plan: CBCD, CMP, KUB Address medical concerns, if sx are somatic will adjust psychotropic regime. Patient educated on: medication risk/benefits, therapeutic strategies and medical condition Informed Consent: does not understand and further education needed Reason for continued inpatient stay Substantial Risk for: harm to self, rapid decompensation and med/psych decompensation Time Spent With Patient Time: Total time managing care of this patient today ____ minutes.
[2023-02-20 12:23] LABS: Alanine Aminotransferase 11 U/L (0-40); Alkaline Phosphatase 62 U/L (39-117); Anion Gap 13 (12-20); Aspartate Amino Transferase 15 U/L (5-37); Bilirubin Total 0.4 mg/dL (0.0-1.0); Blood Urea Nitrogen 19 mg/dL (9-16); Calcium 9.5 mg/dL (8.4-10.2); Carbon Dioxide 26 mmol/L (22-29); Chloride 108 mmol/L (96-108); Creatinine Clr Calc Pharmacy 57.3; Estimated Glomerular Filt Rate > 60; Glucose Random 99 mg/dL (60-115); Sodium 143 mmol/L (135-145); Total Protein 6.8 g/dL (6.5-8.0)
[2023-02-20] MEDS: Milk of Magnesia 30 ML ORAL.SUSP PO (17:45)
--- NOTE | 2023-02-20 17:51 | PC.NURSE ---
Pt c/o abdominal pain throughout the day and stated he hasn't had a bowel movement in a few days. PRN Milk of Magnesia not scheduled again until 20:57. This nurse tiger texted clinical nurse specialist Abiola Lindo who approved administration of the PRN which was given at 17:45.
[2023-02-20 18:00] VITALS: BP 141/67; PULSE 60; RESP 18; TEMP 36.7; O2SAT 94
[2023-02-20] MEDS: Mirtazapine 15 MG TABLET PO (20:44)
[2023-02-20] MEDS: traZODone HCL 50 MG TABLET PO ×2 (20:44→21:58)
[2023-02-20] MEDS: Magnesium Hydrox/Alum Hydrox 30 ML ORAL.SUSP PO (20:55)
[2023-02-20] MEDS: hydrOXYzine HCL 25 MG TABLET PO (21:58)
[2023-02-21] MEDS: Acetaminophen 325 MG TABLET 650 MG PO (03:37)
[2023-02-21] MEDS: Magnesium Hydrox/Alum Hydrox 30 ML ORAL.SUSP PO (03:37)
[2023-02-21 07:45] VITALS: BP 180/86; PULSE 63; RESP 18; TEMP 36.5; O2SAT 95
[2023-02-21 10:00] VITALS: BP 153/84; PULSE 66
--- NOTE | 2023-02-21 12:33 | HO.PSYCHPN ---
Subjective Subjective Date of Service: 02/21/23 Reason For Visit: SI Interim History: Patient was seen in the milieu and reports he feels decent and that his medications are helping. He was complaining of constipation and recieved laxatives. Blood pressure was elevated and then improved to 154/80. He was alert and oriented and he answered aproprietly. Nursing reports no behaviorial problems or periods of aggitation. He has no Si/Hi/AVH. Review of Systems Review of Systems All other systems are reviewed and are negative Constitutional: Reports as per HPI and Reports no additional constitutional complaints Eyes: Reports as per HPI and Reports no additional eye complaints Reports system reviewed and no additional complaints, except as documented Cardiovascular: Reports as per HPI and Reports no additional cardiovascular complaints Respiratory: Reports as per HPI and Reports no additional respiratory complaints Gastrointestinal: Reports as per HPI and Reports no additional gastrointestinal complaints Genitourinary: Reports no additional female genitourinary complaints Musculoskeletal: Reports no additional musculoskeletal complaints Skin/Breast: Reports system reviewed and no additional complaints, except as docu Psychiatric: Reports no additional psychiatric complaints Endocrine: Reports no additional endocrine complaints Hematologic/Lymphatic: Reports no additional hematologic/lymphatic complaints Allergic/Immunologic: Reports no additional allergic/immunologic complaints Reports system reviewed and no additional complaints, except as documented and Reports Abnormal speech present Gastrointestinal: Reports abdominal pain, Reports change in bowel habits, Reports constipation and Reports excessive flatus Mental Status Exam Mental Status Exam Patient Appearance: Appropriate Patient Orientation: Person and Place Level of Consciousness: Alert Patient Behavior: Talkative, Cooperative and Good Eye Contact Mood Description: Depressed Affect Description: Flat Patient Cognition Impaired: Yes Ability to Follow Directions: Fair Speech Pattern: Spontaneous Speech Memory Description: Episodic Impaired Diagnostics Vital Signs (24Hr): Vital Signs - 24 hr 02/20/23 18:00 02/21/23 07:45 02/21/23 10:00 Temperature 98.0 F 97.7 F Pulse Rate 60 63 66 Respiratory Rate 18 18 Blood Pressure 141/67 H 180/86 H 153/84 H Pulse Oximetry 94 95 Oxygen Delivery Method Room Air Room Air BMI result Body Mass Index 23.2 Labs 02/20/23 11:28 02/20/23 11:28 Labs: Laboratory Results - last 48 hr 02/20/23 11:28 WBC 7.5 RBC 4.20 L Hgb 13.1 L Hct 39.1 L MCV 93.1 MCH 31.2 MCHC 33.5 RDW 13.8 Plt Count 150 L MPV 11.1 Immature Gran % (Auto) 0.3 Neut % (Auto) 61.4 Lymph % (Auto) 29.1 [place] % (Auto) 5.9 Eos % (Auto) 2.8 Baso % (Auto) 0.5 Lymph # (Auto) 2.2 [place] # (Auto) 0.4 Eos # (Auto) 0.2 Baso # (Auto) 0.0 Abs Immat Gran (auto) 0.02 Absolute Neuts (auto) 4.6 Absolute Nucleated RBC 0.000 Nucleated RBC % (auto) 0.0 Sodium 143 Potassium 4.0 Chloride 108 Carbon Dioxide 26 Anion Gap 13 BUN 19 H Creatinine 0.89 Estim Creat Clear Calc 57.3 Estimated GFR > 60 Random Glucose 99 Calcium 9.5 Total Bilirubin 0.4 AST 15 ALT 11 Alkaline Phosphatase 62 Total Protein 6.8 Albumin 4.0 Imaging Radiology Impressions: ITS Impressions Chest X-Ray 02/11/23 12:57 IMPRESSION: No acute abnormality. Medications Medications Current Medications Acetaminophen (Acetaminophen 325 Mg Tablet) 650 mg PO Q6H PRN PRN Reason: Headache/Pain Mild Scale (1-3) Last Admin: 02/21/23 03:37 Dose: 650 mg Al Hydroxide/Mg Hydroxide (Magnesium Hydrox/Alum Hydrox 30 Ml Oral.Susp) 30 ml PO Q6H PRN PRN Reason: Heartburn/Nausea Last Admin: 02/21/23 03:37 Dose: 30 ml Clonazepam (Clonazepam 0.125 Mg Tab.Rapdis) 0.25 mg PO TID [facility] Last Admin: 02/21/23 08:23 Dose: 0.25 mg Docusate Sodium (Docusate Sodium 100 Mg Capsule) 100 mg PO BID PRN PRN Reason: Constipation Last Admin: 02/18/23 17:52 Dose: 100 mg Hydroxyzine HCl (Hydroxyzine Hcl 25 Mg Tablet) 25 mg PO Q6H PRN PRN Reason: Anxiety Last Admin: 02/20/23 21:58 Dose: 25 mg Lamotrigine (Lamotrigine 100 Mg Tablet) 100 mg PO BID [facility] Last Admin: 02/21/23 08:23 Dose: 100 mg Magnesium Hydroxide (Milk Of Magnesia 30 Ml Oral.Susp) 30 ml PO DAILY PRN PRN Reason: Constipation Last Admin: 02/20/23 17:45 Dose: 30 ml Mirtazapine (Mirtazapine 15 Mg Tablet) 15 mg PO BEDTIME [facility] Last Admin: 02/20/23 20:44 Dose: 15 mg Senna (Sennosides 8.6 Mg Tablet) 17.2 mg PO BID [facility] Last Admin: 02/21/23 08:23 Dose: 17.2 mg Simethicone (Simethicone 80 Mg Tab.Chew) 80 mg PO QIDWMHS PRN PRN Reason: Gas Last Admin: 02/20/23 20:55 Dose: 80 mg Trazodone HCl (Trazodone Hcl 50 Mg Tablet) 50 mg PO BEDTIME MRX1 PRN PRN Reason: Insomnia Last Admin: 02/20/23 21:58 Dose: 50 mg Allergies Allergies Allergy/AdvReac Type Severity Reaction Status Date / Time pencillin Allergy Severe Unknown Uncoded 02/11/23 16:58 Assessment & Plan Assessment & Plan (1) Bipolar disorder: Status: Acute Code(s): F31.9 - Bipolar disorder, unspecified (2) Dementia: Status: Acute Code(s): F03.90 - Unspecified dementia, unspecified severity, without behavioral disturbance, psychotic disturbance, mood disturbance, and anxiety (3) Essential hypertension: Status: Acute Code(s): I10 - Essential (primary) hypertension Plan The patient is an elderly male with a past history of bipolar disorder who was admitted to this facility on June this year for a similar presentation with exacerbation of depression and neurovegetative symptoms. Apparently the patient had been on compliant with treatment and he has relapsed on his depressive symptoms with suicidality but he is able to contract for safety. Plan 1. Gather collateral information, we are going to contact he his son who is the healthcare proxy. 2. Continue with regular antidepressants the patient agreed to titrate antidepressants but since there is the suspicion that the patient had been on compliant we will restart and start the titration slowly. 3. Continue with medical workout. 4. Reassessment with results 5. Increase Remeron up to 15 mg p.o. q.h.s. and increase Lamictal up to 25 p.o. b.i.d. on Feb 13. Lamictal increased up to 50 mg p.o. b.i.d. on February 18 6. Adding Klonopin 0.25 mg po tid for anxiety. b.i.d. February 16. Adding Senna and Colace PRN constipation on Feb 18. 8. Adding Gas-X on February 19 02/20/23 Reporting abdominal pain and SI today. Team reports medicine refusal this a.m. and pt reports poor appetite. 02/06 KUB indicates possible ureteral calculus (0.2 cm calcification) adjacent to RL3 transverse process. Plan: CBCD, CMP, KUB Address medical concerns, if sx are somatic will adjust psychotropic regime. 02/21: Continue current treatment plan and medications. Reason for continued inpatient stay Substantial Risk for: inability to function and rapid decompensation Time Spent With Patient Time: Total time managing care of this patient today ____ minutes.
[2023-02-21 18:00] VITALS: BP 176/85; PULSE 70; RESP 18; TEMP 35.9; O2SAT 97
[2023-02-21] MEDS: traZODone HCL 50 MG TABLET PO (20:54)
[2023-02-21] MEDS: Milk of Magnesia 30 ML ORAL.SUSP PO (20:54)
[2023-02-22] MEDS: Acetaminophen 325 MG TABLET 650 MG PO (03:53)
[2023-02-22] MEDS: Magnesium Hydrox/Alum Hydrox 30 ML ORAL.SUSP PO (03:53)
[2023-02-22 08:00] VITALS: BP 136/71; PULSE 63; RESP 18; TEMP 36.6; O2SAT 96
[2023-02-22] MEDS: Milk of Magnesia 30 ML ORAL.SUSP PO (18:18)
--- NOTE | 2023-02-22 19:08 | HO.PSYCHPN ---
Subjective Subjective Date of Service: 02/22/23 Reason For Visit: SI Interim History: Patient was seen in the milieu and reports he feels poorly today but has a difficult time explaining the reason for why. He is alert and pleasant. He is cooperative with care. He continues with constipation in spite of an aggressive bowel regimen. He denies nausea or vomiting. Reports abdominal discomfort. KUB with moderate stool burden. He was alert and oriented x 2. Nursing reports no behavioral problems or periods of agitation. He has no Si/Hi/AVH. Review of Systems Review of Systems All other systems are reviewed and are negative Constitutional: Reports as per HPI and Reports no additional constitutional complaints Eyes: Reports as per HPI and Reports no additional eye complaints Reports system reviewed and no additional complaints, except as documented Cardiovascular: Reports as per HPI and Reports no additional cardiovascular complaints Respiratory: Reports as per HPI and Reports no additional respiratory complaints Gastrointestinal: Reports as per HPI and Reports no additional gastrointestinal complaints Genitourinary: Reports no additional female genitourinary complaints Musculoskeletal: Reports no additional musculoskeletal complaints Skin/Breast: Reports system reviewed and no additional complaints, except as docu Psychiatric: Reports no additional psychiatric complaints Endocrine: Reports no additional endocrine complaints Hematologic/Lymphatic: Reports no additional hematologic/lymphatic complaints Allergic/Immunologic: Reports no additional allergic/immunologic complaints Reports system reviewed and no additional complaints, except as documented and Reports Abnormal speech present Gastrointestinal: Reports abdominal pain, Reports change in bowel habits, Reports constipation and Reports excessive flatus Mental Status Exam Mental Status Exam Patient Appearance: Appropriate Patient Orientation: Person and Place Level of Consciousness: Alert Patient Behavior: Talkative, Cooperative and Good Eye Contact Mood Description: Depressed Affect Description: Flat Patient Cognition Impaired: Yes Ability to Follow Directions: Fair Speech Pattern: Spontaneous Speech Memory Description: Episodic Impaired Diagnostics Vital Signs (24Hr): Vital Signs - 24 hr 02/22/23 08:00 Temperature 97.8 F Pulse Rate 63 Respiratory Rate 18 Blood Pressure 136/71 Pulse Oximetry 96 Oxygen Delivery Method Room Air BMI result Body Mass Index 23.2 Labs 02/20/23 11:28 02/20/23 11:28 Imaging Radiology Impressions: ITS Impressions Chest X-Ray 02/11/23 12:57 IMPRESSION: No acute abnormality. KUB X-Ray 02/20/23 11:21 IMPRESSION: No evidence of bowel obstruction. Moderate stool burden. Previously seen calcification no longer present Medications Medications Current Medications Acetaminophen (Acetaminophen 325 Mg Tablet) 650 mg PO Q6H PRN PRN Reason: Headache/Pain Mild Scale (1-3) Last Admin: 02/22/23 03:53 Dose: 650 mg Al Hydroxide/Mg Hydroxide (Magnesium Hydrox/Alum Hydrox 30 Ml Oral.Susp) 30 ml PO Q6H PRN PRN Reason: Heartburn/Nausea Last Admin: 02/22/23 03:53 Dose: 30 ml Clonazepam (Clonazepam 0.125 Mg Tab.Rapdis) 0.25 mg PO TID [facility] Last Admin: 02/22/23 15:00 Dose: 0.25 mg Docusate Sodium (Docusate Sodium 100 Mg Capsule) 100 mg PO BID PRN PRN Reason: Constipation Last Admin: 02/22/23 15:00 Dose: 100 mg Hydroxyzine HCl (Hydroxyzine Hcl 25 Mg Tablet) 25 mg PO Q6H PRN PRN Reason: Anxiety Last Admin: 02/20/23 21:58 Dose: 25 mg Lamotrigine (Lamotrigine 100 Mg Tablet) 100 mg PO BID [facility] Last Admin: 02/22/23 08:22 Dose: 100 mg Magnesium Hydroxide (Milk Of Magnesia 30 Ml Oral.Susp) 30 ml PO DAILY PRN PRN Reason: Constipation Last Admin: 02/22/23 18:18 Dose: 30 ml Mirtazapine (Mirtazapine 15 Mg Tablet) 15 mg PO BEDTIME [facility] Last Admin: 02/21/23 20:54 Dose: 15 mg Senna (Sennosides 8.6 Mg Tablet) 17.2 mg PO BID [facility] Last Admin: 02/22/23 08:22 Dose: 17.2 mg Simethicone (Simethicone 80 Mg Tab.Chew) 80 mg PO QIDWMHS PRN PRN Reason: Gas Last Admin: 02/20/23 20:55 Dose: 80 mg Trazodone HCl (Trazodone Hcl 50 Mg Tablet) 50 mg PO BEDTIME MRX1 PRN PRN Reason: Insomnia Last Admin: 02/21/23 20:54 Dose: 50 mg Allergies Allergies Allergy/AdvReac Type Severity Reaction Status Date / Time pencillin Allergy Severe Unknown Uncoded 02/11/23 16:58 Assessment & Plan Assessment & Plan (1) Bipolar disorder: Status: Acute Code(s): F31.9 - Bipolar disorder, unspecified (2) Dementia: Status: Acute Code(s): F03.90 - Unspecified dementia, unspecified severity, without behavioral disturbance, psychotic disturbance, mood disturbance, and anxiety (3) Essential hypertension: Status: Acute Code(s): I10 - Essential (primary) hypertension Plan The patient is an elderly male with a past history of bipolar disorder who was admitted to this facility on June this year for a similar presentation with exacerbation of depression and neurovegetative symptoms. Apparently the patient had been on compliant with treatment and he has relapsed on his depressive symptoms with suicidality but he is able to contract for safety. Plan 1. Gather collateral information, we are going to contact he his son who is the healthcare proxy. 2. Continue with regular antidepressants the patient agreed to titrate antidepressants but since there is the suspicion that the patient had been on compliant we will restart and start the titration slowly. 3. Continue with medical workout. 4. Reassessment with results 5. Increase Remeron up to 15 mg p.o. q.h.s. and increase Lamictal up to 25 p.o. b.i.d. on Feb 13. Lamictal increased up to 50 mg p.o. b.i.d. on February 18 6. Adding Klonopin 0.25 mg po tid for anxiety. b.i.d. February 16 7. Adding Senna and Colace PRN constipation on Feb 18. 8. Adding Gas-X on February 19 02/20/23 Reporting abdominal pain and SI today. Team reports medicine refusal this a.m. and pt reports poor appetite. 02/06 KUB indicates possible ureteral calculus (0.2 cm calcification) adjacent to RL3 transverse process. Plan: CBCD, CMP, KUB Address medical concerns, if sx are somatic will adjust psychotropic regime. 02/21: Continue current treatment plan and medications. 02/22: If no resolution of constipation may need hospitalist consult for further recommendations. Consider fleet enema. Reason for continued inpatient stay Substantial Risk for: inability to function and rapid decompensation Time Spent With Patient Time: Total time managing care of this patient today ____ minutes.
[2023-02-22 19:40] VITALS: BP 156/87; PULSE 62; RESP 16; TEMP 36.7; O2SAT 94
[2023-02-23 08:00] VITALS: BP 185/84; PULSE 64; RESP 18; TEMP 36.3; O2SAT 97
[2023-02-23 09:30] VITALS: BP 164/80
--- NOTE | 2023-02-23 15:08 | HO.PSYCHPN ---
Subjective Subjective Date of Service: 02/23/23 Reason For Visit: SI Interim History: Patient was seen and discussed in rounds today. Records and plans were reviewed. He has been constipated in spite a lot of oral measures and today we finally gave him a talked locks suppository which she reluctantly accepted and it was effective. No dangerous behaviors. No changes were made today Review of Systems Review of Systems Yes Unobtainable due to mental status Mental Status Exam Mental Status Exam Patient Appearance: Appropriate Patient Orientation: Person and Place Level of Consciousness: Alert Patient Behavior: Talkative, Cooperative and Good Eye Contact Mood Description: Depressed Affect Description: Flat Patient Cognition Impaired: Yes Ability to Follow Directions: Fair Speech Pattern: Spontaneous Speech Memory Description: Episodic Impaired Diagnostics Vital Signs (24Hr): Vital Signs - 24 hr 02/22/23 19:40 02/23/23 08:00 Temperature 98.0 F 97.4 F Pulse Rate 62 64 Respiratory Rate 16 18 Blood Pressure 156/87 H 185/84 H Pulse Oximetry 94 97 Oxygen Delivery Method Room Air Room Air BMI result Body Mass Index 23.2 Labs 02/20/23 11:28 02/20/23 11:28 Imaging Radiology Impressions: ITS Impressions Chest X-Ray 02/11/23 12:57 IMPRESSION: No acute abnormality. KUB X-Ray 02/20/23 11:21 IMPRESSION: No evidence of bowel obstruction. Moderate stool burden. Previously seen calcification no longer present Medications Medications Current Medications Acetaminophen (Acetaminophen 325 Mg Tablet) 650 mg PO Q6H PRN PRN Reason: Headache/Pain Mild Scale (1-3) Last Admin: 02/22/23 03:53 Dose: 650 mg Al Hydroxide/Mg Hydroxide (Magnesium Hydrox/Alum Hydrox 30 Ml Oral.Susp) 30 ml PO Q6H PRN PRN Reason: Heartburn/Nausea Last Admin: 02/22/23 20:42 Dose: 30 ml Docusate Sodium (Docusate Sodium 100 Mg Capsule) 100 mg PO BID PRN PRN Reason: Constipation Last Admin: 02/23/23 10:59 Dose: 100 mg Hydroxyzine HCl (Hydroxyzine Hcl 25 Mg Tablet) 25 mg PO Q6H PRN PRN Reason: Anxiety Last Admin: 02/20/23 21:58 Dose: 25 mg Lamotrigine (Lamotrigine 100 Mg Tablet) 100 mg PO BID [facility] Last Admin: 02/23/23 08:08 Dose: 100 mg Magnesium Hydroxide (Milk Of Magnesia 30 Ml Oral.Susp) 30 ml PO DAILY PRN PRN Reason: Constipation Last Admin: 02/22/23 18:18 Dose: 30 ml Mirtazapine (Mirtazapine 15 Mg Tablet) 15 mg PO BEDTIME [facility] Last Admin: 02/22/23 20:42 Dose: 15 mg Senna (Sennosides 8.6 Mg Tablet) 17.2 mg PO BID [facility] Last Admin: 02/23/23 08:07 Dose: 17.2 mg Simethicone (Simethicone 80 Mg Tab.Chew) 80 mg PO QIDWMHS PRN PRN Reason: Gas Last Admin: 02/22/23 20:42 Dose: 80 mg Trazodone HCl (Trazodone Hcl 50 Mg Tablet) 50 mg PO BEDTIME MRX1 PRN PRN Reason: Insomnia Last Admin: 02/21/23 20:54 Dose: 50 mg Allergies Allergies Allergy/AdvReac Type Severity Reaction Status Date / Time pencillin Allergy Severe Unknown Uncoded 02/11/23 16:58 Assessment & Plan Assessment & Plan (1) Bipolar disorder: Status: Acute Code(s): F31.9 - Bipolar disorder, unspecified (2) Dementia: Status: Acute Code(s): F03.90 - Unspecified dementia, unspecified severity, without behavioral disturbance, psychotic disturbance, mood disturbance, and anxiety (3) Essential hypertension: Status: Acute Code(s): I10 - Essential (primary) hypertension Plan The patient is an elderly male with a past history of bipolar disorder who was admitted to this facility on June this year for a similar presentation with exacerbation of depression and neurovegetative symptoms. Apparently the patient had been on compliant with treatment and he has relapsed on his depressive symptoms with suicidality but he is able to contract for safety. Plan 1. Gather collateral information, we are going to contact he his son who is the healthcare proxy. 2. Continue with regular antidepressants the patient agreed to titrate antidepressants but since there is the suspicion that the patient had been on compliant we will restart and start the titration slowly. 3. Continue with medical workout. 4. Reassessment with results 5. Increase Remeron up to 15 mg p.o. q.h.s. and increase Lamictal up to 25 p.o. b.i.d. on Feb 13. Lamictal increased up to 50 mg p.o. b.i.d. on February 18. Adding Klonopin 0.25 mg po tid for anxiety. b.i.d. February 16. Adding Senna and Colace PRN constipation on Feb 18. 8. Adding Gas-X on February 19 02/20/23 Reporting abdominal pain and SI today. Team reports medicine refusal this a.m. and pt reports poor appetite. 02/06 KUB indicates possible ureteral calculus (0.2 cm calcification) adjacent to RL3 transverse process. Plan: CBCD, CMP, KUB Address medical concerns, if sx are somatic will adjust psychotropic regime. 02/21: Continue current treatment plan and medications. 02/22: If no resolution of constipation may need hospitalist consult for further recommendations. Consider fleet enema. 02/23: Continue current plans and regimen. Constipation resolved for now Reason for continued inpatient stay Substantial Risk for: inability to function Time Spent With Patient Time: Total time managing care of this patient today ____ minutes.
[2023-02-23 18:00] VITALS: BP 133/60; PULSE 60; RESP 17; TEMP 36.6; O2SAT 94
[2023-02-23] MEDS: traZODone HCL 50 MG TABLET PO (20:30)
[2023-02-23 22:41] VITALS: BP 161/75; PULSE 60; RESP 18; TEMP 36.6
[2023-02-24 09:18] VITALS: BP 149/70; PULSE 63; RESP 16; TEMP 36.3; O2SAT 96
--- NOTE | 2023-02-24 12:05 | HO.PSYCHPN ---
Subjective Subjective Date of Service: 02/24/23 Reason For Visit: SI Subjective Notes: Conditional Voluntary Interim History: The nursing staff reported patient is alert oriented x2, depressed but with good p.o. intake. He was constipated but yesterday he received medications and he had a lap PE bowel movement. On interview the patient denies suicidal ideation at this moment. The director social reported that tomorrow family will come and most likely he could be discharged at the end of the week. Mental Status Exam Mental Status Exam Patient Appearance: Appropriate Patient Orientation: Person and Situation Level of Consciousness: Awake and Appropriate Patient Behavior: Guarded and Passive Mood Description: Withdrawn Affect Description: Constricted Patient Cognition Impaired: Yes Ability to Follow Directions: Good Speech Pattern: Clear Hallucinations: None Delusions: Paranoid Ideation Thought Process: Distracted and Slowed Thinking Thought Content: positive for [place] and positive for Poverty of Content Judgement: Fair Diagnostics Vital Signs (24Hr): Vital Signs - 24 hr 02/23/23 18:00 02/23/23 22:41 02/24/23 09:18 Temperature 97.8 F 97.8 F 97.3 F Pulse Rate 60 60 63 Respiratory Rate 17 18 16 Blood Pressure 133/60 161/75 H 149/70 H Pulse Oximetry 94 96 Oxygen Delivery Method Room Air Room Air BMI result Body Mass Index 23.2 Labs 02/20/23 11:28 02/20/23 11:28 Imaging Radiology Impressions: ITS Impressions Chest X-Ray 02/11/23 12:57 IMPRESSION: No acute abnormality. KUB X-Ray 02/20/23 11:21 IMPRESSION: No evidence of bowel obstruction. Moderate stool burden. Previously seen calcification no longer present Medications Medications Current Medications Acetaminophen (Acetaminophen 325 Mg Tablet) 650 mg PO Q6H PRN PRN Reason: Headache/Pain Mild Scale (1-3) Last Admin: 02/23/23 16:01 Dose: 650 mg Al Hydroxide/Mg Hydroxide (Magnesium Hydrox/Alum Hydrox 30 Ml Oral.Susp) 30 ml PO Q6H PRN PRN Reason: Heartburn/Nausea Last Admin: 02/23/23 16:02 Dose: 30 ml Clonazepam (Clonazepam 0.125 Mg Tab.Rapdis) 0.25 mg PO TID [facility] Last Admin: 02/24/23 09:22 Dose: 0.25 mg Docusate Sodium (Docusate Sodium 100 Mg Capsule) 100 mg PO BID PRN PRN Reason: Constipation Last Admin: 02/23/23 10:59 Dose: 100 mg Hydroxyzine HCl (Hydroxyzine Hcl 25 Mg Tablet) 25 mg PO Q6H PRN PRN Reason: Anxiety Last Admin: 02/20/23 21:58 Dose: 25 mg Lamotrigine (Lamotrigine 100 Mg Tablet) 100 mg PO BID [facility] Last Admin: 02/24/23 09:21 Dose: 100 mg Magnesium Hydroxide (Milk Of Magnesia 30 Ml Oral.Susp) 30 ml PO DAILY PRN PRN Reason: Constipation Last Admin: 02/22/23 18:18 Dose: 30 ml Mirtazapine (Mirtazapine 15 Mg Tablet) 15 mg PO BEDTIME ELAINE Last Admin: 02/23/23 20:32 Dose: 15 mg Senna (Sennosides 8.6 Mg Tablet) 17.2 mg PO BID [facility] Last Admin: 02/24/23 09:22 Dose: 17.2 mg Simethicone (Simethicone 80 Mg Tab.Chew) 80 mg PO QIDWMHS PRN PRN Reason: Gas Last Admin: 02/22/23 20:42 Dose: 80 mg Trazodone HCl (Trazodone Hcl 50 Mg Tablet) 50 mg PO BEDTIME MRX1 PRN PRN Reason: Insomnia Last Admin: 02/23/23 20:30 Dose: 50 mg Allergies Allergies Allergy/AdvReac Type Severity Reaction Status Date / Time pencillin Allergy Severe Unknown Uncoded 02/11/23 16:58 Assessment & Plan Assessment & Plan (1) Bipolar disorder: Status: Acute Code(s): F31.9 - Bipolar disorder, unspecified (2) Dementia: Status: Acute Code(s): F03.90 - Unspecified dementia, unspecified severity, without behavioral disturbance, psychotic disturbance, mood disturbance, and anxiety (3) Essential hypertension: Status: Acute Code(s): I10 - Essential (primary) hypertension Plan The patient is an elderly male with a past history of bipolar disorder who was admitted to this facility on June this year for a similar presentation with exacerbation of depression and neurovegetative symptoms. Apparently the patient had been on compliant with treatment and he has relapsed on his depressive symptoms with suicidality but he is able to contract for safety. Plan 1. Gather collateral information, we are going to contact he his son who is the healthcare proxy. 2. Continue with regular antidepressants the patient agreed to titrate antidepressants but since there is the suspicion that the patient had been on compliant we will restart and start the titration slowly. 3. Continue with medical workout. 4. Reassessment with results 5. Increase Remeron up to 15 mg p.o. q.h.s. and increase Lamictal up to 25 p.o. b.i.d. on Feb 13. Lamictal increased up to 50 mg p.o. b.i.d. on February 18 6. Adding Klonopin 0.25 mg po tid for anxiety. b.i.d. February 16 7. Adding Senna and Colace PRN constipation on Feb 18. 8. Adding Gas-X on February 19 9. Family meeting for February 25 Reason for continued inpatient stay Substantial Risk for: inability to function, rapid decompensation and med/psych decompensation Time Spent With Patient Time: Total time managing care of this patient today __20__ minutes.
[2023-02-24 18:00] VITALS: BP 156/79; PULSE 61; RESP 16; TEMP 37; O2SAT 97
[2023-02-24] MEDS: traZODone HCL 50 MG TABLET PO (20:32)
[2023-02-25 07:54] VITALS: BP 161/77; PULSE 61; RESP 16; TEMP 36.7; O2SAT 95
--- NOTE | 2023-02-25 10:28 | PC.NURSE ---
Addendum entered by Morelia Marie RN 02/25/23 11:22: Patient was asymptomatic Original Note: Patients BP this morning was 161/77, with previous BP readings between 130-[address] Peters notified and new order for hydrochlorothiazide given this morning.
[2023-02-25 12:45] VITALS: BP 144/78
--- NOTE | 2023-02-25 12:46 | PC.NURSE ---
Patient's BP read 144/[address] Peters notified.
--- NOTE | 2023-02-25 14:05 | MHC.CLN ---
F/U INTAKE TODAY 100% AT BREAKFAST AND LUNCH. NO CURRENT CONCERNS WITH INTAKE.
--- NOTE | 2023-02-25 15:35 | P.PNPSI_ITS ---
Subjective Subjective Date of Service: 02/25/23 Reason For Visit: SI Subjective Notes: Conditional Voluntary Interim History: The nursing staff reported the patient had been pleasant, with a brighter affect but still depressed. On interview the patient denies new symptoms. Today we had a family meeting and they agreed and discharging him over the weekend. This moment, in no safety concerns reported mild depression but able to contract for safety. Mental Status Exam Mental Status Exam Patient Appearance: Appropriate Patient Orientation: Person and Situation Level of Consciousness: Awake and Appropriate Patient Behavior: Guarded and Passive Mood Description: Withdrawn Affect Description: Constricted and Depressed Patient Cognition Impaired: Yes Ability to Follow Directions: Good Speech Pattern: Clear Hallucinations: None Delusions: Not Present Thought Process: Distracted Thought Content: positive for [place] and positive for Circumstantial Judgement: Poor Diagnostics Vital Signs (24Hr): Vital Signs - 24 hr 02/24/23 18:00 02/25/23 07:54 02/25/23 12:45 Temperature 98.6 F 98.0 F Pulse Rate 61 61 Respiratory Rate 16 16 Blood Pressure 156/79 H 161/77 H 144/78 H Pulse Oximetry 97 95 Oxygen Delivery Method Room Air Room Air BMI result Body Mass Index 23.2 Labs 02/20/23 11:28 02/20/23 11:28 Imaging Radiology Impressions: ITS Impressions Chest X-Ray 02/11/23 12:57 IMPRESSION: No acute abnormality. KUB X-Ray 02/20/23 11:21 IMPRESSION: No evidence of bowel obstruction. Moderate stool burden. Previously seen calcification no longer present Medications Medications Current Medications Acetaminophen (Acetaminophen 325 Mg Tablet) 650 mg PO Q6H PRN PRN Reason: Headache/Pain Mild Scale (1-3) Last Admin: 02/24/23 20:32 Dose: 650 mg Al Hydroxide/Mg Hydroxide (Magnesium Hydrox/Alum Hydrox 30 Ml Oral.Susp) 30 ml PO Q6H PRN PRN Reason: Heartburn/Nausea Last Admin: 02/23/23 16:02 Dose: 30 ml Clonazepam (Clonazepam 0.125 Mg Tab.Rapdis) 0.25 mg PO TID PRN PRN Reason: Anxiety Docusate Sodium (Docusate Sodium 100 Mg Capsule) 100 mg PO BID PRN PRN Reason: Constipation Last Admin: 02/23/23 10:59 Dose: 100 mg Hydrochlorothiazide (Hydrochlorothiazide 12.5 Mg Tablet) 12.5 mg PO DAILY [facility]; Protocol Last Admin: 02/25/23 09:48 Dose: 12.5 mg Lamotrigine (Lamotrigine 100 Mg Tablet) 100 mg PO BID [facility] Last Admin: 02/25/23 08:08 Dose: 100 mg Magnesium Hydroxide (Milk Of Magnesia 30 Ml Oral.Susp) 30 ml PO DAILY PRN PRN Reason: Constipation Last Admin: 02/22/23 18:18 Dose: 30 ml Mirtazapine (Mirtazapine 15 Mg Tablet) 15 mg PO BEDTIME ELAINE Last Admin: 02/24/23 20:32 Dose: 15 mg Senna (Sennosides 8.6 Mg Tablet) 17.2 mg PO BID [facility] Last Admin: 02/25/23 08:07 Dose: 17.2 mg Simethicone (Simethicone 80 Mg Tab.Chew) 80 mg PO QIDWMHS PRN PRN Reason: Gas Last Admin: 02/22/23 20:42 Dose: 80 mg Trazodone HCl (Trazodone Hcl 50 Mg Tablet) 50 mg PO BEDTIME MRX1 PRN PRN Reason: Insomnia Last Admin: 02/24/23 20:32 Dose: 50 mg Allergies Allergies Allergy/AdvReac Type Severity Reaction Status Date / Time pencillin Allergy Severe Unknown Uncoded 02/11/23 16:58 Assessment & Plan Assessment & Plan (1) Bipolar disorder: Status: Acute Code(s): F31.9 - Bipolar disorder, unspecified (2) Dementia: Status: Acute Code(s): F03.90 - Unspecified dementia, unspecified severity, without behavioral disturbance, psychotic disturbance, mood disturbance, and anxiety (3) Essential hypertension: Status: Acute Code(s): I10 - Essential (primary) hypertension Plan The patient is an elderly male with a past history of bipolar disorder who was admitted to this facility on June this year for a similar presentation with exacerbation of depression and neurovegetative symptoms. Apparently the patient had been on compliant with treatment and he has relapsed on his depressive symptoms with suicidality but he is able to contract for safety. Plan 1. Gather collateral information, we are going to contact he his son who is the healthcare proxy. 2. Continue with regular antidepressants the patient agreed to titrate antidepressants but since there is the suspicion that the patient had been on compliant we will restart and start the titration slowly. 3. Continue with medical workout. 4. Reassessment with results 5. Increase Remeron up to 15 mg p.o. q.h.s. and increase Lamictal up to 25 p.o. b.i.d. on Feb 13. Lamictal increased up to 50 mg p.o. b.i.d. on February 18 6. Adding Klonopin 0.25 mg po tid for anxiety. b.i.d. February 16 7. Adding Senna and Colace PRN constipation on Feb 18. 8. Adding Gas-X on February 19 9. Family meeting for February 25 her disposition plan Reason for continued inpatient stay Substantial Risk for: inability to function, rapid decompensation and med/psych decompensation Time Spent With Patient Time: Total time managing care of this patient today __20__ minutes.
[2023-02-25 19:40] VITALS: BP 158/80; PULSE 65; RESP 18; TEMP 36.7; O2SAT 98
[2023-02-25] MEDS: Acetaminophen 325 MG TABLET 650 MG PO (19:56)
[2023-02-25] MEDS: Sennosides 8.6 MG TABLET 17.2 MG PO (19:56)
[2023-02-25] MEDS: lamoTRIgine 100 MG TABLET PO (19:57)
[2023-02-25] MEDS: Mirtazapine 15 MG TABLET PO (19:57)
[2023-02-25] MEDS: traZODone HCL 50 MG TABLET PO (19:57)
[2023-02-26] VITALS (8 sets, daily range): BP systolic 121–205; BP diastolic 59–106; PULSE 65–80; RESP 18–36; TEMP 36.4–37.1; O2SAT 96–98; BMI 22.6
--- NOTE | 2023-02-26 | ECG_ITS ---
Test Reason : r/o mi Blood Pressure : / mmHG Vent. Rate : 073 BPM Atrial Rate : 073 BPM P-R Int : 150 ms QRS Dur : 074 ms QT Int : 378 ms P-R-T Axes : 010 -40 033 degrees QTc Int : 416 ms Sinus rhythm with Premature atrial complexes RSR' or QR pattern in V1 suggests right ventricular conduction delay Left anterior fascicular block Abnormal ECG No previous ECGs available Referred By: Bin Peters Electronically Signed By:PARAM BROWNING MD
[2023-02-26] MEDS: hydroCHLOROthiazide 12.5 MG TABLET PO (08:52)
[2023-02-26] MEDS: Sennosides 8.6 MG TABLET 17.2 MG PO ×2 (08:52→21:23)
[2023-02-26] MEDS: lamoTRIgine 100 MG TABLET PO ×2 (08:53→21:22)
--- NOTE | 2023-02-26 09:03 | HO.PSYCHPN ---
Subjective Subjective Date of Service: 02/26/23 Reason For Visit: SI Subjective Notes: Conditional Voluntary Interim History: The nursing staff reported the patient had been pleasant, cooperative, he slept 7 hours. Today in the morning he vomited his breakfast and decided to rest. We provide him with p.r.n. medications. On interview the patient reports that he probably over-ate in the breakfast and he wants to rest. No suicidal thoughts at this moment. Mental Status Exam Mental Status Exam Patient Appearance: Well Grooomed and Appropriate Patient Orientation: Person and Situation Level of Consciousness: Awake and Appropriate Patient Behavior: Guarded and Passive Mood Description: Withdrawn Affect Description: Constricted Patient Cognition Impaired: Yes Ability to Follow Directions: Good Speech Pattern: Clear Hallucinations: None Delusions: Not Present Thought Process: Distracted and Slowed Thinking Thought Content: positive for [place] and positive for Poverty of Content Judgement: Fair Diagnostics Vital Signs (24Hr): Vital Signs - 24 hr 02/25/23 12:45 02/25/23 19:40 02/26/23 08:20 Temperature 98.1 F 98 F Pulse Rate 65 66 Respiratory Rate 18 18 Blood Pressure 144/78 H 158/80 H 121/59 L Pulse Oximetry 98 97 Oxygen Delivery Method Room Air Room Air BMI result Body Mass Index 23.2 Labs 02/20/23 11:28 02/20/23 11:28 Imaging Radiology Impressions: ITS Impressions Chest X-Ray 02/11/23 12:57 IMPRESSION: No acute abnormality. KUB X-Ray 02/20/23 11:21 IMPRESSION: No evidence of bowel obstruction. Moderate stool burden. Previously seen calcification no longer present Medications Medications Current Medications Acetaminophen (Acetaminophen 325 Mg Tablet) 650 mg PO Q6H PRN PRN Reason: Headache/Pain Mild Scale (1-3) Last Admin: 02/25/23 19:56 Dose: 650 mg Al Hydroxide/Mg Hydroxide (Magnesium Hydrox/Alum Hydrox 30 Ml Oral.Susp) 30 ml PO Q6H PRN PRN Reason: Heartburn/Nausea Last Admin: 02/23/23 16:02 Dose: 30 ml Clonazepam (Clonazepam 0.125 Mg Tab.Rapdis) 0.25 mg PO TID PRN PRN Reason: Anxiety Docusate Sodium (Docusate Sodium 100 Mg Capsule) 100 mg PO BID PRN PRN Reason: Constipation Last Admin: 02/23/23 10:59 Dose: 100 mg Hydrochlorothiazide (Hydrochlorothiazide 12.5 Mg Tablet) 12.5 mg PO DAILY [facility]; Protocol Last Admin: 02/26/23 08:52 Dose: 12.5 mg Lamotrigine (Lamotrigine 100 Mg Tablet) 100 mg PO BID [facility] Last Admin: 02/26/23 08:53 Dose: 100 mg Magnesium Hydroxide (Milk Of Magnesia 30 Ml Oral.Susp) 30 ml PO DAILY PRN PRN Reason: Constipation Last Admin: 02/22/23 18:18 Dose: 30 ml Mirtazapine (Mirtazapine 15 Mg Tablet) 15 mg PO BEDTIME ELAINE Last Admin: 02/25/23 19:57 Dose: 15 mg Senna (Sennosides 8.6 Mg Tablet) 17.2 mg PO BID [facility] Last Admin: 02/26/23 08:52 Dose: 17.2 mg Simethicone (Simethicone 80 Mg Tab.Chew) 80 mg PO QIDWMHS PRN PRN Reason: Gas Last Admin: 02/22/23 20:42 Dose: 80 mg Trazodone HCl (Trazodone Hcl 50 Mg Tablet) 50 mg PO BEDTIME MRX1 PRN PRN Reason: Insomnia Last Admin: 02/25/23 19:57 Dose: 50 mg Allergies Allergies Allergy/AdvReac Type Severity Reaction Status Date / Time pencillin Allergy Severe Unknown Uncoded 02/11/23 16:58 Assessment & Plan Assessment & Plan (1) Bipolar disorder: Status: Acute Code(s): F31.9 - Bipolar disorder, unspecified (2) Dementia: Status: Acute Code(s): F03.90 - Unspecified dementia, unspecified severity, without behavioral disturbance, psychotic disturbance, mood disturbance, and anxiety (3) Essential hypertension: Status: Acute Code(s): I10 - Essential (primary) hypertension Plan The patient is an elderly male with a past history of bipolar disorder who was admitted to this facility on June this year for a similar presentation with exacerbation of depression and neurovegetative symptoms. Apparently the patient had been on compliant with treatment and he has relapsed on his depressive symptoms with suicidality but he is able to contract for safety. Plan 1. Gather collateral information, we are going to contact he his son who is the healthcare proxy. 2. Continue with regular antidepressants the patient agreed to titrate antidepressants but since there is the suspicion that the patient had been on compliant we will restart and start the titration slowly. 3. Continue with medical workout. 4. Reassessment with results 5. Increase Remeron up to 15 mg p.o. q.h.s. and increase Lamictal up to 25 p.o. b.i.d. on Feb 13. Lamictal increased up to 50 mg p.o. b.i.d. on February 18 6. Adding Klonopin 0.25 mg po tid for anxiety. b.i.d. February 16 7. Adding Senna and Colace PRN constipation on Feb 18. 8. Adding Gas-X on February 19 9. Family meeting for February 25 and we discussed discharge planning. He will be discharged next Thursday. 10. On February 26, vomiting and I called the hospitalist. EKG ordered. Reason for continued inpatient stay Substantial Risk for: inability to function, rapid decompensation and med/psych decompensation Time Spent With Patient Time: Total time managing care of this patient today __20__ minutes.
[2023-02-26] MEDS: Simethicone 80 MG TAB.CHEW PO (11:32)
--- NOTE | 2023-02-26 15:52 | PC.NURSE ---
Patient with vomiting this morning , brown liquid after breakfast. Vital signs 98.6-36-80-186/86, O2 Sat 97% on room air. Patient complaining of severe pain right upper quadrant, has increased anxiety. Bowel sounds hyperactive, lung sounds clear all quadrants and belly breathing. Dr. Lopez updated. Patient refused Maalox but took Simethicone at 1132. Klonopin 0.25mg given at 1322 with some effect. Patient continues to complain of abdominal pain. EKG and hospitalist consult ordered. Vital signs after EKG, BP 205/106, P 66, R36 and O2 Sat 97% on room air. .Dr. Peters here and updated. Patient belly breathing and now complaining of severe sub-sternal chest pain and his extremities are tremulous. Resting in bed. Waiting for hospitalist to see patient.
[2023-02-26] MEDS: amLODIPine Besylate 5 MG TABLET PO (17:45)
--- NOTE | 2023-02-26 17:49 | PC.NURSE ---
Norvasc 5mg PO x1 ordered by Philip NORWOOD and given PO at 1745. Patient reports that he feels a little better and his pain has moved to his upper right quadrant. Last B/P 188 manually upper left arm at 1726.
--- NOTE | 2023-02-26 18:51 | PC.NURSE ---
Addendum entered by Matilda Coto RN 02/26/23 19:02: Patient continues to belly breathe and has some scattered petechiae on his abdomen and chest. Philip NORWOOD updated. Original Note: B/p checked one hour after Norvasc, B/P is 176/96 manual left upper arm, patient is supine. Patient says substernal pain is less but still there.
--- NOTE | 2023-02-26 19:49 | P.EN_ITS ---
Event Note Date of Service: 02/26/23 Event Note: Medical consult for patient with persistent hypertension and epig astric/substernal pain. Patient apparently vomited earlier today and has since been complaining of substernal/epigastric abdominal pain. Describes pain as ?burning and gnawing , occasionally radiates to right side. Nursing staff described vomitus as liquidy and brown . Patient apparently has had decreased p.o. intake. Patient's BP also been noted to be as high as 205/106 with most recent reading 165/86. Patient currently only on hydrochlorothiazide 12.5 mg for hypertension. Abdominal exam relatively benign. Patient endorses some epigastric and right-sided discomfort but denies describing it as pain. Will get basic labs: CBC, CMP. For hypertension, will increase hydrochlorothiazide to 25 mg daily. For epigastric pain will start on famotidine 20 mg at bedtime. Thank you for allowing us to participate in the care of this patient. Will continue to follow for now. Please let us know if there are any acute complaints or questions. Time Spent With Patient Time: Total time managing care of this patient today ____ minutes.
[2023-02-26 20:30] LABS: Hematocrit 42.1 % (42.0-52.0); Hemoglobin 14.2 g/dl (14.0-18.0); Mean Corpuscular HGB Conc 33.7 g/dl (31.0-36.0); Mean Corpuscular Hemoglobin 30.9 pg (27.0-33.0); Mean Corpuscular Volume 91.7 fL (80.0-98.0); Mean Platelet Volume 10.9 fL (9.4-12.4); Platelet Count 183 X10*3/uL (160-400); Red Blood Count 4.59 X10*6/uL (4.60-5.80); Red Cell Distribution Width 13.5 % (11.0-16.0); White Blood Count 9.2 X10*3/uL (4.8-10.8)
[2023-02-26 20:45] LABS: Alanine Aminotransferase 10 U/L (0-40); Albumin Level 4.1 g/dL (3.5-5.0); Alkaline Phosphatase 70 U/L (39-117); Anion Gap 15 (12-20); Aspartate Amino Transferase 15 U/L (5-37); Bilirubin Total 0.4 mg/dL (0.0-1.0); Blood Urea Nitrogen 15 mg/dL (9-16); Calcium 9.6 mg/dL (8.4-10.2); Carbon Dioxide 24 mmol/L (22-29); Chloride 105 mmol/L (96-108); Creatinine Clr Calc Pharmacy 54.4; Estimated Glomerular Filt Rate > 60; Glucose Random 101 mg/dL (60-115); Potassium 3.7 mmol/L (3.3-5.1); Sodium 140 mmol/L (135-145); Total Protein 7.3 g/dL (6.5-8.0)
[2023-02-26] MEDS: Mirtazapine 15 MG TABLET PO (21:22)
[2023-02-26] MEDS: Acetaminophen 325 MG TABLET 650 MG PO (21:22)
[2023-02-26] MEDS: traZODone HCL 50 MG TABLET PO (21:23)
[2023-02-26] MEDS: Famotidine 20 MG TABLET PO (22:15)
[2023-02-27] MEDS: Sennosides 8.6 MG TABLET 17.2 MG PO ×2 (08:10→20:01)
[2023-02-27] MEDS: lamoTRIgine 100 MG TABLET PO ×2 (08:11→20:01)
[2023-02-27] MEDS: hydroCHLOROthiazide 25 MG TABLET PO (08:11)
[2023-02-27 08:17] VITALS: BP 137/81; PULSE 79; RESP 16; TEMP 36.8; O2SAT 96
--- NOTE | 2023-02-27 09:07 | HO.PSYCHPN ---
Subjective Subjective Date of Service: 02/27/23 Reason For Visit: SI Subjective Notes: Conditional Voluntary Interim History: The nursing staff reported the patient has been pleasant and cooperative. Last night, after the patient was complaining of somatic complaints they found out several pills that he spit out on his pillow. On interview we discussed with the patient the need of compliance with medications. He was medically cleared by the medical team after he complained of abdominal pain, chest pain and other medical complaints. The patient reports that he is feeling fine and he is ready for discharge for the Thursday. Mental Status Exam Mental Status Exam Patient Appearance: Well Grooomed and Appropriate Patient Orientation: Person and Situation Level of Consciousness: Awake and Appropriate Patient Behavior: Guarded and Passive Mood Description: Withdrawn Affect Description: Constricted Patient Cognition Impaired: Yes Ability to Follow Directions: Good Speech Pattern: Clear Hallucinations: None Delusions: Not Present Thought Process: Distracted and Slowed Thinking Thought Content: positive for [place] and positive for Poverty of Content Judgement: Fair Diagnostics Vital Signs (24Hr): Vital Signs - 24 hr 02/26/23 11:00 02/26/23 12:50 02/26/23 15:50 Temperature 98.6 F 98.6 F Pulse Rate 80 66 66 Respiratory Rate 36 H 36 H 36 H Blood Pressure 186/86 H 188/87 H 205/106 H Pulse Oximetry 97 97 97 Oxygen Delivery Method Room Air Room Air Room Air 02/26/23 16:24 02/26/23 17:31 02/26/23 18:50 Temperature 98.8 F Pulse Rate 80 Respiratory Rate 24 H Blood Pressure 170/100 H 188/84 H 176/96 H Pulse Oximetry 96 Oxygen Delivery Method Room Air 02/26/23 19:30 02/27/23 08:17 Temperature 97.6 F 98.2 F Pulse Rate 65 79 Respiratory Rate 18 16 Blood Pressure 165/86 H 137/81 Pulse Oximetry 98 96 Oxygen Delivery Method Room Air Room Air BMI result Body Mass Index 22.6 Labs 02/26/23 20:22 02/26/23 20:22 Labs: Laboratory Results - last 48 hr 02/26/23 20:22 WBC 9.2 RBC 4.59 L Hgb 14.2 Hct 42.1 MCV 91.7 MCH 30.9 MCHC 33.7 RDW 13.5 Plt Count 183 MPV 10.9 Absolute Nucleated RBC 0.000 Nucleated RBC % (auto) 0.0 Sodium 140 Potassium 3.7 Chloride 105 Carbon Dioxide 24 Anion Gap 15 BUN 15 Creatinine 0.92 Estim Creat Clear Calc 54.4 Estimated GFR > 60 Random Glucose 101 Calcium 9.6 Total Bilirubin 0.4 AST 15 ALT 10 Alkaline Phosphatase 70 Total Protein 7.3 Albumin 4.1 Imaging Radiology Impressions: ITS Impressions Chest X-Ray 02/11/23 12:57 IMPRESSION: No acute abnormality. KUB X-Ray 02/20/23 11:21 IMPRESSION: No evidence of bowel obstruction. Moderate stool burden. Previously seen calcification no longer present Medications Medications Current Medications Acetaminophen (Acetaminophen 325 Mg Tablet) 650 mg PO Q6H PRN PRN Reason: Headache/Pain Mild Scale (1-3) Last Admin: 02/26/23 21:22 Dose: 650 mg Al Hydroxide/Mg Hydroxide (Magnesium Hydrox/Alum Hydrox 30 Ml Oral.Susp) 30 ml PO Q6H PRN PRN Reason: Heartburn/Nausea Last Admin: 02/23/23 16:02 Dose: 30 ml Clonazepam (Clonazepam 0.125 Mg Tab.Rapdis) 0.25 mg PO TID PRN PRN Reason: Anxiety Last Admin: 02/26/23 21:21 Dose: 0.25 mg Docusate Sodium (Docusate Sodium 100 Mg Capsule) 100 mg PO BID PRN PRN Reason: Constipation Last Admin: 02/23/23 10:59 Dose: 100 mg Famotidine (Famotidine 20 Mg Tablet) 20 mg PO BEDTIME [facility] Last Admin: 02/26/23 22:15 Dose: 20 mg Hydrochlorothiazide (Hydrochlorothiazide 25 Mg Tablet) 25 mg PO DAILY [facility]; Protocol Last Admin: 02/27/23 08:11 Dose: 25 mg Lamotrigine (Lamotrigine 100 Mg Tablet) 100 mg PO BID [facility] Last Admin: 02/27/23 08:11 Dose: 100 mg Magnesium Hydroxide (Milk Of Magnesia 30 Ml Oral.Susp) 30 ml PO DAILY PRN PRN Reason: Constipation Last Admin: 02/22/23 18:18 Dose: 30 ml Mirtazapine (Mirtazapine 15 Mg Tablet) 15 mg PO BEDTIME [facility] Last Admin: 02/26/23 21:22 Dose: 15 mg Senna (Sennosides 8.6 Mg Tablet) 17.2 mg PO BID [facility] Last Admin: 02/27/23 08:10 Dose: 17.2 mg Simethicone (Simethicone 80 Mg Tab.Chew) 80 mg PO QIDWMHS PRN PRN Reason: Gas Last Admin: 02/26/23 11:32 Dose: 80 mg Trazodone HCl (Trazodone Hcl 50 Mg Tablet) 50 mg PO BEDTIME MRX1 PRN PRN Reason: Insomnia Last Admin: 02/26/23 21:23 Dose: 50 mg Allergies Allergies Allergy/AdvReac Type Severity Reaction Status Date / Time pencillin Allergy Severe Unknown Uncoded 02/11/23 16:58 Assessment & Plan Assessment & Plan (1) Bipolar disorder: Status: Acute Code(s): F31.9 - Bipolar disorder, unspecified (2) Dementia: Status: Acute Code(s): F03.90 - Unspecified dementia, unspecified severity, without behavioral disturbance, psychotic disturbance, mood disturbance, and anxiety (3) Essential hypertension: Status: Acute Code(s): I10 - Essential (primary) hypertension Plan The patient is an elderly male with a past history of bipolar disorder who was admitted to this facility on June this year for a similar presentation with exacerbation of depression and neurovegetative symptoms. Apparently the patient had been on compliant with treatment and he has relapsed on his depressive symptoms with suicidality but he is able to contract for safety. Plan 1. Gather collateral information, we are going to contact he his son who is the healthcare proxy. 2. Continue with regular antidepressants the patient agreed to titrate antidepressants but since there is the suspicion that the patient had been on compliant we will restart and start the titration slowly. 3. Continue with medical workout. 4. Reassessment with results 5. Increase Remeron up to 15 mg p.o. q.h.s. and increase Lamictal up to 25 p.o. b.i.d. on Feb 13. Lamictal increased up to 50 mg p.o. b.i.d. on February 18 6. Adding Klonopin 0.25 mg po tid for anxiety. b.i.d. February 16 7. Adding Senna and Colace PRN constipation on Feb 18. 8. Adding Gas-X on February 19 9. Family meeting for February 25 and we discussed discharge planning. He will be discharged next Thursday. 10. On February 26, vomiting and I called the hospitalist. EKG ordered. Currently he is now medically clear. 11. Discharged on Thursday Reason for continued inpatient stay Substantial Risk for: inability to function, rapid decompensation and med/psych decompensation Time Spent With Patient Time: Total time managing care of this patient today ___20_ minutes.
--- NOTE | 2023-02-27 14:31 | P.DS_ITS ---
DS: Providers Provider Date of Service: 02/27/23 Date of admission: 02/12/23 10:57 Date of discharge: 03/01/23 Primary care physician: Chase Guerrero MD Attending physician on discharge: Bin Peters DS: Diagnosis Discharge Diagnosis (1) Bipolar disorder: Status: Acute (2) Dementia: Status: Acute (3) Essential hypertension: Status: Acute DS: Medications Discharge Medications Home Medications: Previous Rx's Medication Instructions Recorded hydrochlorothiazide 12.5 mg tablet 12.5 mg PO DAILY 7 days #7 tabs 07/04/22 hydroxyzine HCl 25 mg tablet 25 mg PO Q6H PRN Anxiety 7 days 07/04/22 #21 tabs lamotrigine 100 mg tablet 200 mg (2 x 100 mg) PO BEDTIME 7 07/04/22 days #14 tabs lamotrigine 25 mg tablet 50 mg (2 x 25 mg) PO DAILY 7 days 07/04/22 #14 tabs melatonin 3 mg tablet 3 mg PO BEDTIME PRN Sleep 7 days 07/04/22 #7 tabs memantine 5 mg tablet 5 mg PO BID 7 days #14 tabs 07/04/22 olanzapine 5 mg tablet 5 mg PO BEDTIME 7 days #7 tabs 07/04/22 trazodone 50 mg tablet 50 mg PO BEDTIME MRX1 PRN Insomnia 07/04/22 7 days #7 tabs prednisone 10 mg tablet 40 mg (4 x 10 mg) PO DIRECTED 07/20/22 #16 tabs acetaminophen 325 mg tablet 650 mg (2 x 325 mg) PO TID PRN 02/25/23 Pain 30 days #60 tabs aluminum-magnesium hydroxide 200 30 ml PO Q6H PRN Heartburn/Nausea 02/25/23 mg-200 mg/5 mL oral suspension 30 days #240 mL (MAG-AL) aspirin 81 mg tablet,delayed 81 mg PO DAILY 30 days #30 tabs 02/25/23 release clonazepam 0.125 mg disintegrating 0.25 mg (2 x 0.125 mg) PO TID PRN 02/25/23 tablet Anxiety 30 days #60 tabs docusate sodium 100 mg capsule 100 mg PO BID PRN Constipation 30 02/25/23 days #60 caps guaifenesin 600 mg tablet, 600 mg PO BID 30 days #60 tabs 02/25/23 extended release 12 hr (Mucinex) hydrochlorothiazide 12.5 mg tablet 12.5 mg PO DAILY 30 days #30 tabs 02/25/23 lamotrigine 100 mg tablet 100 mg PO BID 30 days #60 tabs 02/25/23 mirtazapine 15 mg tablet 15 mg PO BEDTIME 30 days #30 tabs 02/25/23 multivitamin (Daily-Meron tablet) 1 tab PO DAILY 30 days #30 tabs 02/25/23 omeprazole 20 mg capsule,delayed 20 mg PO DAILY@0630 30 days #30 02/25/23 release caps polyethylene glycol 3350 17 gram 17 g PO DAILY PRN Constipation 30 02/25/23 oral powder packet days #30 ea simethicone 80 mg chewable tablet 80 mg PO QIDWMHS PRN Gas 30 days 02/25/23 (Gas Relief (simethicone)) #90 tabs terazosin 5 mg capsule 5 mg PO BEDTIME 30 days #30 caps 02/25/23 trazodone 50 mg tablet 50 mg PO BEDTIME MRX1 PRN Insomnia 02/25/23 30 days #60 tabs Mental Status Exam Mental Status Exam Patient Appearance: Appropriate Patient Orientation: Person and Situation Level of Consciousness: Awake and Appropriate Patient Behavior: Appropriate and Passive Mood Description: Depressed Affect Description: Constricted Patient Cognition Impaired: Yes Ability to Follow Directions: Good Speech Pattern: Clear Hallucinations: None Delusions: Not Present Thought Process: Linear Thought Content: positive for Circumstantial Judgement: Fair Data Data Completed and Pending Completed studies during hospitalization [Text1]: 02/26/23 20:22 WBC 9.2 RBC 4.59 L Hgb 14.2 Hct 42.1 MCV 91.7 MCH 30.9 MCHC 33.7 RDW 13.5 Plt Count 183 MPV 10.9 Absolute Nucleated RBC 0.000 Nucleated RBC % (auto) 0.0 Sodium 140 Potassium 3.7 Chloride 105 Carbon Dioxide 24 Anion Gap 15 BUN 15 Creatinine 0.92 Estim Creat Clear Calc 54.4 Estimated GFR > 60 Random Glucose 101 Calcium 9.6 Total Bilirubin 0.4 AST 15 ALT 10 Alkaline Phosphatase 70 Total Protein 7.3 Albumin 4.1 02/11/23 13:29 Blood - Venous Blood Culture - Final No growth after 5 days. 02/11/23 13:26 Blood - Venous Blood Culture - Final No growth after 5 days. Imaging Diagnostic Imaging Impressions Chest X-Ray 02/11/23 12:57 IMPRESSION: No acute abnormality. KUB X-Ray 02/20/23 11:21 IMPRESSION: No evidence of bowel obstruction. Moderate stool burden. Previously seen calcification no longer present DS: Summary Hospital Course Hospital Course: The patient is an 87 year old male, very well known by this team with a past history of bipolar disorder, initially transferred from another hospital since the patient complained of exacerbation of depression with suicidal ideation. Apparently the patient had been poorly compliant with treatment and he relapse on depressive symptoms. Please see the HPI of the admission note for further details. On admission, we decided to restart Lamictal and titrated up to 100 mg p.o. b.i.d. to target his depressive symptoms. Also we added Remeron titrated up to 15 mg p.o. q.h.s. the patient is medications were titrated without any side effects. The patient initially was depressed, with suicidal ideation but later on he reported that his mood improved and suicidality was resolved. The patient usually is very anxious and we needed to add a low dose of lorazepam to target his anxiety with for improvement. We had several family meetings and disposition and discharge planning was discussed. The [facility]. Since there were no safety concerns discharge planning was discussed. Time spent discussing smoking cessation with patient: 3 to 10 minutes Status at Discharge Cognitive/behavioral status at discharge: Impaired at baseline Functional status at discharge: uses cane/walker Overall status at discharge: patient is back to baseline Time Spent with Patient Time attestation: Total time managing care of this patient today __30__ minutes. Time spent: Less than 30 minutes Discharge Plan Discharge Anticipated Discharge Date/Time: 03/01/23 11:30 Patient Disposition: Home, Self-Care Discharge Diagnosis: Bipolar disorder most recent episode depressed. Referrals: [facility] [Other] - 03/05/23 10:30 am (Your next appointment with your psychiatry provider is scheduled for 03/02/23 at 11:30am. You also have appointment for 04/16/23 at 10:30am. ) Dr Katherine [facility] [Other] - 03/11/23 10:00 am (You have a mental health follow up appointment scheduled for 03/11/[address] Katherine [facility] at the [facility] [Other] - 03/02/23 (Your once a week RN visits to resume upon discharge and PT referral placed for follow up. [facility] is in contact with [facility] for authorization for additional service. Per Rhiannon at [facility] the RN to complete home visit on 03/02/23 and PT evaluation in home with start of PT on 03/03/23. ) Chase Guerrero MD [Primary Care Provider] - 03/02/23 3:00 pm (Fax #: [phone]) Discharge Medications: New trazodone 50 mg Tablet 50 mg PO BEDTIME MRX1 PRN (Reason: Insomnia) 30 Days Qty: 60 0RF docusate sodium 100 mg Capsule 100 mg PO BID PRN (Reason: Constipation) 30 Days Qty: 60 0RF mirtazapine 15 mg Tablet 15 mg PO BEDTIME 30 Days Qty: 30 0RF lamotrigine 100 mg Tablet 100 mg PO BID 30 Days Qty: 60 0RF simethicone [Gas Relief (simethicone)] 80 mg Tablet,Chewable 80 mg PO QIDWMHS PRN (Reason: Gas) 30 Days Qty: 90 0RF clonazepam 0.125 mg Tablet,Disintegrating 0.25 mg PO TID PRN (Reason: Anxiety) 30 Days Qty: 60 0RF MAG-AL 200-200 mg/5 mL Suspension 30 ml PO Q6H PRN (Reason: Heartburn/Nausea) 30 Days Qty: 240 0RF hydrochlorothiazide 12.5 mg Tablet 12.5 mg PO DAILY 30 Days Qty: 30 0RF Protocol: Hold for SBP< HOLD for SBP < : 90 Continued multivitamin [Daily-Meron] Tablet 1 tab PO DAILY 30 Days Qty: 30 0RF terazosin 5 mg capsule 5 mg PO BEDTIME 30 Days Qty: 30 0RF acetaminophen 325 mg Tablet 650 mg PO TID PRN (Reason: Pain) 30 Days Qty: 60 0RF polyethylene glycol 3350 17 gram Powder In Packet 17 g PO DAILY PRN (Reason: Constipation) 30 Days Qty: 30 0RF aspirin 81 mg Tablet,Delayed Release (Dr/Ec) 81 mg PO DAILY 30 Days Qty: 30 0RF omeprazole 20 mg capsule,delayed release(DR/EC) 20 mg PO DAILY@0630 30 Days Qty: 30 0RF guaifenesin [Mucinex] 600 mg Tablet Extended Release 12hr 600 mg PO BID 30 Days Qty: 60 0RF Discontinued hydroxyzine HCl 25 mg Tablet 25 mg PO Q6H PRN (Reason: Anxiety) 7 Days Qty: 21 0RF trazodone 50 mg Tablet 50 mg PO BEDTIME MRX1 PRN (Reason: Insomnia) 7 Days Qty: 7 0RF lamotrigine 25 mg Tablet 50 mg PO DAILY 7 Days Qty: 14 0RF lamotrigine 100 mg Tablet 200 mg PO BEDTIME 7 Days Qty: 14 0RF memantine 5 mg Tablet 5 mg PO BID 7 Days Qty: 14 0RF hydrochlorothiazide 12.5 mg Tablet 12.5 mg PO DAILY 7 Days Qty: 7 0RF Protocol: Hold for SBP< HOLD for SBP < : 90 olanzapine 5 mg tablet 5 mg PO BEDTIME 7 Days Qty: 7 0RF melatonin 3 mg Tablet 3 mg PO BEDTIME PRN (Reason: Sleep) 7 Days Qty: 7 0RF prednisone 10 mg tablet 40 mg PO DIRECTED Qty: 16 0RF Rx Instructions: see taper instructions Discharge Orders: Discharge Order (Routine); Ordered 03/01/23 Ordered By: Bin Peters Diet: Advance to usual diet Activity on Discharge: As tolerated Stand Alone Forms: Patient Portal Discharge page Care Plan Goals: Care plan goals achieved in this admission Health Concerns: Continue treatment with primary care physicians as an outpatient Plan of Treatment: Continue medication management as an outpatient Assessment: Elderly male with a past history of bipolar disorder depression admitted for exacerbation of depression since he was noncompliant with treatment and he had suicidal ideation. He was admitted and restarted on his medications with resolution of his suicidality at this moment safe to be discharged to the community.
[2023-02-27 20:00] VITALS: BP 211/110
[2023-02-27] MEDS: Famotidine 20 MG TABLET PO (20:00)
[2023-02-27] MEDS: traZODone HCL 50 MG TABLET PO (20:01)
[2023-02-27] MEDS: Mirtazapine 15 MG TABLET PO (20:01)
[2023-02-27 20:05] VITALS: BP 183/107; BP 188/80
[2023-02-27] MEDS: amLODIPine Besylate 5 MG TABLET PO (20:46)
[2023-02-27 21:00] VITALS: BP 168/80
[2023-02-27 21:36] VITALS: BP 218/114; PULSE 93; RESP 18; TEMP 36.9; O2SAT 97
--- NOTE | 2023-02-27 21:57 | PM.EVENT ---
Event Note Date of Service: 02/27/23 Event Note: received call BP 188/84. Hydrochlorothiazide increased to 25mg po daily 2 days ago. Today, given amlodipine 5mg po once had one episode of vomiting, which he had 2 nights ago.He was started on famotidine 20mg po qhs 2 days ago as well. Previous cardiac work up unremarkable. Pt denies chest pain. Time Spent With Patient Time: Total time managing care of this patient today ____ minutes.
[2023-02-27] MEDS: clonazePAM 0.5 MG TABLET PO (22:15)
[2023-02-27] MEDS: Ondansetron ODT 4 MG TAB.RAPDIS TRANSLINGU (22:17)
[2023-02-27] MEDS: Simethicone 80 MG TAB.CHEW PO (22:28)
[2023-02-27 22:55] VITALS: BP 136/80; PULSE 74; RESP 18; O2SAT 96
--- NOTE | 2023-02-28 01:06 | PC.NURSE ---
(199902-27-23) pt has been extremely anxious. states i just can not do this anymore i can not relax pt. has been given scheduled klonopin .25 mg odt with little effect on anxiety. pt has htn sbp 180-200 mmhg. pt experienced an episode of vomiting. he has c/o of nausea. his abdomen is soft and nontender. provider pranav pham contacted and the previous documentation reviewed. plan 1. norvasc 5 mg po now 2. zofran 4 mg odt now 3. klonopin 0.5 mg po now 3. simethicone 1 tab now- (2099) resting quietly with eyes closed. b/p 168/82 vomiting has abated. pranav pham contacted and b/p as well as current status report reviewed.
[2023-02-28 08:00] VITALS: BP 138/70; PULSE 76; RESP 18; TEMP 36.8; O2SAT 95
[2023-02-28] MEDS: hydroCHLOROthiazide 25 MG TABLET PO (09:21)
[2023-02-28] MEDS: lamoTRIgine 100 MG TABLET PO ×2 (09:22→20:21)
[2023-02-28] MEDS: Sennosides 8.6 MG TABLET 17.2 MG PO ×2 (09:22→20:22)
[2023-02-28] MEDS: Magnesium Hydrox/Alum Hydrox 30 ML ORAL.SUSP PO (14:53)
--- NOTE | 2023-02-28 16:10 | HO.PSYCHPN ---
Subjective Subjective Date of Service: 02/28/23 Reason For Visit: SI Subjective Notes: Conditional Voluntary Interim History: met with patient. Discussed with Nursing. Overall is anxious around discharge tomorrow, but also acknowledges that home is better than being in the hospital as the hospital is much busier. No evidence of agitation or psychosis. Baseline anxiety. No med concerns. Medication Compliance: Yes Side effects from medications: No Attending Groups: Yes Review of Systems Acute medical concerns: No Review of Systems Review of Systems Unremarkable Mental Status Exam Mental Status Exam Patient Appearance: Appropriate Patient Orientation: Person and Situation Level of Consciousness: Awake and Appropriate Patient Behavior: Appropriate and Passive Mood Description: Depressed Affect Description: Constricted Patient Cognition Impaired: Yes Ability to Follow Directions: Good Speech Pattern: Clear Hallucinations: None Delusions: Not Present Thought Process: Linear Thought Content: positive for Circumstantial Judgement: Fair Diagnostics Vital Signs (24Hr): Vital Signs - 24 hr 02/27/23 20:00 02/27/23 20:05 02/27/23 20:05 Temperature Pulse Rate Respiratory Rate Blood Pressure 211/110 H 183/107 H 188/80 H Pulse Oximetry Oxygen Delivery Method 02/27/23 21:00 02/27/23 21:36 02/27/23 22:55 Temperature 98.4 F Pulse Rate 93 74 Respiratory Rate 18 18 Blood Pressure 168/80 H 218/114 H 136/80 Pulse Oximetry 97 96 Oxygen Delivery Method Room Air Room Air 02/28/23 08:00 Temperature 98.2 F Pulse Rate 76 Respiratory Rate 18 Blood Pressure 138/70 Pulse Oximetry 95 Oxygen Delivery Method Room Air BMI result Body Mass Index 22.6 Labs 02/26/23 20:22 02/26/23 20:22 Labs: Laboratory Results - last 48 hr 02/26/23 20:22 WBC 9.2 RBC 4.59 L Hgb 14.2 Hct 42.1 MCV 91.7 MCH 30.9 MCHC 33.7 RDW 13.5 Plt Count 183 MPV 10.9 Absolute Nucleated RBC 0.000 Nucleated RBC % (auto) 0.0 Sodium 140 Potassium 3.7 Chloride 105 Carbon Dioxide 24 Anion Gap 15 BUN 15 Creatinine 0.92 Estim Creat Clear Calc 54.4 Estimated GFR > 60 Random Glucose 101 Calcium 9.6 Total Bilirubin 0.4 AST 15 ALT 10 Alkaline Phosphatase 70 Total Protein 7.3 Albumin 4.1 Imaging Radiology Impressions: ITS Impressions Chest X-Ray 02/11/23 12:57 IMPRESSION: No acute abnormality. KUB X-Ray 02/20/23 11:21 IMPRESSION: No evidence of bowel obstruction. Moderate stool burden. Previously seen calcification no longer present Medications Medications Current Medications Acetaminophen (Acetaminophen 325 Mg Tablet) 650 mg PO Q6H PRN PRN Reason: Headache/Pain Mild Scale (1-3) Last Admin: 02/26/23 21:22 Dose: 650 mg Al Hydroxide/Mg Hydroxide (Magnesium Hydrox/Alum Hydrox 30 Ml Oral.Susp) 30 ml PO Q6H PRN PRN Reason: Heartburn/Nausea Last Admin: 02/28/23 14:53 Dose: 30 ml Clonazepam (Clonazepam 0.125 Mg Tab.Rapdis) 0.25 mg PO TID PRN PRN Reason: Anxiety Last Admin: 02/28/23 14:27 Dose: 0.25 mg Docusate Sodium (Docusate Sodium 100 Mg Capsule) 100 mg PO BID PRN PRN Reason: Constipation Last Admin: 02/23/23 10:59 Dose: 100 mg Famotidine (Famotidine 20 Mg Tablet) 20 mg PO BEDTIME [facility] Last Admin: 02/27/23 20:00 Dose: 20 mg Hydrochlorothiazide (Hydrochlorothiazide 25 Mg Tablet) 25 mg PO DAILY [facility]; Protocol Last Admin: 02/28/23 09:21 Dose: 25 mg Lamotrigine (Lamotrigine 100 Mg Tablet) 100 mg PO BID [facility] Last Admin: 02/28/23 09:22 Dose: 100 mg Magnesium Hydroxide (Milk Of Magnesia 30 Ml Oral.Susp) 30 ml PO DAILY PRN PRN Reason: Constipation Last Admin: 02/22/23 18:18 Dose: 30 ml Mirtazapine (Mirtazapine 15 Mg Tablet) 15 mg PO BEDTIME [facility] Last Admin: 02/27/23 20:01 Dose: 15 mg Ondansetron HCl (Ondansetron Odt 4 Mg Tab.Rapdis) 4 mg TRANSLINGU Q6H PRN PRN Reason: Nausea and Vomiting Last Admin: 02/27/23 22:17 Dose: 4 mg Senna (Sennosides 8.6 Mg Tablet) 17.2 mg PO BID [facility] Last Admin: 02/28/23 09:22 Dose: 17.2 mg Simethicone (Simethicone 80 Mg Tab.Chew) 80 mg PO QIDWMHS PRN PRN Reason: Gas Last Admin: 02/27/23 22:28 Dose: 80 mg Trazodone HCl (Trazodone Hcl 50 Mg Tablet) 50 mg PO BEDTIME MRX1 PRN PRN Reason: Insomnia Last Admin: 02/27/23 20:01 Dose: 50 mg Allergies Allergies Allergy/AdvReac Type Severity Reaction Status Date / Time pencillin Allergy Severe Unknown Uncoded 02/11/23 16:58 Assessment & Plan Assessment & Plan (1) Bipolar disorder: Status: Acute Code(s): F31.9 - Bipolar disorder, unspecified (2) Dementia: Status: Acute Code(s): F03.90 - Unspecified dementia, unspecified severity, without behavioral disturbance, psychotic disturbance, mood disturbance, and anxiety (3) Essential hypertension: Status: Acute Code(s): I10 - Essential (primary) hypertension Plan The patient is an elderly male with a past history of bipolar disorder who was admitted to this facility on June this year for a similar presentation with exacerbation of depression and neurovegetative symptoms. Apparently the patient had been on compliant with treatment and he has relapsed on his depressive symptoms with suicidality but he is able to contract for safety. Plan 1. Gather collateral information, we are going to contact he his son who is the healthcare proxy. 2. Continue with regular antidepressants the patient agreed to titrate antidepressants but since there is the suspicion that the patient had been on compliant we will restart and start the titration slowly. 3. Continue with medical workout. 4. Reassessment with results 5. Increase Remeron up to 15 mg p.o. q.h.s. and increase Lamictal up to 25 p.o. b.i.d. on Feb 13. Lamictal increased up to 50 mg p.o. b.i.d. on February 18 6. Adding Klonopin 0.25 mg po tid for anxiety. b.i.d. February 16 7. Adding Senna and Colace PRN constipation on Feb 18. 8. Adding Gas-X on February 19 9. Family meeting for February 25 and we discussed discharge planning. He will be discharged next Thursday. 10. On February 26, vomiting and I called the hospitalist. EKG ordered. Currently he is now medically clear. 11. Discharged on Thursday02/28/2023: No changes. Plan discharge tomorrow ie on the 03/01/2023 Reason for continued inpatient stay Substantial Risk for: rapid decompensation Time Spent With Patient Time: Total time managing care of this patient today ____ minutes.
[2023-02-28 18:00] VITALS: BP 136/70; PULSE 62; RESP 16; TEMP 36.3; O2SAT 97
[2023-02-28] MEDS: Famotidine 20 MG TABLET PO (20:21)
[2023-02-28] MEDS: traZODone HCL 50 MG TABLET PO (20:21)
[2023-02-28] MEDS: Mirtazapine 15 MG TABLET PO (20:21)
[2023-03-01 07:55] VITALS: BP 145/72; PULSE 77; RESP 18; TEMP 36.4; O2SAT 96
[2023-03-01] MEDS: lamoTRIgine 100 MG TABLET PO (08:16)
[2023-03-01] MEDS: hydroCHLOROthiazide 25 MG TABLET PO (08:16)
[2023-03-01] MEDS: Sennosides 8.6 MG TABLET 17.2 MG PO (08:16)
--- NOTE | 2023-03-01 09:38 | P.PNPSI_ITS ---
Subjective Subjective Date of Service: 03/01/23 Reason For Visit: SI Interim History: met with patient. Discussed with Nursing. Overall is anxious around discharge, but also acknowledges that home is better than being in the hospital. See full discharge summary dated 02/27 for more detail Review of Systems Review of Systems Unremarkable Mental Status Exam Mental Status Exam Patient Appearance: Appropriate Patient Orientation: Person and Situation Level of Consciousness: Awake and Appropriate Patient Behavior: Appropriate and Passive Mood Description: Depressed Affect Description: Constricted Patient Cognition Impaired: Yes Ability to Follow Directions: Good Speech Pattern: Clear Memory Description: Episodic Impaired Diagnostics Vital Signs (24Hr): Vital Signs - 24 hr 02/28/23 18:00 Temperature 97.4 F Pulse Rate 62 Respiratory Rate 16 Blood Pressure 136/70 Pulse Oximetry 97 Oxygen Delivery Method Room Air BMI result Body Mass Index 22.6 Labs 02/26/23 20:22 02/26/23 20:22 Imaging Radiology Impressions: ITS Impressions Chest X-Ray 02/11/23 12:57 IMPRESSION: No acute abnormality. KUB X-Ray 02/20/23 11:21 IMPRESSION: No evidence of bowel obstruction. Moderate stool burden. Previously seen calcification no longer present Medications Medications Current Medications Acetaminophen (Acetaminophen 325 Mg Tablet) 650 mg PO Q6H PRN PRN Reason: Headache/Pain Mild Scale (1-3) Last Admin: 02/26/23 21:22 Dose: 650 mg Al Hydroxide/Mg Hydroxide (Magnesium Hydrox/Alum Hydrox 30 Ml Oral.Susp) 30 ml PO Q6H PRN PRN Reason: Heartburn/Nausea Last Admin: 02/28/23 14:53 Dose: 30 ml Clonazepam (Clonazepam 0.125 Mg Tab.Rapdis) 0.25 mg PO TID PRN PRN Reason: Anxiety Last Admin: 02/28/23 20:23 Dose: 0.25 mg Docusate Sodium (Docusate Sodium 100 Mg Capsule) 100 mg PO BID PRN PRN Reason: Constipation Last Admin: 02/23/23 10:59 Dose: 100 mg Famotidine (Famotidine 20 Mg Tablet) 20 mg PO BEDTIME ELAINE Last Admin: 02/28/23 20:21 Dose: 20 mg Hydrochlorothiazide (Hydrochlorothiazide 25 Mg Tablet) 25 mg PO DAILY ELAINE; Protocol Last Admin: 03/01/23 08:16 Dose: 25 mg Lamotrigine (Lamotrigine 100 Mg Tablet) 100 mg PO BID [facility] Last Admin: 03/01/23 08:16 Dose: 100 mg Magnesium Hydroxide (Milk Of Magnesia 30 Ml Oral.Susp) 30 ml PO DAILY PRN PRN Reason: Constipation Last Admin: 02/22/23 18:18 Dose: 30 ml Mirtazapine (Mirtazapine 15 Mg Tablet) 15 mg PO BEDTIME ELAINE Last Admin: 02/28/23 20:21 Dose: 15 mg Ondansetron HCl (Ondansetron Odt 4 Mg Tab.Rapdis) 4 mg TRANSLINGU Q6H PRN PRN Reason: Nausea and Vomiting Last Admin: 02/27/23 22:17 Dose: 4 mg Senna (Sennosides 8.6 Mg Tablet) 17.2 mg PO BID [facility] Last Admin: 03/01/23 08:16 Dose: 17.2 mg Simethicone (Simethicone 80 Mg Tab.Chew) 80 mg PO QIDWMHS PRN PRN Reason: Gas Last Admin: 02/27/23 22:28 Dose: 80 mg Trazodone HCl (Trazodone Hcl 50 Mg Tablet) 50 mg PO BEDTIME MRX1 PRN PRN Reason: Insomnia Last Admin: 02/28/23 20:21 Dose: 50 mg Allergies Allergies Allergy/AdvReac Type Severity Reaction Status Date / Time pencillin Allergy Severe Unknown Uncoded 02/11/23 16:58 Assessment & Plan Assessment & Plan (1) Bipolar disorder: Status: Acute Code(s): F31.9 - Bipolar disorder, unspecified (2) Dementia: Status: Acute Code(s): F03.90 - Unspecified dementia, unspecified severity, without behavioral disturbance, psychotic disturbance, mood disturbance, and anxiety (3) Essential hypertension: Status: Acute Code(s): I10 - Essential (primary) hypertension Plan The patient is an elderly male with a past history of bipolar disorder who was admitted to this facility on June this year for a similar presentation with exacerbation of depression and neurovegetative symptoms. Apparently the patient had been on compliant with treatment and he has relapsed on his depressive symptoms with suicidality but he is able to contract for safety. Plan 1. Gather collateral information, we are going to contact he his son who is the healthcare proxy. 2. Continue with regular antidepressants the patient agreed to titrate antidepressants but since there is the suspicion that the patient had been on compliant we will restart and start the titration slowly. 3. Continue with medical workout. 4. Reassessment with results 5. Increase Remeron up to 15 mg p.o. q.h.s. and increase Lamictal up to 25 p.o. b.i.d. on Feb 13. Lamictal increased up to 50 mg p.o. b.i.d. on February 18 6. Adding Klonopin 0.25 mg po tid for anxiety. b.i.d. February 16 7. Adding Senna and Colace PRN constipation on Feb 18. 8. Adding Gas-X on February 19 9. Family meeting for February 25 and we discussed discharge planning. He will be discharged next Thursday. 10. On February 26, vomiting and I called the hospitalist. EKG ordered. Currently he is now medically clear. 11. Discharged on Thursday02/28/2023: No changes. Plan discharge tomorrow ie on the 03/01/2023 10: DC today. See full discharge summary dated 02/27 for more detail Reason for continued inpatient stay Substantial Risk for: stable for discharge Time Spent With Patient Time: Total time managing care of this patient today ____ minutes.
== END 2023-03-01 11:15 | disposition home or self-care (01) | DRG 885 ==
LOC: HO.ED 02-12 07:28 → HO.PGERI 02-12 11:44
PROVIDERS: Clinical Nurse Specialist Psychiatric/Mental Health, Adult; Social Worker; Student in an Organized Health Care Education/Training Program; Admitting Provider Psychiatry & Neurology Psychiatry; Emergency Provider Emergency Medicine; PCP Internal Medicine; Visit Provider Psychiatry & Neurology Psychiatry
DX: F31.30 Bipolar disorder, current episode depressed, mild or moderate severity, unspecified (principal); R45.851 Suicidal ideations; I10 Essential (primary) hypertension; K59.00 Constipation, unspecified; F03.90 Unspecified dementia, unspecified severity, without behavioral disturbance, psychotic disturbance, mood disturbance, and anxiety; Z23 Encounter for immunization; Z91.148 Patient's other noncompliance with medication regimen for other reason; Z20.822 Contact with and (suspected) exposure to COVID-19; Z88.0 Allergy status to penicillin; Z79.899 Other long term (current) drug therapy
CPT/HCPCS: 0241U; 36415; 71045; 74018; 80048; 80053; 80061; 80076; 80307; 81003; 83605; 83690; 83880; 84484; 85025; 85027; 87040; 87633; 90686; 93005; 97116; 97162; 97530; 99285; S9485

== ENCOUNTER → 2023-02-12 10:57 | Outpatient (BNV) | payer OTHER, SELFPAY | PROVIDERS: Admitting Provider Psychiatry & Neurology Psychiatry; Emergency Provider Emergency Medicine; PCP Internal Medicine; Visit Provider Psychiatry & Neurology Psychiatry | DX: F31.9 Bipolar disorder, unspecified (principal); F03.90 Unspecified dementia, unspecified severity, without behavioral disturbance, psychotic disturbance, mood disturbance, and anxiety; I10 Essential (primary) hypertension | CPT/HCPCS: 90792; 99231; 99232; 99238; 99499 ==

== ENCOUNTER 2023-12-20 07:00 | Inpatient (IN) | payer OTHER, SELFPAY ==
[2023-12-20] VITALS (13 sets, daily range): BP systolic 143–175; BP diastolic 67–87; PULSE 52–98; RESP 11–20; TEMP 36.4–37.1; O2SAT 94–98; BMI 20.2
--- NOTE | ~2023-12-20 | XR_ITS ---
EXAMINATION: XR CHEST CLINICAL INFORMATION: Shortness of breath COMPARISON: 02/11/2023 TECHNIQUE: Frontal view of the chest was obtained. FINDINGS: Mild right base atelectasis. No vascular congestion. No effusions. No pneumothorax. Mild biapical pleural thickening. No significant abnormality is noted involving the heart, mediastinum, bony thorax or soft tissues. XR/XR chest 1V IMPRESSION: Mild right base atelectasis.
--- NOTE | 2023-12-20 07:24 | ECG_ITS ---
Test Reason : SOB Blood Pressure : / mmHG Vent. 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
--- NOTE | 2023-12-20 07:26 | ED.GENADULT ---
HPI - General Adult General Chief complaint: Dyspnea Stated complaint: dementia Time Seen by Provider: 12/20/23 07:20 Source: patient, EMS and old records reviewed Mode of arrival: EMS Limitations: other ( dementia) History of Present Illness ED Provider: DR. Matt HPI narrative: 86-year-old male with pertinent history of mood disorder, dementia, essential hypertension, COPD not on supplemental oxygen came in by ambulance for evaluation of shortness. patient is able to provide some history but overall he is poor historian, as per EMS patient been having shortness of breath for some time, patient normally lives in apartment with his son needs medical office receptionist assistant, patient declined smoking cigarettes. Patient had a previous similar presentation for COPD exacerbation. Patient declined coughing, fever, chills. Unable to provide history of orthopnea, PND, or leg swelling however patient found to have leg edema bilaterally. Related Data Previous Rx's ?Medication ?Instructions ?Recorded acetaminophen 325 mg tablet 650 mg (2 x 325 mg) PO TID PRN 02/25/23 Pain 30 days #60 tabs aluminum-magnesium hydroxide 200 30 ml PO Q6H PRN Heartburn/Nausea 02/25/23 mg-200 mg/5 mL oral suspension 30 days #240 mL (MAG-AL) aspirin 81 mg tablet,delayed 81 mg PO DAILY 30 days #30 tabs 02/25/23 release clonazepam 0.125 mg disintegrating 0.25 mg (2 x 0.125 mg) PO TID PRN 02/25/23 tablet Anxiety 30 days #60 tabs docusate sodium 100 mg capsule 100 mg PO BID PRN Constipation 30 02/25/23 days #60 caps guaifenesin 600 mg tablet, 600 mg PO BID 30 days #60 tabs 02/25/23 extended release 12 hr (Mucinex) hydrochlorothiazide 12.5 mg tablet 12.5 mg PO DAILY 30 days #30 tabs 02/25/23 lamotrigine 100 mg tablet 100 mg PO BID 30 days #60 tabs 02/25/23 mirtazapine 15 mg tablet 15 mg PO BEDTIME 30 days #30 tabs 02/25/23 multivitamin (Daily-Meron tablet) 1 tab PO DAILY 30 days #30 tabs 02/25/23 omeprazole 20 mg capsule,delayed 20 mg PO DAILY@0630 30 days #30 02/25/23 release caps polyethylene glycol 3350 17 gram 17 g PO DAILY PRN Constipation 30 02/25/23 oral powder packet days #30 ea simethicone 80 mg chewable tablet 80 mg PO QIDWMHS PRN Gas 30 days 02/25/23 (Gas Relief (simethicone)) #90 tabs terazosin 5 mg capsule 5 mg PO BEDTIME 30 days #30 caps 02/25/23 trazodone 50 mg tablet 50 mg PO BEDTIME MRX1 PRN Insomnia 02/25/23 30 days #60 tabs Allergies Allergy/AdvReac Type Severity Reaction Status Date / Time pencillin Allergy Severe Unknown Uncoded 12/20/23 07:11 Review of Systems Review of Systems: all other systems are reviewed and are negative Constitutional: Reports as per HPI and Reports no additional constitutional complaints Eyes: Reports as per HPI and Reports no additional eye complaints Reports system reviewed and no additional complaints, except as documented Cardiovascular: Reports as per HPI and Reports no additional cardiovascular complaints Respiratory: Reports as per HPI and Reports no additional respiratory complaints Gastrointestinal: Reports as per HPI and Reports no additional gastrointestinal complaints Genitourinary: Reports no additional female genitourinary complaints Musculoskeletal: Reports no additional musculoskeletal complaints Skin/Breast: Reports system reviewed and no additional complaints, except as docu Psychiatric: Reports no additional psychiatric complaints Endocrine: Reports no additional endocrine complaints Hematologic/Lymphatic: Reports no additional hematologic/lymphatic complaints Allergic/Immunologic: Reports no additional allergic/immunologic complaints Reports system reviewed and no additional complaints, except as documented and Reports Abnormal speech present [facility] Past Medical History Medical History Dementia Essential hypertension Bipolar disorder COPD (chronic obstructive pulmonary disease) Social History Social History Household Members: Family Housing: Apartment Do you presently have visiting nurse or other home services: Yes ([facility] services) Unable to assess alcohol history related to: Unable to respond Alcohol intake: former Patient Tobacco Use Status: Never used Tobacco Smoked in Last 30 Days: No Use of substances other than those prescribed or required for medical reasons: No Advance Directives: Yes Advance Directives Information Provided: No Advance Directives on File: No service: Yes Current occupational status: retired Sexual orientation: Straight/Heterosexual Physical Exam ED Vital Signs: Vital Signs - 24 hr 12/20/23 07:07 12/20/23 08:02 Temperature 97.9 F Pulse Rate 66 62 Respiratory Rate 20 20 Blood Pressure 175/74 H Pulse Oximetry 95 Oxygen Delivery Method Room Air BMI result Body Mass Index 20.2 Vital signs have been reviewed and appear to be correct. Blood pressure elevated. Heart rate normal. Respiratory rate normal. Temperature normal. Oxygen saturation normal. Appearance: Alert. Oriented X3. No acute distress. Head: Normal external exam. Normocephalic. Atraumatic. No Ward signs noted. No raccoon eyes noted Eyes: PERRLA. EOMI. Conjunctiva and sclera normal. Eyelids normal. ENT: TM's Normal. Pharynx normal. Uvula midline. Moist mucous membranes. No trismus noted. No drooling noted. No muffled voice noted. Neck: Normal inspection. Neck supple. FROM. No adenopathy. Thyroid Normal. No meningeal signs. No neck mass noted. CVS: Normal heart rate and rhythm. Heart sound normal. No murmurs noted. Pulses normal throughout. Respiratory: No respiratory distress. Painless inspiration. diffuse expiratory wheezing with prolonged expiration, Chest nontender. No accessory muscle usage noted or decreased air movement noted. Abdomen: Soft and nontender. Bowel sounds normal in all 4 quadrants. No distention noted. No organomegaly noted. No visible injury noted. Back: No CVA tenderness. Full range of motion noted. Skin: Skin warm and dry. Normal skin color. Normal skin turgor. No rashes/lesions/lacerations noted. Extremities: +2 lower extremity edema. Extremities exhibit normal range of motion. Extremities nontender. Neuro: Oriented X 3. Cranial nerve exam: II-XII are grossly intact No motor deficit. No sensory deficit. Reflexes normal. Course Reevaluation(s) Reevaluation #1: 87-year-old male history of COPD came in for shortness of breath improved with bronchodilator ED and Solu-Medrol, and magnesium. Chest x-ray, BNP is not consistent with CHF. Patient complaining of unable to urinate and urinary retention bladder scan showed 520 cc then shortly after patient was able to urinate on his own urinated about 400 cc. Admit the patient for COPD exacerbation. Time: 09:26 Medications Administered Generic Name Dose Route Start Last Admin Trade Name Freq PRN Reason Stop Dose Admin Magnesium Sulfate 2 gm in 50 mls @ 25 mls/hr 12/20/23 07:31 12/20/23 07:56 Magnesium Sulfate/H2o IV 12/20/23 09:30 25 mls/hr ONCE ONE Administration Discontinued Medications Generic Name Dose Route Start Last Admin Trade Name Freq PRN Reason Stop Dose Admin Albuterol Sulfate 2.5 mg/ 0 mg 12/20/23 07:56 12/20/23 08:02 Albuterol/Ipratropium 3 ml INHALE 12/20/23 07:57 5 dose ONCE ONE Administration Methylprednisolone Sodium Succinate 125 mg 12/20/23 07:31 12/20/23 07:53 Methylprednisolone Sod Succ 125 Mg/2 Ml Vial IVPUSH 12/20/23 07:32 125 mg ONCE ONE Administration Medical Decision Making Differential Diagnosis Differential Diagnoses: The differential diagnosis associated with the presentation includes ( pneumonia, pneumothorax, pleural effusion, CHF, COPD exacerbation, electrolyte derangement, severe anemia, UTI, urinary retention.) Admission/Observation Consideration of admission/observation: Escalation of care including admission/observation considered Consult Healthcare Provider Management of the patient was discussed with: Hospitalist ( Dr. Daniels) Lab Data MDM Lab Attestation statement: I reviewed the patient's lab results. 12/20/23 07:41 12/20/23 07:41 Labs: Lab Results 12/20/23 12/20/23 Range/Units 07:41 08:38 WBC 5.4 (4.8-10.8) X10*3/uL RBC 3.92 L (4.60-5.80) X10*6/uL Hgb 12.5 L (14.0-18.0) g/dl Hct 36.1 L (42.0-52.0) % MCV 92.1 (80.0-98.0) fL MCH 31.9 (27.0-33.0) pg MCHC 34.6 (31.0-36.0) g/dl RDW 13.7 (11.0-16.0) % Plt Count 307 D (160-400) X10*3/uL MPV 10.5 (9.4-12.4) fL Immature Gran % (Auto) 0.6 H (0.0-0.4) % Neut % (Auto) 56.5 (45-73) % Lymph % (Auto) 34.8 (20-40) % Craig % (Auto) 5.0 (2-11) % Eos % (Auto) 2.2 (0-4) % Baso % (Auto) 0.9 (0-2) % Lymph # (Auto) 1.9 (1.2-4.9) X10*3/uL Craig # (Auto) 0.3 (0.1-1.2) X10*3/uL Eos # (Auto) 0.1 (0.0-0.4) X10*3/uL Baso # (Auto) 0.1 (0.0-0.2) X10*3/uL Abs Immat Gran (auto) 0.03 (0.00-0.03) X10*3/uL Absolute Neuts (auto) 3.0 (2.0-8.3) x10*3/uL Absolute Nucleated RBC 0.000 (0.0-0.012) X10*3/uL Nucleated RBC % (auto) 0.0 (0.0-0.2) /100WBC Sodium 139 (135-145) mmol/L Potassium 3.9 (3.3-5.1) mmol/L Chloride 103 (96-108) mmol/L Carbon Dioxide 27 (22-29) mmol/L Anion Gap 13 (12-20) BUN 19 H (9-16) mg/dL Creatinine 1.20 (0.5-1.4) mg/dL Estim Creat Clear Calc 40.7 Estimated GFR 57 Random Glucose 100 (60-115) mg/dL Calcium 9.8 (8.4-10.2) mg/dL Total Bilirubin 0.5 (0.0-1.0) mg/dL Direct Bilirubin 0.1 (0.0-0.5) mg/dL AST 22 (5-37) U/L ALT 18 (0-40) U/L Alkaline Phosphatase 85 (39-117) U/L Troponin I High Sens 7.6 (<3.5-35.0) ng/L B-Natriuretic Peptide 21 (<100) pg/mL Total Protein 7.6 (6.5-8.0) g/dL Albumin 4.1 (3.5-5.0) g/dL Lipase 34 (8-78) U/L Urine Color Yellow Urine Appearance Clear Urine pH 6.5 (5.0-9.0) Ur Specific [place] 1.010 (1.005-1.025) Urine Protein Negative (Neg-Trace) mg/dL Urine Glucose (UA) Negative (Negative) mg/dL Urine Ketones Negative (Negative) mg/dL Urine Blood Negative (Negative) Urine Nitrite Negative (Negative) Ur Leukocyte Esterase Negative (Negative) Influenza Type A (PCR) NEGATIVE (Negative) Influenza Type B (PCR) NEGATIVE (Negative) RSV RNA Qual (PCR) NEGATIVE (Negative) SARS-CoV-2 RNA (RT-PCR) NEGATIVE (Negative) Independent Interpretation I performed an independent interpretation of an: EKG ( normal sinus rhythm at 61 beats per minutes, left axis deviation, normal intervals, nonspecific ST-T changes.) and Plain X-Ray ( chest: Mild right base atelectasis) Radiology Impression Discussion of test interpretation with radiology: I have reviewed the radiologist's reading. Chronic Conditions Patient?s care impacted by: Other ( COPD) Discharge Plan Discharge Clinical Impression: Acute exacerbation of chronic obstructive airways disease Patient Disposition: Admitted As Inpatient Prescriptions: No Action trazodone 50 mg Tablet 50 mg PO BEDTIME MRX1 PRN (Reason: Insomnia) 30 Days Qty: 60 0RF docusate sodium 100 mg Capsule 100 mg PO BID PRN (Reason: Constipation) 30 Days Qty: 60 0RF mirtazapine 15 mg Tablet 15 mg PO BEDTIME 30 Days Qty: 30 0RF lamotrigine 100 mg Tablet 100 mg PO BID 30 Days Qty: 60 0RF simethicone [Gas Relief (simethicone)] 80 mg Tablet,Chewable 80 mg PO QIDWMHS PRN (Reason: Gas) 30 Days Qty: 90 0RF clonazepam 0.125 mg Tablet,Disintegrating 0.25 mg PO TID PRN (Reason: Anxiety) 30 Days Qty: 60 0RF MAG-AL 200-200 mg/5 mL Suspension 30 ml PO Q6H PRN (Reason: Heartburn/Nausea) 30 Days Qty: 240 0RF hydrochlorothiazide 12.5 mg Tablet 12.5 mg PO DAILY 30 Days Qty: 30 0RF Protocol: Hold for SBP< HOLD for SBP < : 90 multivitamin [Daily-Meron] Tablet 1 tab PO DAILY 30 Days Qty: 30 0RF terazosin 5 mg capsule 5 mg PO BEDTIME 30 Days Qty: 30 0RF acetaminophen 325 mg Tablet 650 mg PO TID PRN (Reason: Pain) 30 Days Qty: 60 0RF polyethylene glycol 3350 17 gram Powder In Packet 17 g PO DAILY PRN (Reason: Constipation) 30 Days Qty: 30 0RF aspirin 81 mg Tablet,Delayed Release (Dr/Ec) 81 mg PO DAILY 30 Days Qty: 30 0RF omeprazole 20 mg capsule,delayed release(DR/EC) 20 mg PO DAILY@0630 30 Days Qty: 30 0RF guaifenesin [Mucinex] 600 mg Tablet Extended Release 12hr 600 mg PO BID 30 Days Qty: 60 0RF Print Language: Nepali
--- NOTE | 2023-12-20 07:44 | PC.NURSE ---
Pt presents to ED via EMS from home, hard to get full story. EMS reports pt living with son's . Pt reports complaints of generalized body pain, SOB and feeling uncomfortable . Pt is confused at baseline due to dementia per EMS. Pt is alert, oriented to person and place, otherwise confused and hard to get history from. Breathing noted to be slightly labored, skin warm. Pitting edema noted to lower extremities. SPO2 on RA 94-95%, NSR on bedside cardiac technician.
[2023-12-20 07:52] LABS: MANUAL DIFF FLAG NO
[2023-12-20] MEDS: methylPREDNISolone Sod Succ 125 MG/2 ML VIAL IVPUSH (07:53)
[2023-12-20] MEDS: Magnesium Sulfate/H2O 2 GM/50 ML PIGGYBACK IV (07:56)
[2023-12-20 07:57] LABS: Basophils Absolute Auto 0.1 X10*3/uL (0.0-0.2); Basophils Percent Auto 0.9 % (0-2); Eosinophils Absolute Auto 0.1 X10*3/uL (0.0-0.4); Eosinophils Percent Auto 2.2 % (0-4); Hematocrit 36.1 % (42.0-52.0); Hemoglobin 12.5 g/dl (14.0-18.0); Imm Gran Abs Auto 0.03 X10*3/uL (0.00-0.03); Imm Gran Pct Auto 0.6 % (0.0-0.4); Lymphocytes Absolute Auto 1.9 X10*3/uL (1.2-4.9); Lymphocytes Percent Auto 34.8 % (20-40); Mean Corpuscular HGB Conc 34.6 g/dl (31.0-36.0); Mean Corpuscular Hemoglobin 31.9 pg (27.0-33.0); Mean Corpuscular Volume 92.1 fL (80.0-98.0); Mean Platelet Volume 10.5 fL (9.4-12.4); Monocytes Absolute Auto 0.3 X10*3/uL (0.1-1.2); Neutrophils Percent Auto 56.5 % (45-73); Platelet Count 307 X10*3/uL (160-400); Red Blood Count 3.92 X10*6/uL (4.60-5.80); Red Cell Distribution Width 13.7 % (11.0-16.0); White Blood Count 5.4 X10*3/uL (4.8-10.8)
[2023-12-20] MEDS: Albuterol Sulfate 2.5 MG, Albuterol/Iprat 2.5/0.5MG 3 ML 3 ML INHALE (08:02)
[2023-12-20 08:12] LABS: Alanine Aminotransferase 18 U/L (0-40); Albumin Level 4.1 g/dL (3.5-5.0); Alkaline Phosphatase 85 U/L (39-117); Anion Gap 13 (12-20); Aspartate Amino Transferase 22 U/L (5-37); Bilirubin Direct 0.1 mg/dL (0.0-0.5); Bilirubin Total 0.5 mg/dL (0.0-1.0); Blood Urea Nitrogen 19 mg/dL (9-16); Calcium 9.8 mg/dL (8.4-10.2); Carbon Dioxide 27 mmol/L (22-29); Chloride 103 mmol/L (96-108); Creatinine Clr Calc Pharmacy 40.7; Estimated Glomerular Filt Rate 57; Glucose Random 100 mg/dL (60-115); Lipase 34 U/L (8-78); Potassium 3.9 mmol/L (3.3-5.1); Sodium 139 mmol/L (135-145); Total Protein 7.6 g/dL (6.5-8.0)
[2023-12-20 08:15] LABS: B Type Natriuretic Peptide 21 pg/mL (<100)
[2023-12-20 08:19] LABS: Troponin-I High Sensitivity 7.6 ng/L (<3.5-35.0)
[2023-12-20 08:48] LABS: Appearance Urine Clear; Color Urine Yellow; Glucose Urine UA Negative (Negative); Leukocyte Esterase Urine Negative (Negative); Nitrite Urine Negative (Negative); PH 6.5 (5.0-9.0); Urine Blood Negative (Negative); Urine Ketones Negative (Negative); Urine Protein Negative (Neg-Trace)
[2023-12-20 09:25] LABS: Influenza A PCR NEGATIVE (Negative); Influenza B PCR NEGATIVE (Negative); Resp Syncy Virus RNA Qual PCR NEGATIVE (Negative); SARS COV2 PCR INHOUSE NEGATIVE (Negative)
--- NOTE | 2023-12-20 09:29 | PC.NURSE ---
Pt reports some difficulty urinating, bladder scanned with >500 mL. After short period, pt able to urinate on his own, output of 375 mL
--- NOTE | 2023-12-20 10:42 | P.HPHOSP_ITS ---
History of Present Illness Date of Service: 12/20/23 Chief Complaint: ?sob 87-year-old male with pertinent history of mood disorder, dementia, essential hypertension, COPD not on home oxygen, he lives in his own house with his son and girlifriend there and they help supervise his medication. They went away for a few days and they believe he stopped taking his medications, including Psych meds in a few days. Patient called EMS with primary complaint of having trouble voiding, and also suposedly stated that he was sob and triage state breathing was mildly labored. His oxygenation is normal on room, CXR show no acute finding, WBC is normal, his given IV steroid, magnesium. He looks pretty comfortable to me with only complaint of having trouble voiding. He was bladder scanned for 500 and voided 400 but still insisting he needs to pee Review of Systems 2 Review of Systems: Gen: no fever Resp: no sob, no cough CV: no chest, no EDWARDS, no leg edema GI: No n/v, no abd pain Neuro: No confusion : c/o not able to void [facility] Medical History Dementia Essential hypertension Bipolar disorder COPD (chronic obstructive pulmonary disease) Social History Household Members: Family Household Members Other:: son and son's partner Housing: Apartment Do you presently have visiting nurse or other home services: No Unable to assess alcohol history related to: Unable to respond Alcohol intake: former Patient Tobacco Use Status: Never used Tobacco Smoked in Last 30 Days: No e-Cigarette/Vaping Use: Never Used Patient Interested in Nicotine Replacement: No Patient Given Instructions on How to Stop Smoking: No Second Hand Smoke Exposure: No Use of substances other than those prescribed or required for medical reasons: No Currently Displaying Signs/Symptoms of Drug Intoxication Withdrawal: No Any prior treatment program specific to substance use: No Have you been hit, kicked, punched, or otherwise hurt by someone within the past year? If so, by whom?: No Do you feel safe in your current relationship?: No Current Relationship Is there a partner from a previous relationship who is making you feel unsafe now?: No Are you made to feel afraid or neglected: No Advance Directives: Yes Advance Directives Information Provided: No Advance Directives on File: No Advance Directives Date on File: 12/21/23 Do you have a plan to hurt others: No Plan Recently lost weight without trying: No Eating poorly because of decreased appetite: No Nutrition Risks: No Nutritional Risk Poor oral hygiene: No service: No Current occupational status: retired Sexual orientation: Straight/Heterosexual Meds Allergies Allergy/AdvReac Type Severity Reaction Status Date / Time pencillin Allergy Severe Unknown Uncoded 12/20/23 07:11 Home Medications ?Medication ?Instructions ?Recorded ?Confirmed ?Last Taken ?Type acetaminophen 325 mg tablet 650 mg PO TID Pain 12/20/23 12/20/23 Unknown History atorvastatin 80 mg tablet 80 mg PO DAILY 12/20/23 12/20/23 Unknown History citalopram 20 mg tablet 20 mg PO DAILY 12/20/23 12/20/23 Unknown History docusate sodium 100 mg capsule 100 mg PO BID Constipation 12/20/23 12/20/23 Unknown History ergocalciferol (vitamin D2) 1,250 1,250 mcg PO FR 12/20/23 12/20/23 12/18/23 History mcg (50,000 unit) capsule miconazole nitrate 2 % topical 1 appl topical BID 12/20/23 12/20/23 Unknown History powder olanzapine 5 mg disintegrating 5 mg PO BEDTIME 12/20/23 12/20/23 Unknown History tablet polyethylene glycol 3350 17 gram 17 g PO DAILY Constipation 12/20/23 12/20/23 Unknown History oral powder packet sennosides 8.6 mg tablet (senna) 17.2 mg PO DAILY 12/20/23 12/20/23 Unknown History Physical Exam 2 Vital Signs and Narrative: Vital Signs: Last Vital Signs Temp 97.9 F 12/20/23 07:07 Pulse 62 12/20/23 08:02 Resp 20 12/20/23 08:02 BP 175/74 H 12/20/23 07:07 Pulse Ox 95 12/20/23 07:07 O2 Del Method Room Air 12/20/23 07:07 BMI result Body Mass Index 20.2 Results Labs 12/20/23 07:41 12/20/23 07:41 Labs: Laboratory Results - last 24 hr 12/20/23 12/20/23 07:41 08:38 MCV 92.1 MCH 31.9 MCHC 34.6 RDW 13.7 Plt Count 307 D MPV 10.5 Immature Gran % (Auto) 0.6 H Neut % (Auto) 56.5 Lymph % (Auto) 34.8 [place] % (Auto) 5.0 Eos % (Auto) 2.2 Baso % (Auto) 0.9 Lymph # (Auto) 1.9 [place] # (Auto) 0.3 Eos # (Auto) 0.1 Baso # (Auto) 0.1 Abs Immat Gran (auto) 0.03 Absolute Neuts (auto) 3.0 Absolute Nucleated RBC 0.000 Nucleated RBC % (auto) 0.0 Anion Gap 13 Estim Creat Clear Calc 40.7 Estimated GFR 57 Random Glucose 100 Calcium 9.8 Total Bilirubin 0.5 Direct Bilirubin 0.1 AST 22 ALT 18 Alkaline Phosphatase 85 Troponin I High Sens 7.6 B-Natriuretic Peptide 21 Total Protein 7.6 Albumin 4.1 Lipase 34 Urine Color Yellow Urine Appearance Clear Urine pH 6.5 Ur Specific [place] 1.010 Urine Protein Negative Urine Glucose (UA) Negative Urine Ketones Negative Urine Blood Negative Urine Nitrite Negative Ur Leukocyte Esterase Negative Influenza Type A (PCR) NEGATIVE Influenza Type B (PCR) NEGATIVE RSV RNA Qual (PCR) NEGATIVE SARS-CoV-2 RNA (RT-PCR) NEGATIVE Imaging Radiologist's Impressions: Impressions Chest X-Ray 12/20/23 08:03 IMPRESSION: Mild right base atelectasis. Assessment and Plan (1) Acute exacerbation of chronic obstructive airways disease: Status: Acute (2) Dementia: Status: Acute (3) Essential hypertension: Status: Acute (4) Bipolar disorder: Status: Acute Plan 87-year-old male with pertinent history of mood disorder, dementia, essential hypertension, COPD not on home oxygen who presents to the ED with SOB and no hypoxia COPD with mild exacerbation, no hypoxia, lungs are clear right, got IV solumedrol 125 mg, hold further steroid today, inhalers scheduled and PRN Mood disorder: Continue home mood stabilizers once med rec completed Essential hypertension: Continue home antihypertensives Mixed hyperlipidemia: On statin Dementia: On memantine. Maintain sleep-wake cycle DVT prophylaxis: Lovenox 40 mg daily Full code Cardiac diet Observation overnight and dc tomorrow Quality Stroke Does the patient have a stroke diagnosis?: No VTE Prior VTE?: No VTE Risk Level:: Medical - moderate - high VTE Device Contraindication: Treatment Not Indicated VTE Drug Contraindication: N/A - Med Ordered
[2023-12-20] MEDS: Albuterol/Iprat 2.5/0.5MG 3 ML AMPUL.NEB INHALE ×3 (11:49→19:37)
--- NOTE | 2023-12-20 11:53 | PC.NURSE ---
Pt again reporting some difficulty urinating, able to urinate 300 mL on his own into urinal, bladder scanned post urination and noted to have 338 mL. Provider alerted.
[2023-12-20] MEDS: Enoxaparin Sodium 40 MG/0.4 ML SYRINGE SUBCUT (12:03)
--- NOTE | 2023-12-20 12:11 | PC.NURSE ---
Per Provider, monitor pts urine output and discomfort, if bladder scan >450 mL and unable to urinate then can straight cath.
[2023-12-20] MEDS: 0.9 % Sodium Chloride Flush 3 ML SYRINGE IVFLUSH (15:33)
--- NOTE | 2023-12-20 15:58 | PC.NURSE ---
Pt placed in hospital bed for comfort, reports he feels more comfortable. Able to output approx 200 mL urine on his own, denies any pressure in bladder area.
--- NOTE | 2023-12-20 18:26 | PC.NURSE ---
Family called and reports they will bring pts med list in for pharmacy med rec, reports they will be here around 8pm
--- NOTE | 2023-12-20 19:10 | PC.NURSE ---
Assumed care of pt. Pt lying on stretcher, no acute distress at this time. VSS as charted. plan for admission continuing.
--- NOTE | 2023-12-20 20:37 | PHA.MEDREC ---
Pharmacy Consult ? Medication Reconciliation Pharmacy has completed the medication reconciliation. [place] and also medication list brought in from home (nurse Vin Bonner took pictures of the med list-2 pages and sent it to pharmacy). Per nurse, family stated that he takes the Vitamin D on fridays. As to when was the last time he took his meds at home, not for several days...he doesn't like to take them at home and so he doesn't when there's no family around . Noted that [facility] but not on the med list from [facility], asked nurse if there's any other med list pages and he said family only gave him 2 which did not have trazodone on it. [place] has him taking lamotrigine 200 mg qhs but home med list has him taking 100 mg bid. Senna also appears on home med list as 2 tablets daily.
[2023-12-20] MEDS: Doxazosin Mesylate 2 MG TABLET 5 MG PO (22:37)
[2023-12-20] MEDS: Acetaminophen 325 MG TABLET 650 MG PO (22:37)
[2023-12-20] MEDS: Melatonin 3 MG TABLET 6 MG PO (22:37)
[2023-12-20] MEDS: lamoTRIgine 100 MG TABLET PO (22:37)
[2023-12-20] MEDS: OLANZapine 5 MG TABLET PO (22:37)
[2023-12-21] VITALS (10 sets, daily range): BP systolic 103–155; BP diastolic 51–70; PULSE 50–71; RESP 15–18; TEMP 36.1–36.6; O2SAT 93–98
--- NOTE | 2023-12-21 | ECG_ITS ---
Test Reason : chest pain Blood Pressure : / mmHG Vent. Rate : 050 BPM Atrial Rate : 050 BPM P-R Int : 138 ms QRS Dur : 088 ms QT Int : 464 ms P-R-T Axes : -22 -43 017 degrees QTc Int : 423 ms Sinus bradycardia Left axis deviation Abnormal ECG When compared with ECG of 20-DEC-2023 07:40, Premature ventricular complexes are no longer Present Referred By: Adi Angeles Electronically Signed By:STEPHANIE LAUREN MD
[2023-12-21] MEDS: 0.9 % Sodium Chloride Flush 3 ML SYRINGE IVFLUSH ×3 (01:38→19:48)
[2023-12-21] MEDS: Omeprazole 20 MG CAPSULE.DR PO (06:38)
[2023-12-21] MEDS: polyethylene glycoL 3350 17 GM POWD.PACK PO (07:23)
[2023-12-21] MEDS: hydroCHLOROthiazide 12.5 MG TABLET PO (07:24)
[2023-12-21] MEDS: lamoTRIgine 100 MG TABLET PO ×2 (07:24→19:48)
[2023-12-21] MEDS: Escitalopram Oxalate 10 MG TABLET PO (07:24)
[2023-12-21] MEDS: Sennosides 8.6 MG TABLET 17.2 MG PO (07:24)
[2023-12-21] MEDS: Acetaminophen 325 MG TABLET 650 MG PO ×3 (07:24→19:47)
[2023-12-21] MEDS: Atorvastatin Calcium 80 MG TABLET PO (07:25)
[2023-12-21] MEDS: Docusate Sodium 100 MG CAPSULE PO ×2 (07:25→19:48)
[2023-12-21] MEDS: Aspirin Enteric Coated 81 MG TABLET.DR PO (07:25)
[2023-12-21] MEDS: Multivitamin TABLET 1 TAB PO (07:25)
[2023-12-21] MEDS: Albuterol/Iprat 2.5/0.5MG 3 ML AMPUL.NEB INHALE ×4 (08:03→18:58)
--- NOTE | 2023-12-21 09:55 | MHC.CM.PN ---
pt appears disorientated call paced message left for son fei to contact cm
[2023-12-21] MEDS: Enoxaparin Sodium 40 MG/0.4 ML SYRINGE SUBCUT (10:42)
--- NOTE | 2023-12-21 11:07 | HO.PM.IMPN ---
Subjective Subjective Date of Service: 12/21/23 Interval History: f/u on copd, presently no exacerbation, Physical Exam Vital Signs: Vital Signs: Last Vital Signs Temp 97.3 F 12/21/23 07:09 Pulse 50 12/21/23 08:03 Resp 15 12/21/23 08:03 BP 155/70 H 12/21/23 07:09 Pulse Ox 96 12/21/23 07:09 O2 Del Method Room Air 12/21/23 07:09 BMI result Body Mass Index 20.2 General: AO X 2, no acute distress Resp: CTA bilateral, no wheezing and normal effort CVS: S1,S2,RRR GI: +BS, NT, no distention Skin: No rash Neuro: motor grossly intact Psych: appropriate affect Objective Data Active Medications Acetaminophen (Acetaminophen 325 Mg Tablet) 650 mg PO Q6H PRN PRN Reason: Pain, Mild (Pain Scale 1-3), fever or headache Acetaminophen (Acetaminophen 325 Mg Tablet) 650 mg PO TID [facility] Last Admin: 12/21/23 07:24 Dose: 650 mg Documented By: SUBHASH Albuterol Sulfate (Albuterol Sulfate (0.083%) 2.5 Mg/3 Ml Vial.Neb) 2.5 mg INHALE Q2H PRN PRN Reason: Shortness of Breath/Wheezing Albuterol/Ipratropium (Albuterol/Iprat 2.5/0.5mg 3 Ml Ampul.Neb) 3 ml INHALE RQ4H WHILE AWAKE [facility] Last Admin: 12/21/23 08:03 Dose: 3 ml Documented By: HARSHA Aspirin (Aspirin Enteric Coated 81 Mg Tablet.) 81 mg PO DAILY [facility] Last Admin: 12/21/23 07:25 Dose: 81 mg Documented By: SUBHASH Atorvastatin Calcium (Atorvastatin Calcium 80 Mg Tablet) 80 mg PO DAILY [facility] Last Admin: 12/21/23 07:25 Dose: 80 mg Documented By: SUBHASH Calcium Carbonate (Calcium Carbonate 750 Mg Tab.Chew) 750 mg PO Q4H PRN PRN Reason: Heartburn Docusate Sodium (Docusate Sodium 100 Mg Capsule) 100 mg PO BID [facility] Last Admin: 12/21/23 07:25 Dose: 100 mg Documented By: SUBHASH Doxazosin Mesylate (Doxazosin Mesylate 2 Mg Tablet) 5 mg PO BEDTIME [facility] Last Admin: 12/20/23 22:37 Dose: 5 mg Documented By: TENZIN Enoxaparin Sodium (Enoxaparin Sodium 40 Mg/0.4 Ml Syringe) 40 mg SUBCUT Q24H [facility] Last Admin: 12/21/23 10:42 Dose: 40 mg Documented By: SUBHASH Escitalopram Oxalate (Escitalopram Oxalate 10 Mg Tablet) 10 mg PO DAILY [facility] Last Admin: 12/21/23 07:24 Dose: 10 mg Documented By: SUBHASH Hydrochlorothiazide (Hydrochlorothiazide 12.5 Mg Tablet) 12.5 mg PO DAILY [facility]; Protocol Last Admin: 12/21/23 07:24 Dose: 12.5 mg Documented By: SUBHASH Lamotrigine (Lamotrigine 100 Mg Tablet) 100 mg PO BID [facility] Last Admin: 12/21/23 07:24 Dose: 100 mg Documented By: SUBHASH Magnesium Hydroxide (Milk Of Magnesia 30 Ml Oral.Susp) 30 ml PO DAILY PRN PRN Reason: Constipation Melatonin (Melatonin 3 Mg Tablet) 6 mg PO BEDTIME PRN PRN Reason: Insomnia Last Admin: 12/20/23 22:37 Dose: 6 mg Documented By: TENZIN Multivitamins/Vitamin C (Multivitamin Tablet) 1 tab PO DAILY [facility] Last Admin: 12/21/23 07:25 Dose: 1 tab Documented By: SUBHASH Olanzapine (Olanzapine 5 Mg Tablet) 5 mg PO BEDTIME [facility] Last Admin: 12/20/23 22:37 Dose: 5 mg Documented By: TENZIN Omeprazole (Omeprazole 20 Mg Capsule.Dr) 20 mg PO DAILY@0630 [facility] Last Admin: 12/21/23 06:38 Dose: 20 mg Documented By: MJ Polyethylene Glycol (Polyethylene Glycol 3350 17 Gm Powd.Pack) 17 gm PO DAILY [facility] Last Admin: 12/21/23 07:23 Dose: 17 gm Documented By: SUBHASH Senna (Sennosides 8.6 Mg Tablet) 17.2 mg PO DAILY [facility] Last Admin: 12/21/23 07:24 Dose: 17.2 mg Documented By: SUBHASH Sodium Chloride (0.9 % Sodium Chloride Flush 3 Ml Syringe) 3 ml IVFLUSH QSHIFT [facility] Last Admin: 08/05/24 07:25 Dose: Not Given Documented By: SUBHASH Non-Admin Reason: Previously Administered Labs 12/20/23 07:41 12/20/23 07:41 Microbiology Microbiology Results: Microbiology 12/20/23 07:54 Blood Culture - Preliminary Blood - Venous No growth after 24 hours. 12/20/23 07:41 Blood Culture - Preliminary Blood - Venous No growth after 24 hours. Assessment and Plan (1) Dementia: Status: Acute (2) Acute exacerbation of chronic obstructive airways disease: Status: Acute Plan 87-year-old male with pertinent history of mood disorder, dementia, essential hypertension, COPD not on home oxygen who presents to the ED with SOB and no hypoxia COPD with mild exacerbation, no hypoxia, lungs are clear right, got IV solumedrol 125 mg Presently without respiratory distress, no wheezing no indication for oxygen and looks comfortable and therefore no further steroid, continue inhalers as order Mood disorder/Bipolar disorder: Continue home mood stabilizers once meds per med rec urinary retention, seems to have resolved. Essential hypertension: hctz Mixed hyperlipidemia: On statin Dementia: On memantine. Maintain sleep-wake cycle PT is recommending STR, Patient lives with his son who is presently hospitalized DVT prophylaxis: Lovenox 40 mg daily Full code Cardiac diet Quality Stroke Does the patient have a stroke diagnosis?: No VTE Prior VTE?: No VTE Risk Level:: Medical - moderate - high VTE Device Contraindication: Treatment Not Indicated VTE Drug Contraindication: N/A - Med Ordered
[2023-12-21] MEDS: OLANZapine 5 MG TABLET PO (19:47)
[2023-12-21] MEDS: Melatonin 3 MG TABLET 6 MG PO (19:47)
[2023-12-21] MEDS: Doxazosin Mesylate 2 MG TABLET 5 MG PO (19:47)
[2023-12-22] VITALS (13 sets, daily range): BP systolic 94–154; BP diastolic 52–70; PULSE 62–73; RESP 16–20; TEMP 36–36.6; O2SAT 93–98
--- NOTE | 2023-12-22 | ECG_ITS ---
Test Reason : chest pain Blood Pressure : / mmHG Vent. Rate : 067 BPM Atrial Rate : 067 BPM P-R Int : 170 ms QRS Dur : 082 ms QT Int : 404 ms P-R-T Axes : 034 -48 004 degrees QTc Int : 426 ms Normal sinus rhythm Left axis deviation Inferior infarct , age undetermined Abnormal ECG When compared with ECG of 21-DEC-2023 07:55, Inferior infarct is now Present Referred By: Kayleigh Valadez Electronically Signed By:STEPHANIE LAUREN MD
[2023-12-22] MEDS: LORazepam 0.5 MG TABLET PO ×2 (04:04→06:21)
[2023-12-22] MEDS: Prochlorperazine Edisylate 10 MG/2 ML VIAL 5 MG IVPUSH (04:04)
--- NOTE | 2023-12-22 05:04 | PC.NURSE ---
Pt c/o of nausea and anxiety, tiger text sent to Dr. Shay, IV compazine and PO ativan ordered and administered at 0404 with good effect. Pt resting in bed now, will continue to monitor.
[2023-12-22] MEDS: Omeprazole 20 MG CAPSULE.DR PO (06:05)
[2023-12-22] MEDS: Nitroglycerin 0.4 MG TAB.SUBL SUBLINGUAL (06:40)
[2023-12-22] MEDS: Morphine Sulfate 2 MG/ML CARTRIDGE IVPUSH (06:40)
--- NOTE | 2023-12-22 07:04 | PC.NURSE ---
Around 0600 pt c/o anxiety and chest pain, stating chest pain was 9/10. Pt also very agitated. Dr. Shay notified, EKG ordered, labs ordered, pt given 0.5 mg PO ativan, IV morphine and 0.4 mg nitro tab with some effect.
[2023-12-22 07:25] LABS: Troponin-I High Sensitivity 6.1 ng/L (<3.5-35.0)
[2023-12-22] MEDS: Albuterol/Iprat 2.5/0.5MG 3 ML AMPUL.NEB INHALE ×4 (08:17→20:56)
[2023-12-22] MEDS: Aspirin Enteric Coated 81 MG TABLET.DR PO (08:42)
[2023-12-22] MEDS: polyethylene glycoL 3350 17 GM POWD.PACK PO (08:42)
[2023-12-22] MEDS: Atorvastatin Calcium 80 MG TABLET PO (08:42)
[2023-12-22] MEDS: Escitalopram Oxalate 10 MG TABLET PO (08:42)
[2023-12-22] MEDS: Docusate Sodium 100 MG CAPSULE PO ×2 (08:42→20:05)
[2023-12-22] MEDS: Sennosides 8.6 MG TABLET 17.2 MG PO (08:42)
[2023-12-22] MEDS: Multivitamin TABLET 1 TAB PO (08:42)
[2023-12-22] MEDS: lamoTRIgine 100 MG TABLET PO ×2 (08:42→20:05)
[2023-12-22] MEDS: Acetaminophen 325 MG TABLET 650 MG PO ×3 (08:42→23:33)
[2023-12-22] MEDS: 0.9 % Sodium Chloride Flush 3 ML SYRINGE IVFLUSH (08:42)
[2023-12-22 10:40] LABS: MANUAL DIFF FLAG NO
[2023-12-22 10:46] LABS: Basophils Absolute Auto 0.1 X10*3/uL (0.0-0.2); Basophils Percent Auto 0.8 % (0-2); Eosinophils Absolute Auto 0.2 X10*3/uL (0.0-0.4); Eosinophils Percent Auto 2.2 % (0-4); Hematocrit 35.3 % (42.0-52.0); Hemoglobin 11.9 g/dl (14.0-18.0); Imm Gran Abs Auto 0.04 X10*3/uL (0.00-0.03); Imm Gran Pct Auto 0.5 % (0.0-0.4); Lymphocytes Absolute Auto 1.7 X10*3/uL (1.2-4.9); Lymphocytes Percent Auto 23.6 % (20-40); Mean Corpuscular HGB Conc 33.7 g/dl (31.0-36.0); Mean Corpuscular Hemoglobin 31.6 pg (27.0-33.0); Mean Corpuscular Volume 93.6 fL (80.0-98.0); Mean Platelet Volume 11.5 fL (9.4-12.4); Monocytes Absolute Auto 0.5 X10*3/uL (0.1-1.2); Monocytes Percent Auto 6.1 % (2-11); Neutrophils Absolute Auto 4.9 x10*3/uL (2.0-8.3); Neutrophils Percent Auto 66.8 % (45-73); Platelet Count 267 X10*3/uL (160-400); Red Blood Count 3.77 X10*6/uL (4.60-5.80); Red Cell Distribution Width 14.3 % (11.0-16.0); White Blood Count 7.3 X10*3/uL (4.8-10.8)
[2023-12-22 11:00] LABS: Anion Gap 16 (12-20); Blood Urea Nitrogen 30 mg/dL (9-16); Calcium 9.1 mg/dL (8.4-10.2); Carbon Dioxide 27 mmol/L (22-29); Chloride 102 mmol/L (96-108); Creatinine Clr Calc Pharmacy 35.9; Estimated Glomerular Filt Rate 49; Glucose Random 114 mg/dL (60-115); Sodium 141 mmol/L (135-145)
[2023-12-22] MEDS: Enoxaparin Sodium 40 MG/0.4 ML SYRINGE SUBCUT (11:05)
[2023-12-22 12:24] LABS: Appearance Urine Clear; Color Urine Dark Yellow; Glucose Urine UA Negative (Negative); Leukocyte Esterase Urine Negative (Negative); Nitrite Urine Negative (Negative); PH 5.5 (5.0-9.0); Specific Gravity - Urine >= 1.030 (1.005-1.025); Urine Blood Negative (Negative); Urine Ketones Trace mg/dL (Negative); Urine Protein Trace mg/dL (Neg-Trace)
[2023-12-22 12:27] LABS: Bacteria Urine None Seen (None Seen); RBC Urine 0-2 /HPF (0-2); Squamous Epithelial Cell Urine 0-2 /HPF (0-2); WBC Urine 0-5 /HPF (0-5)
--- NOTE | 2023-12-22 13:06 | P.PNIM_ITS ---
Subjective Subjective Date of Service: 12/23/23 Interval History: f/u on copd, pt was reportedly agitated, anxious and c/o chest pain this morning and was given IV morphine, ativan and compazine and was very drowsy this morning but presently more alert, has no respiratory distress, BP is on low side, and creatinine uptrending Physical Exam 2 Vital Signs: Vital Signs: Last Vital Signs Temp 97.1 F 12/22/23 12:00 Pulse 71 12/22/23 12:00 Resp 16 12/22/23 12:00 BP 96/52 L 12/22/23 12:00 Pulse Ox 96 12/22/23 12:00 O2 Del Method Room Air 12/22/23 12:00 BMI result Body Mass Index 20.2 General: AO X 2, no acute distress Resp: CTA bilateral, no wheezing and normal effort CVS: S1,S2,RRR GI: +BS, NT, no distention Skin: No rash Neuro: motor grossly intact Psych: appropriate affect Objective Data Active Medications Acetaminophen (Acetaminophen 325 Mg Tablet) 650 mg PO Q6H PRN PRN Reason: Pain, Mild (Pain Scale 1-3), fever or headache Acetaminophen (Acetaminophen 325 Mg Tablet) 650 mg PO TID [facility] Last Admin: 12/22/23 08:42 Dose: 650 mg Documented By: MERLIN Albuterol Sulfate (Albuterol Sulfate (0.083%) 2.5 Mg/3 Ml Vial.Neb) 2.5 mg INHALE Q2H PRN PRN Reason: Shortness of Breath/Wheezing Albuterol/Ipratropium (Albuterol/Iprat 2.5/0.5mg 3 Ml Ampul.Neb) 3 ml INHALE RQ4H WHILE AWAKE [facility] Last Admin: 12/22/23 11:40 Dose: 3 ml Documented By: KIESHA Aspirin (Aspirin Enteric Coated 81 Mg Tablet.) 81 mg PO DAILY [facility] Last Admin: 12/22/23 08:42 Dose: 81 mg Documented By: MERLIN Atorvastatin Calcium (Atorvastatin Calcium 80 Mg Tablet) 80 mg PO DAILY [facility] Last Admin: 12/22/23 08:42 Dose: 80 mg Documented By: MERLIN Calcium Carbonate (Calcium Carbonate 750 Mg Tab.Chew) 750 mg PO Q4H PRN PRN Reason: Heartburn Docusate Sodium (Docusate Sodium 100 Mg Capsule) 100 mg PO BID [facility] Last Admin: 12/22/23 08:42 Dose: 100 mg Documented By: MERLIN Doxazosin Mesylate (Doxazosin Mesylate 2 Mg Tablet) 5 mg PO BEDTIME [facility] Last Admin: 12/21/23 19:47 Dose: 5 mg Documented By: RAFFY Enoxaparin Sodium (Enoxaparin Sodium 40 Mg/0.4 Ml Syringe) 40 mg SUBCUT Q24H [facility] Last Admin: 12/22/23 11:05 Dose: 40 mg Documented By: MERLIN Escitalopram Oxalate (Escitalopram Oxalate 10 Mg Tablet) 10 mg PO DAILY [facility] Last Admin: 12/22/23 08:42 Dose: 10 mg Documented By: MERLIN Hydrochlorothiazide (Hydrochlorothiazide 12.5 Mg Tablet) 12.5 mg PO DAILY [facility]; Protocol Last Admin: 12/22/23 08:53 Dose: Not Given Documented By: MERLIN Non-Admin Reason: held for low BP Lamotrigine (Lamotrigine 100 Mg Tablet) 100 mg PO BID [facility] Last Admin: 12/22/23 08:42 Dose: 100 mg Documented By: MERLIN Magnesium Hydroxide (Milk Of Magnesia 30 Ml Oral.Susp) 30 ml PO DAILY PRN PRN Reason: Constipation Melatonin (Melatonin 3 Mg Tablet) 6 mg PO BEDTIME PRN PRN Reason: Insomnia Last Admin: 12/21/23 19:47 Dose: 6 mg Documented By: RAFFY Multivitamins/Vitamin C (Multivitamin Tablet) 1 tab PO DAILY [facility] Last Admin: 12/22/23 08:42 Dose: 1 tab Documented By: MERLIN Nitroglycerin (Nitroglycerin 0.4 Mg Tab.Subl) 0.4 mg SUBLINGUAL Q5MX3 PRN PRN Reason: Chest Pain Last Admin: 12/22/23 06:40 Dose: 0.4 mg Documented By: RAFFY Olanzapine (Olanzapine 5 Mg Tablet) 5 mg PO BEDTIME [facility] Last Admin: 12/21/23 19:47 Dose: 5 mg Documented By: RAFFY Omeprazole (Omeprazole 20 Mg Capsule.Dr) 20 mg PO DAILY@0630 [facility] Last Admin: 12/22/23 06:05 Dose: 20 mg Documented By: RAFFY Polyethylene Glycol (Polyethylene Glycol 3350 17 Gm Powd.Pack) 17 gm PO DAILY [facility] Last Admin: 12/22/23 08:42 Dose: 17 gm Documented By: MERLIN Senna (Sennosides 8.6 Mg Tablet) 17.2 mg PO DAILY [facility] Last Admin: 12/22/23 08:42 Dose: 17.2 mg Documented By: MERLIN Sodium Chloride (0.9 % Sodium Chloride Flush 3 Ml Syringe) 3 ml IVFLUSH QSHIFT [facility] Last Admin: 12/22/23 08:42 Dose: 3 ml Documented By: MERLIN Labs 12/22/23 06:42 12/22/23 06:42 Labs: Laboratory Results - last 24 hr 12/22/23 12/22/23 06:42 12:11 MCV 93.6 MCH 31.6 MCHC 33.7 RDW 14.3 Plt Count 267 MPV 11.5 Immature Gran % (Auto) 0.5 H Neut % (Auto) 66.8 Lymph % (Auto) 23.6 [place] % (Auto) 6.1 Eos % (Auto) 2.2 Baso % (Auto) 0.8 Lymph # (Auto) 1.7 [place] # (Auto) 0.5 Eos # (Auto) 0.2 Baso # (Auto) 0.1 Abs Immat Gran (auto) 0.04 H Absolute Neuts (auto) 4.9 Absolute Nucleated RBC 0.000 Nucleated RBC % (auto) 0.0 Hold Purple Top SEE NOTE Anion Gap 16 Estim Creat Clear Calc 35.9 Estimated GFR 49 Random Glucose 114 Calcium 9.1 D Magnesium 2.0 Troponin I High Sens 6.1 Urine Color Dark Yellow Urine Appearance Clear Urine pH 5.5 Ur Specific [place] >= 1.030 H Urine Protein Trace Urine Glucose (UA) Negative Urine Ketones Trace Urine Blood Negative Urine Nitrite Negative Ur Leukocyte Esterase Negative Urine RBC 0-2 Urine WBC 0-5 Ur Squamous Epith Cells 0-2 Urine Bacteria None Seen Hyaline Casts 3-5 Microbiology Microbiology Results: Microbiology 12/20/23 07:54 Blood Culture - Preliminary Blood - Venous No growth after 48 hours. 12/20/23 07:41 Blood Culture - Preliminary Blood - Venous No growth after 48 hours. Assessment and Plan (1) Dementia: Status: Acute (2) Acute exacerbation of chronic obstructive airways disease: Status: Acute Plan 87-year-old male with pertinent history of mood disorder, dementia, essential hypertension, COPD not on home oxygen who presents to the ED with SOB and no hypoxia COPD with mild exacerbation, no hypoxia, lungs are clear. No indication for steroid at this time. Continue inhalers Mood disorder/Bipolar disorder: Continue home meds urinary retention, seems to have resolved. Essential hypertension:BP on lowe side today, no sings of infection, UA, WBC normal, no fever -hold Bp mes, FERNANDEZ--creatinin trending up, IVF Mixed hyperlipidemia: On statin Dementia: On memantine. Maintain sleep-wake cycle PT is recommending STR, Patient lives with his son who is presently hospitalized DVT prophylaxis: Lovenox 40 mg daily Full code Cardiac diet Quality Stroke Does the patient have a stroke diagnosis?: No VTE Prior VTE?: No VTE Risk Level:: Medical - moderate - high VTE Device Contraindication: Treatment Not Indicated VTE Drug Contraindication: N/A - Med Ordered
[2023-12-22] MEDS: Lactated Ringers 1,000 ML 100 ML IVCONT (13:42)
--- NOTE | 2023-12-22 14:48 | MHC.CM.PN ---
CM SPOKE WITH PARAMJIT ESPOSITO ([phone]) WHO STATES PT LIVES WITH SON/DIL LOCALLY BUT SON HAS BEEN HOSPITALIZED SO ONLY DIL AT HOME. IN THE WINTER MONTHS, PT LIVES IN [facility] WITH PARAMJIT ESPOSITO AND SON CHRIS (HCP). FAMILY IS IN AGREEMENT WITH STR, NO PREFERENCE TO FACILITIES. CALL OUT TO J[facility] AT [facility]. AWAITING RETURN CALL. REFERRALS SENT, AWAITING BED OFFER.
[2023-12-22] MEDS: OLANZapine 5 MG TABLET PO (20:04)
[2023-12-22] MEDS: Doxazosin Mesylate 2 MG TABLET 5 MG PO (20:04)
[2023-12-22] MEDS: Melatonin 3 MG TABLET 6 MG PO (20:04)
[2023-12-23] VITALS (7 sets, daily range): BP systolic 123–147; BP diastolic 58–69; PULSE 54–62; RESP 18; TEMP 36.3–36.7; O2SAT 94–96
[2023-12-23] MEDS: Lactated Ringers 1,000 ML 100 ML IVCONT (00:56)
[2023-12-23] MEDS: 0.9 % Sodium Chloride Flush 3 ML SYRINGE IVFLUSH (00:56)
[2023-12-23] MEDS: Omeprazole 20 MG CAPSULE.DR PO (05:28)
[2023-12-23] MEDS: Acetaminophen 325 MG TABLET 650 MG PO (05:54)
[2023-12-23] MEDS: Albuterol/Iprat 2.5/0.5MG 3 ML AMPUL.NEB INHALE ×3 (07:33→15:33)
[2023-12-23] MEDS: Escitalopram Oxalate 10 MG TABLET PO (07:54)
[2023-12-23] MEDS: polyethylene glycoL 3350 17 GM POWD.PACK PO (07:54)
[2023-12-23] MEDS: lamoTRIgine 100 MG TABLET PO (07:55)
[2023-12-23] MEDS: Atorvastatin Calcium 80 MG TABLET PO (07:55)
[2023-12-23] MEDS: Sennosides 8.6 MG TABLET 17.2 MG PO (07:55)
[2023-12-23] MEDS: hydroCHLOROthiazide 12.5 MG TABLET PO (07:55)
[2023-12-23] MEDS: Docusate Sodium 100 MG CAPSULE PO (07:55)
[2023-12-23] MEDS: Multivitamin TABLET 1 TAB PO (07:55)
[2023-12-23] MEDS: Aspirin Enteric Coated 81 MG TABLET.DR PO (07:55)
[2023-12-23] MEDS: Enoxaparin Sodium 40 MG/0.4 ML SYRINGE SUBCUT (10:46)
--- NOTE | 2023-12-23 11:52 | P.DS_ITS ---
DS: Providers Provider Date of Service: 12/23/23 Date of admission: 12/20/23 11:04 Primary care physician: Unknown Physician DS: Diagnosis Discharge Diagnosis (1) Dementia: Status: Acute (2) Acute exacerbation of chronic obstructive airways disease: Status: Acute DS: Summary Hospital Course Hospital Course: admission hpi Chief Complaint: ?sob 87-year-old male with pertinent history of mood disorder, dementia, essential hy pertension, COPD not on home oxygen, he lives in his own house with his son and girlifriend there and they help supervise his medication. They went away for a few days and they believe he stopped taking his medications, including Psych meds in a few days. Patient called EMS with primary complaint of having trouble voiding, and also suposedly stated that he was sob and triage state breathing was mildly labored. His oxygenation is normal on room, CXR show no acute finding, WBC is normal, his given IV steroid, magnesium. He looks pretty comfortable to me with only complaint of having trouble voiding. He was bladder scanned for 500 and voided 400 but still insisting he needs to pee Hospital course: Patient presented c/o pain all over and sob. He was not hypoxic, CXR show no acute finding, RSV, Covid and Influenza were negative. He was given IV steroid in ED. His lungs were clear, he was not in respiratory distress, cardiac troponin and BNP were unremarkable. He has not required further steroid, and has not experinced any difficulty breathing while here. He may continue bronchodilators, however there is no indcation for steroid. He is generally weakn and deconditioned and Physical therapy recommends STR, he normally lives with his son who is presently hospitalized. Mood disorder/Bipolar disorder: Continue home meds urinary retention, seems to have resolved. HTN--resume home meds FERNANDEZ--creatinin trending up, IVF Mixed hyperlipidemia: On statin Dementia: On memantine. Maintain sleep-wake cycle PT is recommending STR, Patient lives with his son who is presently hospitalized Time Attestation Discharge Coordination Time (in mins): 35 Quality: Safe Use of Opioids Does Pt have an Active Cancer Diagnosis on the Problem List?: No Quality: Stroke Does the patient have a stroke diagnosis?: No Physical Exam Vital Signs: Vital Signs: Last Vital Signs Temp 97.4 F 12/23/23 07:38 Pulse 54 12/23/23 11:18 Resp 18 12/23/23 11:18 BP 123/58 L 12/23/23 07:38 Pulse Ox 95 12/23/23 07:38 O2 Del Method Room Air 12/23/23 07:38 BMI result Body Mass Index 20.2 DS: Data Data Completed and Pending Labs on day of discharge: Laboratory Results - last 24 hr 12/22/23 12:11 Urine Color Dark Yellow Urine Appearance Clear Urine pH 5.5 Ur Specific Watkins >= 1.030 H Urine Protein Trace Urine Glucose (UA) Negative Urine Ketones Trace Urine Blood Negative Urine Nitrite Negative Ur Leukocyte Esterase Negative Urine RBC 0-2 Urine WBC 0-5 Ur Squamous Epith Cells 0-2 Urine Bacteria None Seen Hyaline Casts 3-5 Preliminary micro results at discharge 12/20/23 07:54 Blood Culture - Preliminary Blood - Venous No growth after 48 hours. 12/20/23 07:41 Blood Culture - Preliminary Blood - Venous No growth after 48 hours. Discharge Plan Discharge Anticipated Discharge Date/Time: 12/23/23 11:39 Patient Disposition: Xfer [facility] Discharge Diagnosis: COPD, general weakness Referrals: Physician,Unknown J [Primary Care Provider] - 1 Week Discharge Medications: New albuterol sulfate 2.5 mg /3 mL (0.083 %) Solution For Nebulization 2.5 mg inhalation Q2H PRN (Reason: Shortness Of Breath/Wheezing) Qty: 2 0RF ipratropium-albuterol 0.5 mg-3 mg(2.5 mg base)/3 mL Solution For Nebulization 3 ml inhalation RQ4H WHILE AWAKE Qty: 20 0RF Continued lamotrigine 100 mg Tablet 100 mg PO BID 30 Days Qty: 60 0RF hydrochlorothiazide 12.5 mg Tablet 12.5 mg PO DAILY 30 Days Qty: 30 0RF Protocol: Hold for SBP< HOLD for SBP < : 90 multivitamin [Daily-Meron] Tablet 1 tab PO DAILY 30 Days Qty: 30 0RF terazosin 5 mg capsule 5 mg PO BEDTIME 30 Days Qty: 30 0RF aspirin 81 mg Tablet,Delayed Release (Dr/Ec) 81 mg PO DAILY 30 Days Qty: 30 0RF omeprazole 20 mg capsule,delayed release(DR/EC) 20 mg PO DAILY@0630 30 Days Qty: 30 0RF acetaminophen 325 mg tablet 650 mg PO TID polyethylene glycol 3350 17 gram powder in packet 17 g PO DAILY docusate sodium 100 mg capsule 100 mg PO BID atorvastatin 80 mg Tablet 80 mg PO DAILY sennosides [senna] 8.6 mg Tablet 17.2 mg PO DAILY miconazole nitrate 2 % Powder 1 appl TOPICAL BID citalopram 20 mg Tablet 20 mg PO DAILY ergocalciferol (vitamin D2) 1,250 mcg (50,000 unit) Capsule 1,250 mcg PO FR olanzapine 5 mg Tablet,Disintegrating 5 mg PO BEDTIME Discharge Orders: Discharge Order (Routine); Ordered 12/23/23 Ordered By: Adi Angeles Diet: Advance to usual diet Activity on Discharge: As tolerated Stand Alone Forms: Patient Portal Discharge page Print Language: Ivorian Care Plan Goals: recovery from copd and generalized weakness Health Concerns: chronic copd, dementia, bipolar,weakness Plan of Treatment: Use inhalers as directed to short term rehab Assessment: see above
--- NOTE | 2023-12-23 14:51 | MHC.CM.PN ---
IMM 12/21/23 Patient is discharged to [facility] via BLS. Discharge info has been sent to the facility.
== END 2023-12-23 15:53 | disposition skilled nursing facility (03) | DRG 192 ==
LOC: HO.ED 09:32 → HO.EDOVER 11:08 → HO.S3 23:44
PROVIDERS: Internal Medicine; Admitting Provider Internal Medicine; Emergency Provider Emergency Medicine; Visit Provider Internal Medicine
DX: J44.1 Chronic obstructive pulmonary disease with (acute) exacerbation (principal); F31.9 Bipolar disorder, unspecified; F03.90 Unspecified dementia, unspecified severity, without behavioral disturbance, psychotic disturbance, mood disturbance, and anxiety; I10 Essential (primary) hypertension; E78.2 Mixed hyperlipidemia; R33.9 Retention of urine, unspecified; Z20.822 Contact with and (suspected) exposure to COVID-19; Z79.82 Long term (current) use of aspirin; Z79.899 Other long term (current) drug therapy
CPT/HCPCS: 0241U; 36415; 71045; 80048; 80076; 81001; 81003; 83690; 83735; 83880; 84484; 85025; 87040; 93005; 94640; 97110; 97116; 97162; 99285; J0737; J1650; J2270; J2919; J3475; J7120

== ENCOUNTER → 2023-12-20 07:24 | Outpatient (BNV) | payer OTHER, SELFPAY | PROVIDERS: Admitting Provider Internal Medicine; Emergency Provider Emergency Medicine; Visit Provider Internal Medicine Cardiovascular Disease | DX: R94.31 Abnormal electrocardiogram [ECG] [EKG] (principal) | CPT/HCPCS: 93010 ==

== ENCOUNTER 2023-12-20 11:04 | Outpatient (BNV) | payer OTHER, SELFPAY | END 2023-12-21 07:55 | PROVIDERS: Admitting Provider Internal Medicine; Emergency Provider Emergency Medicine; Visit Provider Internal Medicine Cardiovascular Disease | DX: R94.31 Abnormal electrocardiogram [ECG] [EKG] (principal) | CPT/HCPCS: 93010 ==

== ENCOUNTER 2023-12-20 11:04 | Outpatient (BNV) | payer OTHER, SELFPAY | END 2023-12-22 06:16 | PROVIDERS: Admitting Provider Internal Medicine; Emergency Provider Emergency Medicine; Visit Provider Internal Medicine Cardiovascular Disease | DX: R94.31 Abnormal electrocardiogram [ECG] [EKG] (principal) | CPT/HCPCS: 93010 ==

== ENCOUNTER → 2023-12-20 11:04 | Outpatient (BNV) | payer OTHER, SELFPAY | PROVIDERS: Admitting Provider Internal Medicine; Emergency Provider Emergency Medicine; Visit Provider Internal Medicine | DX: F03.90 Unspecified dementia, unspecified severity, without behavioral disturbance, psychotic disturbance, mood disturbance, and anxiety (principal); J44.1 Chronic obstructive pulmonary disease with (acute) exacerbation | CPT/HCPCS: 99222; 99232; 99239 ==

== ENCOUNTER 2024-04-03 06:19 | Emergency (ER) | payer OTHER, SELFPAY ==
--- NOTE | 2024-04-03 | ECG_ITS ---
Test Reason : CHEST PAIN Blood Pressure : / mmHG Vent. Rate : 059 BPM Atrial Rate : 059 BPM P-R Int : 136 ms QRS Dur : 076 ms QT Int : 410 ms P-R-T Axes : 074 -54 038 degrees QTc Int : 405 ms Sinus bradycardia with Premature atrial complexes Left axis deviation Inferior infarct (cited on or before 22-DEC-2023) Abnormal ECG When compared with ECG of 22-DEC-2023 06:16, Premature atrial complexes are now Present Referred By: Generic ED Physician Electronically Signed By:Tae Strickland
--- NOTE | ~2024-04-03 | CT_ITS ---
EXAMINATION: CT ABDOMEN AND PELVIS WITH CONTRAST CLINICAL INFORMATION: Lower abdominal pain. Multiple previous surgeries COMPARISON: Baseline including 11/27/2021 TECHNIQUE: Multidetector volumetric images were obtained from the superior aspect of the liver through the pubic symphysis following administration 85 mL of Omnipaque 350 intravenous contrast. Sagittal and coronal reformatted images were obtained on the technologist's workstation. Oral contrast: No This CT examination was performed using dose optimization techniques as appropriate, variously including the following: *Automated exposure control *Adjustment of mA and/or kV according to patient size (this includes techniques or standardized protocols for targeted exams where dose is matched to indication/reason for exam; i.e. extremities or head) *Use of iterative reconstruction technique DLP: 658 mGy-cm FINDINGS: LUNG BASES: The visualized lung bases are unremarkable. LIVER, GALLBLADDER, AND BILIARY TREE: Hepatic morphology normal. Multiple cysts noted throughout the liver appears to be waxing and waning. No enhancing foci. Largest lesion left lobe appears to be slightly more prominent in the lesion within the caudate lobe appears to have resolved centrally. Hepatic and portal vessels are patent. Gallbladder appears to be surgically absent. PANCREAS: Unremarkable. SPLEEN: Granulomata and splenule noted once again. ADRENAL GLANDS: Unremarkable. KIDNEYS AND URETERS: Multiple renal cortical cysts again noted. Both urinary collecting systems appear more prominent (especially on the left down to the level of the bladder. There is no definite stone disease. There is irregular thickening of the bladder which may be related to trabeculation. BLADDER: No stones. Thickening noted diffusely of uncertain significance. The prostate is notably enlarged. Diverticula on the left noted. Urologic assessment recommended. GASTROINTESTINAL TRACT: Moderate stool retention. No fecal impaction. Extensive diverticulosis without acute inflammatory changes. No small bowel pathology. No mesenteric lesion. ABDOMINAL WALL: No significant hernia is appreciated. LYMPH NODES: Normal. VASCULAR: Mild aneurysmal dilatation of the infrarenal abdominal aorta in the setting of severe atherosclerosis noted. And measures up to 0.3 cm. This is similar to baseline. PELVIC VISCERA: As above. OSSEOUS STRUCTURES: Advanced spondylosis throughout the spine. CT/CT abdomen pelvis w IV con IMPRESSION: 1. There is diffuse thickening of the bladder wall which may be related to trabeculation chronic bladder outlet obstruction. There is however fullness of the renal collecting system especially on the left. Urologic assessment recommended to exclude an obstructing lesion within the bladder. 2. Multiple waxing and waning hepatic cysts. 3. Diverticulosis without acute inflammatory changes. 4. Mild aneurysmal dilatation of the infrarenal abdominal aorta. This is similar to baseline. 5. No specific findings to explain patient's lower abdominal pain. Fleischner guidelines were followed. Electronically signed by: Juan Nuñez MD 04/03/2024 09:34 AM CASIE
--- NOTE | ~2024-04-03 | XR_ITS ---
EXAMINATION: XR CHEST CLINICAL INFORMATION: Shortness of breath COMPARISON: 12/20/2023 TECHNIQUE: Semiupright 6:50 AM view of the chest was obtained. FINDINGS: Multiple low lung volumes similar to baseline. No infiltrate or CHF. Heart size normal. No CHF or ectopic air. Hiatus hernia again noted. No focal abnormality. XR/XR chest 1V IMPRESSION: No acute pulmonary disease. Hiatus hernia. Electronically signed by: Juan Nuñez MD 04/03/2024 08:40 AM EST
[2024-04-03 06:26] VITALS: BP 174/82; PULSE 63; O2SAT 98
[2024-04-03 06:29] VITALS: BP 173/77; PULSE 58; RESP 18; TEMP 36.7; O2SAT 97; BMI 24.4
[2024-04-03 06:48] LABS: MANUAL DIFF FLAG NO
[2024-04-03 06:54] LABS: Basophils Absolute Auto 0.1 X10*3/uL (0.0-0.2); Basophils Percent Auto 0.8 % (0-2); Eosinophils Absolute Auto 0.5 X10*3/uL (0.0-0.4); Hematocrit 36.8 % (42.0-52.0); Hemoglobin 12.5 g/dl (14.0-18.0); Imm Gran Abs Auto 0.01 X10*3/uL (0.00-0.03); Imm Gran Pct Auto 0.2 % (0.0-0.4); Lymphocytes Absolute Auto 2.4 X10*3/uL (1.2-4.9); Lymphocytes Percent Auto 38.5 % (20-40); Mean Corpuscular Hemoglobin 31.5 pg (27.0-33.0); Mean Corpuscular Volume 92.7 fL (80.0-98.0); Mean Platelet Volume 10.5 fL (9.4-12.4); Monocytes Absolute Auto 0.5 X10*3/uL (0.1-1.2); Monocytes Percent Auto 7.1 % (2-11); Neutrophils Absolute Auto 2.9 x10*3/uL (2.0-8.3); Neutrophils Percent Auto 45.4 % (45-73); Platelet Count 154 X10*3/uL (160-400); Red Blood Count 3.97 X10*6/uL (4.60-5.80); Red Cell Distribution Width 12.7 % (11.0-16.0); White Blood Count 6.3 X10*3/uL (4.8-10.8)
[2024-04-03 07:07] LABS: Alanine Aminotransferase 12 U/L (0-40); Albumin Level 3.9 g/dL (3.5-5.0); Alkaline Phosphatase 60 U/L (39-117); Anion Gap 12 (12-20); Aspartate Amino Transferase 22 U/L (5-37); Bilirubin Total 0.3 mg/dL (0.0-1.0); Blood Urea Nitrogen 20 mg/dL (9-16); Calcium 9.3 mg/dL (8.4-10.2); Carbon Dioxide 27 mmol/L (22-29); Chloride 107 mmol/L (96-108); Creatinine Clr Calc Pharmacy 55.6; Estimated Glomerular Filt Rate > 60; Glucose Random 94 mg/dL (60-115); Sodium 142 mmol/L (135-145); Total Protein 6.7 g/dL (6.5-8.0)
--- NOTE | 2024-04-03 07:07 | ED_ITS ---
HPI - Abdominal Pain General Chief Complaint: General Medical Stated Complaint: Left side & back pain, weakness constistantx1 week Time Seen by Provider: 04/03/24 07:05 Source: patient, family and old records reviewed Mode of arrival: EMS Limitations: no limitations History of Present Illness ED Provider: GADIEL HPI narrative: 88 yo male with dementia, bipolar disorder, HLD, GERD, HTN, COPD, here with c/o lower abdominal pain with nausea that woke him from sleep. He has had a cough. He denies diarrhea unclear last BM. He has not had a fever. He notes the pain starts in the lower abdomen and is sharp and intermittent and radiates up to L chest. MD elicited complaint: abdominal pain and flank pain Pertinent past history: other Onset (ago): hour(s) (woke him from sleep ) Pain Consistency: intermittent Location: RLQ, LLQ and suprapubic Severity: moderate Quality: stabbing Radiation: chest Migration to: no migration Exacerbating factors: nothing Relieving factors: nothing Associated symptoms: nausea and other (cough) Related Data Home Medications ?Medication ?Instructions ?Recorded ?Confirmed acetaminophen 325 mg tablet 650 mg PO TID Pain 12/20/23 12/20/23 atorvastatin 80 mg tablet 80 mg PO DAILY 12/20/23 12/20/23 citalopram 20 mg tablet 20 mg PO DAILY 12/20/23 12/20/23 docusate sodium 100 mg capsule 100 mg PO BID Constipation 12/20/23 12/20/23 ergocalciferol (vitamin D2) 1,250 1,250 mcg PO FR 12/20/23 12/20/23 mcg (50,000 unit) capsule miconazole nitrate 2 % topical 1 appl topical BID 12/20/23 12/20/23 powder olanzapine 5 mg disintegrating 5 mg PO BEDTIME 12/20/23 12/20/23 tablet polyethylene glycol 3350 17 gram 17 g PO DAILY Constipation 12/20/23 12/20/23 oral powder packet sennosides 8.6 mg tablet (senna) 17.2 mg PO DAILY 12/20/23 12/20/23 Previous Rx's ?Medication ?Instructions ?Recorded aspirin 81 mg tablet,delayed 81 mg PO DAILY 30 days #30 tabs 02/25/23 release lamotrigine 100 mg tablet 100 mg PO BID 30 days #60 tabs 02/25/23 multivitamin (Daily-Meron tablet) 1 tab PO DAILY 30 days #30 tabs 02/25/23 omeprazole 20 mg capsule,delayed 20 mg PO DAILY@0630 30 days #30 02/25/23 release caps terazosin 5 mg capsule 5 mg PO BEDTIME 30 days #30 caps 02/25/23 albuterol sulfate 2.5 mg/3 mL 2.5 mg (3 mL) inhalation Q2H PRN 12/23/23 (0.083 %) solution for nebulization Shortness Of Breath/Wheezing #2 mL hydrochlorothiazide 12.5 mg tablet 12.5 mg PO DAILY 30 days #30 tabs 12/23/23 ipratropium 0.5 mg-albuterol 3 mg 3 ml inhalation RQ4H WHILE AWAKE 12/23/23 (2.5 mg base)/3 mL nebulization #20 mL soln Allergies Allergy/AdvReac Type Severity Reaction Status Date / Time pencillin Allergy Severe Hives Uncoded 04/03/24 06:32 Review of Systems Review of Systems Constitutional : No Weight loss, No Fever, No Chills ENT/Mouth : No sore throat, No Rhinorrhea Eyes: No Swelling, No Redness Cardiovascular : pos Chest Pain, No SOB, No Edema Respiratory : pos Cough, No Sputum, No Wheezing Gastrointestinal : Positive Nausea, no Vomiting, no Diarrhea, positive abdominal Pain, No Hematochezia, No Melena Genitourinary : No Dysuria, No Urinary Frequency, No Hematuria, No Urgency Musculoskeletal : No joint pain, No Myalgias, No Joint Swelling Skin : No Skin Lesions, No rash Neuro : No Weakness, No Numbness, No Dizziness, No Headache All other systems reviewed and are negative. [facility] Past Medical History Attestation statement: The following information was validated with the patient. Source: old records reviewed Medical History Dementia Essential hypertension Bipolar disorder COPD (chronic obstructive pulmonary disease) Social History Social History Household Members: Family Household Members Other:: son and son's partner Housing: Apartment Do you presently have visiting nurse or other home services: No Unable to assess alcohol history related to: Unable to respond Alcohol intake: never Patient Tobacco Use Status: Never used Tobacco Smoked in Last 30 Days: No e-Cigarette/Vaping Use: Never Used Second Hand Smoke Exposure: No Use of substances other than those prescribed or required for medical reasons: No Advance Directives: Yes Advance Directives on File: Yes Advance Directives Date on File: 12/21/23 service: No Current occupational status: retired Sexual orientation: Straight/Heterosexual Physical Exam ED Vital Signs: Vital Signs - 24 hr 04/03/24 06:29 04/03/24 08:00 04/03/24 10:00 Temperature 98.0 F 98.0 F 98.2 F Pulse Rate 58 61 59 Respiratory Rate 18 20 15 Blood Pressure 173/77 H 189/97 H 196/93 H Pulse Oximetry 97 95 97 Oxygen Delivery Method Room Air Room Air Room Air BMI result Body Mass Index 24.4 Appearance: Alert. Oriented X2 No acute distress. anxious Eyes: Pupils equal, round and reactive to light. ENT: Pharynx normal. Neck: Normal inspection. Neck supple. CVS: Normal heart rate and rhythm. Pulses normal. Respiratory: No respiratory distress. Breath sounds normal. Abdomen: Soft and ttp in lower abdomen no rebound Skin: Skin warm and dry. Normal skin color. Extremities: No lower extremity edema. Neuro: Oriented X 2. No motor deficit. No sensory deficit. Medical Decision Making Medical Decision Making MDM Narrative: 88 yo male with dementia, bipolar disorder, HLD, GERD, HTN, COPD, here with c/o having sharp lower and L sided pain he cannot tell me when it started but thinks it woke him up. He c/o cough and nausea. He has multiple scars on his abdomen - unclear what surgeries. He denies fevers, diarrhea. He is a poor historian will obtain basic labs, UA, CXR, EKG and CT scan of abdomen to evalute for SBO, colitis, diverticulitis. IV tylenol for pain ordered. Wide differential based off pain but could be atypical ACS, SBO, diverticulitis, colitis, UA pathology, renal colic, appendicitis Differential Diagnosis Differential Diagnoses: The differential diagnosis associated with the presentation includes atypical ACS, SBO, diverticulitis, colitis, UA pathology, renal colic, appendicitis Admission/Observation Consideration of admission/observation: Escalation of care including admission/observation considered no acute findings he is unsure if he is on BP medications but I think he is on HCTZ 12.5mg we have tried to call his son unable to reach him plan would be DC with outpatient urology followup. Lab Data MDM Lab Attestation statement: I reviewed the patient's lab results. 04/03/24 06:37 04/03/24 06:37 Labs: Lab Results 04/03/24 04/03/24 04/03/24 Range/Units 06:37 06:38 09:47 WBC 6.3 (4.8-10.8) X10*3/uL RBC 3.97 L (4.60-5.80) X10*6/uL Hgb 12.5 L (14.0-18.0) g/dl Hct 36.8 L (42.0-52.0) % MCV 92.7 (80.0-98.0) fL MCH 31.5 (27.0-33.0) pg MCHC 34.0 (31.0-36.0) g/dl RDW 12.7 (11.0-16.0) % Plt Count 154 L D (160-400) X10*3/uL MPV 10.5 (9.4-12.4) fL Immature Gran % (Auto) 0.2 (0.0-0.4) % Neut % (Auto) 45.4 (45-73) % Lymph % (Auto) 38.5 (20-40) % [place] % (Auto) 7.1 (2-11) % Eos % (Auto) 8.0 H (0-4) % Baso % (Auto) 0.8 (0-2) % Lymph # (Auto) 2.4 (1.2-4.9) X10*3/uL [place] # (Auto) 0.5 (0.1-1.2) X10*3/uL Eos # (Auto) 0.5 H (0.0-0.4) X10*3/uL Baso # (Auto) 0.1 (0.0-0.2) X10*3/uL Abs Immat Gran (auto) 0.01 (0.00-0.03) X10*3/uL Absolute Neuts (auto) 2.9 (2.0-8.3) x10*3/uL Absolute Nucleated RBC 0.000 (0.0-0.012) X10*3/uL Nucleated RBC % (auto) 0.0 (0.0-0.2) /100WBC Sodium 142 (135-145) mmol/L Potassium 4.0 (3.3-5.1) mmol/L Chloride 107 (96-108) mmol/L Carbon Dioxide 27 (22-29) mmol/L Anion Gap 12 (12-20) BUN 20 H (9-16) mg/dL Creatinine 0.90 (0.5-1.4) mg/dL Estim Creat Clear Calc 55.6 Estimated GFR > 60 Random Glucose 94 (60-115) mg/dL Calcium 9.3 (8.4-10.2) mg/dL Total Bilirubin 0.3 (0.0-1.0) mg/dL AST 22 (5-37) U/L ALT 12 (0-40) U/L Alkaline Phosphatase 60 (39-117) U/L Troponin I High Sens 10.7 D 10.4 (<3.5-35.0) ng/L Total Protein 6.7 (6.5-8.0) g/dL Albumin 3.9 (3.5-5.0) g/dL Lipase 26 (8-78) U/L Urine Color Urine Appearance Urine pH (5.0-9.0) Ur Specific Burton (1.005-1.025) Urine Protein (Neg-Trace) mg/dL Urine Glucose (UA) (Negative) mg/dL Urine Ketones (Negative) mg/dL Urine Blood (Negative) Urine Nitrite (Negative) Ur Leukocyte Esterase (Negative) Influenza Type A (PCR) NEGATIVE (Negative) Influenza Type B (PCR) NEGATIVE (Negative) RSV RNA Qual (PCR) NEGATIVE (Negative) SARS-CoV-2 RNA (RT-PCR) NEGATIVE (Negative) 04/03/24 Range/Units 10:38 WBC (4.8-10.8) X10*3/uL RBC (4.60-5.80) X10*6/uL Hgb (14.0-18.0) g/dl Hct (42.0-52.0) % MCV (80.0-98.0) fL MCH (27.0-33.0) pg MCHC (31.0-36.0) g/dl RDW (11.0-16.0) % Plt Count (160-400) X10*3/uL MPV (9.4-12.4) fL Immature Gran % (Auto) (0.0-0.4) % Neut % (Auto) (45-73) % Lymph % (Auto) (20-40) % [place] % (Auto) (2-11) % Eos % (Auto) (0-4) % Baso % (Auto) (0-2) % Lymph # (Auto) (1.2-4.9) X10*3/uL [place] # (Auto) (0.1-1.2) X10*3/uL Eos # (Auto) (0.0-0.4) X10*3/uL Baso # (Auto) (0.0-0.2) X10*3/uL Abs Immat Gran (auto) (0.00-0.03) X10*3/uL Absolute Neuts (auto) (2.0-8.3) x10*3/uL Absolute Nucleated RBC (0.0-0.012) X10*3/uL Nucleated RBC % (auto) (0.0-0.2) /100WBC Sodium (135-145) mmol/L Potassium (3.3-5.1) mmol/L Chloride (96-108) mmol/L Carbon Dioxide (22-29) mmol/L Anion Gap (12-20) BUN (9-16) mg/dL Creatinine (0.5-1.4) mg/dL Estim Creat Clear Calc Estimated GFR Random Glucose (60-115) mg/dL Calcium (8.4-10.2) mg/dL Total Bilirubin (0.0-1.0) mg/dL AST (5-37) U/L ALT (0-40) U/L Alkaline Phosphatase (39-117) U/L Troponin I High Sens (<3.5-35.0) ng/L Total Protein (6.5-8.0) g/dL Albumin (3.5-5.0) g/dL Lipase (8-78) U/L Urine Color Yellow Urine Appearance Clear Urine pH 6.5 (5.0-9.0) Ur Specific Burton 1.025 (1.005-1.025) Urine Protein Negative (Neg-Trace) mg/dL Urine Glucose (UA) Negative (Negative) mg/dL Urine Ketones Negative (Negative) mg/dL Urine Blood Negative (Negative) Urine Nitrite Negative (Negative) Ur Leukocyte Esterase Negative (Negative) Influenza Type A (PCR) (Negative) Influenza Type B (PCR) (Negative) RSV RNA Qual (PCR) (Negative) SARS-CoV-2 RNA (RT-PCR) (Negative) Independent Interpretation I performed an independent interpretation of an: EKG, Plain X-Ray (no pneumonia) and CT Scan (bladder abnormality) Interpretation: Rate: 59 Rhythm: sinus bradycardia with PACs [place]: left Normal P waves. Normal KATHE. Normal QRS complex. ST T wave : inverted t wave V1, NO BENY qTC:405 prior studies: no acute ischemia The study has been interpreted contemporaneously by me. . Radiology Impression Discussion of test interpretation with radiology: I have reviewed the radiologist's reading. Independent Historian Clinical information obtained from an independent historian. History obtained from or confirmed by: EMS External Record Review External record reviewed: Outpatient record Medications Administered Discontinued Medications Generic Name Dose Route Start Last Admin Trade Name Freq PRN Reason Stop Dose Admin Acetaminophen 1,000 mg in 100 mls @ 400 mls/hr 04/03/24 07:18 04/03/24 08:16 Ofirmev IV 04/03/24 07:32 Infused ONCE ONE Infusion Iohexol 100 ml 04/03/24 07:58 04/03/24 07:59 Iohexol 350 Mg/Ml 100 Ml Infus..Btl IV 04/03/24 07:59 85 ml ONCE ONE Administration Ondansetron HCl 4 mg 04/03/24 07:15 04/03/24 07:34 Ondansetron Hcl 4 Mg/2 Ml Vial IVPUSH 04/03/24 07:16 4 mg ONCE ONE Administration Discharge Plan Discharge Clinical Impression: Abdominal pain, lower Patient Disposition: Home, Self-Care Instructions: Abdominal Pain (ED) Additional Instructions: urine negative for infection labs at baseline kidney function at baseline, normal liver test/pancreas return for any worsening symptoms or concerns, vomiting, fevers, pain, unable to urinate chest xray normal GIVEN HIS AM BLOOD PRESSURE MEDICINE - HCTZ 12.5MG IN ED THIS am CT scan needs to have outpatient urology follow up to make sure there is not bladder mass CT/CT abdomen pelvis w IV con IMPRESSION: 1. There is diffuse thickening of the bladder wall which may be related to trabeculation chronic bladder outlet obstruction. There is however fullness of the renal collecting system especially on the left. Urologic assessment recommended to exclude an obstructing lesion within the bladder. 2. Multiple waxing and waning hepatic cysts. 3. Diverticulosis without acute inflammatory changes. 4. Mild aneurysmal dilatation of the infrarenal abdominal aorta. This is similar to baseline. 5. No specific findings to explain patient's lower abdominal pain. Prescriptions: No Action lamotrigine 100 mg Tablet 100 mg PO BID 30 Days Qty: 60 0RF multivitamin [Daily-Meron] Tablet 1 tab PO DAILY 30 Days Qty: 30 0RF terazosin 5 mg capsule 5 mg PO BEDTIME 30 Days Qty: 30 0RF aspirin 81 mg Tablet,Delayed Release (Dr/Ec) 81 mg PO DAILY 30 Days Qty: 30 0RF omeprazole 20 mg capsule,delayed release(DR/EC) 20 mg PO DAILY@0630 30 Days Qty: 30 0RF acetaminophen 325 mg tablet 650 mg PO TID polyethylene glycol 3350 17 gram powder in packet 17 g PO DAILY docusate sodium 100 mg capsule 100 mg PO BID atorvastatin 80 mg Tablet 80 mg PO DAILY sennosides [senna] 8.6 mg Tablet 17.2 mg PO DAILY miconazole nitrate 2 % Powder 1 appl TOPICAL BID citalopram 20 mg Tablet 20 mg PO DAILY ergocalciferol (vitamin D2) 1,250 mcg (50,000 unit) Capsule 1,250 mcg PO FR olanzapine 5 mg Tablet,Disintegrating 5 mg PO BEDTIME ipratropium-albuterol 0.5 mg-3 mg(2.5 mg base)/3 mL Solution For Nebulization 3 ml inhalation RQ4H WHILE AWAKE Qty: 20 0RF albuterol sulfate 2.5 mg /3 mL (0.083 %) Solution For Nebulization 2.5 mg inhalation Q2H PRN (Reason: Shortness Of Breath/Wheezing) Qty: 2 0RF hydrochlorothiazide 12.5 mg Tablet 12.5 mg PO DAILY 30 Days Qty: 30 0RF Protocol: Hold for SBP< HOLD for SBP < : 90 Rx Instructions: hold for SBP < 100 Referrals: [facility] [Provider Group] Print Language: Japanese
[2024-04-03 07:14] LABS: Troponin-I High Sensitivity 10.7 ng/L (<3.5-35.0)
[2024-04-03 07:26] LABS: Influenza A PCR NEGATIVE (Negative); Influenza B PCR NEGATIVE (Negative); Resp Syncy Virus RNA Qual PCR NEGATIVE (Negative); SARS COV2 PCR INHOUSE NEGATIVE (Negative)
[2024-04-03] MEDS: ondansetron HCL 4 MG/2 ML VIAL IVPUSH (07:34)
[2024-04-03] MEDS: Acetaminophen 1,000 MG/100 ML PIGGYBACK 400 MG IV (07:35)
[2024-04-03 07:40] LABS: Lipase 26 U/L (8-78)
[2024-04-03] MEDS: iohexoL 350 MG/ML 100 ML INFUS..BTL IV (07:59)
[2024-04-03 08:00] VITALS: BP 189/97; PULSE 61; RESP 20; TEMP 36.7; O2SAT 95
[2024-04-03 10:00] VITALS: BP 196/93; PULSE 59; RESP 15; TEMP 36.8; O2SAT 97
[2024-04-03 10:19] LABS: Troponin-I High Sensitivity 10.4 ng/L (<3.5-35.0)
--- NOTE | 2024-04-03 10:43 | PC.NURSE ---
Pt BP noted to be 196/93, made aware of high BP. Pt denies cp/sob/dizziness
[2024-04-03 10:45] LABS: Appearance Urine Clear; Color Urine Yellow; Glucose Urine UA Negative (Negative); Leukocyte Esterase Urine Negative (Negative); Nitrite Urine Negative (Negative); PH 6.5 (5.0-9.0); Specific Gravity - Urine 1.025 (1.005-1.025); Urine Blood Negative (Negative); Urine Ketones Negative (Negative); Urine Protein Negative (Neg-Trace)
[2024-04-03 11:57] VITALS: BP 180/87
[2024-04-03] MEDS: hydroCHLOROthiazide 12.5 MG TABLET PO (11:57)
[2024-04-03 12:22] VITALS: BP 180/87; PULSE 60; RESP 18; TEMP 36.8; O2SAT 97
--- NOTE | 2024-04-03 13:37 | MHC.CM.ED ---
Late entry from 1130am: Received consult from Dr Shah. Patient came to the ER with back pain. Work up essentially negative. Dr Shah has not been able to contact family. Attempted to speak to patient's son, Marcelo, via telephone at [phone]. No answer. No ability to leave a message. Attempted to speak with daughter in law, Nithya, via telephone at [phone]. Left message requesting return telephone call. Spoke with patient's son, Ellis, via telephone at [phone]. Ellis confirms patient lives with him. Ellis will be in ER in 30 mins to [facility] patient home. Dr Shah aware.
== END 2024-04-03 12:24 | disposition home or self-care (01) ==
PROVIDERS: Emergency Provider Emergency Medicine; PCP Psychiatry & Neurology Psychiatry
DX: R10.9 Unspecified abdominal pain (principal); M54.50 Low back pain, unspecified; R07.89 Other chest pain; R00.1 Bradycardia, unspecified; Z79.899 Other long term (current) drug therapy; Z03.818 Encounter for observation for suspected exposure to other biological agents ruled out
CPT/HCPCS: 0241U; 36415; 71045; 74177; 80053; 81003; 83690; 84484; 85025; 93005; 99284; 99285; J0131; J2405; Q9967

== ENCOUNTER → 2024-04-03 06:34 | Outpatient (BNV) | payer OTHER, SELFPAY | PROVIDERS: Emergency Provider Emergency Medicine; PCP Psychiatry & Neurology Psychiatry; Visit Provider Internal Medicine Cardiovascular Disease | DX: I49.1 Atrial premature depolarization (principal) | CPT/HCPCS: 93010 ==

== ENCOUNTER 2024-04-25 22:36 | Emergency (ER) | payer OTHER, SELFPAY ==
--- NOTE | ~2024-04-25 | XR_ITS ---
EXAMINATION: XR CHEST CLINICAL INFORMATION: weakness COMPARISON: Chest radiograph 04/03/2024 TECHNIQUE: 2 views of the chest were obtained. FINDINGS: Normal appearance of the cardiomediastinal structures. Pleura no focal pulmonary consolidation. Normal pattern of pulmonary vasculature. Mild multilevel anterior endplate osteophytosis of the thoracic spine. XR/XR chest 2V IMPRESSION: No acute cardiopulmonary abnormalities. Electronically signed by: Allen Ho MD 04/26/2024 02:05 AM [facility]
--- NOTE | ~2024-04-25 | XR_ITS ---
EXAMINATION: XR FOOT, RIGHT CLINICAL INFORMATION: ? plantar FB at mid metatarsal pad COMPARISON: None available. TECHNIQUE: AP, lateral, and oblique views of the right foot. FINDINGS: Marked joint space narrowing and osteophytosis of the first metatarsal phalangeal joint. No Lisfranc malalignment. The lateral view demonstrates a 2 mm x 1 mm linear density in projection with the plantar soft tissues in the region of the distal aspect of the metatarsals. No adjacent soft tissue inflammatory changes or soft tissue emphysematous changes. Scattered vascular calcifications. XR/XR foot RT min 3V IMPRESSION: 1. 2 mm x 1 mm linear density in projection with the plantar soft tissues in the region of the distal aspect of the metatarsals. This finding may represent an embedded foreign body. This finding resides approximately 2 mm deep to the cutaneous margin. 2. 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 3. Scattered vascular calcifications. Electronically signed by: Allen Ho MD 04/26/2024 02:03 AM [facility]
[2024-04-25 22:46] VITALS: BP 142/88; PULSE 62
--- NOTE | 2024-04-25 22:49 | ECG_ITS ---
Test Reason : chest pain Blood Pressure : / mmHG Vent. 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
[2024-04-25 22:55] VITALS: BP 152/76; PULSE 84; RESP 16; TEMP 36.4; O2SAT 97; BMI 24.5
--- NOTE | 2024-04-25 23:24 | ED_ITS ---
HPI - General Adult General Chief complaint: Weakness Stated complaint: CP & Confusion, nonmed compliant Time Seen by Provider: 04/25/24 23:24 History of Present Illness ED Provider: Kyle DE LOS SANTOS narrative: The patient is an 88-year-old male. He lives in a in-law apartment at his son's house. His son lives with a girlfriend. The patient is a fairly vague historian and is complaining of only some pain on the plantar aspect of his right foot. I tried to contact his son Ellis at [phone]. I spoke with a [place] girlfriend. She tells me that the patient has been complaining a lot, particularly at night that he does not feel well. He will often scream at night ?I am dying. ? She says that he bags on the floor at night and yells a lot saying ?I do not feel good. ? The son's girlfriend also said that the patient is very variably compliant with his medications. She says that he is often ?messing around with his medications. ?. She feels that he has trouble sleeping. She says that the reason they called an ambulance tonight was because the patient was saying that he felt weak and did not feel well. The girlfriend did not indicate that there was any clear objective change in the patient's condition that prompted the call for an ambulance. When I asked her about the patient's complaint of foot pain she thinks that he has been complaining about pain in the foot for about 2 days. Related Data Home Medications ?Medication ?Instructions ?Recorded ?Confirmed acetaminophen 325 mg tablet 650 mg PO TID Pain 12/20/23 12/20/23 atorvastatin 80 mg tablet 80 mg PO DAILY 12/20/23 12/20/23 citalopram 20 mg tablet 20 mg PO DAILY 12/20/23 12/20/23 docusate sodium 100 mg capsule 100 mg PO BID Constipation 12/20/23 12/20/23 ergocalciferol (vitamin D2) 1,250 1,250 mcg PO FR 12/20/23 12/20/23 mcg (50,000 unit) capsule miconazole nitrate 2 % topical 1 appl topical BID 12/20/23 12/20/23 powder olanzapine 5 mg disintegrating 5 mg PO BEDTIME 12/20/23 12/20/23 tablet polyethylene glycol 3350 17 gram 17 g PO DAILY Constipation 12/20/23 12/20/23 oral powder packet sennosides 8.6 mg tablet (senna) 17.2 mg PO DAILY 12/20/23 12/20/23 Previous Rx's ?Medication ?Instructions ?Recorded aspirin 81 mg tablet,delayed 81 mg PO DAILY 30 days #30 tabs 02/25/23 release lamotrigine 100 mg tablet 100 mg PO BID 30 days #60 tabs 02/25/23 multivitamin (Daily-Meron tablet) 1 tab PO DAILY 30 days #30 tabs 02/25/23 omeprazole 20 mg capsule,delayed 20 mg PO DAILY@0630 30 days #30 02/25/23 release caps terazosin 5 mg capsule 5 mg PO BEDTIME 30 days #30 caps 02/25/23 albuterol sulfate 2.5 mg/3 mL 2.5 mg (3 mL) inhalation Q2H PRN 12/23/23 (0.083 %) solution for nebulization Shortness Of Breath/Wheezing #2 mL hydrochlorothiazide 12.5 mg tablet 12.5 mg PO DAILY 30 days #30 tabs 12/23/23 ipratropium 0.5 mg-albuterol 3 mg 3 ml inhalation RQ4H WHILE AWAKE 12/23/23 (2.5 mg base)/3 mL nebulization #20 mL soln Allergies Allergy/AdvReac Type Severity Reaction Status Date / Time pencillin Allergy Severe Hives Uncoded 04/25/24 22:58 Review of Systems 2 Review of Systems: Yes all other systems are reviewed and are negative [facility] Past Medical History Medical History Dementia Essential hypertension Bipolar disorder COPD (chronic obstructive pulmonary disease) Social History Social History Household Members: Family Household Members Other:: son and son's partner Housing: Apartment Do you presently have visiting nurse or other home services: No Unable to assess alcohol history related to: Unable to respond Alcohol intake: never Patient Tobacco Use Status: Never used Tobacco Smoked in Last 30 Days: No e-Cigarette/Vaping Use: Never Used Second Hand Smoke Exposure: No Use of substances other than those prescribed or required for medical reasons: No Advance Directives: Yes Advance Directives on File: Yes Advance Directives Date on File: 12/24/23 Do you have a plan to hurt others: No Plan service: No Current occupational status: retired Sexual orientation: Straight/Heterosexual Physical Exam ED Vital Signs: Vital Signs - 24 hr 04/25/24 22:55 04/26/24 00:10 04/26/24 03:43 Temperature 97.6 F 97.8 F 97.8 F Pulse Rate 84 55 61 Respiratory Rate 16 17 22 H Blood Pressure 152/76 H 162/79 H 195/75 H Pulse Oximetry 97 97 95 Oxygen Delivery Method Room Air Room Air Room Air 04/26/24 04:30 04/26/24 07:00 Temperature Pulse Rate 71 71 Respiratory Rate 18 18 Blood Pressure 158/64 H Pulse Oximetry 96 Oxygen Delivery Method Room Air BMI result Body Mass Index 24.5 Const Other: The patient is an older man who was awake and alert. He is edentulous. His speech is somewhat difficult to understand. He does not appear in acute distress. He looks mildly unkempt. HENMT Other: Face is symmetrical. Mucous membranes moist. The patient is edentulous. Eyes Other: Pupils are round equal, conjunctivae are clear, extraocular movements intact Neck Other: No obvious JVD. Moving his neck easily Resp Effort & Inspection: normal respiratory effort Auscultation: clear to auscultation bilaterally Cardio Rate: bradycardic Rhythm: regular rhythm Heart sounds: S1 normal heart sound present and S2 normal heart sound present GI Other: Abdomen is soft and nontender Skin Other: The skin is dry and unremarkable. On the plantar aspect of the patient's right foot in the midportion of the metatarsal pad there is some slight swelling of the skin and a small area of darkish discoloration. The patient is tender in this area. There is no erythema. Neuro Other: The patient is awake and alert. Cranial nerves are intact. He seems to have symmetrical strength in his arms. There is no pronator drift. He seems to have some discomfort when he moves his legs and this limits the evaluation of his legs but he does not seem to have any definite unilateral weakness. Extrem Other: No calf swelling or tenderness. No peripheral edema. On the plantar aspect of the patient's right foot is a small area of swelling to the skin which is not associated with the erythema but which is tender. Medications Administered Discontinued Medications Generic Name Dose Route Start Last Admin Trade Name Didier PRN Reason Stop Dose Admin Albuterol/Ipratropium 3 ml 04/26/24 03:45 04/26/24 04:27 Albuterol/Iprat 2.5/0.5mg 3 Ml Ampul.Neb INHALE 04/26/24 03:46 3 ml ONCE ONE Administration Medical Decision Making Medical Decision Making [facility] Narrative: Patient is a 88-year-old male who lives in an in-law apartment attached to his son's house. He has a history of dementia and he also has a history of bipolar disorder and is on psychiatric medications including olanzapine and lamotrigine. The patient was brought to the hospital today by ambulance. He was not really able to tell me why he was here although he was able to complain of pain on the plantar aspect of his right foot where he seems to have a foreign body. I contacted the patient's son's girlfriend. She says that the patient has been complaining a great deal recently. She says that he often complains at night. She says that he has had trouble sleeping. She says that he has been screaming things like ?I am dying. ? She says that sometimes he bangs on the floor at night any else because he does not feel well. Apparently the son and the girlfriend called 911 today because the patient was saying that he was very weak and did not feel well. Additionally she said that the patient is not consistently compliant with his medications. On my exam the patient does not seem to exhibit any neurological deficits and he does not seem obviously acutely ill. He does look old and frail and chronically ill but not obviously acutely ill. On the plantar aspect of the right foot at the metatarsal pad is an area of pain and tenderness. An x-ray of the foot shows a small radiopaque foreign body in this area. On x-ray this is described as a 2 mm x 1 mm linear density which is approximately 2 mm deep to the cutaneous margin. The site of this foreign body does not appear obviously infected. There is no overlying erythema. Given how small the foreign body is I think exploration in the emergency department would have a high risk of being unsuccessful. I think it would be better served for this patient to be seen by a general surgeon. Since the patient has a history of dementia and depression I have requested a case management consult for assistance in making a final disposition from the emergency department. Lab Data 04/26/24 00:02 04/26/24 00:02 Labs: Lab Results 04/25/24 04/26/24 04/26/24 Range/Units 23:56 00:02 03:28 WBC 5.3 (4.8-10.8) X10*3/uL RBC 3.65 L (4.60-5.80) X10*6/uL Hgb 11.4 L (14.0-18.0) g/dl Hct 33.7 L (42.0-52.0) % MCV 92.3 (80.0-98.0) fL MCH 31.2 (27.0-33.0) pg MCHC 33.8 (31.0-36.0) g/dl RDW 13.0 (11.0-16.0) % Plt Count 148 L (160-400) X10*3/uL MPV 10.9 (9.4-12.4) fL Immature Gran % (Auto) 0.2 (0.0-0.4) % Neut % (Auto) 53.4 (45-73) % Lymph % (Auto) 29.1 (20-40) % [place] % (Auto) 9.6 (2-11) % Eos % (Auto) 7.1 H (0-4) % Baso % (Auto) 0.6 (0-2) % Lymph # (Auto) 1.6 (1.2-4.9) X10*3/uL [place] # (Auto) 0.5 (0.1-1.2) X10*3/uL Eos # (Auto) 0.4 (0.0-0.4) X10*3/uL Baso # (Auto) 0.0 (0.0-0.2) X10*3/uL Abs Immat Gran (auto) 0.01 (0.00-0.03) X10*3/uL Absolute Neuts (auto) 2.8 (2.0-8.3) x10*3/uL Absolute Nucleated RBC 0.000 (0.0-0.012) X10*3/uL Nucleated RBC % (auto) 0.0 (0.0-0.2) /100WBC Sodium 142 (135-145) mmol/L Potassium 3.7 (3.3-5.1) mmol/L Chloride 109 H (96-108) mmol/L Carbon Dioxide 29 (22-29) mmol/L Anion Gap 8 L (12-20) BUN 18 H (9-16) mg/dL Creatinine 1.08 (0.5-1.4) mg/dL Estim Creat Clear Calc 46.3 Estimated GFR > 60 Random Glucose 104 (60-115) mg/dL Calcium 8.6 D (8.4-10.2) mg/dL Magnesium 1.8 (1.6-2.6) mg/dL Total Bilirubin 0.3 (0.0-1.0) mg/dL Direct Bilirubin 0.1 (0.0-0.5) mg/dL AST 27 (5-37) U/L ALT 15 (0-40) U/L Alkaline Phosphatase 48 (39-117) U/L Troponin I High Sens 15.0 (<3.5-35.0) ng/L C-Reactive Protein 0.20 (< or = 0.50) mg/dL B-Natriuretic Peptide 67 (<100) pg/mL Total Protein 6.4 L (6.5-8.0) g/dL Albumin 3.7 (3.5-5.0) g/dL Urine Color Yellow Urine Appearance Clear Urine pH 6.5 (5.0-9.0) Ur Specific [place] 1.020 (1.005-1.025) Urine Protein Negative (Neg-Trace) mg/dL Urine Glucose (UA) Negative (Negative) mg/dL Urine Ketones Negative (Negative) mg/dL Urine Blood Negative (Negative) Urine Nitrite Negative (Negative) Ur Leukocyte Esterase Negative (Negative) Urine Opiates Screen Not Detected (Not Detect) Ur Buprenorphine Scrn Not Detected (Not Detect) ng/mL Ur Oxycodone Screen Not Detected (Not Detect) ng/mL Urine Methadone Screen Not Detected (Not Detect) ng/mL Urine Fentanyl Screen Not Detected (Not Detect) Ur Barbiturates Screen Not Detected (Not Detect) Ur Phencyclidine Scrn Not Detected (Not Detect) Ur Amphetamines Screen Not Detected (Not Detect) U Benzodiazepines Scrn Not Detected (Not Detect) Urine Cocaine Screen Not Detected (Not Detect) U Marijuana (THC) Screen Not Detected (Not Detect) Ethyl Alcohol < 10 mg/dL Influenza Type A (PCR) NEGATIVE (Negative) Influenza Type B (PCR) NEGATIVE (Negative) RSV RNA Qual (PCR) NEGATIVE (Negative) SARS-CoV-2 RNA (RT-PCR) NEGATIVE (Negative) Discharge Plan Discharge Clinical Impression: Acute foreign body of right foot, Generalized weakness, History of dementia Patient Disposition: Still a Patient Additional Instructions: The x-ray of your right foot shows a very small foreign body imbedded in the skin at the area of pain on the bottom of your foot. It would be best for this to be addressed by a general surgeon. Please contact the General surgery office to schedule an appointment to follow up on this problem. Prescriptions: No Action lamotrigine 100 mg Tablet 100 mg PO BID 30 Days Qty: 60 0RF multivitamin [Daily-Meron] Tablet 1 tab PO DAILY 30 Days Qty: 30 0RF terazosin 5 mg capsule 5 mg PO BEDTIME 30 Days Qty: 30 0RF aspirin 81 mg Tablet,Delayed Release (Dr/Ec) 81 mg PO DAILY 30 Days Qty: 30 0RF omeprazole 20 mg capsule,delayed release(DR/EC) 20 mg PO DAILY@0630 30 Days Qty: 30 0RF acetaminophen 325 mg tablet 650 mg PO TID polyethylene glycol 3350 17 gram powder in packet 17 g PO DAILY docusate sodium 100 mg capsule 100 mg PO BID atorvastatin 80 mg Tablet 80 mg PO DAILY sennosides [senna] 8.6 mg Tablet 17.2 mg PO DAILY miconazole nitrate 2 % Powder 1 appl TOPICAL BID citalopram 20 mg Tablet 20 mg PO DAILY ergocalciferol (vitamin D2) 1,250 mcg (50,000 unit) Capsule 1,250 mcg PO FR olanzapine 5 mg Tablet,Disintegrating 5 mg PO BEDTIME ipratropium-albuterol 0.5 mg-3 mg(2.5 mg base)/3 mL Solution For Nebulization 3 ml inhalation RQ4H WHILE AWAKE Qty: 20 0RF albuterol sulfate 2.5 mg /3 mL (0.083 %) Solution For Nebulization 2.5 mg inhalation Q2H PRN (Reason: Shortness Of Breath/Wheezing) Qty: 2 0RF hydrochlorothiazide 12.5 mg Tablet 12.5 mg PO DAILY 30 Days Qty: 30 0RF Protocol: Hold for SBP< HOLD for SBP < : 90 Rx Instructions: hold for SBP < 100 Referrals: [facility] [place] General Surgeons [Provider Group] (Radiopaque foreign body, plantar aspect of right foot) Print Language: Japanese
--- NOTE | 2024-04-25 23:47 | ECG_ITS ---
Test Reason : weakness Blood Pressure : / mmHG Vent. 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 rate has decreased Referred By: Lj Wright Electronically Signed By:STEPHANIE LAUREN MD
[2024-04-26] VITALS (7 sets, daily range): BP systolic 151–195; BP diastolic 54–89; PULSE 55–74; RESP 16–22; TEMP 36.4–36.9; O2SAT 95–97
[2024-04-26 00:07] LABS: MANUAL DIFF FLAG NO
[2024-04-26 00:10] LABS: Basophils Percent Auto 0.6 % (0-2); Eosinophils Absolute Auto 0.4 X10*3/uL (0.0-0.4); Eosinophils Percent Auto 7.1 % (0-4); Hematocrit 33.7 % (42.0-52.0); Hemoglobin 11.4 g/dl (14.0-18.0); Imm Gran Abs Auto 0.01 X10*3/uL (0.00-0.03); Imm Gran Pct Auto 0.2 % (0.0-0.4); Lymphocytes Absolute Auto 1.6 X10*3/uL (1.2-4.9); Lymphocytes Percent Auto 29.1 % (20-40); Mean Corpuscular HGB Conc 33.8 g/dl (31.0-36.0); Mean Corpuscular Hemoglobin 31.2 pg (27.0-33.0); Mean Corpuscular Volume 92.3 fL (80.0-98.0); Mean Platelet Volume 10.9 fL (9.4-12.4); Monocytes Absolute Auto 0.5 X10*3/uL (0.1-1.2); Monocytes Percent Auto 9.6 % (2-11); Neutrophils Absolute Auto 2.8 x10*3/uL (2.0-8.3); Neutrophils Percent Auto 53.4 % (45-73); Platelet Count 148 X10*3/uL (160-400); Red Blood Count 3.65 X10*6/uL (4.60-5.80); White Blood Count 5.3 X10*3/uL (4.8-10.8)
[2024-04-26 00:29] LABS: Alanine Aminotransferase 15 U/L (0-40); Albumin Level 3.7 g/dL (3.5-5.0); Alkaline Phosphatase 48 U/L (39-117); Anion Gap 8 (12-20); Aspartate Amino Transferase 27 U/L (5-37); Bilirubin Direct 0.1 mg/dL (0.0-0.5); Bilirubin Total 0.3 mg/dL (0.0-1.0); Blood Urea Nitrogen 18 mg/dL (9-16); Calcium 8.6 mg/dL (8.4-10.2); Carbon Dioxide 29 mmol/L (22-29); Chloride 109 mmol/L (96-108); Creatinine Clr Calc Pharmacy 46.3; Estimated Glomerular Filt Rate > 60; Ethanol < 10 mg/dL; Glucose Random 104 mg/dL (60-115); Magnesium 1.8 mg/dL (1.6-2.6); Potassium 3.7 mmol/L (3.3-5.1); Sodium 142 mmol/L (135-145); Total Protein 6.4 g/dL (6.5-8.0)
[2024-04-26 00:32] LABS: B Type Natriuretic Peptide 67 pg/mL (<100)
[2024-04-26 00:47] LABS: Influenza A PCR NEGATIVE (Negative); Influenza B PCR NEGATIVE (Negative); Resp Syncy Virus RNA Qual PCR NEGATIVE (Negative); SARS COV2 PCR INHOUSE NEGATIVE (Negative)
[2024-04-26 03:38] LABS: Appearance Urine Clear; Color Urine Yellow; Glucose Urine UA Negative (Negative); Leukocyte Esterase Urine Negative (Negative); Nitrite Urine Negative (Negative); PH 6.5 (5.0-9.0); Urine Blood Negative (Negative); Urine Ketones Negative (Negative); Urine Protein Negative (Neg-Trace)
--- NOTE | 2024-04-26 03:45 | PC.NURSE ---
pt assisted with use of urinal urine sample obtained and sent to lab pt assisted with bettina care and bed linen change. new linen and pad in place pt boosted up in bed this rn noted wheezing while moving pt in bed pt states uses prn o2 at home. spo2 95% at this time, this rn made dr yu aware awaiting new orders at this time
[2024-04-26 03:47] LABS: Amphetamine Screen Urine Not Detected (Not Detect); Barbiturates, Urine Not Detected (Not Detect); Benzodiazepines Screen Urine Not Detected (Not Detect); Buprenorphine Scr Not Detected (Not Detect); Cannabinoid Screen Urine Not Detected (Not Detect); Cocaine Screen Urine Not Detected (Not Detect); Fentanyl, urine Not Detected (Not Detect); Methadone Screen, Urine Not Detected (Not Detect); Opiate Screen Urine Not Detected (Not Detect); Oxycodone Screen Urine Not Detected (Not Detect); Phencyclidine Screen Urine Not Detected (Not Detect)
[2024-04-26] MEDS: Albuterol/Iprat 2.5/0.5MG 3 ML AMPUL.NEB INHALE (04:27)
--- NOTE | 2024-04-26 05:49 | PC.NURSE ---
pt repositioned on L side utilizing pillow
--- NOTE | 2024-04-26 08:08 | PC.NURSE ---
Nithya called, [id number] to pt and to pts son (HCP). Asks to call her if we cannot reach him [phone]
[2024-04-26] MEDS: cephALEXin 500 MG CAPSULE PO ×3 (09:22→16:13)
--- NOTE | 2024-04-26 09:57 | PC.NURSE ---
Pt confused, attempted to call son and daughter in law for med list, left message. Waiting for return call to be able to complete med rec
--- NOTE | 2024-04-26 10:41 | PC.NURSE ---
Pt ate breakfast with no issue. Swallow pills whole with water.
--- NOTE | 2024-04-26 11:13 | PC.NURSE ---
[id number] said she does not think there has been any changes in meds in the last month, will bring a list when they come tonight.
--- NOTE | 2024-04-26 12:20 | MHC.CM.ED ---
Addendum entered by Chloé Zimmerman 04/26/24 13:25: Received return telephone call from Nityha. Physical therapy recommendations discussed. Marcelo does not feel short term rehab would be beneficial due to dementia. Addendum entered by Chloé Zimmerman 04/26/24 12:28: Physical therapy eval was not discussed with Marcelo or Nithya. Attempted to reach Nithya via telephone at [phone]. Left message requesting return telephone call. Original Note: Received case management consult from Dr Wright. Patient came to the ER due to CP, confusion and foot pain. Patient has a history of dementia. Found to have FB in food. Dr Wright spoke with general surgery who recommended outpatient follow up. Physical therapy eval completed. Short term rehab is recommended. Attempted to speak with patient's son, Marcelo via telephone at [phone]. Marcelo was not available. Nithya answered the phone and was able to explain that patient lives in [place] own [place]. Patient lives on 1 floor. SonEllis and his girlfriend Jody live in an in-law apartment. Jody gives patient his meds twice a day. Patient lives in [place] with Marcelo and Nithya when they are in [place]. Nithya gives patient his meds twice a day at that time. They are planning on leaving for [place] after . Kristopher's home in [facility] is close to patient's home. They're currently residing in [place] while they're having renovations done on their [facility] home. Nithya was not aware patient had a formal diagnosis of dementia. T/W explained patient's [facility] psych discharge summary from June 2022 listed bipolar with depression and dementia as d/c diagnoses. Marcelo was aware of this. Family will be here around 5pm to transport patient home. Continue to monitor for d/c needs.
== END 2024-04-26 17:22 | disposition home or self-care (01) ==
PROVIDERS: Emergency Provider Emergency Medicine; PCP Internal Medicine
DX: M79.5 Residual foreign body in soft tissue (principal); F03.90 Unspecified dementia, unspecified severity, without behavioral disturbance, psychotic disturbance, mood disturbance, and anxiety; R53.1 Weakness; I10 Essential (primary) hypertension; J44.9 Chronic obstructive pulmonary disease, unspecified; F31.9 Bipolar disorder, unspecified; M79.671 Pain in right foot; Z79.899 Other long term (current) drug therapy
CPT/HCPCS: 0241U; 36415; 71046; 73630; 80048; 80076; 80307; 81003; 83735; 83880; 84484; 85025; 86140; 93005; 94640; 97162; 99285

== ENCOUNTER → 2024-04-25 23:47 | Outpatient (BNV) | payer OTHER, SELFPAY | PROVIDERS: Emergency Provider Emergency Medicine; PCP Internal Medicine; Visit Provider Internal Medicine Cardiovascular Disease | DX: R94.31 Abnormal electrocardiogram [ECG] [EKG] (principal) | CPT/HCPCS: 93010 ==